=== PATIENT | female | born 1935 | race Caucasian/White ===

== ENCOUNTER 2017-01-28 08:43 | Outpatient (CLI) ==
[2016-06-27 09:34] VITALS: BMI 34.3
--- NOTE | 2017-01-29 07:55 | MAMMO ---
EXAM: Digital screening mammogram HISTORY: Screening COMPARISON: 01/25/2015 FINDINGS: Digital MLO and CC views of the right and left breast were performed. There are scatter ed fibroglandular densities. There is no evidence for mass, asymmetry, distortion, or suspicious ca lcifications in either breast. IMPRESSION: 1. No evidence of malignancy in the right or left breast. 2. Annual screening mammogram is recommended in one year. BIRADS category 1, negative examination
== END 2017-01-28 08:44 | disposition home or self-care (01) ==
LOC: RAD 08:43
PROVIDERS: ATTEND Emergency Medicine
DX: Z12.31 Encounter for screening mammogram for malignant neoplasm of breast (principal)

== ENCOUNTER 2017-02-14 10:44 | Outpatient (CLI) ==
[2016-06-27 09:34] VITALS: BMI 34.3
== END 2017-02-14 10:45 | disposition home or self-care (01) ==
LOC: LAB 10:44
PROVIDERS: ATTEND Emergency Medicine
DX: R30.0 Dysuria (principal); R39.89 Other symptoms and signs involving the genitourinary system
CPT/HCPCS: 87086

== ENCOUNTER 2017-03-13 09:53 | Inpatient (IN) ==
[2017-03-13 10:25] LABS: BASOPHILS # (AUTO) 0.1 K/uL (0-0.2); BASOPHILS % (AUTO) 0.7 % (0.0-3.0); EOSINOPHILS # (AUTO) 0.7 K/ul (0.0-0.7); HEMATOCRIT 37.7 % (37.0-47.0); HEMOGLOBIN 12.8 g/dl (12.0-16.0); IMMATURE GRANULOCYTE % (AUTO) 0.3 % (0.0-5.0); LYMPHOCYTES # (AUTO) 2.4 K/uL (0.60-3.4); LYMPHOCYTES % (AUTO) 28.2 (10.0-50.0); MEAN CORPUSCULAR HEMOGLOBIN 30.5 pg (27.0-31.0); MONOCYTES # (AUTO) 0.5 K/uL (0.4-2.0); MONOCYTES % (AUTO) 5.9 (0-10); NEUTROPHILS # (AUTO) 4.9 K/ul (2.0-6.9); NEUTROPHILS % (AUTO) 56.9; PLATELET COUNT 301 10^3/uL (140-440); RED BLOOD COUNT 4.19 10^6/ul (4.20-5.40); WHITE BLOOD COUNT 8.66 K/ul (4.6-10.2)
[2017-03-13 10:30] LABS: ABG BASE EXCESS -5 (-2.0-2.0); ABG HCO3 19.4 (22.0-26.0); ABG PCO2 31.5 mmHg (35-45); ABG PH 7.397 (7.35-7.45); ABG TCO2 20 (22.0-28.0)
[2017-03-13 11:02] LABS: ALBUMIN 3.9 g/dL (3.4-5.0); ALBUMIN/GLOBULIN RATIO 1.08; ANION GAP 15.2; BILIRUBIN,TOTAL 0.36 mg/dL (0.00-1.20); BUN/CREATININE RATIO 14.28; CALCIUM 9.5 mg/dL (8.2-10.2); CREATININE 1.12 mg/dL (0.60-1.30); POTASSIUM 4.2 mmol/L (3.5-5.10); TOTAL PROTEIN 7.5 g/dL (5.8-8.1); TROPONIN I 0.011 ng/ml (0.0000-0.4000)
--- NOTE | 2017-03-13 11:27 | CT ---
EXAM: CT of the lumbar spine without contrast History: Lower back pain. Comparison: CT lumbar spine 04/18/2015 Technique: Multiplanar CT images through the lumbar spine were obtained without the administration of IV contrast Findings: Partial sacralization of L5 on the left. Levoscoliosis. No acute fracture. Minimal ante rolisthesis of L4 on L5. Severe multilevel degenerative disc space narrowing with endplate sclerosi s, osteophyte formation and vacuum disc phenomenon. T12-L1: No significant bony central canal stenosis. Moderate left and mild right bony neural forami nal narrowing secondary to ligamentous and facet hypertrophy. L1-L2: Posterior disc osteophyte complex with mild bony central canal stenosis. Moderate to severe left and severe right bony neural foraminal narrowing secondary to ligamentous and facet hypertroph y. L2-L3: Small posterior disc osteophyte complex with mild bony central canal stenosis. Severe right and mild left bony neural foraminal narrowing secondary to ligamentous and facet hypertrophy. L3-L4: Small posterior disc osteophyte complex with mild bony central canal stenosis. Moderate lef t and severe right bony neural foraminal narrowing secondary to ligamentous and facet hypertrophy. L4-L5: Posterior disc osteophyte complex with moderate bony central canal stenosis. Moderate to se luis right and severe left bony neural foraminal narrowing secondary to ligamentous and facet hypert rophy. L5, S1: Mild bony central canal stenosis. Mild to moderate bilateral bony neural foraminal narrowi ng secondary to ligamentous and facet hypertrophy. Impression: 1. No acute fracture of the lumbar spine. 2. Severe degenerative disc disease. 3. Level by level analysis as detailed above.
--- NOTE | 2017-03-13 11:31 | CT ---
EXAM: Noncontrast CT of the abdomen and pelvis HISTORY: Flank pain COMPARISON: 06/27/2016 TECHNIQUE: Noncontrast CT of the abdomen and pelvis FINDINGS: Noncontrast technique limits evaluation of the abdominal viscera. There is mild right hemidiaphragm elevation. The unenhanced liver, spleen, and adrenals are unremarkable. The pancreas is mildly atr ophic. The gallbladder has been removed. The left kidney is slightly atrophic. There is mild fulln ess of the right renal collecting system. No renal, ureteral or bladder calculi are identified. No abnormal small bowel dilation is seen. There is minimal diverticulosis without evidence of diver ticulitis. The majority the colon is underdistended. The appendix is not identified. There is calcified atherosclerotic plaque of the aorta and iliac arteries. No free air or free flui d is seen. The uterus has been removed. There is reidentification of a pessary which is vertically oriented, similar to the prior exam. There is a small fat-containing umbilical hernia. There is sc oliosis and multilevel degenerative disc disease. Please see lumbar spine CT report for lumbar find ings. There are degenerative changes of the hips. IMPRESSION: No evidence of urolithiasis. Mild fullness of the right renal collecting system without regina hydronephrosis. Status post cholecystectomy and hysterectomy. Minimal diverticulosis without evidence of diverticulitis. Atherosclerosis. Other chronic and incidental findings as described above.
--- NOTE | 2017-03-13 11:33 | CT ---
EXAM: CT chest without contrast HISTORY: Dyspnea COMPARISON: Chest x-ray 04/18/2015 and multiple priors TECHNIQUE: Serial axial images of the chest were obtained from the lung apices to the upper abdomen without contrast. These were viewed in multiple planes. FINDINGS: The thyroid is normal. The visualized vessels demonstrate mild atherosclerotic disease w ithout aneurysm or stenosis. The heart is normal in size without pericardial effusion. There are n o pathologically enlarged mediastinal or hilar lymph nodes. There is no pneumothorax or pleural effusion. There is no consolidation, nodule or mass. There is no abnormal ground-glass. The airways are patent. There is scattered degenerative disease throughout the thoracic spine with scattered facet arthropat hy. There has been a prior cholecystectomy. There is a small hiatal hernia. The thoracic spine is b anna evaluated on same day CT. IMPRESSION: 1. No acute cardiopulmonary process. 2. Mild scattered degenerative disease of the spine and atherosclerotic disease. 3. Prior cholecystectomy and small hiatal hernia.
--- NOTE | 2017-03-13 11:38 | CT ---
EXAM: CT thoracic spine without contrast HISTORY: Back pain COMPARISON: None TECHNIQUE: CT thoracic spine performed without intravenous contrast. Coronal and sagittal reformat deysi images obtained. FINDINGS: Vertebral bodies normal height. No fracture. No subluxation. Multilevel moderate chron ic discogenic degenerative disease with multilevel intervertebral disc space narrowing and marginal osteophyte formation. Multilevel posterior disc osteophyte complexes causing mild multilevel centra l canal and neural foraminal narrowing. No paravertebral soft tissue abnormality. Please refer to separate report CT chest regarding findings in the chest. IMPRESSION: 1. No fracture or subluxation. 2. Chronic discogenic degenerative disease.
[2017-03-13 11:49] LABS: ADD URINE MICROSCOPIC YES; BILIRUBIN,URINE Negative (NEGATIVE); KETONES,URINE Negative (NEGATIVE); LEUKOCYTE ESTERASE ,URINE 2+ (NEGATIVE); NITRITE,URINE Negative (NEGATIVE); PROTEIN,URINE Negative (NEGATIVE); URINE, BLOOD Negative (NEGATIVE)
[2017-03-13 11:52] LABS: BACTERIA,URINE TRACE (NOT PRESENT)
[2017-03-13] MEDS ORDERED: NORCO 7.5-325 PO STA (12:00)
--- NOTE | 2017-03-13 12:00 | ED.PDOC ---
General ED Provider: Dr. ROBSON WONG-ER Chief Complaint: Back Pain Stated Complaint: my chest hurt this am and i got sweaty--i have angina Time Seen by Physician: 10:00 Mode of Arrival: Wheelchair Information Source: Patient, Family Exam Limitations: No limitations Primary Care Provider: DESTINEY STEVEN Nursing and Triage Documentation Reviewed and Agree: Yes Cardiovascular Complaint Exam - Chest Pain Complaint/Exam Onset: Gradual Duration: thsi am Symptoms Are: Resolved Initial Severity: Mild Current Severity: Moderate Location: Reports: Diffuse Character: Reports: Dull, Aching, Heaviness, Pressure Aggravating: Reports: None Alleviating: Reports: Spontaneous resolution Associated Signs and Symptoms: Reports: Diaphoresis, Back pain. Denies: Nausea , Vomiting, Fever, Palpitations, Cough, Hemoptysis, Abdominal pain, Dizziness, Short of air, Calf pain, Calf swelling AMI/ACS Risk Factors: Reports: Sedentary, Diabetes, Obesity, Hypertension TAD Risk Factors: Reports: Hypertension Pulmonary Embolism Risk Factors: Reports: None Prior Care for this Complaint: Yes Recent Stress Test: No Recent Echo/LV Function: No JVD Present: No Subcutaneous Emphysema Present: No Diminshed Breath Sounds: No Reproducible Chest Wall Pain: No Bilateral Pulses Present: Yes Unequal Pulses Noted: No If Risk Factors for AMI/ACS Consider: EKG, Cardiac Enzymes Differential Diagnoses: Acute NC, ACS Quality Indicators For Acute NC or Cardiac Chest Pain: EKG in 10min. Quality Indicator For Non-Traumatic Chest Pain/Syncope: EKG Performed Review of Systems - Review Of Systems Constitutional: Reports: No symptoms Eyes: Reports: No symptoms Ears, Nose, Mouth, Throat: Reports: No symptoms Respiratory: Reports: No symptoms Cardiac: Reports: Chest pain GI: Reports: No symptoms : Reports: No symptoms Musculoskeletal: Reports: No symptoms Skin: Reports: No symptoms Neurological: Reports: No symptoms Endocrine: Reports: No symptoms Hematologic/Lymphatic: Reports: No symptoms All Other Systems: Reviewed and Negative Past Medical History - Past Medical History Previously Healthy: No Endocrine: Reports: Dyslipidemia Cardiovascular: Reports: Hypertension Respiratory: Reports: None Hematological: Reports: None Gastrointestinal: Reports: GERD Genitourinary: Reports: None Neuro/Psych: Reports: None Musculoskeletal: Reports: None Cancer: Reports: None Last Menstrual Period: NONE - Surgical History General Surgical History: Reports: None - Family History Family History: Reports: None - Social History Smoking Status: Never smoker Hx Substance Use: No Alcohol Screening: None Physical Exam - Physical Exam Appearance: Well-appearing, No pain distress, Well-nourished Pain Distress: Mild Eyes: MOISÉS ENT: Ears normal, Nose normal, Oropharynx normal Neck: Supple Respiratory: Airway patent Cardiovascular: RRR, Pulses normal, No rub, No murmur GI/: Soft, Nontender, No masses, Bowel sounds normal, No Organomegaly Musculoskeletal: Normal strength, ROM intact, No edema, No calf tenderness Skin: Warm, Dry, Normal color Neurological: Sensation intact, Motor intact, Reflexes intact, Cranial nerves intact, Alert, Oriented Psychiatric: Affect appropriate, Mood appropriate Interpretation - Radiology Interpretation Radiology Interpretation By: Radiologist Radiology Results: Positive Exam Interpreted: CT Scan - EKG Interpretation Time of EKG #1: 12:07 Rate: Normal Rhythm: Sinus Ectopy: None [place]: NL ST Segment: Normal Re-Evaluation - Re-Evaluation Time of Re-Evaluation: 12:07 Status: Improved Vital Signs Stable: Yes Pain Level: 1 Appearance: NAD Lungs: Clear Skin: Warm and Dry Neuro: Alert and Oriented X3 CV: RRR Physician Notification - Case Discussed Physician Notified: dr steven Time of Notification: 12:07 Critical Care Note - Critical Care Note Total Time (mins): 0 Course - Course Hematology/Chemistry: 03/13/17 10:10 03/13/17 10:10 Orders, Labs, Meds: Lab Review 03/13/17 03/13/17 03/13/17 10:10 10:13 11:15 WBC 8.66 RBC 4.19 L Hgb 12.8 Hct 37.7 MCV 90.0 MCH 30.5 MCHC 34.0 RDW Coeff of Gloria 12.6 Plt Count 301 Immature Gran % (Auto) 0.3 Neut % (Auto) 56.9 Lymph % (Auto) 28.2 [place] % (Auto) 5.9 Eos % (Auto) 8.0 H Baso % (Auto) 0.7 Immature Gran # (Auto) 0.0 Neut # 4.9 Lymph # 2.4 [place] # 0.5 Eos # 0.7 Baso # 0.1 D-Dimer (Manual) 944.20 Puncture Site Rr O2 Saturation 96.0 ABG pH 7.397 ABG pCO2 31.5 L ABG pO2 85.0 ABG HCO3 19.4 L ABG Total CO2 20 L ABG Base Excess -5 L Damion Test + FiO2 % 21.0 Sodium 139 Potassium 4.2 Chloride 106 Carbon Dioxide 22 L Anion Gap 15.2 BUN 16 Creatinine 1.12 Estimated GFR (MDRD) 46.00 BUN/Creatinine Ratio 14.28 Glucose 125 H Calcium 9.5 Total Bilirubin 0.36 AST 14 L ALT 12 Alkaline Phosphatase 73 Total Creatine Kinase 73 Troponin I 0.0110 B-Natriuretic Peptide 116 H Total Protein 7.5 Albumin 3.9 Globulin 3.6 Albumin/Globulin Ratio 1.08 Urine Color Yellow Urine Clarity Clear Urine pH 6.0 Ur Specific [place] 1.010 Urine Protein Negative Urine Glucose (UA) Negative Urine Ketones Negative Urine Blood Negative Urine Nitrite Negative Urine Bilirubin Negative Urine Urobilinogen 0.2 Ur Leukocyte Esterase 2+ Urine Microscopic RBC 2-5 Urine Microscopic WBC 5-10 Ur Squamous Epith Cells 0-2 Urine Bacteria Trace Orders Category Date Time Status ABG DRAW REQUEST Stat CARDIO 03/13/17 10:13 Completed EKG-(ED ONLY) Stat CARDIO 03/13/17 10:13 Completed Foxing Cutting Machine Operator [ED STRIPPER BLACK AND WHITE APPLIED] .ONCE EMERGENCY 03/13/17 10:15 Active OXYGEN [ED APPLY O2] .ONCE EMERGENCY 03/13/17 12:08 Active ABG Stat LAB 03/13/17 10:13 Completed B-TYPE NATRIURETIC PEPTIDE Stat LAB 03/13/17 10:10 Completed CBC W/ AUTO DIFF Stat LAB 03/13/17 10:10 Completed COMPREHENSIVE METABOLIC PANEL Stat LAB 03/13/17 10:10 Completed CREATINE KINASE Stat LAB 03/13/17 10:10 Completed D-DIMER Stat LAB 03/13/17 10:10 Completed TROPONIN I Stat LAB 03/13/17 10:10 Completed URINALYSIS C & S IF INDICATED Stat LAB 03/13/17 11:15 Completed URINE CULTURE Stat LAB 03/13/17 11:52 Received Hydrocodone Bit/Acetaminophen [[place] 7.5-325] MEDS 03/13/17 12:00 Discontinued 1 tab PO ONCE STA Levofloxacin [Levaquin] MEDS 03/13/17 12:30 Active [address] ABDOMEN/PELVIS WO CONTRAST Stat RADS 03/13/17 10:[address] CHEST W/O CONTRAST Stat RADS 03/13/17 10:[address] LUMBAR SPINE W/O CONTRAST Stat RADS 03/13/17 10:[address] THORACIC SPINE W/O CONTRAST Stat RADS 03/13/17 10:16 Completed Medications Generic Name Dose Route Start Last Admin Trade Name Freq PRN Reason Stop Dose Admin Levofloxacin 250 mg 03/13/17 12:30 Levaquin PO QDAC JEAN-PIERRE Discontinued Medications Generic Name Dose Route Start Last Admin Trade Name Freq PRN Reason Stop Dose Admin Acetaminophen/Hydrocodone Bitart 1 tab 03/13/17 12:00 [place] 7.5-325 PO 03/13/17 12:01 ONCE STA Vital Signs: Temp Pulse Resp BP Pulse Ox 03/13/17 09:54 98.0 F 61 18 162/74 H 96 BRIANA Risk Score BRIANA Risk Score: Risk Score Odds of by 30D 0 0.1 (0.1-0.2) 1 0.3 (0.2-0.3) 2 0.4 (0.3-0.5) 3 0.7 (0.6-0.9) 4 1.2 (1.0-1.5) 5 2.2 (1.9-2.6) 6 3.0 (2.5-3.6) 7 4.8 (3.8-6.1) Departure - Departure Time of Disposition: 12:07 Disposition: ADMITTED INPATIENT Discharge Problem: Angina pectoris Condition: Stable Pt referred to PMD for follow-up: Yes Allergies/Adverse Reactions: Allergies Penicillins Allergy (Severe, Verified 03/13/17 10:12) Anaphylaxis Cephalosporins Adverse Reaction (Severe, Verified 03/13/17 10:12) Anaphylaxis nitrofurantoin macrocrystal [From Macrodantin] Adverse Reaction (Severe, Verified 03/13/17 10:12) Anaphylaxis phenobarbital Adverse Reaction (Severe, Verified 03/13/17 10:12) Hives Sulfa (Sulfonamide Antibiotics) Adverse Reaction (Severe, Verified 03/13/17 10: 12) Anaphylaxis atropine sulfate [From ] Adverse Reaction (Verified 03/13/17 10:12) furosemide [From Lasix] Adverse Reaction (Verified 03/13/17 10:12) Rash hyoscyamine sulfate [From ] Adverse Reaction (Verified 03/13/17 10:12) lansoprazole [From Prevacid] Adverse Reaction (Verified 03/13/17 10:12) scopolamine hydrobromide [From ] Adverse Reaction (Verified 03/13/17 10: 12) Home Medications: Ambulatory Orders Azelastine HCl [Astelin 0.1%] 2 spray NS BID 05/28/13 Bisoprolol Fumarate [Zebeta] 10 mg PO DAILY 05/28/13 Lorazepam [Ativan] 1 mg PO BID 05/28/13 Metformin HCl [Glucophage] 500 mg PO BIDBRS 05/28/13 Pravastatin Sodium [Pravachol] 80 mg PO BEDTIME 05/28/13 Acetaminophen [Tylenol] 1,000 mg PO Q12H PRN 11/19/13 Aspirin [Aspirin EC] 81 mg PO DAILYWM 11/19/13 Cetirizine HCl 10 mg PO DAILY 11/19/13 Hydrocodone/Acetaminophen [Hydrocodon-Acetaminophen 5-500] 1 tab PO DAILY PRN Methylcellulose [Citrucel] 1 tab PO BID PRN 11/19/13 Olmesartan/Hydrochlorothiazide [Benicar Hct 40-12.5 mg Tablet] 1 tab PO DAILY Omeprazole [Prilosec] 40 mg PO DAILY 11/19/13 Potassium Citrate [Potassium Citrate ER] 10 meq PO BID 11/19/13 Carbamazepine 200 mg PO DAILY PRN 04/18/15 Disposition Discussed With: Patient, Family
[2017-03-13] MEDS ORDERED: METHYLCELLULOSE PO PRN (12:14)
[2017-03-13] MEDS ORDERED: ACETAMINOPHEN PO PRN (12:14)
[2017-03-13] MEDS ORDERED: HYDROCODONE PO PRN (12:14)
[2017-03-13] MEDS ORDERED: [UNRECOGNIZED DRUG - OTHER] PO PRN (12:14)
[2017-03-13] MEDS ORDERED: MORPHINE 2 MG/ML SYRINGE IVP PRN (12:17)
[2017-03-13] MEDS ORDERED: NITROSTAT SL PRN (12:17)
[2017-03-13] MEDS ORDERED: ZOFRAN 4 MG/2 ML IVP PRN (12:17)
[2017-03-13] MEDS: LEVAQUIN PO SCH (12:20)
[2017-03-13] MEDS ORDERED: NORCO 5-325 PO PRN (12:48)
[2017-03-13 13:20] VITALS: BMI 33.6
[2017-03-13] MEDS: GLUCOPHAGE PO SCH ×2 (14:45→17:33)
[2017-03-13] MEDS: NORCO 5-325 PO PRN (15:57)
[2017-03-13] MEDS ORDERED: TORADOL IVP PRN (16:03)
[2017-03-13] MEDS ORDERED: DECADRON 4 MG/ML SDV IVP STA (16:04)
[2017-03-13] MEDS: TORADOL IVP SCH (16:26)
[2017-03-13 18:45] LABS: TROPONIN I 0.014 ng/ml (0.0000-0.4000)
[2017-03-13] MEDS ORDERED: POTASSIUM CITRATE 10 MEQ PO SCH (21:00)
[2017-03-13] MEDS ORDERED: NON-FORMULARY MEDICATION (Pravastatin Sodium [Pravachol] 80 MG) PO SCH ×22 (21:00)
[2017-03-13] MEDS: ASTELIN 0.1% NAS SCH (21:04)
[2017-03-13] MEDS: PRAVACHOL PO SCH (21:05)
[2017-03-13] MEDS: ATIVAN PO SCH (21:05)
[2017-03-14] MEDS: TYLENOL PO PRN (02:20)
[2017-03-14 02:55] LABS: BASOPHILS % (AUTO) 0.4 % (0.0-3.0); EOSINOPHILS % (AUTO) 0.1 % (0.0-7.0); HEMATOCRIT 36.2 % (37.0-47.0); HEMOGLOBIN 12.3 g/dl (12.0-16.0); IMMATURE GRANULOCYTE % (AUTO) 0.4 % (0.0-5.0); LYMPHOCYTES # (AUTO) 1.5 K/uL (0.60-3.4); LYMPHOCYTES % (AUTO) 20.3 (10.0-50.0); MEAN CORPUSCULAR HEMOGLOBIN 30.4 pg (27.0-31.0); MEAN CORPUSCULAR VOLUME 89.6 fl (81.0-99.0); MONOCYTES # (AUTO) 0.1 K/uL (0.4-2.0); MONOCYTES % (AUTO) 1.4 (0-10); NEUTROPHILS # (AUTO) 5.7 K/ul (2.0-6.9); NEUTROPHILS % (AUTO) 77.4; PLATELET COUNT 290 10^3/uL (140-440); RED BLOOD COUNT 4.04 10^6/ul (4.20-5.40); WHITE BLOOD COUNT 7.34 K/ul (4.6-10.2)
[2017-03-14 03:09] LABS: ALBUMIN 3.6 g/dL (3.4-5.0); ALBUMIN/GLOBULIN RATIO 1.06; ANION GAP 16.5; BILIRUBIN,TOTAL 0.35 mg/dL (0.00-1.20); BUN/CREATININE RATIO 13.81; CALCIUM 9.2 mg/dL (8.2-10.2); CREATININE 1.52 mg/dL (0.60-1.30); POTASSIUM 4.5 mmol/L (3.5-5.10)
[2017-03-14 03:15] LABS: TROPONIN I 0.021 ng/ml (0.0000-0.4000)
[2017-03-14] MEDS: TORADOL IVP SCH ×2 (04:53→16:09)
[2017-03-14] MEDS: PRILOSEC PO SCH (05:42)
[2017-03-14] MEDS: LEVAQUIN PO SCH (05:44)
[2017-03-14] MEDS: HYDROCHLOROTHIAZIDE PO SCH (08:37)
[2017-03-14] MEDS: ZYRTEC PO SCH (08:37)
[2017-03-14] MEDS: ASTELIN 0.1% NAS SCH ×2 (08:37→20:50)
[2017-03-14] MEDS: BENICAR PO SCH (08:37)
[2017-03-14] MEDS: LOVENOX SUBCUT SCH (08:37)
[2017-03-14] MEDS: GLUCOPHAGE PO SCH ×2 (08:38→16:30)
[2017-03-14] MEDS: ZEBETA PO SCH (08:38)
[2017-03-14] MEDS: ATIVAN PO SCH ×2 (08:42→20:51)
[2017-03-14] MEDS: ASPIRIN EC PO SCH (08:42)
[2017-03-14] MEDS ORDERED: OLMESARTAN PO SCH ×22 (09:00)
[2017-03-14] MEDS ORDERED: HYDROCHLOROTHIAZIDE PO SCH ×22 (09:00)
[2017-03-14] MEDS ORDERED: NON-FORMULARY MEDICATION (Omeprazole [Prilosec] 40 MG) PO SCH (09:00)
[2017-03-14] MEDS ORDERED: [UNRECOGNIZED DRUG - OTHER] PO SCH ×22 (09:00)
--- NOTE | 2017-03-14 09:53 | PCM.PROG ---
Attending Provider: ATTENDING PROVIDER: Dr. DESTINEY COPPOLA DATE OF SERVICE: 03/14/17 SUBJECTIVE: This 81 year old WHITE/ F was hospitalized 03/13/17. The patient is hospitalized with chest pain localized pectoris muscle going to the back on the left side, more so when she changes her position. The pain seems to be musculoskeletal in type. The patient has no pain this morning. REVIEW OF SYSTEMS: CONSTITUTIONAL: No night sweats. No fatigue, malaise, lethargy. No fever or chills. HEENT: Eyes: No visual changes. No eye pain. No eye discharge. ENT: No runny nose. No epistaxis. No sinus pain. No odynophagia. No congestion. RESPIRATORY: No cough, no congestion. No hemoptysis. CARDIOVASCULAR: No angina symptoms. No CHF symptoms. No atypical chest pain for CAD. No palpitations. No shortness of breath. GASTROINTESTINAL: No abdominal pain. No nausea or vomiting. No diarrhea or constipation. No hematemesis. No hematochezia. GENITOURINARY: No urgency. No frequency. No dysuria. No hematuria. No obstructive symptoms. No discharge. No pain. No significant abnormal bleeding. MUSCULOSKELETAL: No musculoskeletal pain; no joint swelling. NEUROLOGICAL: Awake, alert, oriented to time, place and person. No headache. No neck pain. No syncope. No seizures. No dizziness. PSYCHIATRIC: Not anxious. No depression. No suicidal thoughts. No homicidal thoughts. SKIN: No rash. No lesions. No wounds. ENDOCRINE: No unexplained weight loss. No weight gain. HEMATOLOGIC/LYMPHATIC: No anemia. No purpura. No petechiae. No prolonged or excessive bleeding. No palpable lymph nodes. PHYSICAL EXAMINATION: GENERAL: The patient is awake, alert and oriented, sitting on side of bed in no distress. VITAL SIGNS: Temperature 97 F, Pulse 55, Respiratory Rate 16, BP 118/54, Pulse Ox 96% HEENT: Head normocephalic, atraumatic. Eyes: Extraocular muscles are intact. Pupils are equal, round and reactive to light and accommodation. Ears: No lesions. Nose appeared normal. Throat: No exudate or erythema. NECK: Supple. No JVD, no carotid bruit. No lymphadenopathy or thyromegaly. LUNGS: Clear to auscultation. Percussion note normal. Chest symmetrical. HEART: S1, S2, no S3. No murmurs. No cyanosis or clubbing. No ascites. Pulses: Dorsalis pedis and posterior tibial pulses +1 to +2 both sides. ABDOMEN: Soft. Non-tender. Bowel sounds active. No CVA tenderness. No mass felt. EXTREMITIES: No edema. Full range of motion of all extremities, equal. NEUROLOGIC: No focal deficit. Cranial nerves II through XII are grossly intact. No headache, no double vision or headache. SKIN: Not dry. Intact. Turgor-normal. LYMPHATIC: No palpable lymph nodes/no lymphedema. MUSCULOSKELETAL: Normal joints with no swelling. Muscle tone is normal. LAB REVIEW: 03/14/17 02:30 03/14/17 02:30 03/14/17 02:30: WBC 7.34, RBC 4.04 L, Hgb 12.3, Hct 36.2 L, MCV 89.6, MCH 30.4, MCHC 34.0, RDW Coeff of Gloria 12.6, Plt Count 290, Immature Gran % (Auto) 0.4, Neut % (Auto) 77.4, Lymph % (Auto) 20.3, [place] % (Auto) 1.4, Eos % (Auto) 0.1, Baso % (Auto) 0.4, Immature Gran # (Auto) 0.0, Neut # 5.7, Lymph # 1.5, [place] # 0.1 L, Eos # 0.0, Baso # 0.0, Sodium 134 L, Potassium 4.5, Chloride 104, Carbon Dioxide 18 L, Anion Gap 16.5, BUN 21 H, Creatinine 1.52 H, Estimated GFR (MDRD) 33.00, BUN/Creatinine Ratio 13.81, Glucose 199 H D, Calcium 9.2, Total Bilirubin 0.35, AST 14 L, ALT 13, Alkaline Phosphatase 68, Total Creatine Kinase 70, Troponin I 0.0210, Total Protein 7.0, Albumin 3.6, Globulin 3.4, Albumin/Globulin Ratio 1.06 03/13/17 18:15: Total Creatine Kinase 60, Troponin I 0.0140 ASSESSMENT: 1. Chest pain seems to be noncardiac, more musculoskeletal 2. History of CAD 3. LAD lesion 50% 15 years ago 4. Dyslipidemia 5. Hypertension 6. Diabetes PLAN: 1. Echocardiogram to evaluate LV function. 2. Continue cardiac markers. 3. D-dimer positive - will check venous scan and if negative will not pursue to rule out PE. The patient has no symptoms of sinus PE. 4. Carotid scan if not done lately. Plan and coordination of the patient's care discussed in the presence of Concrete Building Assembler and nurse. EDUCATION: Discussed with the patient further plan of care. She voiced understanding and is agreeable. CONDITION: Stable SCRIBED BY: CHARLA OLIVAREZ Optician Apprentice Dispensing scribed while in presence of service performed by Dr. DESTINEY COPPOLA on 03/14/17 ([id number])
[2017-03-14] MEDS: NORCO 5-325 PO PRN (09:56)
--- NOTE | 2017-03-14 11:13 | HP ---
DATE OF SERVICE: 03/13/17 REASON FOR HOSPITALIZATION: Chest pain. HISTORY OF PRESENT ILLNESS: 65-year-old white female has been having chest pain off and on for the past 4 to 5 days. The patient's pain is precordial, localized and when she moves from side to side the pain is more. Also complains of pain in the left flank area going up to the scapular area more so when she stretches. The patient denies any associated symptoms of sweating, shortness of breath, et cetera. REVIEW OF SYSTEMS: CONSTITUTIONAL: Weakness. No night sweats. No fever or chills. HEENT: Eyes: No visual changes. No eye pain. No eye discharge. ENT: No runny nose. No epistaxis. No sinus pain. No sore throat. No odynophagia. No ear pain. No congestion. RESPIRATORY: No cough, no congestion. No hemoptysis. CARDIOVASCULAR: Chest pain. No angina symptoms. No CHF symptoms. No palpitations. No shortness of breath. GASTROINTESTINAL: No abdominal pain. No nausea or vomiting. No diarrhea or constipation. No hematemesis. No hematochezia. GENITOURINARY: No urgency. No frequency. No dysuria. No hematuria. No obstructive symptoms. No discharge. No pain. No significant abnormal bleeding. MUSCULOSKELETAL: Back pain. NEUROLOGICAL: No headache. No neck pain. No syncope. No seizures. No dizziness. PSYCHIATRIC: Not anxious. No depression. No suicidal thoughts. No homicidal thoughts. SKIN: No rash. No lesions. No wounds. ENDOCRINE: No unexplained weight loss. No weight gain. HEMATOLOGIC/LYMPHATIC: No anemia. No purpura. No petechiae. No prolonged or excessive bleeding. No palpable lymph nodes. PERSONAL/FAMILY/SOCIAL HISTORY: The patient is , lives by herself with the help of son. Nonsmoker, no alcohol abuse. She does all activities of daily living. PAST MEDICAL/SURGICAL PROBLEMS: 1. Appendectomy 2. Hysterectomy 3. Left knee replacement 4. Left ankle surgery 5. Surgical lysis of intestinal adhesions 6. Cholecystectomy 7. Hypertension 8. Coronary artery disease 9. Dyslipidemia 10. Diabetes mellitus 11. Anemia 12. 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 Sciatica MEDICATIONS: 1. Clobestasol 0.04 5% cream 2. [place] 5/325 one a day 3. K-Tab 10 mEq p.o. twice a day 4. Prilosec 40 mg p.o. q.a.m. 5. Metformin 500 mg twice a day 6. Zebeta 10 mg p.o. daily 7. Benicar 40 mg p.o. daily 8. Hydrochlorothiazide 40/12.5 p.o. daily 9. Pravastatin 80 mg p.o. daily 10. Lorazepam 1 mg b.i.d. p.r.n. 11. Aspirin coated one a day ALLERGIES: CEPHALOSPORIN, , LASIX, MACRODANTIN, PENICILLIN, SULFA, PHENOBARBITAL PHYSICAL EXAMINATION: GENERAL: The patient is oriented to time, place and person. VITAL SIGNS: Temperature 98, pulse 80/min, respiratory rate 15, BP 124/72, pulse ox 97%. Height 5'3", weight 220 lbs. HEENT: Head normocephalic, atraumatic. Eyes: Extraocular muscles are intact. Pupils are equal, round and reactive to light and accommodation. Ears: No lesions. Nose appeared normal. Throat: No exudate or erythema. NECK: Supple. No JVD, no carotid bruit. No lymphadenopathy or thyromegaly. LUNGS: Clear to auscultation. Percussion note normal. Chest symmetrical. HEART: S1, S2, no S3. No murmurs. No cyanosis or clubbing. No ascites. Pulses: Dorsalis pedis and posterior tibial pulses +1 to +2 both sides. ABDOMEN: Soft. Nontender. Bowel sounds active. No CVA tenderness. No mass felt. EXTREMITIES: No edema. Full range of motion of all extremities, equal. NEUROLOGIC: No focal deficit. Cranial nerves II through XII are grossly intact. No headache, no double vision or headache. SKIN: Not dry. Intact. Turgor - normal. LYMPHATIC: No palpable lymph nodes/no lymphedema. MUSCULOSKELETAL: Normal joints with no swelling. Muscle tone is normal. LABS/X-RAY/ABGs: Cardiac markers CK total, CBC, CMP negative. ABG p02 85, pc02 31, pH 7.39 on room air with 96% saturation. D. dimer 944, normal is up to 500. Hemoglobin 12.8 , hematocrit 37. CT scan of the lumbar spine no acute fracture of lumbar spine. Severe DJD. Noncontrast CT of the abdomen and pelvis mild fullness of right renal collecting system without hydronephrosis. Status post cholecystectomy, hysterectomy, atherosclerosis. CT of the thoracic spine DJD of the spine. CT of the chest mild scattered degenerative disease of the spine. No acute findings. UA shows 2+ leukocyte esterase and trace bacteria. Creatinine 1.1, BUN 16, potassium 4.2, glucose 125, normal liver profile. BNP 116, practically normal. ASSESSMENT: 1. CHEST PAIN SEEMS TO BE MUSCULOSKELETAL 2. HISTORY OF CORONARY ARTERY DISEASE WITH LAD BEING 50% NEARLY 10 TO 15 YEARS AGO 3. HYPERTENSION 4. DYSLIPIDEMIA 5. DIABETES MELLITUS 6. MORBID OBESITY 7. DIVERTICULOSIS 8. UTERINE PROLAPSE 9. SCIATICA 10. CHRONIC KIDNEY DISEASE PLAN: 1. Admission to the hospital with serial EKGs and cardiac markers. 2. Telemetry. 3. Toradol 30 mg IV q.12. 4. 1 cc Decadron now. EDUCATION CARRIED OUT ABOUT: The son is in the room. The patient is strongly advised to lose weight, up and about. Cardiac rehabilitation discussed. CONDITION: STABLE TIME SPENT: More than 70 minutes. MTDD
--- NOTE | 2017-03-14 15:46 | US ---
EXAM: Bilateral lower extremity venous Doppler HISTORY: Concern for DVT with lower extremity pain and diarrhea. COMPARISON: Venous Doppler 04/18/2015 TECHNIQUE: Sonographic and Doppler evaluation of the bilateral lower extremity vessels from the com mon femoral through the anterior tibial veins were obtained. Augmentation and compression technique s were also performed. FINDINGS: There is spontaneous Doppler flow seen in the bilateral lower extremity veins from the co mmon femoral through the anterior tibial veins. There is normal compression and augmentation throug hout the lower extremity veins. There is no visualized reflux. Sonographic appearance of the soft tissues are unremarkable. IMPRESSION: No lower extremity thrombus
--- NOTE | 2017-03-14 15:55 | US ---
Exam: Carotid ultrasound. HISTORY: Dizziness. COMPARISON: None available. FINDINGS: Pascual scale, color Doppler evaluation of the carotid arteries was performed bilaterally. The examination is mildly limited due to patient body habitus. Right: Mild distal CCA, proximal ICA and proximal ECA plaque is seen. Antegrade flow seen in the r ight vertebral artery. The carotid artery velocities are as follows: Right ICA peak systolic velocity 90 cm/sec. Right ICA end diastolic velocity 20 cm/sec. Right CCA peak systolic velocity 50 cm/sec. Right ECA peak systolic velocity 110 cm/sec. Right ICA/CCA ratio 1.9. Left: There is minimal distal CCA, proximal ICA and proximal ECA plaque. Antegrade flow is seen in the left vertebral artery. The carotid velocities are as follows: Left ICA peak systolic velocity 110 cm/sec. Left ICA end diastolic velocity 20 cm/sec. Left CCA peak systolic velocity 130 cm/sec. Left ECA peak systolic velocity 70 cm/sec. Left ICA/CCA ratio 0.9. IMPRESSION: Mild right and minimal left-sided atherosclerotic plaque. Bilateral ICA velocity compatible with less than 50% diameter reduction.
[2017-03-14] MEDS: PRAVACHOL PO SCH (20:50)
[2017-03-15] MEDS: TORADOL IVP SCH ×2 (05:00→05:09)
[2017-03-15] MEDS: PRILOSEC PO SCH (06:33)
[2017-03-15] MEDS: LEVAQUIN PO SCH (06:34)
[2017-03-15 07:14] LABS: BASOPHILS # (AUTO) 0.1 K/uL (0-0.2); BASOPHILS % (AUTO) 0.6 % (0.0-3.0); EOSINOPHILS # (AUTO) 0.3 K/ul (0.0-0.7); EOSINOPHILS % (AUTO) 3.2 % (0.0-7.0); HEMOGLOBIN 10.8 g/dl (12.0-16.0); IMMATURE GRANULOCYTE % (AUTO) 0.5 % (0.0-5.0); LYMPHOCYTES # (AUTO) 3.8 K/uL (0.60-3.4); LYMPHOCYTES % (AUTO) 38.8 (10.0-50.0); MEAN CORPUSCULAR HEMOGLOBIN 30.3 pg (27.0-31.0); MEAN CORPUSCULAR HGB CONC 33.8 (31.8-35.4); MEAN CORPUSCULAR VOLUME 89.9 fl (81.0-99.0); MONOCYTES # (AUTO) 0.7 K/uL (0.4-2.0); MONOCYTES % (AUTO) 6.7 (0-10); NEUTROPHILS # (AUTO) 4.9 K/ul (2.0-6.9); NEUTROPHILS % (AUTO) 50.2; PLATELET COUNT 269 10^3/uL (140-440); RED BLOOD COUNT 3.56 10^6/ul (4.20-5.40)
[2017-03-15 07:34] LABS: ALBUMIN 3.3 g/dL (3.4-5.0); ALBUMIN/GLOBULIN RATIO 1.22; ANION GAP 14.2; BILIRUBIN,TOTAL 0.3 mg/dL (0.00-1.20); BUN/CREATININE RATIO 18.57; CALCIUM 8.6 mg/dL (8.2-10.2); CREATININE 1.83 mg/dL (0.60-1.30); POTASSIUM 4.2 mmol/L (3.5-5.10)
[2017-03-15] MEDS: HYDROCHLOROTHIAZIDE PO SCH (10:42)
[2017-03-15] MEDS: ZEBETA PO SCH (10:43)
[2017-03-15] MEDS: ASPIRIN EC PO SCH (10:43)
[2017-03-15] MEDS: BENICAR PO SCH (10:43)
[2017-03-15] MEDS: ZYRTEC PO SCH (10:43)
[2017-03-15] MEDS: GLUCOPHAGE PO SCH ×2 (10:44→17:19)
[2017-03-15] MEDS: ASTELIN 0.1% NAS SCH ×2 (10:44→20:51)
[2017-03-15] MEDS: ATIVAN PO SCH ×2 (10:44→20:51)
[2017-03-15] MEDS: LOVENOX SUBCUT SCH (10:44)
[2017-03-15] MEDS: TYLENOL PO PRN (13:50)
[2017-03-15] MEDS: NORCO 5-325 PO PRN (20:51)
[2017-03-15] MEDS: PRAVACHOL PO SCH (20:52)
[2017-03-16] MEDS: TORADOL IVP SCH ×2 (04:07→16:47)
[2017-03-16] MEDS: LEVAQUIN PO SCH (05:41)
[2017-03-16] MEDS: PRILOSEC PO SCH (05:41)
[2017-03-16 05:46] LABS: BASOPHILS # (AUTO) 0.1 K/uL (0-0.2); BASOPHILS % (AUTO) 0.7 % (0.0-3.0); EOSINOPHILS # (AUTO) 0.9 K/ul (0.0-0.7); EOSINOPHILS % (AUTO) 8.7 % (0.0-7.0); HEMATOCRIT 31.5 % (37.0-47.0); HEMOGLOBIN 10.7 g/dl (12.0-16.0); IMMATURE GRANULOCYTE % (AUTO) 0.5 % (0.0-5.0); LYMPHOCYTES # (AUTO) 3.8 K/uL (0.60-3.4); LYMPHOCYTES % (AUTO) 38.5 (10.0-50.0); MEAN CORPUSCULAR HEMOGLOBIN 30.5 pg (27.0-31.0); MEAN CORPUSCULAR VOLUME 89.7 fl (81.0-99.0); MONOCYTES # (AUTO) 0.8 K/uL (0.4-2.0); MONOCYTES % (AUTO) 7.8 (0-10); NEUTROPHILS # (AUTO) 4.3 K/ul (2.0-6.9); NEUTROPHILS % (AUTO) 43.8; PLATELET COUNT 268 10^3/uL (140-440); RED BLOOD COUNT 3.51 10^6/ul (4.20-5.40); WHITE BLOOD COUNT 9.83 K/ul (4.6-10.2)
[2017-03-16 06:10] LABS: ALBUMIN 3.1 g/dL (3.4-5.0); ALBUMIN/GLOBULIN RATIO 1.11; ANION GAP 15.3; BILIRUBIN,TOTAL 0.29 mg/dL (0.00-1.20); BUN/CREATININE RATIO 21.13; CALCIUM 8.3 mg/dL (8.2-10.2); CREATININE 1.94 mg/dL (0.60-1.30); POTASSIUM 4.3 mmol/L (3.5-5.10); TOTAL PROTEIN 5.9 g/dL (5.8-8.1)
[2017-03-16] MEDS: ASPIRIN EC PO SCH (08:18)
[2017-03-16] MEDS: GLUCOPHAGE PO SCH ×2 (08:18→16:47)
[2017-03-16] MEDS: ZEBETA PO SCH (08:18)
[2017-03-16] MEDS: BENICAR PO SCH (08:19)
[2017-03-16] MEDS: LOVENOX SUBCUT SCH (08:19)
[2017-03-16] MEDS: HYDROCHLOROTHIAZIDE PO SCH (08:19)
[2017-03-16] MEDS: ASTELIN 0.1% NAS SCH ×2 (08:19→20:55)
[2017-03-16] MEDS: ZYRTEC PO SCH (08:19)
[2017-03-16] MEDS: ATIVAN PO SCH ×2 (08:19→20:55)
[2017-03-16] MEDS: NORCO 5-325 PO PRN (11:26)
[2017-03-16] MEDS: PRAVACHOL PO SCH (20:55)
[2017-03-17] MEDS: TORADOL IVP SCH (04:29)
[2017-03-17 04:56] LABS: BASOPHILS # (AUTO) 0.1 K/uL (0-0.2); BASOPHILS % (AUTO) 0.6 % (0.0-3.0); EOSINOPHILS # (AUTO) 0.9 K/ul (0.0-0.7); EOSINOPHILS % (AUTO) 8.7 % (0.0-7.0); HEMATOCRIT 30.6 % (37.0-47.0); HEMOGLOBIN 10.4 g/dl (12.0-16.0); IMMATURE GRANULOCYTE % (AUTO) 0.5 % (0.0-5.0); LYMPHOCYTES # (AUTO) 3.5 K/uL (0.60-3.4); MEAN CORPUSCULAR HEMOGLOBIN 30.6 pg (27.0-31.0); MONOCYTES # (AUTO) 0.9 K/uL (0.4-2.0); MONOCYTES % (AUTO) 8.8 (0-10); NEUTROPHILS # (AUTO) 4.4 K/ul (2.0-6.9); NEUTROPHILS % (AUTO) 45.4; PLATELET COUNT 253 10^3/uL (140-440); WHITE BLOOD COUNT 9.73 K/ul (4.6-10.2)
[2017-03-17 05:23] LABS: ALBUMIN 2.9 g/dL (3.4-5.0); ALBUMIN/GLOBULIN RATIO 1.07; ANION GAP 14.5; BILIRUBIN,TOTAL 0.29 mg/dL (0.00-1.20); BUN/CREATININE RATIO 22.22; CREATININE 1.71 mg/dL (0.60-1.30); POTASSIUM 4.5 mmol/L (3.5-5.10); TOTAL PROTEIN 5.6 g/dL (5.8-8.1)
[2017-03-17] MEDS: LEVAQUIN PO SCH (05:30)
[2017-03-17] MEDS: PRILOSEC PO SCH (05:31)
[2017-03-17] MEDS: ASTELIN 0.1% NAS SCH (09:23)
[2017-03-17] MEDS: LOVENOX SUBCUT SCH (09:23)
[2017-03-17] MEDS: BENICAR PO SCH (09:24)
[2017-03-17] MEDS: HYDROCHLOROTHIAZIDE PO SCH (09:24)
[2017-03-17] MEDS: GLUCOPHAGE PO SCH (09:24)
[2017-03-17] MEDS: ASPIRIN EC PO SCH (09:24)
[2017-03-17] MEDS: ZEBETA PO SCH (09:24)
[2017-03-17] MEDS: ATIVAN PO SCH (09:25)
[2017-03-17] MEDS: ZYRTEC PO SCH (09:25)
--- NOTE | 2017-03-17 09:57 | CM.DICTOOL ---
ADMISSION: 03/13/17 12:11 DISCHARGE: 03/17/17 DATE OF SERVICE: 03/17/17 FINAL DIAGNOSIS CHEST PAIN, NONCARDIAC --MORE MUSCULOSKELETAL CHRONIC BACK PAIN CAD; LAD LESION 50%, 15 YEARS AGO HYPERTENSION DYSLIPIDEMIA ANEMIA DM, TYPE 2 GERD ANXIETY HYSTERECTOMY CHOLECYSTECTOMY TOTAL RIGHT AND LEFT KNEE ARTHROPLASTY APPENDECTOMY BILATERAL CATARACT EXTRACTIONS LEFT ANKLE SURGERY, 25 YEARS AGO PESSARY INSERTION LAST VITALS Temp Pulse Resp BP Pulse Ox 97.0 F L 58 L 16 135/71 99 03/17/17 05:52 03/17/17 05:52 03/17/17 05:52 03/17/17 05:52 03/17/17 05:52 ACTIVE MEDICATIONS Acetaminophen (Tylenol) 650 mg PO Q4H PRN PRN Reason: Mild Pain Last Admin: 03/15/17 13:50 Dose: 650 mg Acetaminophen/Hydrocodone Bitart ([place] 5-325) 1 tab PO DAILY PRN PRN Reason: MODERATE PAIN Last Admin: 03/16/17 11:26 Dose: 1 tab Aspirin (Aspirin Ec) 81 mg PO DAILYWM [facility] Last Admin: 03/16/17 08:18 Dose: 81 mg Azelastine HCl (Astelin 0.1%) 2 spray LAURIE BID [facility] Last Admin: 03/16/17 20:55 Dose: 2 spray Bisoprolol Fumarate (Zebeta) 10 mg PO DAILY [facility] Last Admin: 03/16/17 08:18 Dose: 10 mg Carbamazepine 200 MG po dailt prn Cetirizine HCl (Zyrtec) 10 mg PO DAILY [facility] Last Admin: 03/16/17 08:19 Dose: 10 mg Lorazepam (Ativan) 1 mg PO BID [facility] Last Admin: 03/16/17 20:55 Dose: 1 mg Metformin HCl (Glucophage) 500 mg PO BIDBRS [facility] Last Admin: 03/16/17 16:47 Dose: 500 mg Methylcellulose (Citrucel) 1 tab PO BID PRN Olmesartan (Benicar)/Hydrochlorothiazide (Hydrochlorothiazide) 40/12.5 MG PO DAILY [facility] Last Admin: 03/16/17 08:19 Dose: 40 mg Omeprazole (Prilosec) 40 mg PO QDAC [facility] Last Admin: 03/17/17 05:31 Dose: 40 mg Potassium citrate 10 meq PO BID Pravastatin Sodium (Pravachol) 80 mg PO BEDTIME [facility] Last Admin: 03/16/17 20:55 Dose: 80 mg ALLERGIES Penicillins Allergy (Severe, Verified 03/13/17 10:12) Anaphylaxis Cephalosporins Adverse Reaction (Severe, Verified 03/13/17 10:12) Anaphylaxis nitrofurantoin macrocrystal [From Macrodantin] Adverse Reaction (Severe, Verified 03/13/17 10:12) Anaphylaxis phenobarbital Adverse Reaction (Severe, Verified 03/13/17 10:12) Hives Sulfa (Sulfonamide Antibiotics) Adverse Reaction (Severe, Verified 03/13/17 10: 12) Anaphylaxis atropine sulfate [From ] Adverse Reaction (Verified 03/13/17 10:12) furosemide [From Lasix] Adverse Reaction (Verified 03/13/17 10:12) Rash hyoscyamine sulfate [From ] Adverse Reaction (Verified 03/13/17 10:12) lansoprazole [From Prevacid] Adverse Reaction (Verified 03/13/17 10:12) scopolamine hydrobromide [From ] Adverse Reaction (Verified 03/13/17 10: 12) NEW PRESCRIPTIONS: ACETAMINOPHEN/HYDROCODONE BITART 5-325 MG, ONE TABLET PO DAILY PRN PAIN (REFILL ) SMOKING: NONSMOKER DISEASE SPECIFIC EDUCATION: CAD RISK FACTORS PRESENT AND THOSE THAT CAN BE REDUCED BY THE PATIENT LIFESTYLE CHANGES TO REDUCE CAD RISK HOME MEDICATIONS NEW REFILL PRESCRIPTIONS PAIN MANAGEMENT FOLLOW UP LAB REVIEW: 03/17/17 04:20 03/17/17 04:20 03/17/17 04:20: WBC 9.73, RBC 3.40 L, Hgb 10.4 L, Hct 30.6 L, MCV 90.0, MCH 30.6 , MCHC 34.0, RDW Coeff of Gloria 12.7, Plt Count 253, Immature Gran % (Auto) 0.5, Neut % (Auto) 45.4, Lymph % (Auto) 36.0, [place] % (Auto) 8.8, Eos % (Auto) 8.7 H, Baso % (Auto) 0.6, Immature Gran # (Auto) 0.1, Neut # 4.4, Lymph # 3.5 H, [place] # 0.9, Eos # 0.9 H, Baso # 0.1, Sodium 132 L, Potassium 4.5, Chloride 103, Carbon Dioxide 19 L, Anion Gap 14.5, BUN 38 H, Creatinine 1.71 H, Estimated GFR (MDRD) 29.00, BUN/Creatinine Ratio 22.22, Glucose 99, Calcium 8.0 L, Total Bilirubin 0.29, AST 15, ALT 11 L, Alkaline Phosphatase 51 L, Total Protein 5.6 L , Albumin 2.9 L, Globulin 2.7, Albumin/Globulin Ratio 1.07 PLAN: DISCHARGE HOME TODAY RETURN TO SEE DR. COPPOLA ON 03/25/17 AT 10:30 A.M. RESUME YOUR HOME MEDICATIONS PER LIST PROVIDED BY THE NURSING STAFF ALTERNATE REGULAR TYLENOL AND NORCO (ONE DAILY, PRN) IF NEEDED FOR PAIN YOU MAY STOP YOUR PYRIDIUM NEW PRESCRIPTIONS (REFILL) NORCO 5-325 MG, TAKE ONE TABLET BY MOUTH NEEDED DAILY FOR PAIN ACTIVITY: GET PLENTY OF REST AT HOME. GRADUALLY INCREASE YOUR ACTIVITY LEVEL ACCORDING TO YOUR TOLERATION DIET: CONSISTENT CARBS SUMMARY: THE PATIENT IS ALERT AND ORIENTED X3. SHE CURRENTLY RESIDES AT HOME ALONE. HER SON RESIDES CLOSE BY AND ASSISTS WITH NEEDS WHEN NECESSARY. OTHERWISE, THE PATIENT IS INDEPENDENT WITH ADL'S. SHE CONTINUES TO BE ABLE TO PROVIDE HER OWN TRANSPORTATION. AT HOME SHE HAS A C-PAP, CANE, WALKER, BSC, SHOWER CHAIR, GLUCOMETER AND BLOOD SUGAR TESTING SUPPLIES AND A HOMEMAKER. SHE WILL NOT REQUIRE HOME HEALTH SERVICES AT THIS TIME. SHE WILL RETURN TO HER HOME AT DISCHARGE. HER SKIN TURGOR IS GOOD AND WITHOUT ANY DECUBITUS ULCERS AT DISCHARGE. HER HYDRATION STATUS IS ALSO SATISFACTORY. SHE IS AWARE AND AGREEABLE FOR TODAY'S DISCHARGE. DESTINEY COPPOLA M.D.
[2017-03-17 10:04] VITALS: BP 134/66; TEMP 97
--- NOTE | 2017-03-17 10:55 | ECHO2D ---
Date of Exam: 03/15/17 Ordering Physician: DESTINEY COPPOLA Reason for Echo: CHEST PAIN, DM2, HTN, ANGINA M-Mode Normal Adult Results LV Dimensions Normal Adult Results AoV Opening excursions >1.6 >1.6 LVEDD-base- 3.5-5.8 4.5 Ao root dimensions 2.0-3.7 3.3 LVESD-base- 3.1-4.6 L. Atrium dimensions 1.9-3.8 4.4 Post. Wall thickness 0.8-1.1 1.2 IV septum (thickness) 0.7-1.2 1.3 Post. Wall excursion 0.72-1.3 NORMAL Septal motion NORMAL Systolic motion R. Ventricular cavity 1.5-2.0 NORMAL LVEF 60% 57% Paradoxical septal wall motion NORMAL 2-D : ENLARGED LEFT ATRIAL CAVITY--NORMAL LEFT VENTRICULAR CONTRACTILITY--NO EFFUSION, NO THROMBUS, NORMAL VALVES M-MODE: MV: NORMAL AV: NORMAL TV: NORMAL PV: CHAMBER SIZE: ENLARGED LEFT ATRIAL CAVITY WALL MOTION: NORMAL PERICARDIUM: NORMAL INTERPRETATION: 1. LEFT VENTRICULAR HYPERTROPHY WITH ENLARGED LEFT ATRIAL CAVITY 2. NORMAL LEFT VENTRICULAR CONTRACTILITY 3. NORMAL VALVES MTDD
--- NOTE | 2017-03-17 13:10 | PCM.PROG ---
Attending Provider: ATTENDING PROVIDER: Dr. DESTINEY COPPOLA DATE OF SERVICE: 03/17/17 SUBJECTIVE: This 81 year old WHITE/ F was hospitalized 03/13/17. The patient is hospitalized with chest pain. The patient's chest pain is noncardiac and musculoskeletal. All cardiac markers, echocardiogram and EKGs are negative. The character of the pain was noncardiac and she is up and about. The patient was treated for possible UTI but the cultures were negative. REVIEW OF SYSTEMS: CONSTITUTIONAL: No night sweats. No fatigue, malaise, lethargy. No fever or chills. HEENT: Eyes: No visual changes. No eye pain. No eye discharge. ENT: No runny nose. No epistaxis. No sinus pain. No odynophagia. No congestion. RESPIRATORY: No cough, no congestion. No hemoptysis. CARDIOVASCULAR: No angina symptoms. No CHF symptoms. No atypical chest pain for CAD. No palpitations. No shortness of breath. GASTROINTESTINAL: No abdominal pain. No nausea or vomiting. No diarrhea or constipation. No hematemesis. No hematochezia. GENITOURINARY: No urgency. No frequency. No dysuria. No hematuria. No obstructive symptoms. No discharge. No pain. No significant abnormal bleeding. MUSCULOSKELETAL: No musculoskeletal pain; no joint swelling. NEUROLOGICAL: Awake, alert, oriented to time, place and person. No headache. No neck pain. No syncope. No seizures. No dizziness. PSYCHIATRIC: Not anxious. No depression. No suicidal thoughts. No homicidal thoughts. SKIN: No rash. No lesions. No wounds. ENDOCRINE: No unexplained weight loss. No weight gain. HEMATOLOGIC/LYMPHATIC: No anemia. No purpura. No petechiae. No prolonged or excessive bleeding. No palpable lymph nodes. PHYSICAL EXAMINATION: GENERAL: The patient is awake, alert and oriented, standing beside the bed in no distress. VITAL SIGNS: Temperature 97.0 F, Pulse 58, Respiratory Rate 16, BP 135/71, Pulse Ox 99% HEENT: Head normocephalic, atraumatic. Eyes: Extraocular muscles are intact. Pupils are equal, round and reactive to light and accommodation. Ears: No lesions. Nose appeared normal. Throat: No exudate or erythema. NECK: Supple. No JVD, no carotid bruit. No lymphadenopathy or thyromegaly. LUNGS: Clear to auscultation. Percussion note normal. Chest symmetrical. HEART: S1, S2, no S3. No murmurs. No cyanosis or clubbing. No ascites. Pulses: Dorsalis pedis and posterior tibial pulses +1 to +2 both sides. ABDOMEN: Soft. Non-tender. Bowel sounds active. No CVA tenderness. No mass felt. EXTREMITIES: No edema. Full range of motion of all extremities, equal. NEUROLOGIC: No focal deficit. Cranial nerves II through XII are grossly intact. No headache, no double vision or headache. SKIN: Not dry. Intact. Turgor-normal. LYMPHATIC: No palpable lymph nodes/no lymphedema. MUSCULOSKELETAL: Normal joints with no swelling. Muscle tone is normal. LAB REVIEW: 03/17/17 04:20 03/17/17 04:20 03/17/17 04:20: WBC 9.73, RBC 3.40 L, Hgb 10.4 L, Hct 30.6 L, MCV 90.0, MCH 30.6 , MCHC 34.0, RDW Coeff of Gloria 12.7, Plt Count 253, Immature Gran % (Auto) 0.5, Neut % (Auto) 45.4, Lymph % (Auto) 36.0, [place] % (Auto) 8.8, Eos % (Auto) 8.7 H, Baso % (Auto) 0.6, Immature Gran # (Auto) 0.1, Neut # 4.4, Lymph # 3.5 H, [place] # 0.9, Eos # 0.9 H, Baso # 0.1, Sodium 132 L, Potassium 4.5, Chloride 103, Carbon Dioxide 19 L, Anion Gap 14.5, BUN 38 H, Creatinine 1.71 H, Estimated GFR (MDRD) 29.00, BUN/Creatinine Ratio 22.22, Glucose 99, Calcium 8.0 L, Total Bilirubin 0.29, AST 15, ALT 11 L, Alkaline Phosphatase 51 L, Total Protein 5.6 L , Albumin 2.9 L, Globulin 2.7, Albumin/Globulin Ratio 1.07 ASSESSMENT: 1. CHEST PAIN, MUSCULOSKELETAL, RESOLVED 2. HISTORY OF CORONARY ARTERY DISEASE 3. DYSLIPIDEMIA 4. DIABETES MELLITUS PLAN: 1. The Levaquin will be completed today. The patient was treated for possible UTI but cultures were negative. 2. Continue same management and treatment. 3. Marion one a day along with Tylenol. Plan and coordination of the patient's care discussed in the presence of [employer] Bearer and nurse. EDUCATION: Discussed further plan of care with the patient along with medications that she will be discharged home on. CAD discussed and its risk factors and how to modify to reduce further risk. Discussed followup. The patient is in agreement. CONDITION: Stable SCRIBED BY: CHARLA OLIVAREZ Sheet Metal Installer scribed while in presence of service performed by Dr. DESTINEY COPPOLA on 03/17/17 ([id number])
--- NOTE | 2017-03-17 15:34 | PN ---
DATE OF SERVICE: 03/15/17 SUBJECTIVE: The patient is an 81 year old white female hospitalized with chest pain, to me chest pain didn't look like angina. The patient had pectoral muscle soreness along with the left flank posterior soreness mostly with the change in the position, more muscular skeletal. She responded to Toradol and 1cc Decadron. She is feeling a lot better. She doesn't have any chest pain. She is up and about, her appetite has improved and her aches and pains are consistent with fibromyalgia having to improve. REVIEW OF SYSTEMS: CONSTITUTIONAL: No night sweats. No fatigue, malaise, lethargy. No fever or chills. HEENT: Eyes: No visual changes. No eye pain. No eye discharge. ENT: No runny nose. No epistaxis. No sinus pain. No sore throat. No odynophagia. No congestion. RESPIRATORY: No cough, no congestion. No hemoptysis. CARDIOVASCULAR: No angina symptoms. No CHF symptoms. No atypical chest pain for CAD. No palpitations. No shortness of breath. GASTROINTESTINAL: No abdominal pain. No nausea or vomiting. No diarrhea or constipation. No hematemesis. No hematochezia. GENITOURINARY: No urgency. No frequency. No dysuria. No hematuria. No obstructive symptoms. No discharge. No pain. No significant abnormal bleeding. MUSCULOSKELETAL: No musculoskeletal pain; no joint swelling. NEUROLOGICAL: No headache. No neck pain. No syncope. No seizures. No dizziness. PSYCHIATRIC: Not anxious. No depression. No suicidal thoughts. No homicidal thoughts. SKIN: No rash. No lesions. No wounds. ENDOCRINE: No unexplained weight loss. No weight gain. HEMATOLOGIC/LYMPHATIC: No anemia. No purpura. No petechiae. No prolonged or excessive bleeding. No palpable lymph nodes. PHYSICAL EXAMINATION: GENERAL: The patient is oriented to time, place and person. VITAL SIGNS: Temperature 97, pulse 57, blood pressure 160/76 and pulse ox 97%. HEENT: Head normocephalic, atraumatic. Eyes: Extraocular muscles are intact. Pupils are equal, round and reactive to light and accommodation. Ears: No lesions. Nose appeared normal. Throat: No exudate or erythema. NECK: Supple. No JVD, no carotid bruit. No lymphadenopathy or thyromegaly. LUNGS: Decreased breath sounds but clear to auscultation. Percussion note normal. Chest symmetrical. HEART: S1, S2, no S3. No murmurs. No cyanosis or clubbing. No ascites. Pulses: Dorsalis pedis and posterior tibial pulses +1 to +2 both sides. ABDOMEN: Soft. Nontender. Bowel sounds active. No CVA tenderness. No mass felt. EXTREMITIES: No edema. Full range of motion of all extremities, equal. NEUROLOGIC: No focal deficit. Cranial nerves II through XII are grossly intact. No headache, no double vision or headache. SKIN: Not dry. Intact. Turgor - normal. LYMPHATIC: No palpable lymph nodes/no lymphedema. MUSCULOSKELETAL: Normal joints with no swelling. Muscle tone is normal. LABS: Hgb 10.8, hct 32, WBC 9,800 normal differential, creatinine 1.8, BUN 34 and potassium 4.2. ASSESSMENT: 1. Chest pain seems to be non-cardiac muscular skeletal 2. History of coronary artery disease 3. Hypertension 4. Chronic kidney disease 5. Fibromyalgia PLAN: 1. Echocardiogram showed normal LV contractility, LVH and enlarged LA cavity 2. Telemetry sinus rhythm with no ST-T wave changes. 3. Cardiac markers are negative. 4. The patient's condition is stable, she is up and about feeling better. TIME SPENT: More than 30 minutes. Plan and coordination of the patient's care discussed in the presence of nurse. EAN
--- NOTE | 2017-03-18 13:21 | DS ---
DATE OF SERVICE: 03/17/17 FINAL DIAGNOSIS: 1. Chest pain, non-cardiac- more musculoskeletal 2. Chronic back pain 3. Coronary artery disease, LAD lesion 50%, 15 years ago 4. Hypertension 5. Dyslipidemia 6. Anemia 7. Diabetes Mellitus, type 2 8. GERD 9. Anxiety 10.Hysterectomy 11.Cholecystectomy 12.Total right and left knee arthroplasty 13.Appendectomy 14.Bilateral Cataract extractions 15.Left ankle surgery, 25 years ago 16.Pessary insertion LAST VITALS: Temperature 97, pulse 58, respiratory rate 16, blood pressure 135/71 and pulse ox 99%. DISCHARGE INSTRUCTIONS: Discharge home today. Return to see Dr. Zavala on 03-25-17 at 10:30am. Resume home medication as per list provided by the nursing staff. Alternate Regular Tylenol and [place] (one daily, PRN) If needed for pain you may stop your Pyridium. MEDICATIONS AT DISCHARGE: Tylenol 650mg PO Q 4 hours PRN [place] 5-325mg PO daily PRN Aspirin 81mg PO daily Astelin 0.1% two sprays LAURIE twice a day Zebeta 10mg PO daily Zyrtec 10mg PO daily Ativan 1mg Po twice a day Glucophage 500mg PO twice a day Citrucel one tablet PO twice a day Benicar/Hydrochlorothiazide 40/12.5mg PO daily Prilosec 40mg PO QDAC Potassium Citrate 10 meq PO QDAC Pravachol 80mg PO bedtime ALLERGIES: Penicillins Cephalosporins Nitrofurantoin Macrocrystal Phenobarbital Sulfa Atropine sulfate Furosemide Hyoscyamine sulfate Lansoprazole Scopolamine NEW PRESCRIPTIONS: Acetaminophen/Hydrocodone Bitart 5-325 one tablet PO daily PRN for pain DIET INSTRUCTIONS: Consistent Carbohydrates. ACTIVITY: Get plenty of rest at home. Gradually increase activity level according to toleration. SMOKING: Nonsmoker DISEASE SPECIFIC EDUCATION: CAD Risks factors present and those that can be reduced by the patient Lifestyle changes to reduce CAD risk Home medications New refill prescriptions Pain management Followup. HOSPITAL COURSE: The patient is an 81 year old female was hospitalized with chest pain. The patient's chest pain was non-cardiac, it was left pectoral muscle soreness going to the left flank and posteriorly with movement, more like muscle spasm. The patient responded to Toradol and Decadron combination. She felt good about it. Her cardiac were negative. The patient's EKG remained unchanged with no acute changes with sinus rhythm. The telemetry showed the same thing sinus rhythm, with no ST-T wave change. Her echocardiogram showed normal LV contractility. The patient was up and about. The patient declined any stress test or further evaluation. CONDITION: Stable. TIME SPENT: More than 60 minutes. MTDD
--- NOTE | 2017-03-18 13:22 | PN ---
03/13/17: Level 5 03/14/17: Intermediate 03/15/17: Intermediate 03/16/17: Brief 03/17/17: D as in discharge MTDD
--- NOTE | 2017-03-18 15:49 | PN ---
DATE OF SERVICE: 03/16/17 SUBJECTIVE: The patient is an 81 year old white female hospitalized with chest pain and muscle spasms. The patient's chest pain has subsided and she says that she felt better then she has for several months. Up and about with practically no pain, seems to be responding to Toradol. No angina type of symptoms. REVIEW OF SYSTEMS: CONSTITUTIONAL: No night sweats. No fatigue, malaise, lethargy. No fever or chills. HEENT: Eyes: No visual changes. No eye pain. No eye discharge. ENT: No runny nose. No epistaxis. No sinus pain. No sore throat. No odynophagia. No congestion. RESPIRATORY: No cough, no congestion. No hemoptysis. CARDIOVASCULAR: No angina symptoms. No CHF symptoms. No atypical chest pain for CAD. No palpitations. No shortness of breath. GASTROINTESTINAL: No abdominal pain. No nausea or vomiting. No diarrhea or constipation. No hematemesis. No hematochezia. GENITOURINARY: No urgency. No frequency. No dysuria. No hematuria. No obstructive symptoms. No discharge. No pain. No significant abnormal bleeding. MUSCULOSKELETAL: No musculoskeletal pain; no joint swelling. NEUROLOGICAL: No headache. No neck pain. No syncope. No seizures. No dizziness. PSYCHIATRIC: Not anxious. No depression. No suicidal thoughts. No homicidal thoughts. SKIN: No rash. No lesions. No wounds. ENDOCRINE: No unexplained weight loss. No weight gain. HEMATOLOGIC/LYMPHATIC: No anemia. No purpura. No petechiae. No prolonged or excessive bleeding. No palpable lymph nodes. PHYSICAL EXAMINATION: GENERAL: The patient is oriented to time, place and person. VITAL SIGNS: Temperature 97, pulse 65, respiratory rate 16, blood pressure 134/ 64 and pulse ox 94%. HEENT: Head normocephalic, atraumatic. Eyes: Extraocular muscles are intact. Pupils are equal, round and reactive to light and accommodation. Ears: No lesions. Nose appeared normal. Throat: No exudate or erythema. NECK: Supple. No JVD, no carotid bruit. No lymphadenopathy or thyromegaly. LUNGS: Decreased breath sounds but clear to auscultation. Percussion note normal. Chest symmetrical. HEART: S1, S2, no S3. No murmurs. No cyanosis or clubbing. No ascites. Pulses: Dorsalis pedis and posterior tibial pulses +1 to +2 both sides. ABDOMEN: Soft. Nontender. Bowel sounds active. No CVA tenderness. No mass felt. EXTREMITIES: No edema. Full range of motion of all extremities, equal. NEUROLOGIC: No focal deficit. Cranial nerves II through XII are grossly intact. No headache, no double vision or headache. SKIN: Not dry. Intact. Turgor - normal. LYMPHATIC: No palpable lymph nodes/no lymphedema. MUSCULOSKELETAL: Normal joints with no swelling. Muscle tone is normal. LABS: Hgb 10.7, hct 31, WBC 9,800 normal differential, creatinine 1.9, BUN 41, potassium 4.3. ASSESSMENT: 1. Chest pain subsided 2. Pectoral muscle spasms subsided PLAN: 1. Hgb, hct and kidney functions stable 2. We did discuss no non-steroidal anti-inflammatory advised CONDITION: Stable. TIME SPENT: More than 30 minutes. Plan and coordination of the patient's care discussed in the presence of nurse. EAN
== END 2017-03-17 12:15 | disposition home or self-care (01) | DRG 313 ==
LOC: ED 09:53 → MEDSURG B 12:11
PROVIDERS: ADMIT Internal Medicine; ATTEND Internal Medicine
DX: R07.89 Other chest pain (principal); I25.10 Atherosclerotic heart disease of native coronary artery without angina pectoris; I51.7 Cardiomegaly; M62.838 Other muscle spasm; M47.9 Spondylosis, unspecified; G89.29 Other chronic pain; M54.9 Dorsalgia, unspecified; D64.9 Anemia, unspecified; E11.9 Type 2 diabetes mellitus without complications; K21.9 Gastro-esophageal reflux disease without esophagitis; I10 Essential (primary) hypertension; I12.9 Hypertensive chronic kidney disease with stage 1 through stage 4 chronic kidney disease, or unspecified chronic kidney disease; E11.22 Type 2 diabetes mellitus with diabetic chronic kidney disease; N18.9 Chronic kidney disease, unspecified; M79.7 Fibromyalgia; E66.01 Morbid (severe) obesity due to excess calories; F41.9 Anxiety disorder, unspecified; E78.5 Hyperlipidemia, unspecified; R61 Generalized hyperhidrosis; I20.9 Angina pectoris, unspecified; Z79.899 Other long term (current) drug therapy
CPT/HCPCS: 36415; 80053; 81001; 82550; 82803; 82962; 83880; 84484; 85025; 85379; 87086; 93005; 93010; 97802; 99284

== ENCOUNTER 2017-06-30 12:34 | Inpatient (IN) ==
[2017-06-30] MEDS ORDERED: MORPHINE 4 MG/ML SYRINGE IVP PRN (13:32)
[2017-06-30] MEDS ORDERED: ATROPINE SULFATE PFS IVP PRN (13:32)
[2017-06-30] MEDS ORDERED: TYLENOL PO PRN ×2 (13:32→15:19)
[2017-06-30] MEDS ORDERED: NITROSTAT SL PRN (13:32)
[2017-06-30] MEDS ORDERED: VISTARIL INJ IM PRN (13:32)
[2017-06-30] MEDS ORDERED: DECADRON 4 MG/ML SDV IM STA (13:38)
[2017-06-30] MEDS ORDERED: TORADOL IVP STA (13:38)
[2017-06-30 13:51] LABS: BASOPHILS % (AUTO) 0.3 % (0.0-3.0); EOSINOPHILS % (AUTO) 0.1 % (0.0-7.0); HEMATOCRIT 35.4 % (37.0-47.0); HEMOGLOBIN 12.3 g/dl (12.0-16.0); IMMATURE GRANULOCYTE % (AUTO) 0.5 % (0.0-5.0); LYMPHOCYTES # (AUTO) 2.4 K/uL (0.60-3.4); LYMPHOCYTES % (AUTO) 21.5 (10.0-50.0); MEAN CORPUSCULAR HEMOGLOBIN 30.1 pg (27.0-31.0); MEAN CORPUSCULAR HGB CONC 34.7 (31.8-35.4); MEAN CORPUSCULAR VOLUME 86.6 fl (81.0-99.0); MONOCYTES # (AUTO) 0.6 K/uL (0.4-2.0); NEUTROPHILS # (AUTO) 8.1 K/ul (2.0-6.9); NEUTROPHILS % (AUTO) 72.6; PLATELET COUNT 319 10^3/uL (140-440); RED BLOOD COUNT 4.09 10^6/ul (4.20-5.40); WHITE BLOOD COUNT 11.09 K/ul (4.6-10.2)
[2017-06-30 14:12] VITALS: BMI 38.2
[2017-06-30] MEDS: LOVENOX SUBCUT SCH (14:24)
[2017-06-30 14:36] LABS: ADD URINE MICROSCOPIC YES; BILIRUBIN,URINE Negative (NEGATIVE); KETONES,URINE Negative (NEGATIVE); LEUKOCYTE ESTERASE ,URINE 3+ (NEGATIVE); NITRITE,URINE Negative (NEGATIVE); PROTEIN,URINE Negative (NEGATIVE); URINE, BLOOD Trace-intact (NEGATIVE)
[2017-06-30 14:42] LABS: BACTERIA,URINE 1+ (NOT PRESENT)
[2017-06-30 15:03] LABS: ALANINE AMINOTRANSFERASE 14 U/L (12-78); ALBUMIN 3.8 g/dL (3.4-5.0); ALBUMIN/GLOBULIN RATIO 1.15; ALKALINE PHOSPHATASE 69 U/L (53-141); ANION GAP 15.8; ASPARTATE AMINO TRANSFERASE 13 U/L (15-37); BILIRUBIN,TOTAL 0.29 mg/dL (0.00-1.20); BLOOD UREA NITROGEN 27 mg/dL (7-18); BUN/CREATININE RATIO 21.25; CALCIUM 9.7 mg/dL (8.2-10.2); CARBON DIOXIDE 22 mmol/L (23-31); CHLORIDE 100 mmol/L (98-107); CREATINE KINASE 41 U/L; CREATININE 1.27 mg/dL (0.60-1.30); GLUCOSE 127 mg/dL (82-115); MYOGLOBIN 50 ng/ml; POTASSIUM 4.8 mmol/L (3.5-5.10); SODIUM 133 mmol/L (136-145); TOTAL PROTEIN 7.1 g/dL (5.8-8.1)
--- NOTE | 2017-06-30 15:42 | DI ---
EXAM: Chest one view, frontal view only. HISTORY: Bronchitis. Shortness of breath. COMPARISON: 03/13/2017. FINDINGS: The heart size is normal. There is no pulmonary vascular congestion. The lungs are delores r. No pleural effusion or pneumothorax is seen. No acute osseous abnormality is identified. Since the prior study, there has been no significant interval change. IMPRESSION: No acute cardiopulmonary process.
[2017-06-30] MEDS: GLUCOPHAGE PO SCH ×2 (16:35→17:46)
[2017-06-30] MEDS ORDERED: MACRODANTIN PO SCH (17:00)
[2017-06-30] MEDS: CIPRO PO SCH (20:07)
[2017-06-30] MEDS: PRAVACHOL PO SCH (20:07)
[2017-06-30] MEDS: TORADOL IVP SCH (20:07)
[2017-06-30] MEDS: ASTELIN 0.1% NAS SCH (20:07)
[2017-06-30] MEDS: ATIVAN PO SCH (20:07)
[2017-06-30] MEDS: POTASSIUM CITRATE 10 MEQ PO SCH (20:12)
[2017-06-30] MEDS ORDERED: NON-FORMULARY MEDICATION (Pravastatin Sodium [Pravachol] 80 MG) PO SCH ×22 (21:00)
[2017-06-30 21:58] LABS: TROPONIN I 0.011 ng/ml (0.0000-0.4000)
[2017-07-01] MEDS: CIPRO PO SCH ×3 (05:43→20:04)
[2017-07-01] MEDS: PRILOSEC PO SCH (05:43)
[2017-07-01] MEDS ORDERED: NON-FORMULARY MEDICATION (Omeprazole [Prilosec] 40 MG) PO SCH (06:30)
[2017-07-01] MEDS ORDERED: ASPIRIN EC PO SCH (08:00)
[2017-07-01] MEDS ORDERED: CIPRO PO SCH (08:27)
[2017-07-01] MEDS ORDERED: DECADRON 4 MG/ML SDV IM STA (08:28)
[2017-07-01] MEDS: TORADOL IVP SCH ×2 (08:49→20:04)
[2017-07-01] MEDS: HYDROCHLOROTHIAZIDE PO SCH (08:57)
[2017-07-01] MEDS: GLUCOPHAGE PO SCH ×2 (08:57→16:33)
[2017-07-01] MEDS: ASTELIN 0.1% NAS SCH ×2 (08:57→20:09)
[2017-07-01] MEDS: ATIVAN PO SCH ×2 (08:58→20:04)
[2017-07-01] MEDS: ZEBETA PO SCH (08:58)
[2017-07-01] MEDS: ASPIRIN EC PO SCH (08:58)
[2017-07-01] MEDS: BENICAR PO SCH (08:58)
[2017-07-01] MEDS: LOVENOX SUBCUT SCH (08:59)
[2017-07-01] MEDS: ZYRTEC PO SCH (09:00)
[2017-07-01] MEDS ORDERED: OLMESARTAN PO SCH ×22 (09:00)
[2017-07-01] MEDS ORDERED: [UNRECOGNIZED DRUG - OTHER] PO SCH ×22 (09:00)
[2017-07-01] MEDS ORDERED: HYDROCHLOROTHIAZIDE PO SCH ×22 (09:00)
[2017-07-01] MEDS: POTASSIUM CITRATE 10 MEQ PO SCH ×2 (09:07→20:04)
--- NOTE | 2017-07-01 11:05 | PCM.PROG ---
Attending Provider: ATTENDING PROVIDER: Dr. DESTINEY COPPOLA DATE OF SERVICE: 07/01/17 SUBJECTIVE: This 82 year old WHITE/ F was hospitalized 06/30/17. The patient is seen with Annette, Nurse Practitioner. The patient states she feels less short of breath this morning. She is alert and oriented, sitting on side of bed. She is less short of breath, appetite is still decreased. REVIEW OF SYSTEMS: CONSTITUTIONAL: Weakness. No night sweats. No fever or chills. HEENT: Eyes: No visual changes. No eye pain. No eye discharge. ENT: No runny nose. No epistaxis. No sinus pain. No odynophagia. No congestion. RESPIRATORY: Positive for cough. No congestion. No hemoptysis. CARDIOVASCULAR: No angina symptoms. No CHF symptoms. No atypical chest pain for CAD. No palpitations. No shortness of breath. GASTROINTESTINAL: No abdominal pain. No nausea or vomiting. No diarrhea or constipation. No hematemesis. No hematochezia. GENITOURINARY: No urgency. No frequency. No dysuria. No hematuria. No obstructive symptoms. No discharge. No pain. No significant abnormal bleeding. MUSCULOSKELETAL: No musculoskeletal pain; no joint swelling. NEUROLOGICAL: Awake, alert, oriented to time, place and person. No headache. No neck pain. No syncope. No seizures. No dizziness. PSYCHIATRIC: Not anxious. No depression. No suicidal thoughts. No homicidal thoughts. SKIN: No rash. No lesions. No wounds. ENDOCRINE: No unexplained weight loss. No weight gain. HEMATOLOGIC/LYMPHATIC: No anemia. No purpura. No petechiae. No prolonged or excessive bleeding. No palpable lymph nodes. PHYSICAL EXAMINATION: GENERAL: The patient is awake, alert and oriented, sitting on the side of the bed in no distress. VITAL SIGNS: Temperature 97.6 F, Pulse 53, Respiratory Rate 18, BP 140/74, Pulse Ox 99% HEENT: Head normocephalic, atraumatic. Eyes: Extraocular muscles are intact. Pupils are equal, round and reactive to light and accommodation. Ears: No lesions. Nose appeared normal. Throat: No exudate or erythema. NECK: Supple. No JVD, no carotid bruit. No lymphadenopathy or thyromegaly. LUNGS: Decreased breath sounds bilaterally. Clear to auscultation. Percussion note normal. Chest symmetrical. HEART: S1, S2, no S3. No murmurs. No cyanosis or clubbing. No ascites. Pulses: Dorsalis pedis and posterior tibial pulses +1 to +2 both sides. ABDOMEN: Soft. Non-tender. Bowel sounds active. No CVA tenderness. No mass felt. EXTREMITIES: No edema. Full range of motion of all extremities, equal. NEUROLOGIC: No focal deficit. Cranial nerves II through XII are grossly intact. No headache, no double vision or headache. SKIN: Not dry. Intact. Turgor-normal. LYMPHATIC: No palpable lymph nodes/no lymphedema. MUSCULOSKELETAL: Normal joints with no swelling. Muscle tone is normal. LAB REVIEW: 06/30/17 13:45 06/30/17 13:45 06/30/17 21:25: Total Creatine Kinase 33, Myoglobin 56, Troponin I 0.0110 06/30/17 13:45: WBC 11.09 H, RBC 4.09 L, Hgb 12.3, Hct 35.4 L, MCV 86.6, MCH 30.1, MCHC 34.7, RDW Coeff of Gloria 12.5, Plt Count 319, Immature Gran % (Auto) 0.5, Neut % (Auto) 72.6, Lymph % (Auto) 21.5, [place] % (Auto) 5.0, Eos % (Auto) 0.1, Baso % (Auto) 0.3, Immature Gran # (Auto) 0.1, Neut # 8.1 H, Lymph # 2.4, [place] # 0.6, Eos # 0.0, Baso # 0.0, Sodium 133 L, Potassium 4.8, Chloride 100, Carbon Dioxide 22 L, Anion Gap 15.8, BUN 27 H, Creatinine 1.27, Estimated GFR ( MDRD) 40.00, BUN/Creatinine Ratio 21.25, Glucose 127 H, Calcium 9.7, Total Bilirubin 0.29, AST 13 L, ALT 14, Alkaline Phosphatase 69, Total Creatine Kinase 41, Myoglobin 50, Troponin I < 0.0100, Total Protein 7.1, Albumin 3.8, Globulin 3.3, Albumin/Globulin Ratio 1.15, TSH 0.654, Free T4 0.84 06/30/17 13:30: Urine Color Yellow, Urine Clarity Clear, Urine pH 6.0, Ur Specific [place] 1.010, Urine Protein Negative, Urine Glucose (UA) Negative, Urine Ketones Negative, Urine Blood Trace-intact, Urine Nitrite Negative, Urine Bilirubin Negative, Urine Urobilinogen 0.2, Ur Leukocyte Esterase 3+, Urine Microscopic RBC 2-5, Urine Microscopic WBC 10-20, Ur Squamous Epith Cells 2-5, Amorphous Sediment 1+, Urine Bacteria 1+ ASSESSMENT: 1. Acute bronchitis 2. Abnormal urinalysis with history of chronic UTI PLAN: 1. Decadron 4 mg 2. Increase Cipro 500 mg b.i.d. 3. Up and about as tolerated Plan and coordination of the patient's care discussed in the presence of Documentation Liaison and nurse. CONDITION: Stable SCRIBED BY: CHARLA OLIVAREZ Manager Transfusion scribed while in presence of service performed by Dr. DESTINEY COPPOLA/ANNETTE DUARTE APRN on 07/01/17 ([id number])
--- NOTE | 2017-07-01 14:00 | HP ---
DATE OF SERVICE: 06/30/17 REASON FOR HOSPITALIZATION: Chest tightness, shortness of breath with bronchitis, cough and dysuria HISTORY OF PRESENT ILLNESS: This is an 82-year-old female who presented with chest pain times 24 hours. The patient has had shortness of breath lately times 4 weeks with bronchitis ( being treated for it, was on Z-pack and just finished, still on Prednisone), cough with whitish sputum. Also, dysuria for 7 days. Precordial discomfort, steady with no radiation. REVIEW OF SYSTEMS: CONSTITUTIONAL: Fatigue. No fever. HEENT: No sinus drainage, no sore throat. RESPIRATORY: Cough. No hemoptysis. CARDIOVASCULAR: Questionable angina symptoms. No CHF symptoms. No palpitations. Atypical chest pain for CAD. Shortness of breath. GASTROINTESTINAL: Melena, GERD symptoms, abdominal pain. GENITOURINARY: No hematuria, no polyuria. BAND MASTER: Dizziness. No blackout, no headache, no double vision. MUSCULOSKELETAL: Osteoarthritis pain. No joint swelling. ENDOCRINE: No weight loss, no weight gain. SKIN: Not dry, no rash. PSYCHIATRIC: Anxious. No depression, no suicidal thoughts, no homicidal thoughts. PAST MEDICAL HISTORY: 1. Diabetes mellitus Type 2 2. Chronic bronchitis 3. Hypertension 4. Dyslipidemia 5. Chronic kidney disease 6. Coronary artery disease 7. Congestive heart failure 8. DJD spine 9. Uterine prolapse PAST SURGICAL HISTORY: 1. Hysterectomy 2. Appendix 3. Gallbladder 4. Colonoscopy, Dr. Kendall 02/25 MENSTRUAL HISTORY: Mammogram 01/29 [facility] SOCIAL HISTORY: The patient is . She is retired. Nonsmoker. No alcohol use. No illicit drug use. FAMILY HISTORY: Father is . Mother is . MEDICATIONS: (CURRENT) 1. Trimethoprim 100 mg two tablets (200 mg) p.o. once daily 2. Clobetasol 0.05% cream apply a thin layer to the affected area by topical route two times per day 3. Acetaminophen 500 mg two tablets p.o. two times per day p.r.n. 4. Cetirizine 10 mg one p.o. once daily 5. Aspirin 81 mg delayed release (E.C.) MEDICATIONS: (PRESCRIBED) 1. Benicar 40/12.5 mg one p.o. daily 2. Potassium Citrate 10 mEq one p.o. two times per day 3. Omeprazole 40 mg p.o. one daily before a meal 4. Metformin 500 mg p.o. one tablet two times a day with morning and evening meals 5. Bisoprolol Fumarate 10 mg p.o. once daily 6. Hydrocodone-Acetaminophen 5-325 mg tablet 7. Kenalog 0.025% cream apply thin layer to the affected area by topical route two times per day p.r.n. 8. Pravastatin 80 mg p.o. once daily 9. Carbamazepine 200 mg one tablet p.o. one time per day p.r.n. 10. Lorazepam 1 tablet p.o. two times per day as needed p.r.n. 11. Azelastine 137 mcg Aerosol spray two sprays each nostril by intranasal route two times per day ALLERGIES: CEPHALOSPORINS, , LASIX, MACRODANTIN PHYSICAL EXAMINATION: V/S: Pulse 66, BP 148/80, temperature 97.9, 02 sat 98%, weight 217 lbs, height 5 '3". BMI 38.4. GENERAL APPEARANCE: Oriented times three. HEENT: Normal. NECK: No JVP, no bruits. RESPIRATORY: Lungs are clear. CARDIOVASCULAR: S1, S2, no S3, no murmurs. No cyanosis, clubbing. No ascites. GI/ABDOMEN: No tenderness. Bowel sounds are active. EXTREMITIES: No edema, pulses +1, equal. BAND MASTER: Deep tendon reflexes, sensory, motor and gait all normal. RECTAL/PELVIC: Colonoscopy screening Dr. Kendall, 02/25. Pelvic: Mammogram 01/[address] [facility]. ASSESSMENT: 1. CHEST TIGHTNESS/DYSURIA/SHORTNESS OF BREATH/BRONCHITIS BEING TREATED 2. DIABETES MELLITUS TYPE 2 3. CHRONIC BRONCHITIS 4. HYPERTENSION 5. CHRONIC UTI 6. DYSLIPIDEMIA 7. SCIATICA 8. CHRONIC KIDNEY DISEASE STAGE 2 9. OBESITY 10. 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 CHF 13. UTERINE PROLAPSE (ADELINA WILL/DR. RAMOS) PLAN: 1. Admit regular 2. Routine telemetry orders 3. 1 cc Decadron IM 4. Toradol 30 mg IV now and 12 hourly 5. UA and culture and sensitivity 6. T4 and TSH 7. Continue all medications 8. Lovenox 40 mg SubQ daily 9. Macrodantin 50 mg p.o. daily EDUCATION CARRIED OUT ABOUT: Diabetes mellitus and its complications; hypertension and its complications, CAD and its risk factors. Advised yearly ophthalmology examinations. JNC 7 for hypertension discussed. TIME SPENT: More than 70 minutes. MTDD
[2017-07-01] MEDS: PRAVACHOL PO SCH (20:04)
[2017-07-02] MEDS: PRILOSEC PO SCH (05:31)
[2017-07-02] MEDS: CIPRO PO SCH ×2 (05:31→20:35)
[2017-07-02] MEDS ORDERED: DECADRON 4 MG/ML SDV IM STA (08:00)
[2017-07-02 08:40] LABS: BASOPHILS % (AUTO) 0.2 % (0.0-3.0); EOSINOPHILS % (AUTO) 0.3 % (0.0-7.0); HEMATOCRIT 34.6 % (37.0-47.0); HEMOGLOBIN 12.1 g/dl (12.0-16.0); IMMATURE GRANULOCYTE % (AUTO) 0.7 % (0.0-5.0); LYMPHOCYTES # (AUTO) 4.1 K/uL (0.60-3.4); LYMPHOCYTES % (AUTO) 35.1 (10.0-50.0); MEAN CORPUSCULAR HEMOGLOBIN 30.3 pg (27.0-31.0); MEAN CORPUSCULAR VOLUME 86.5 fl (81.0-99.0); MONOCYTES # (AUTO) 0.9 K/uL (0.4-2.0); MONOCYTES % (AUTO) 7.5 (0-10); NEUTROPHILS # (AUTO) 6.6 K/ul (2.0-6.9); NEUTROPHILS % (AUTO) 56.2; PLATELET COUNT 336 10^3/uL (140-440); WHITE BLOOD COUNT 11.74 K/ul (4.6-10.2)
[2017-07-02] MEDS: ASTELIN 0.1% NAS SCH ×2 (08:44→20:36)
[2017-07-02] MEDS: PROAIR HFA IH SCH ×3 (08:44→18:44)
[2017-07-02] MEDS: ZEBETA PO SCH (08:44)
[2017-07-02] MEDS: BENICAR PO SCH (08:44)
[2017-07-02] MEDS: TORADOL IVP SCH ×2 (08:45→20:37)
[2017-07-02] MEDS: HYDROCHLOROTHIAZIDE PO SCH (08:45)
[2017-07-02] MEDS: LOVENOX SUBCUT SCH (08:45)
[2017-07-02] MEDS: ATIVAN PO SCH ×2 (08:46→20:43)
[2017-07-02] MEDS: ZYRTEC PO SCH (08:46)
[2017-07-02] MEDS: GLUCOPHAGE PO SCH ×2 (08:46→18:38)
[2017-07-02] MEDS: POTASSIUM CITRATE 10 MEQ PO SCH ×2 (08:46→20:36)
[2017-07-02] MEDS: ASPIRIN EC PO SCH (08:46)
[2017-07-02 08:57] LABS: ALBUMIN 3.7 g/dL (3.4-5.0); ALBUMIN/GLOBULIN RATIO 1.16; ANION GAP 13.4; BILIRUBIN,TOTAL 0.45 mg/dL (0.00-1.20); BUN/CREATININE RATIO 29.74; CALCIUM 9.4 mg/dL (8.2-10.2); CREATININE 1.58 mg/dL (0.60-1.30); POTASSIUM 4.4 mmol/L (3.5-5.10); TOTAL PROTEIN 6.9 g/dL (5.8-8.1)
--- NOTE | 2017-07-02 10:41 | PCM.PROG ---
Attending Provider: ATTENDING PROVIDER: Dr. DESTINEY COPPOLA DATE OF SERVICE: 07/02/17 SUBJECTIVE: This 82 year old WHITE/ F was hospitalized 06/30/17. The patient is seen with Annette, Nurse Practitioner. She is sitting in the chair, alert and oriented, states she has been up and about this morning and is feeling better. REVIEW OF SYSTEMS: CONSTITUTIONAL: Weakness. No night sweats. No fever or chills. HEENT: Eyes: No visual changes. No eye pain. No eye discharge. ENT: No runny nose. No epistaxis. No sinus pain. No odynophagia. No congestion. RESPIRATORY: Cough and congestion. No hemoptysis. CARDIOVASCULAR: No angina symptoms. No CHF symptoms. No atypical chest pain for CAD. No palpitations. No shortness of breath. GASTROINTESTINAL: No abdominal pain. No nausea or vomiting. No diarrhea or constipation. No hematemesis. No hematochezia. GENITOURINARY: No urgency. No frequency. No dysuria. No hematuria. No obstructive symptoms. No discharge. No pain. No significant abnormal bleeding. MUSCULOSKELETAL: No musculoskeletal pain; no joint swelling. NEUROLOGICAL: Awake, alert, oriented to time, place and person. No headache. No neck pain. No syncope. No seizures. No dizziness. PSYCHIATRIC: Not anxious. No depression. No suicidal thoughts. No homicidal thoughts. SKIN: No rash. No lesions. No wounds. ENDOCRINE: No unexplained weight loss. No weight gain. HEMATOLOGIC/LYMPHATIC: No anemia. No purpura. No petechiae. No prolonged or excessive bleeding. No palpable lymph nodes. PHYSICAL EXAMINATION: GENERAL: The patient is awake, alert and oriented, sitting in the chair in no distress. VITAL SIGNS: Temperature 97.5 F, Pulse 53, Respiratory Rate 19, BP 160/68, Pulse Ox 98% HEENT: Head normocephalic, atraumatic. Eyes: Extraocular muscles are intact. Pupils are equal, round and reactive to light and accommodation. Ears: No lesions. Nose appeared normal. Throat: No exudate or erythema. NECK: Supple. No JVD, no carotid bruit. No lymphadenopathy or thyromegaly. LUNGS: Bilateral rhonchi. Percussion note normal. Chest symmetrical. HEART: S1, S2, no S3. No murmurs. No cyanosis or clubbing. No ascites. Pulses: Dorsalis pedis and posterior tibial pulses +1 to +2 both sides. ABDOMEN: Soft. Non-tender. Bowel sounds active. No CVA tenderness. No mass felt. EXTREMITIES: No edema. Full range of motion of all extremities, equal. NEUROLOGIC: No focal deficit. Cranial nerves II through XII are grossly intact. No headache, no double vision or headache. SKIN: Not dry. Intact. Turgor-normal. LYMPHATIC: No palpable lymph nodes/no lymphedema. MUSCULOSKELETAL: Normal joints with no swelling. Muscle tone is normal. LAB REVIEW: 06/30/17 13:45 06/30/17 13:45 ASSESSMENT: 1. Acute bronchitis 2. Weakness, generalized PLAN: 1. Decadron 1 cc IM today 2. Proventil two puffs q.6 hr 3. CBC and CMP in the a.m. 4. D/C telemetry 5. Up and about as tolerated Plan and coordination of the patient's care discussed in the presence of Is Project Manager and nurse. CONDITION: Stable SCRIBED BY: Kvng OCONNOR scribed while in presence of service performed by Dr. DESTINEY COPPOLA/ANNETTE DUARTE APRN on 07/02/17 ([phone])
[2017-07-02] MEDS: NORCO 5-325 PO PRN (16:03)
[2017-07-02] MEDS: PRAVACHOL PO SCH (20:36)
[2017-07-02 23:09] VITALS: TEMP 97
[2017-07-03] MEDS: PROAIR HFA IH SCH ×2 (00:15→05:49)
[2017-07-03 04:39] LABS: BASOPHILS % (AUTO) 0.2 % (0.0-3.0); EOSINOPHILS % (AUTO) 0.2 % (0.0-7.0); HEMOGLOBIN 10.8 g/dl (12.0-16.0); IMMATURE GRANULOCYTE % (AUTO) 0.7 % (0.0-5.0); LYMPHOCYTES % (AUTO) 23.5 (10.0-50.0); MEAN CORPUSCULAR HEMOGLOBIN 29.8 pg (27.0-31.0); MEAN CORPUSCULAR HGB CONC 34.8 (31.8-35.4); MEAN CORPUSCULAR VOLUME 85.6 fl (81.0-99.0); MONOCYTES # (AUTO) 0.9 K/uL (0.4-2.0); MONOCYTES % (AUTO) 7.2 (0-10); NEUTROPHILS # (AUTO) 8.8 K/ul (2.0-6.9); NEUTROPHILS % (AUTO) 68.2; PLATELET COUNT 278 10^3/uL (140-440); RED BLOOD COUNT 3.62 10^6/ul (4.20-5.40); WHITE BLOOD COUNT 12.94 K/ul (4.6-10.2)
[2017-07-03 04:59] LABS: ALBUMIN 3.2 g/dL (3.4-5.0); ALBUMIN/GLOBULIN RATIO 1.23; ANION GAP 16.1; BILIRUBIN,TOTAL 0.33 mg/dL (0.00-1.20); BUN/CREATININE RATIO 35.52; CALCIUM 8.9 mg/dL (8.2-10.2); CREATININE 1.52 mg/dL (0.60-1.30); POTASSIUM 5.1 mmol/L (3.5-5.10); TOTAL PROTEIN 5.8 g/dL (5.8-8.1)
[2017-07-03 05:46] VITALS: BP 130/69
[2017-07-03] MEDS: CIPRO PO SCH (05:49)
[2017-07-03] MEDS: PRILOSEC PO SCH (05:49)
[2017-07-03] MEDS ORDERED: PNEUMOVAX 23 IM ONE (08:00)
[2017-07-03] MEDS: LOVENOX SUBCUT SCH (08:53)
[2017-07-03] MEDS: ATIVAN PO SCH (08:53)
[2017-07-03] MEDS: POTASSIUM CITRATE 10 MEQ PO SCH (08:53)
[2017-07-03] MEDS: ASPIRIN EC PO SCH (08:54)
[2017-07-03] MEDS: GLUCOPHAGE PO SCH (08:54)
[2017-07-03] MEDS: ZEBETA PO SCH (08:54)
[2017-07-03] MEDS: ZYRTEC PO SCH (08:54)
[2017-07-03] MEDS: BENICAR PO SCH (08:55)
[2017-07-03] MEDS: HYDROCHLOROTHIAZIDE PO SCH (08:55)
[2017-07-03] MEDS: TORADOL IVP SCH (08:56)
[2017-07-03] MEDS: ASTELIN 0.1% NAS SCH (08:56)
--- NOTE | 2017-07-03 08:59 | PN ---
DATE OF SERVICE: 07/01/17 SUBJECTIVE: 82-year-old white female hospitalized with bronchitis, chest tightness, urinary tract infection. The patient's Cipro will be incresaed to 50 twice a day for 7 days. She has gram negative rods. The patient is feeling somewhat better. Chest tightness has resolved. The patient's EKG and cardiac markers are negative for acute myocardial event. She says she is feeling a lot better with no chest tightness and has no arthralgia or fatigue type of feeling. REVIEW OF SYSTEMS: CONSTITUTIONAL: No night sweats. No fatigue, malaise, lethargy. No fever or chills. HEENT: Eyes: No visual changes. No eye pain. No eye discharge. ENT: No runny nose. No epistaxis. No sinus pain. No sore throat. No odynophagia. No congestion. RESPIRATORY: No cough, no congestion. No hemoptysis. CARDIOVASCULAR: No angina symptoms. No CHF symptoms. No atypical chest pain for CAD. No palpitations. No shortness of breath. GASTROINTESTINAL: No abdominal pain. No nausea or vomiting. No diarrhea or constipation. No hematemesis. No hematochezia. GENITOURINARY: No urgency. No frequency. No dysuria. No hematuria. No obstructive symptoms. No discharge. No pain. No significant abnormal bleeding. MUSCULOSKELETAL: No musculoskeletal pain; no joint swelling. NEUROLOGICAL: No headache. No neck pain. No syncope. No seizures. No dizziness. PSYCHIATRIC: Not anxious. No depression. No suicidal thoughts. No homicidal thoughts. SKIN: No rash. No lesions. No wounds. ENDOCRINE: No unexplained weight loss. No weight gain. HEMATOLOGIC/LYMPHATIC: No anemia. No purpura. No petechiae. No prolonged or excessive bleeding. No palpable lymph nodes. PHYSICAL EXAMINATION: VITAL SIGNS: Temperature 97.6, pulse 53, respiratory rate 18, BP 140/74, pulse ox 99%. HEENT: Head normocephalic, atraumatic. Eyes: Extraocular muscles are intact. Pupils are equal, round and reactive to light and accommodation. Ears: No lesions. Nose appeared normal. Throat: No exudate or erythema. NECK: Supple. No JVD, no carotid bruit. No lymphadenopathy or thyromegaly. LUNGS: Clear to auscultation. Percussion note normal. Chest symmetrical. HEART: S1, S2, no S3. No murmurs. No cyanosis or clubbing. No ascites. Pulses: Dorsalis pedis and posterior tibial pulses +1 to +2 both sides. ABDOMEN: Soft. Nontender. Bowel sounds active. No CVA tenderness. No mass felt. EXTREMITIES: No edema. Full range of motion of all extremities, equal. NEUROLOGIC: No focal deficit. Cranial nerves II through XII are grossly intact. No headache, no double vision or headache. SKIN: Not dry. Intact. Turgor - normal. LYMPHATIC: No palpable lymph nodes/no lymphedema. MUSCULOSKELETAL: Normal joints with no swelling. Muscle tone is normal. ASSESSMENT: 1. The patient's medical conditions are stable with stable bronchitis, chest tightness; all likely pleuritic type. UTI is being treated with Cipro. Also, bronchitis being treated with it. The patient got a steroid shot yesterday and today. CONDITION: Stable. The patient is seen with nurse practitioner. TIME SPENT: More than 30 minutes. Plan and coordination of the patient's care discussed in the presence of nurse. EAN
[2017-07-03] MEDS: NORCO 5-325 PO PRN (09:05)
--- NOTE | 2017-07-03 11:06 | CM.DICTOOL ---
ADMISSION: 06/30/17 12:34 DISCHARGE: 07/03/17 DATE OF SERVICE: 07/03/17 FINAL DIAGNOSIS ACUTE BRONCHITIS CHEST TIGHTNESS - PLEURITIC UTI, CHRONIC BACK PAIN, CHRONIC CAD HYPERTENSION DYSLIPIDEMIA ANEMIA DM, TYPE 2 GERD ANXIETY HYSTERECTOMY CHOLECYSTECTOMY TOTAL RIGHT AND LEFT KNEE ARTHROPLASTY APPENDECTOMY BILATERAL CATARACT EXTRACTIONS LEFT ANKLE SURGERY, 25 YEARS AGO PESSARY INSERTION LAST VITALS Temp Pulse Resp BP Pulse Ox 97.0 F L 55 L 18 130/69 98 07/03/17 05:46 07/03/17 05:46 07/03/17 05:46 07/03/17 05:46 07/03/17 05:46 ACTIVE MEDICATIONS Acetaminophen (Tylenol) 650 mg PO Q4H PRN PRN Reason: Headache Last Admin: 07/02/17 03:37 Dose: 650 mg Acetaminophen/Hydrocodone Bitart (Kaleva 5-325) 1 tab PO DAILY PRN PRN Reason: MOD PAIN Last Admin: 07/02/17 16:03 Dose: 1 tab Albuterol Sulfate (Proair Hfa) 2 puff IH Q6HR [facility] (NEW PRESCRIPTION GIVEN) Last Admin: 07/03/17 05:49 Dose: 2 puff Aspirin (Aspirin Ec) 81 mg PO DAILYWM [facility] Last Admin: 07/02/17 08:46 Dose: 81 mg Azelastine HCl (Astelin 0.1%) 2 spray LAURIE BID [facility] Last Admin: 07/02/17 20:36 Dose: 2 spray Bisoprolol Fumarate (Zebeta) 10 mg PO DAILY [facility] Last Admin: 07/02/17 08:44 Dose: 10 mg Cetirizine HCl (Zyrtec) 10 mg PO DAILY [facility] Last Admin: 07/02/17 08:46 Dose: 10 mg Ciprofloxacin (Cipro) 250 mg PO BIDCIPRO [facility] (PRESCRIPTION BY DR. PRESCOTT) Last Admin: 07/03/17 05:49 Dose: 500 mg Lorazepam (Ativan) 1 mg PO BID [facility] Last Admin: 07/02/17 20:43 Dose: 1 mg Metformin HCl (Glucophage) 500 mg PO BIDBRS [facility] Last Admin: 07/02/17 18:38 Dose: 500 mg Last Admin: 07/01/17 14:23 Dose: 4 mg Non-Formulary Medication (Potassium Citrate [Potassium Citrate Er]) 10 meq PO BID [facility] Last Admin: 07/02/17 20:36 Dose: 10 meq Olmesartan/Hydrochlorothiazide (Benicar-Hct) 40-12.5 mg PO DAILY [facility] Last Admin: 07/02/17 08:44 Dose: 40-12.5 mg Omeprazole (Prilosec) 40 mg PO QDAC [facility] Last Admin: 07/03/17 05:49 Dose: 40 mg Pravastatin Sodium (Pravachol) 80 mg PO BEDTIME [facility] Last Admin: 07/02/17 20:36 Dose: 80 mg ALLERGIES Penicillins Allergy (Severe, Verified 03/13/17 10:12) Anaphylaxis Cephalosporins Adverse Reaction (Severe, Verified 03/13/17 10:12) Anaphylaxis nitrofurantoin macrocrystal [From Macrodantin] Adverse Reaction (Severe, Verified 03/13/17 10:12) Anaphylaxis phenobarbital Adverse Reaction (Severe, Verified 03/13/17 10:12) Hives Sulfa (Sulfonamide Antibiotics) Adverse Reaction (Severe, Verified 03/13/17 10: 12) Anaphylaxis atropine sulfate [From ] Adverse Reaction (Verified 03/13/17 10:12) furosemide [From Lasix] Adverse Reaction (Verified 03/13/17 10:12) Rash hyoscyamine sulfate [From ] Adverse Reaction (Verified 03/13/17 10:12) lansoprazole [From Prevacid] Adverse Reaction (Verified 03/13/17 10:12) scopolamine hydrobromide [From ] Adverse Reaction (Verified 03/13/17 10: 12) NEW PRESCRIPTIONS: PREDNISONE 10 MG, TAKE ONE TABLET BY MOUTH TWICE DAILY WITH FOOD FOR 5 DAYS PROAIR HFA, TAKE 2 PUFFS EVERY 6 HOURS IF NEEDED (PRN) FOR SHORTNESS OF BREATH OR WHEEZING (PATIENT MAY BE GIVEN HOSPITAL INHALER FOR HOME USE) SMOKING: NONSMOKER DISEASE SPECIFIC EDUCATION: BRONCHITIS PLEURITIC TYPE CHEST PAIN HOME MEDICATIONS NEW MEDICATIONS STEROID USE INCLUDING RISKS OF LONG-TERM USE DIET/ACTIVITY FOLLOW UP LAB REVIEW: 07/03/17 04:20 07/03/17 04:20 07/03/17 04:20: WBC 12.94 H, RBC 3.62 L, Hgb 10.8 L, Hct 31.0 L, MCV 85.6, MCH 29.8, MCHC 34.8, RDW Coeff of Gloria 12.3, Plt Count 278, Immature Gran % (Auto) 0.7, Neut % (Auto) 68.2, Lymph % (Auto) 23.5, [place] % (Auto) 7.2, Eos % (Auto) 0.2, Baso % (Auto) 0.2, Immature Gran # (Auto) 0.1, Neut # 8.8 H, Lymph # 3.0, [place] # 0.9, Eos # 0.0, Baso # 0.0, Sodium 127 L, Potassium 5.1, Chloride 97 L, Carbon Dioxide 19 L, Anion Gap 16.1, BUN 54 H, Creatinine 1.52 H, Estimated GFR (MDRD) 33.00, BUN/Creatinine Ratio 35.52, Glucose 114, Calcium 8.9, Total Bilirubin 0.33, AST 8 L, ALT 12, Alkaline Phosphatase 54, Total Protein 5.8, Albumin 3.2 L, Globulin 2.6, Albumin/Globulin Ratio 1.23 / 08:20: Sodium 127 L, Potassium 4.4, Chloride 95 L, Carbon Dioxide 23, Anion Gap 13.4, BUN 47 H, Creatinine 1.58 H, Estimated GFR (MDRD) 31.00, BUN/ Creatinine Ratio 29.74, Glucose 89, Calcium 9.4, Total Bilirubin 0.45, AST 10 L , ALT 13, Alkaline Phosphatase 65, Total Protein 6.9, Albumin 3.7, Globulin 3.2 , Albumin/Globulin Ratio 1.16 PLAN: DISCHARGE HOME TODAY RETURN TO SEE DR. COPPOLA IN ONE WEEK. PLEASE CALL TO SCHEDULE YOUR FOLLOW UP APPOINTMENT [phone] RESUME YOUR HOME MEDICATIONS PER LIST PROVIDED BY THE NURSING STAFF CONTINUE YOUR CIPRO PRESCRIPTION PER INSTRUCTIONS GIVEN BY DR. PRESCOTT NEW PRESCRIPTIONS: PREDNISONE 10 MG, TAKE ONE TABLET BY MOUTH TWICE DAILY WITH FOOD FOR 5 DAYS PROAIR HFA, TAKE 2 PUFFS EVERY 6 HOURS IF NEEDED (PRN) FOR SHORTNESS OF BREATH OR WHEEZING (PATIENT MAY BE GIVEN HOSPITAL INHALER FOR HOME USE) ACTIVITY: GET PLENTY OF REST AT HOME. GRADUALLY INCREASE YOUR ACTIVITY LEVEL ACCORDING TO YOUR TOLERATION DIET: HEALTHY HEART SUMMARY: THE PATIENT IS ALERT AND ORIENTED X3. SHE CURRENTLY RESIDES AT HOME ALONE. HER SON RESIDES CLOSE BY AND ASSISTS WITH HER NEEDS WHEN NECESSARY. SHE DESIRES TO RETURN HOME AT DISCHARGE. SHE SAYS SHE HAS A GOOD FRIEND WHO WILL STAY WITH HER UNTIL SHE IS FULLY RECOVERED FROM THIS SPELL OF ILLNESS. SHE HAS A C-PAP, CANE, WALKER, BEDSIDE COMMODE, SHOWER CHAIR, GLUCOMETER AND BLOOD SUGAR TESTING SUPPLIES AT HOME. SHE ALSO UTILIZES A PRIVATE DUTY HOMEMAKER ONCE EVERY 2 WEEKS TO ASSIST WITH LIGHT HOUSEKEEPING CHORES. THE PATIENT HAS SHOWN GOOD CLINICAL IMPROVEMENT DURING THIS STAY. SHE IS AFEBRILE AND SAYS SHE IS FEELING MUCH BETTER. SHE IS NOT COUGHING AND DENIES HAVING ANY FURTHER PLEURITIC-TYPE PAIN. HER SKIN TURGOR IS INTACT AND WITHOUT DECUBITUS ULCERS AT DISCHARGE. SHE IS AWARE AND AGREEABLE FOR DISCHARGE TODAY. CURRENT CODE STATUS: FULL CODE POLA DUARTE APRN, DESTINEY COPPOLA M.D.
--- NOTE | 2017-07-03 13:22 | PN ---
DATE OF SERVICE: 07/02/17 SUBJECTIVE: The patient is a 82 year old white female hospitalized with shortness of breath , bronchitis and chest tightness. The patient's condition has improved and he is feeling a lot better. REVIEW OF SYSTEMS: CONSTITUTIONAL: No night sweats. No fatigue, malaise, lethargy. No fever or chills. HEENT: Eyes: No visual changes. No eye pain. No eye discharge. ENT: No runny nose. No epistaxis. No sinus pain. No sore throat. No odynophagia. No congestion. RESPIRATORY: Mild cough, no congestion. No hemoptysis. CARDIOVASCULAR: No angina symptoms. No CHF symptoms. No atypical chest pain for CAD. No palpitations. No shortness of breath. No chest tightness. GASTROINTESTINAL: No abdominal pain. No nausea or vomiting. No diarrhea or constipation. No hematemesis. No hematochezia. Appetite has improved. GENITOURINARY: No urgency. No frequency. No dysuria. No hematuria. No obstructive symptoms. No discharge. No pain. No significant abnormal bleeding. MUSCULOSKELETAL: No musculoskeletal pain; no joint swelling. Less aches and pains. NEUROLOGICAL: No headache. No neck pain. No syncope. No seizures. No dizziness. PSYCHIATRIC: Not anxious. No depression. No suicidal thoughts. No homicidal thoughts. SKIN: No rash. No lesions. No wounds. ENDOCRINE: No unexplained weight loss. No weight gain. HEMATOLOGIC/LYMPHATIC: No anemia. No purpura. No petechiae. No prolonged or excessive bleeding. No palpable lymph nodes. PHYSICAL EXAMINATION: GENERAL: The patient is oriented to time, place and person. VITAL SIGNS: Temperature 97.5, pulse 53, respiratory rate 19, blood pressure 160/68 and pulse ox 98%. HEENT: Head normocephalic, atraumatic. Eyes: Extraocular muscles are intact. Pupils are equal, round and reactive to light and accommodation. Ears: No lesions. Nose appeared normal. Throat: No exudate or erythema. NECK: Supple. No JVD, no carotid bruit. No lymphadenopathy or thyromegaly. LUNGS: Decreased breath sounds but clear to auscultation. Percussion note normal. Chest symmetrical. HEART: S1, S2, no S3. No murmurs. No cyanosis or clubbing. No ascites. Pulses: Dorsalis pedis and posterior tibial pulses +1 to +2 both sides. ABDOMEN: Soft. Nontender. Bowel sounds active. No CVA tenderness. No mass felt. EXTREMITIES: No edema. Full range of motion of all extremities, equal. NEUROLOGIC: No focal deficit. Cranial nerves II through XII are grossly intact. No headache, no double vision or headache. SKIN: Not dry. Intact. Turgor - normal. LYMPHATIC: No palpable lymph nodes/no lymphedema. MUSCULOSKELETAL: Normal joints with no swelling. Muscle tone is normal. ASSESSMENT: 1. Acute bronchitis with pleuritic type of pain subsided 2. Chest pain, seems to be noncardiac 3. Arthralgia 4. Generalized weakness seems to be resolving CONDITION: Stable The patient was seen with Nurse Practitioner. TIME SPENT: More than 30 minutes. Plan and coordination of the patient's care discussed in the presence of nurse. EAN
--- NOTE | 2017-07-03 13:33 | PCM.PROG ---
Attending Provider: ATTENDING PROVIDER: Dr. DESTINEY COPPOLA DATE OF SERVICE: 07/03/17 SUBJECTIVE: This 82 year old WHITE/ F was hospitalized 06/30/17. The patient is seen with Annette, Nurse Practitioner. She is alert, lying in bed, feeling much better. She was up and about walking yesterday. She states she is ready to go home. REVIEW OF SYSTEMS: CONSTITUTIONAL: No night sweats. No fatigue, malaise, lethargy. No fever or chills. HEENT: Eyes: No visual changes. No eye pain. No eye discharge. ENT: No runny nose. No epistaxis. No sinus pain. No odynophagia. No congestion. RESPIRATORY: Cough. No congestion. No hemoptysis. CARDIOVASCULAR: No angina symptoms. No CHF symptoms. No atypical chest pain for CAD. No palpitations. No shortness of breath. GASTROINTESTINAL: No abdominal pain. No nausea or vomiting. No diarrhea or constipation. No hematemesis. No hematochezia. GENITOURINARY: No urgency. No frequency. No dysuria. No hematuria. No obstructive symptoms. No discharge. No pain. No significant abnormal bleeding. MUSCULOSKELETAL: No musculoskeletal pain; no joint swelling. NEUROLOGICAL: Awake, alert, oriented to time, place and person. No headache. No neck pain. No syncope. No seizures. No dizziness. PSYCHIATRIC: Not anxious. No depression. No suicidal thoughts. No homicidal thoughts. SKIN: No rash. No lesions. No wounds. ENDOCRINE: No unexplained weight loss. No weight gain. HEMATOLOGIC/LYMPHATIC: No anemia. No purpura. No petechiae. No prolonged or excessive bleeding. No palpable lymph nodes. PHYSICAL EXAMINATION: GENERAL: The patient is awake, alert and oriented, lying in bed in no distress. VITAL SIGNS: Temperature 97.0 F, Pulse 55, Respiratory Rate 18, BP 130/69, Pulse Ox 98% HEENT: Head normocephalic, atraumatic. Eyes: Extraocular muscles are intact. Pupils are equal, round and reactive to light and accommodation. Ears: No lesions. Nose appeared normal. Throat: No exudate or erythema. NECK: Supple. No JVD, no carotid bruit. No lymphadenopathy or thyromegaly. LUNGS: Clear and equal bilaterally. Percussion note normal. Chest symmetrical. HEART: S1, S2, no S3. No murmurs. No cyanosis or clubbing. No ascites. Pulses: Dorsalis pedis and posterior tibial pulses +1 to +2 both sides. ABDOMEN: Soft. Non-tender. Bowel sounds active. No CVA tenderness. No mass felt. EXTREMITIES: No edema. Full range of motion of all extremities, equal. NEUROLOGIC: No focal deficit. Cranial nerves II through XII are grossly intact. No headache, no double vision or headache. SKIN: Not dry. Intact. Turgor-normal. LYMPHATIC: No palpable lymph nodes/no lymphedema. MUSCULOSKELETAL: Normal joints with no swelling. Muscle tone is normal. LAB REVIEW: 07/03/17 04:20 07/03/17 04:20 07/03/17 04:20: WBC 12.94 H, RBC 3.62 L, Hgb 10.8 L, Hct 31.0 L, MCV 85.6, MCH 29.8, MCHC 34.8, RDW Coeff of Gloria 12.3, Plt Count 278, Immature Gran % (Auto) 0.7, Neut % (Auto) 68.2, Lymph % (Auto) 23.5, [place] % (Auto) 7.2, Eos % (Auto) 0.2, Baso % (Auto) 0.2, Immature Gran # (Auto) 0.1, Neut # 8.8 H, Lymph # 3.0, [place] # 0.9, Eos # 0.0, Baso # 0.0, Sodium 127 L, Potassium 5.1, Chloride 97 L, Carbon Dioxide 19 L, Anion Gap 16.1, BUN 54 H, Creatinine 1.52 H, Estimated GFR (MDRD) 33.00, BUN/Creatinine Ratio 35.52, Glucose 114, Calcium 8.9, Total Bilirubin 0.33, AST 8 L, ALT 12, Alkaline Phosphatase 54, Total Protein 5.8, Albumin 3.2 L, Globulin 2.6, Albumin/Globulin Ratio 1.23 07/02/17 08:20: WBC 11.74 H, RBC 4.00 L, Hgb 12.1, Hct 34.6 L, MCV 86.5, MCH 30.3, MCHC 35.0, RDW Coeff of [place] 12.5, Plt Count 336, Immature Gran % (Auto) 0.7, Neut % (Auto) 56.2, Lymph % (Auto) 35.1, [place] % (Auto) 7.5, Eos % (Auto) 0.3, Baso % (Auto) 0.2, Immature Gran # (Auto) 0.1, Neut # 6.6, Lymph # 4.1 H, [place] # 0.9, Eos # 0.0, Baso # 0.0, Sodium 127 L, Potassium 4.4, Chloride 95 L, Carbon Dioxide 23, Anion Gap 13.4, BUN 47 H, Creatinine 1.58 H, Estimated GFR ( MDRD) 31.00, BUN/Creatinine Ratio 29.74, Glucose 89, Calcium 9.4, Total Bilirubin 0.45, AST 10 L, ALT 13, Alkaline Phosphatase 65, Total Protein 6.9, Albumin 3.7, Globulin 3.2, Albumin/Globulin Ratio 1.16 ASSESSMENT: 1. Acute bronchitis 2. Weakness, generalized PLAN: 1. Followup next week with Dr. Coppola. 2. ProAir inhaler. 3. Cipro - finish prescription patient has at home. 4. Prednisone 10 mg b.i.d. times 5 days. Plan and coordination of the patient's care discussed in the presence of Slab Worker and nurse. CONDITION: SCRIBED BY: CHARLA OLIVAREZ, Sap Developer scribed while in presence of service performed by Dr. DESTINEY COPPOLA on 07/03/17 ([id number])
--- NOTE | 2017-07-09 13:17 | DS ---
DATE OF SERVICE: 07/03/17 FINAL DIAGNOSIS: 1. ACUTE BRONCHITIS 2. CHEST TIGHTNESS-PLEURITIC 3. UTI, CHRONIC 4. BACK PAIN, CHRONIC 5. CAD 6. HYPERTENSION 7. DYSLIPIDEMIA 8. ANEMIA 9. DIABETES MELLITUS, TYPE 2 10. GERD 11. ANXIETY 12. HYSTERECTOMY 13. CHOLECYSTECTOMY 14. TOTAL RIGHT AND LEFT KNEE ARTHROPLASTY 15. APPENDECTOMY 16. BILATERAL CATARACT EXTRACTIONS 17. LEFT ANKLE SURGERY, 25 YEARS AGO 18. PESSARY INSERTION DISCHARGE INSTRUCTIONS: Followup appointment: Return to see Dr. Zavala in one week. Please call to schedule your followup appointment. MEDICATIONS AT DISCHARGE: 1. Pravastatin (Pravachol) 80 mg p.o. bedtime 2. Metformin 500 mg p.o. b.i.d. BRS 3. Bisoprolol Fumarate (Zebeta) 10 mg p.o. daily 4. Lorazepam (Ativan) 1 mg p.o. b.i.d. 5. Azelastine two spray NS b.i.d. 6. Aspirin 81 mg p.o. daily with meal 7. Acetaminophen (Tylenol) 1,000 mg p.o. q.12 p.r.n. 8. Cetirizine 10 mg p.o. daily 9. Olmesartan/Hydrochlorothiazide one tab p.o. daily 10. Omeprazole (Prilosec) 40 mg p.o. daily 11. Potassium Citrate ER 10 mEq p.o. b.i.d. 12. Carbamazepine 200 mg p.o. daily p.r.n. 13. Hydrocodone/Acetaminophen one each p.o. daily p.r.n. NEW PRESCRIPTIONS: 1. Prednisone 10 mg take one tablet by mouth twice daily with food for five days 2. ProAir HFA take two puffs every 6 hours if needed (prn) for shortness of breath or wheezing (patient may be given hospital inhaler for home use) DIET INSTRUCTIONS: Healthy Heart ACTIVITY: Get plenty of rest at home, gradually increase your activity level according to your toleration. SMOKING: NONSMOKER DISEASE SPECIFIC EDUCATION: Bronchitis Pleuritic type chest pain Home medications New medications Steroid use including risks of long-term use Diet/activity Followup HOSPITAL COURSE: This is an 82-year-old female who presented to our office complaining of shortness of breath, coughing and chest tightness. She stated that she had been trying to borges this at home for the past week and felt that her wheezing and shortness of breath was becoming worse. She was then a direct admit from our office. She was placed on routine telemetry orders. A chest x-ray showed chronic bronchitis. She does have a history of chronic urinary tract infections and UA was done and the culture was negative. She has remained afebrile during the course of her hospital stay. She was put on Cipro 500 mg p.o. b.i.d. in order to cover for the chronic urinary tract infection until the culture came back negative. This was then discontinued. She was also placed on nebulization treatments and Toradol as needed for pain as she does have chronic back pain. Over the course of the past few days she remarkably improved. On Friday, 07/01 she was given a Decadron 4 mg injection as she was still wheezing and feeling slightly short of breath. Her vital signs have remained stable. Her pulse ox that day was 92% on room air. She received another Decadron injection yesterday. This morning, yesterday and this morning she had been up and about. After seeing her this morning she reported that she had already been up, taken a shower, had been walking around and had brushed her teeth and said she felt much better. She was also shown how to use an inhaler during the course of her hospital stay. A ProAir inhaler to use as a rescue when she does feel short of breath so she can take this at home because she does have a history of getting anxious when she feels she can't breathe. She will be discharged home on Cipro 500 mg and she has a prescription at home which she is to finish. She is to go home with Albuterol inhaler and to use it p.r.n. as needed. She will also be discontinued home on Prednisone 10 mg p.o. b.i.d. On day of discharge she was eating 100% of all of her meals. Her vital signs were stable, temperature 97, heart rate 55, respirations 18, BP 130/69, pulse ox 98%. Labs were steady. Hemoglobin 10.8, hematocrit 31. Potassium 5.1, sodium 127 which is normal for her. BUN 54, creatinine 1.5. White count is slightly elevated at 12 which is the result of two days of Decadron. We will discharge her home today in stable condition as she is significantly improved and is in no apparent distress. She is up and about not using oxygen. She has no wheezing. Her lungs are clear with just diminished breath sounds. Chest x-rays have been consistent with bronchitis and pneumonia. She has been afebrile and states she is feeling much stronger. We will see her in the office early next week. TIME SPENT: More than 60 minutes. EAN
--- NOTE | 2017-07-10 14:27 | PN ---
DATE OF SERVICE: 07/03/17 SUBJECTIVE: The patient was seen and examined with Nurse Practitioner. The patient is an 82 year old white female hospitalized with acute bronchitis, chest tightness, dehydration and urinary tract infection. The patient's condition has improved remarkably. She is feeling a lot better. She is up and about. Appetite has improved. Hydration status has improved. The patient's electrolytes are somewhat abnormal but I think that patient's condition with good appetite should improve her kidney status and also her sodium level. The patient was discharged on Albuterol inhaler, Cipro and Prednisone. PHYSICAL EXAMINATION: HEENT: Head normocephalic, atraumatic. Eyes: Extraocular muscles are intact. Pupils are equal, round and reactive to light and accommodation. Ears: No lesions. Nose appeared normal. Throat: No exudate or erythema. NECK: Supple. No JVD, no carotid bruit. No lymphadenopathy or thyromegaly. LUNGS: Clear to auscultation. Percussion note normal. Chest symmetrical. No pleuritic pain. No chest tightness. HEART: S1, S2, no S3. No murmurs. No cyanosis or clubbing. No ascites. Pulses: Dorsalis pedis and posterior tibial pulses +1 to +2 both sides. ABDOMEN: Soft. Nontender. Bowel sounds active. No CVA tenderness. No mass felt. EXTREMITIES: No edema. Full range of motion of all extremities, equal. NEUROLOGIC: No focal deficit. Cranial nerves II through XII are grossly intact. No headache, no double vision or headache. SKIN: Not dry. Intact. Turgor - better. Hydration status improved. LYMPHATIC: No palpable lymph nodes/no lymphedema. MUSCULOSKELETAL: Normal joints with no swelling. Muscle tone is normal. CONDITION: Stable TIME SPENT: More than 30 minutes. Plan and coordination of the patient's care discussed in the presence of nurse. EAN
--- NOTE | 2017-07-10 14:28 | PN ---
06/30/17: Level 5 07/01/17: Intermediate 07/02/17: Intermediate 07/03/17: D as in discharge MTDD
== END 2017-07-03 12:40 | disposition home or self-care (01) | DRG 202 ==
LOC: MEDSURG B 12:34
PROVIDERS: ADMIT Internal Medicine; ATTEND Internal Medicine
DX: J20.9 Acute bronchitis, unspecified (principal); N39.0 Urinary tract infection, site not specified; E11.9 Type 2 diabetes mellitus without complications; I10 Essential (primary) hypertension; R07.81 Pleurodynia; R53.1 Weakness; I25.10 Atherosclerotic heart disease of native coronary artery without angina pectoris; R06.02 Shortness of breath; E78.5 Hyperlipidemia, unspecified; D64.9 Anemia, unspecified; K21.9 Gastro-esophageal reflux disease without esophagitis; F41.9 Anxiety disorder, unspecified; Z96.0 Presence of urogenital implants; Z87.440 Personal history of urinary (tract) infections; Z79.84 Long term (current) use of oral hypoglycemic drugs; Z79.899 Other long term (current) drug therapy
CPT/HCPCS: 36415; 80053; 81001; 82550; 83874; 84439; 84443; 84484; 85025; 87086; 93005; 93010; 99223; 99233; 99239

== ENCOUNTER 2018-03-20 11:07 | Inpatient (IN) ==
[2018-03-20 11:48] VITALS: BMI 37.7
[2018-03-20] MEDS ORDERED: ATROPINE SULFATE PFS IVP PRN (11:49)
[2018-03-20] MEDS ORDERED: TYLENOL PO PRN (11:49)
[2018-03-20] MEDS ORDERED: NITROSTAT SL PRN (11:49)
[2018-03-20] MEDS ORDERED: MORPHINE 4 MG/ML VIAL IVP PRN (11:49)
[2018-03-20] MEDS ORDERED: VISTARIL INJ IM PRN (11:49)
[2018-03-20] MEDS ORDERED: ROCEPHIN 1 GM in SODIUM CHLORIDE 50 ML IV SCH (12:00)
[2018-03-20] MEDS: SODIUM CHLORIDE 1,000 ML IV SCH (13:10)
[2018-03-20] MEDS: LEVAQUIN PO SCH (13:10)
[2018-03-20] MEDS: TORADOL IVP PRN ×2 (13:12→21:17)
[2018-03-20] MEDS: SOLU-CORTEF 100 MG IVP SCH ×2 (13:12→21:05)
[2018-03-20] MEDS: XOPENEX 1.25 MG NEB SCH ×2 (14:11→22:25)
--- NOTE | 2018-03-20 14:29 | DI ---
EXAM: Chest two view, frontal and lateral views. HISTORY: Shortness of air. COMPARISON: 06/30/2017. FINDINGS: The heart size is normal. There is no pulmonary vascular congestion. The lungs are clear . No pleural effusion or pneumothorax is seen. No acute osseous abnormality identified. Since the prior study, there has been no significant interval change. IMPRESSION: No acute cardiopulmonary process.
[2018-03-20] MEDS ORDERED: PROAIR HFA IH PRN (15:16)
[2018-03-20] MEDS ORDERED: TEGRETOL PO PRN (15:16)
[2018-03-20] MEDS: TYLENOL PO PRN (16:07)
[2018-03-20] MEDS ORDERED: TRIMETHOPRIM 100 MG PO SCH (17:00)
[2018-03-20] MEDS: HUMULIN R SUBCUT PRN ×2 (17:19→20:17)
[2018-03-20] MEDS: GLUCOPHAGE PO SCH (17:20)
[2018-03-20] MEDS: ATIVAN PO SCH (20:15)
[2018-03-20] MEDS: ASTELIN 0.1% NAS SCH (20:15)
[2018-03-20] MEDS: PRAVACHOL PO SCH (20:16)
[2018-03-20] MEDS ORDERED: NON-FORMULARY MEDICATION (Pravastatin Sodium [Pravachol] 80 MG) PO SCH (21:00)
[2018-03-21] MEDS: TYLENOL PO PRN (03:10)
[2018-03-21] MEDS: SODIUM CHLORIDE 1,000 ML IV SCH ×2 (03:11→16:36)
[2018-03-21] MEDS: XOPENEX 1.25 MG NEB SCH ×3 (05:09→21:33)
[2018-03-21] MEDS: SOLU-CORTEF 100 MG IVP SCH ×3 (05:14→20:23)
[2018-03-21] MEDS: HUMULIN R SUBCUT PRN ×2 (05:39→16:46)
[2018-03-21] MEDS: PRILOSEC PO SCH (05:40)
[2018-03-21] MEDS ORDERED: NON-FORMULARY MEDICATION (Omeprazole [Prilosec] 40 MG) PO SCH (06:30)
[2018-03-21] MEDS ORDERED: ASPIRIN EC PO SCH (08:00)
[2018-03-21] MEDS: OMEGA-3 FISH OIL PO SCH (08:03)
[2018-03-21] MEDS: HYDROCHLOROTHIAZIDE PO SCH (08:03)
[2018-03-21] MEDS: BENICAR PO SCH (08:04)
[2018-03-21] MEDS: ASPIRIN EC PO SCH (08:04)
[2018-03-21] MEDS: MICRO-K CAP PO SCH (08:04)
[2018-03-21] MEDS: GLUCOPHAGE PO SCH ×2 (08:04→16:37)
[2018-03-21] MEDS: ZEBETA PO SCH (08:04)
[2018-03-21] MEDS: ZYRTEC PO SCH (08:04)
[2018-03-21] MEDS: LEVAQUIN PO SCH (08:04)
[2018-03-21] MEDS: ASTELIN 0.1% NAS SCH ×2 (08:05→20:23)
[2018-03-21] MEDS: TORADOL IVP PRN ×2 (08:23→18:41)
[2018-03-21] MEDS: ATIVAN PO SCH ×2 (08:23→20:23)
[2018-03-21] MEDS ORDERED: POTASSIUM CITRATE 10 MEQ PO SCH (09:00)
[2018-03-21] MEDS ORDERED: OLMESARTAN PO SCH (09:00)
[2018-03-21] MEDS ORDERED: [UNRECOGNIZED DRUG - OTHER] PO SCH (09:00)
[2018-03-21] MEDS ORDERED: NON-FORMULARY MEDICATION (Omega-3/Dha/Epa/Fish Oil [Fish Oil 1,000 Mg Softgel] 1 EACH) PO SCH (09:00)
[2018-03-21] MEDS ORDERED: HYDROCHLOROTHIAZIDE PO SCH (09:00)
[2018-03-21] MEDS: NORCO 5-325 PO PRN (10:51)
[2018-03-21] MEDS: TRIMETHOPRIM 100 MG PO SCH (16:18)
[2018-03-21] MEDS: PRAVACHOL PO SCH (20:23)
[2018-03-22] MEDS: SOLU-CORTEF 100 MG IVP SCH ×3 (04:49→20:53)
[2018-03-22] MEDS: SODIUM CHLORIDE 1,000 ML IV SCH (04:49)
[2018-03-22] MEDS: XOPENEX 1.25 MG NEB SCH ×3 (04:53→22:50)
[2018-03-22] MEDS: PRILOSEC PO SCH (05:41)
[2018-03-22] MEDS: HUMULIN R SUBCUT PRN ×2 (05:42→10:57)
[2018-03-22] MEDS: ASTELIN 0.1% NAS SCH ×2 (09:02→20:05)
[2018-03-22] MEDS: GLUCOPHAGE PO SCH ×2 (09:02→16:39)
[2018-03-22] MEDS: MICRO-K CAP PO SCH (09:02)
[2018-03-22] MEDS: BENICAR PO SCH (09:02)
[2018-03-22] MEDS: OMEGA-3 FISH OIL PO SCH (09:03)
[2018-03-22] MEDS: ZYRTEC PO SCH (09:03)
[2018-03-22] MEDS: LEVAQUIN PO SCH (09:03)
[2018-03-22] MEDS: ATIVAN PO SCH ×2 (09:03→20:06)
[2018-03-22] MEDS: ASPIRIN EC PO SCH (09:03)
[2018-03-22] MEDS: HYDROCHLOROTHIAZIDE PO SCH (09:03)
[2018-03-22] MEDS: ZEBETA PO SCH (09:03)
[2018-03-22] MEDS ORDERED: LASIX IVP STA (10:49)
[2018-03-22] MEDS: TYLENOL PO PRN (14:04)
[2018-03-22] MEDS: TRIMETHOPRIM 100 MG PO SCH (15:51)
[2018-03-22] MEDS: PRAVACHOL PO SCH (20:05)
[2018-03-22] MEDS: NORCO 5-325 PO PRN (21:39)
[2018-03-22] MEDS: TORADOL IVP PRN (21:49)
[2018-03-23] MEDS: SOLU-CORTEF 100 MG IVP SCH (04:39)
[2018-03-23] MEDS: XOPENEX 1.25 MG NEB SCH ×3 (05:12→22:05)
[2018-03-23] MEDS: PRILOSEC PO SCH (05:52)
[2018-03-23] MEDS: HUMULIN R SUBCUT PRN (05:53)
[2018-03-23] MEDS: ASTELIN 0.1% NAS SCH ×2 (08:44→20:22)
[2018-03-23] MEDS: LEVAQUIN PO SCH (08:45)
[2018-03-23] MEDS: BENICAR PO SCH (08:45)
[2018-03-23] MEDS: GLUCOPHAGE PO SCH ×2 (08:46→16:42)
[2018-03-23] MEDS: ASPIRIN EC PO SCH (08:46)
[2018-03-23] MEDS: OMEGA-3 FISH OIL PO SCH (08:46)
[2018-03-23] MEDS: HYDROCHLOROTHIAZIDE PO SCH (08:46)
[2018-03-23] MEDS: ZYRTEC PO SCH (08:46)
[2018-03-23] MEDS: MICRO-K CAP PO SCH (08:46)
[2018-03-23] MEDS: ZEBETA PO SCH (08:46)
[2018-03-23] MEDS: ATIVAN PO SCH ×2 (08:47→20:21)
--- NOTE | 2018-03-23 11:04 | PCM.PROG ---
Attending Provider: ATTENDING PROVIDER: Dr. DESTINEY COPPOLA This patient is seen with Annette Edgar, Nurse Practitioner. DATE OF SERVICE: 03/23/18 SUBJECTIVE: This 82 year old WHITE/ F was hospitalized 03/20/18. The patient is sitting on the side of bed, alert. She is feeling much better with no wheezing. She has been eating well. Back pain is much better. She is scheduled for echocardiogram today. REVIEW OF SYSTEMS: CONSTITUTIONAL: Weakness. No night sweats. No malaise, lethargy. No fever or chills. HEENT: Eyes: No visual changes. No eye pain. No eye discharge. ENT: No runny nose. No epistaxis. No sinus pain. No odynophagia. No congestion. RESPIRATORY: Cough. No hemoptysis. No shortness of breath. CARDIOVASCULAR: No angina symptoms. No CHF symptoms. No atypical chest pain for CAD. No palpitations. No orthopnea.. GASTROINTESTINAL: No abdominal pain. No nausea or vomiting. No diarrhea or constipation. No hematemesis. No hematochezia. GENITOURINARY: No urgency. No frequency. No dysuria. No hematuria. No obstructive symptoms. No discharge. No pain. No significant abnormal bleeding. MUSCULOSKELETAL: No musculoskeletal pain; no joint swelling. NEUROLOGICAL: Awake, alert, oriented to time, place and person. No headache. No neck pain. No syncope. No seizures. No dizziness. PSYCHIATRIC: Not anxious. No depression. No suicidal thoughts. No homicidal thoughts. SKIN: No rash. No lesions. No wounds. ENDOCRINE: No unexplained weight loss. No weight gain. HEMATOLOGIC/LYMPHATIC: No anemia. No purpura. No petechiae. No prolonged or excessive bleeding. No palpable lymph nodes. PHYSICAL EXAMINATION: GENERAL: The patient is awake, alert and oriented, sitting in bed in no distress. VITAL SIGNS: Temperature 98.0 F, Pulse 63, Respiratory Rate 26, BP 147/66, Pulse Ox 99% HEENT: Head normocephalic, atraumatic. Eyes: Extraocular muscles are intact. Pupils are equal, round and reactive to light and accommodation. Ears: No lesions. Nose appeared normal. Throat: No exudate or erythema. NECK: Supple. No JVD, no carotid bruit. No lymphadenopathy or thyromegaly. LUNGS: Diminished breath sounds equal and clear to auscultation. Percussion note normal. Chest symmetrical. HEART: S1, S2, no S3. No murmurs. No cyanosis or clubbing. No ascites. Pulses: Dorsalis pedis and posterior tibial pulses +1 to +2 both sides. ABDOMEN: Soft. Non-tender. Bowel sounds active. No CVA tenderness. No mass felt. EXTREMITIES: No leg edema. Full range of motion of all extremities, equal. NEUROLOGIC: No focal deficit. Cranial nerves II through XII are grossly intact. No headache, no double vision or headache. SKIN: Not dry. Intact. Turgor-normal. LYMPHATIC: No palpable lymph nodes/no lymphedema. MUSCULOSKELETAL: Normal joints with no swelling. Muscle tone is normal. LAB REVIEW: 03/23/18 04:15 03/23/18 04:15 03/23/18 04:15: Sodium 136, Potassium 4.4, Chloride 108 H, Carbon Dioxide 16 L, Anion Gap 16.4, BUN 34 H, Creatinine 1.70 H, Estimated GFR (MDRD) 29.00, BUN/ Creatinine Ratio 20.00, Glucose 147 H, Calcium 8.2, Total Bilirubin 0.3, AST 15 , ALT 10 L, Alkaline Phosphatase 44 L, Total Protein 5.3 L, Albumin 2.9 L, Globulin 2.4, Albumin/Globulin Ratio 1.21 03/23/18 04:15: WBC 10.75 H, RBC 3.06 L, Hgb 9.3 L, Hct 27.5 L, MCV 89.9, MCH 30.4, MCHC 33.8, RDW Coeff of Gloria 13.4, Plt Count 220, Immature Gran % (Auto) 0.7, Neut % (Auto) 76.9, Lymph % (Auto) 18.2, [place] % (Auto) 4.1, Eos % (Auto) 0.0, Baso % (Auto) 0.1, Immature Gran # (Auto) 0.1, Neut # (Auto) 8.3 H, Lymph # (Auto) 2.0, [place] # (Auto) 0.4, Eos # (Auto) 0.0, Baso # (Auto) 0.0 ASSESSMENT 1. ACUTE BRONCHITIS RESOLVED 2. HYPERTENSION CONTROLLED 3. SHORTNESS OF BREATH RESOLVED PLAN: 1. Echo to be done today 2. Encouraged to be up and about 3. Prednisone 10 mg b.i.d. for 5 days 4. Levaquin 500 mg for five days 5. Will d/c home Plan and coordination of the patient's care discussed in the presence of Senior Dot Net Developer and nurse. CONDITION: Stable SCRIBED BY: Kvng OCONNOR scribed while in presence of service performed by Dr. Coppola/Annette Edgar APRN on 03/23/18 ([id number])
[2018-03-23] MEDS: TORADOL IVP PRN ×2 (11:41→22:54)
--- NOTE | 2018-03-23 14:17 | PN ---
DATE OF SERVICE: 03/21/18 SUBJECTIVE: 82 year old white female hospitalized with acute bronchitis, wheezing and hypertension. The patient's condition is stable as she is feeling a lot better. REVIEW OF SYSTEMS: CONSTITUTIONAL: No night sweats. No fatigue, malaise, lethargy. No fever or chills. HEENT: Eyes: No visual changes. No eye pain. No eye discharge. ENT: No runny nose. No epistaxis. No sinus pain. No sore throat. No odynophagia. No congestion. RESPIRATORY: No cough, no congestion. No hemoptysis. No shortness of breath. CARDIOVASCULAR: No angina symptoms. No CHF symptoms. No atypical chest pain for CAD. No palpitations. No orthopnea. GASTROINTESTINAL: No abdominal pain. No nausea or vomiting. No diarrhea or constipation. No hematemesis. No hematochezia. GENITOURINARY: No urgency. No frequency. No dysuria. No hematuria. No obstructive symptoms. No discharge. No pain. No significant abnormal bleeding. MUSCULOSKELETAL: No musculoskeletal pain; no joint swelling. NEUROLOGICAL: No headache. No neck pain. No syncope. No seizures. No dizziness. PSYCHIATRIC: Not anxious. No depression. No suicidal thoughts. No homicidal thoughts. SKIN: No rash. No lesions. No wounds. ENDOCRINE: No unexplained weight loss. No weight gain. HEMATOLOGIC/LYMPHATIC: No anemia. No purpura. No petechiae. No prolonged or excessive bleeding. No palpable lymph nodes. PHYSICAL EXAMINATION: GENERAL: The patient is oriented to time, place and person. VITAL SIGNS: Temperature 97.4, pulse 70, respiratory rate 16, blood pressure 126/60 and pulse ox 96%. HEENT: Head normocephalic, atraumatic. Eyes: Extraocular muscles are intact. Pupils are equal, round and reactive to light and accommodation. Ears: No lesions. Nose appeared normal. Throat: No exudate or erythema. NECK: Supple. No JVD, no carotid bruit. No lymphadenopathy or thyromegaly. LUNGS: Decreased breath sounds but clear to auscultation. Percussion note normal. Chest symmetrical. HEART: S1, S2, no S3. No murmurs. No cyanosis or clubbing. No ascites. Pulses: Dorsalis pedis and posterior tibial pulses +1 to +2 both sides. ABDOMEN: Soft. Nontender. Bowel sounds active. No CVA tenderness. No mass felt. EXTREMITIES: No edema. Full range of motion of all extremities, equal. NEUROLOGIC: No focal deficit. Cranial nerves II through XII are grossly intact. No headache, no double vision or headache. SKIN: Not dry. Intact. Turgor - normal. LYMPHATIC: No palpable lymph nodes/no lymphedema. MUSCULOSKELETAL: Normal joints with no swelling. Muscle tone is normal. LABS: Hgb 10, hct 29, WBC 8,900 normal differential, creatinine 1.4, BUN 25 ASSESSMENT: 1. Acute bronchitis/pneumonitis, resolving at least clinically much better 2. Hypertension, controlled 3. Coronary artery disease, stable 4. Shortness of breath likely from sedentary lifestyle, aging process 5. Obesity with BMI of 37 PLAN: 1. Echocardiogram with LV function TIME SPENT: More than 30 minutes. Plan and coordination of the patient's care discussed in the presence of nurse. EAN
[2018-03-23] MEDS: TRIMETHOPRIM 100 MG PO SCH (15:27)
--- NOTE | 2018-03-23 15:43 | PN ---
DATE OF SERVICE: 03/22/18 SUBJECTIVE: The patient was hospitalized with acute bronchitis, wheezing. The patient's condition has improved and she is feeling alot better, no wheezing. REVIEW OF SYSTEMS: CONSTITUTIONAL: No night sweats. No fatigue, malaise, lethargy. No fever or chills. HEENT: Eyes: No visual changes. No eye pain. No eye discharge. ENT: No runny nose. No epistaxis. No sinus pain. No sore throat. No odynophagia. No congestion. RESPIRATORY: No cough, no congestion. No hemoptysis. Shortness of breath on minimal exertion lately. CARDIOVASCULAR: No angina symptoms. No CHF symptoms. No atypical chest pain for CAD. No palpitations. No orthopnea. GASTROINTESTINAL: Abdominal pain. No nausea or vomiting. No diarrhea or constipation. No hematemesis. No hematochezia. Appetite has improved. GENITOURINARY: No urgency. No frequency. No dysuria. No hematuria. No obstructive symptoms. No discharge. No pain. No significant abnormal bleeding. MUSCULOSKELETAL: No musculoskeletal pain; no joint swelling. Mild back pain. NEUROLOGICAL: No headache. No neck pain. No syncope. No seizures. No dizziness. PSYCHIATRIC: Not anxious. No depression. No suicidal thoughts. No homicidal thoughts. SKIN: No rash. No lesions. No wounds. ENDOCRINE: No unexplained weight loss. No weight gain. HEMATOLOGIC/LYMPHATIC: No anemia. No purpura. No petechiae. No prolonged or excessive bleeding. No palpable lymph nodes. PHYSICAL EXAMINATION: HEENT: Head normocephalic, atraumatic. Eyes: Extraocular muscles are intact. Pupils are equal, round and reactive to light and accommodation. Ears: No lesions. Nose appeared normal. Throat: No exudate or erythema. NECK: Supple. No JVD, no carotid bruit. No lymphadenopathy or thyromegaly. LUNGS: Clear to auscultation. Percussion note normal. Chest symmetrical. HEART: S1, S2, no S3. No murmurs. No cyanosis or clubbing. No ascites. Pulses: Dorsalis pedis and posterior tibial pulses +1 to +2 both sides. ABDOMEN: Soft. Nontender. Bowel sounds active. No CVA tenderness. No mass felt. EXTREMITIES: No edema. Full range of motion of all extremities, equal. NEUROLOGIC: No focal deficit. Cranial nerves II through XII are grossly intact. No headache, no double vision or headache. SKIN: Not dry. Intact. Turgor - normal. LYMPHATIC: No palpable lymph nodes/no lymphedema. MUSCULOSKELETAL: Normal joints with no swelling. Muscle tone is normal. ASSESSMENT: 1. Acute bronchitis seems to be resolving 2. Shortness of breath likely combination of multiple factors as mentioned again PLAN: 1. Will do echocardiogram to evaluate LV function 2. Continue Steroids and antibiotics 3. NEBS treatment CONDITION: Stable. TIME SPENT: More than 30 minutes. Plan and coordination of the patient's care discussed in the presence of nurse. EAN
[2018-03-23] MEDS: PREDNISONE PO SCH (16:41)
[2018-03-23] MEDS: NORCO 5-325 PO PRN (20:21)
[2018-03-23] MEDS: PRAVACHOL PO SCH (20:21)
[2018-03-24] MEDS: XOPENEX 1.25 MG NEB SCH ×2 (05:35→14:13)
[2018-03-24] MEDS: PRILOSEC PO SCH (05:35)
[2018-03-24] MEDS: ZEBETA PO SCH (09:11)
[2018-03-24] MEDS: GLUCOPHAGE PO SCH (09:11)
[2018-03-24] MEDS: BENICAR PO SCH (09:11)
[2018-03-24] MEDS: ATIVAN PO SCH (09:11)
[2018-03-24] MEDS: ZYRTEC PO SCH (09:11)
[2018-03-24] MEDS: ASPIRIN EC PO SCH (09:11)
[2018-03-24] MEDS: HYDROCHLOROTHIAZIDE PO SCH (09:11)
[2018-03-24] MEDS: OMEGA-3 FISH OIL PO SCH (09:11)
[2018-03-24] MEDS: PREDNISONE PO SCH (09:12)
[2018-03-24] MEDS: LEVAQUIN PO SCH (09:12)
[2018-03-24] MEDS: MICRO-K CAP PO SCH (09:12)
[2018-03-24] MEDS: ASTELIN 0.1% NAS SCH (09:12)
--- NOTE | 2018-03-24 10:32 | PCM.PROG ---
Attending Provider: ATTENDING PROVIDER: Dr. DESTINEY COPPOLA This patient is seen with Annette Edgar, Nurse Practitioner. DATE OF SERVICE: 03/24/18 SUBJECTIVE: This 82 year old WHITE/ F was hospitalized 03/20/18. Sitting on the side of bed, alert. The patient is feeling better today and stronger. She has been up and about. Cough is improved and is ready to be discharged today. REVIEW OF SYSTEMS: CONSTITUTIONAL: No night sweats. No fatigue, malaise, lethargy. No fever or chills. HEENT: Eyes: No visual changes. No eye pain. No eye discharge. ENT: No runny nose. No epistaxis. No sinus pain. No odynophagia. No congestion. RESPIRATORY: Cough. No hemoptysis. No shortness of breath. CARDIOVASCULAR: No angina symptoms. No CHF symptoms. No atypical chest pain for CAD. No palpitations. No orthopnea.. GASTROINTESTINAL: No abdominal pain. No nausea or vomiting. No diarrhea or constipation. No hematemesis. No hematochezia. GENITOURINARY: No urgency. No frequency. No dysuria. No hematuria. No obstructive symptoms. No discharge. No pain. No significant abnormal bleeding. MUSCULOSKELETAL: No musculoskeletal pain; no joint swelling. NEUROLOGICAL: Awake, alert, oriented to time, place and person. No headache. No neck pain. No syncope. No seizures. No dizziness. PSYCHIATRIC: Not anxious. No depression. No suicidal thoughts. No homicidal thoughts. SKIN: No rash. No lesions. No wounds. ENDOCRINE: No unexplained weight loss. No weight gain. HEMATOLOGIC/LYMPHATIC: No anemia. No purpura. No petechiae. No prolonged or excessive bleeding. No palpable lymph nodes. PHYSICAL EXAMINATION: GENERAL: The patient is awake, alert and oriented, sitting in bed in no distress. VITAL SIGNS: Temperature 97.9 F, Pulse 62, Respiratory Rate 19, BP 126/64, Pulse Ox 98% HEENT: Head normocephalic, atraumatic. Eyes: Extraocular muscles are intact. Pupils are equal, round and reactive to light and accommodation. Ears: No lesions. Nose appeared normal. Throat: No exudate or erythema. NECK: Supple. No JVD, no carotid bruit. No lymphadenopathy or thyromegaly. LUNGS: Diminished breath sounds. Clear to auscultation. Percussion note normal. Chest symmetrical. HEART: S1, S2, no S3. No murmurs. No cyanosis or clubbing. No ascites. Pulses: Dorsalis pedis and posterior tibial pulses +1 to +2 both sides. ABDOMEN: Soft. Non-tender. Bowel sounds active. No CVA tenderness. No mass felt. EXTREMITIES: No edema. Full range of motion of all extremities, equal. NEUROLOGIC: No focal deficit. Cranial nerves II through XII are grossly intact. No headache, no double vision or headache. SKIN: Not dry. Intact. Turgor-normal. LYMPHATIC: No palpable lymph nodes/no lymphedema. MUSCULOSKELETAL: Normal joints with no swelling. Muscle tone is normal. LAB REVIEW: 03/24/18 05:00 03/24/18 05:00 03/24/18 05:00: Sodium 135 L, Potassium 4.4, Chloride 108 H, Carbon Dioxide 17 L , Anion Gap 14.4, BUN 39 H, Creatinine 1.74 H, Estimated GFR (MDRD) 28.00, BUN/ Creatinine Ratio 22.41, Glucose 103, Calcium 8.0 L, Total Bilirubin 0.3, AST 14 L, ALT 11 L, Alkaline Phosphatase 42 L, Total Protein 5.1 L, Albumin 2.8 L, Globulin 2.3, Albumin/Globulin Ratio 1.22 03/24/18 05:00: WBC 11.92 H, RBC 3.07 L, Hgb 9.3 L, Hct 27.6 L, MCV 89.9, MCH 30.3, MCHC 33.7, RDW Coeff of Gloria 13.4, Plt Count 223, Immature Gran % (Auto) 0.5, Neut % (Auto) 66.7, Lymph % (Auto) 24.2, Hopkins % (Auto) 8.1, Eos % (Auto) 0.3, Baso % (Auto) 0.2, Immature Gran # (Auto) 0.1, Neut # (Auto) 8.0 H, Lymph # (Auto) 2.9, [place] # (Auto) 1.0, Eos # (Auto) 0.0, Baso # (Auto) 0.0 ASSESSMENT: 1. ACUTE BRONCHITIS RESOLVED 2. HYPERTENSION CONTROLLED 3. SHORTNESS OF BREATH RESOLVED 4. CHRONIC KIDNEY DISEASE PLAN: 1. D/C home 2. Echo today 3. Levaquin 500 mg daily for 3 days 4. Prednisone 10 b.i.d. for 5 days Plan and coordination of the patient's care discussed in the presence of Director Of Speech Pathology and nurse. CONDITION: Stable SCRIBED BY: CHARLA OLIVAREZ Keg Inspector scribed while in presence of service performed by Dr. Coppola/Annette Edgar APRN on 03/24/18 ([id number])
[2018-03-24 10:41] VITALS: BP 135/70; TEMP 97.7
--- NOTE | 2018-03-24 12:33 | CM.DICTOOL ---
ADMISSION: 03/20/18 11:07 DISCHARGE: MARCH 24, 2018 DATE OF SERVICE: 03/24/18 FINAL DIAGNOSIS ACUTE BRONCHITIS SHORTNESS OF AIR BACK PAIN HYPERTENSION DIABETES, TYPE 2 CHF CHRONIC UTI DYSLIPIDEMIA SCIATICA CHRONIC KIDNEY DISEASE- STAGE 2 CORONARY ARTERY DISEASE OSTEOARTHRITIS CHRONIC UTI BILATERAL CATARACT EXTRACTION HEART CATH X 4 CHOLECYSTECTOMY APPENDECTOMY HYSTERECTOMY BILATERAL TOTAL KNEE REPLACEMENT LEFT ANKLE SURGERY LAST VITALS Temp Pulse Resp BP Pulse Ox 97.9 F 62 19 126/64 98 03/24/18 05:12 03/24/18 05:12 03/24/18 05:12 03/24/18 05:12 03/24/18 05:12 TAKE THESE MEDICATIONS Acetaminophen (Tylenol) 1,000 mg PO Q12H PRN PRN Reason: Mild Pain Last Admin: 03/22/18 14:04 Dose: 1,000 mg Hydrocodone Bitart/Acetaminophen ([place] 5-325) 1 tab PO DAILY PRN PRN Reason: MODERATE PAIN Last Admin: 03/23/18 20:21 Dose: 1 tab Albuterol Sulfate (Proair Hfa) 2 puff IH Q6H PRN PRN Reason: shortness of air Aspirin (Aspirin Ec) 81 mg PO DAILYWM [facility] Last Admin: 03/24/18 09:11 Dose: 81 mg Azelastine HCl (Astelin 0.1%) 2 spray LAURIE BID [facility] Last Admin: 03/24/18 09:12 Dose: 2 spray Bisoprolol Fumarate (Zebeta) 10 mg PO DAILY [facility] Last Admin: 03/24/18 09:11 Dose: 10 mg Carbamazepine (Tegretol) 200 mg PO DAILY PRN PRN Reason: nerve pain Cetirizine HCl (Zyrtec) 10 mg PO DAILY [facility] Last Admin: 03/24/18 09:11 Dose: 10 mg Fish Oil ([place]-3 Fish Oil) 1,000 mg PO DAILY [facility] Last Admin: 03/24/18 09:11 Dose: 1,000 mg Lorazepam (Ativan) 1 mg PO BID [facility] Last Admin: 03/24/18 09:11 Dose: 1 mg Metformin HCl (Glucophage) 500 mg PO BIDBRS [facility] Last Admin: 03/24/18 09:11 Dose: 500 mg Non-Formulary Medication (Trimethoprim [Trimethoprim]) 100 mg PO 1600 [facility] Last Admin: 03/23/18 15:27 Dose: 100 mg Olmesartan/HCT (Benicar/Hydrochlorothiazide) 40-12.5 mg PO DAILY [facility] Last Admin: 03/24/18 09:11 Dose: 40 mg-12.5 mg Omeprazole (Prilosec) 40 mg PO QDAC [facility] Last Admin: 03/24/18 05:35 Dose: 40 mg Potassium Chloride (Micro-K Cap) 10 meq PO DAILY [facility] Last Admin: 03/24/18 09:12 Dose: 10 meq Pravastatin Sodium (Pravachol) 80 mg PO BEDTIME [facility] Last Admin: 03/23/18 20:21 Dose: 80 mg Levaquin 500 mg Daily for 3 days Prednisone 10 mg BID for 5 days ALLERGIES Penicillins Allergy (Severe, Verified 03/13/17 10:12) Anaphylaxis Cephalosporins Adverse Reaction (Severe, Verified 03/13/17 10:12) Anaphylaxis nitrofurantoin macrocrystal [From Macrodantin] Adverse Reaction (Severe, Verified 03/13/17 10:12) Anaphylaxis phenobarbital Adverse Reaction (Severe, Verified 03/13/17 10:12) Hives Sulfa (Sulfonamide Antibiotics) Adverse Reaction (Severe, Verified 03/13/17 10: 12) Anaphylaxis atropine sulfate [From ] Adverse Reaction (Verified 03/13/17 10:12) furosemide [From Lasix] Adverse Reaction (Verified 03/13/17 10:12) Rash hyoscyamine sulfate [From ] Adverse Reaction (Verified 03/13/17 10:12) lansoprazole [From Prevacid] Adverse Reaction (Verified 03/13/17 10:12) scopolamine hydrobromide [From ] Adverse Reaction (Verified 03/13/17 10: 12) MEDICATION CHANGES NONE NEW PRESCRIPTIONS: lLEVAQUIN 500 MG DAILY FOR 3 DAYS PREDNISONE 10 MG BID FOR 5 DAYS SMOKING: NOT APPLICABLE DISEASE SPECIFIC EDUCATION: ACUTE BRONCHITIS PRESCRIPTIONS ACTIVITY LAB REVIEW: 03/24/18 05:00 03/24/18 05:00 03/24/18 05:00: Sodium 135 L, Potassium 4.4, Chloride 108 H, Carbon Dioxide 17 L , Anion Gap 14.4, BUN 39 H, Creatinine 1.74 H, Estimated GFR (MDRD) 28.00, BUN/ Creatinine Ratio 22.41, Glucose 103, Calcium 8.0 L, Total Bilirubin 0.3, AST 14 L, ALT 11 L, Alkaline Phosphatase 42 L, Total Protein 5.1 L, Albumin 2.8 L, Globulin 2.3, Albumin/Globulin Ratio 1.22 03/24/18 05:00: WBC 11.92 H, RBC 3.07 L, Hgb 9.3 L, Hct 27.6 L, MCV 89.9, MCH 30.3, MCHC 33.7, RDW Coeff of Gloria 13.4, Plt Count 223, Immature Gran % (Auto) 0.5, Neut % (Auto) 66.7, Lymph % (Auto) 24.2, Brantley % (Auto) 8.1, Eos % (Auto) 0.3, Baso % (Auto) 0.2, Immature Gran # (Auto) 0.1, Neut # (Auto) 8.0 H, Lymph # (Auto) 2.9, Brantley # (Auto) 1.0, Eos # (Auto) 0.0, Baso # (Auto) 0.0 PLAN: DISCHARGE HOME DIET: CONSISTENT CARBOHYDRATES, LIQUIDS ENCOURAGED ACTIVITY: RESUME ACTIVITY TOLERATED AN APPOINTMENT IS SCHEDULED WITH DR. COPPOLA/POLA DUARTE APRN FOR MARCH 31, 2018 AT 11 AM CONTINUE MEDICATIONS LISTED ON NURSING DISCHARGE INFORMATION SHEET PATIENT IS A FULL CODE PER HER REQUEST MS. GARCIA IS ALERT AND ORIENTED X 3. NO RESPIRATORY DISTRESS IS NOTED. AN OCCASIONAL COUGH IS REPORTED, MAINLY NON-PRODUCTIVE. SHE IS INDEPENDENT WITH ACTIVITIES OF DAILY LIVING AND IS AMBULATORY WITH THE USE OF A STANDARD CANE. SHE REPORTS SHE ALSO HAS ROLLING WALKER AT HOME FOR HER USE WHEN NEEDED. MEAL INTAKES ARE GOOD AT 25-100% OF ALL MEALS. NO SKIN RASH, IRRITATION OR OPEN WOUNDS NOTED. DESTINEY COPPOLA MD POLA DUARTE APRN
--- NOTE | 2018-03-24 14:28 | PN ---
DATE OF SERVICE: 03/23/18 SUBJECTIVE: Lilliam Garcia was seen and examined with the nurse practitioner. She is feeling better. She has no wheezing. Cough and congestion much less. PHYSICAL EXAMINATION: HEENT: Head normocephalic, atraumatic. Eyes: Extraocular muscles are intact. Pupils are equal, round and reactive to light and accommodation. Ears: No lesions. Nose appeared normal. Throat: No exudate or erythema. NECK: Supple. No JVD, no carotid bruit. No lymphadenopathy or thyromegaly. LUNGS: Decreased breath sounds but clear to auscultation. Percussion note normal. Chest symmetrical. HEART: S1, S2, no S3. No murmurs. No cyanosis or clubbing. No ascites. Pulses: Dorsalis pedis and posterior tibial pulses +1 to +2 both sides. ABDOMEN: Soft. Nontender. Bowel sounds active. No CVA tenderness. No mass felt. EXTREMITIES: No edema. Full range of motion of all extremities, equal. NEUROLOGIC: No focal deficit. Cranial nerves II through XII are grossly intact. No headache, no double vision or headache. SKIN: Not dry. Intact. Turgor - normal. LYMPHATIC: No palpable lymph nodes/no lymphedema. MUSCULOSKELETAL: Normal joints with no swelling. Muscle tone is normal. ASSESSMENT: 1. BRONCHITIS RESOLVING. PLAN: 1. The patient will undergo echo in the morning and will be discharged. TIME SPENT: More than 30 minutes. Plan and coordination of the patient's care discussed in the presence of nurse. EAN
--- NOTE | 2018-03-26 08:33 | ECHO2D ---
Date of Exam: 03/24/18 Ordering Physician: DR. DESTINEY COPPOLA Room #: [id number] Reason for Echo: SHORT OF BREATH, ANGINA, HTN, COPD, DM, HYPERLIPIDEMIA M-Mode Normal Adult Results LV Dimensions Normal Adult Results AoV Opening excursions >1.6 >1.6 LVEDD-base- 3.5-5.8 4.4 Ao root dimensions 2.0-3.7 2.9 LVESD-base- 3.1-4.6 L. Atrium dimensions 1.9-3.8 4.4 Post. Wall thickness 0.8-1.1 1.2 IV septum (thickness) 0.7-1.2 1.1 Post. Wall excursion 0.72-1.3 NORMAL Septal motion NORMAL Systolic motion R. Ventricular cavity 1.5-2.0 NORMAL LVEF 60% 61% Paradoxical septal wall motion NORMAL 2-D : 2-D M Mode Echocardiogram was performed using apical four chamber and left parasternal long and short axis views. Mitral, tricuspid and aortic valves appear to be normal. Contractility of the left ventricle seems to be normal, so is the cavity size. Enlarged Left atrial cavity. Aortic root appears to be normal. There is no pericardial effusion. There is no thrombus noted in the left ventricular or left aortic cavity. No mitral valve prolapse noted. M-MODE: MV: NORMAL AV: NORMAL TV: NORMAL PV: CHAMBER SIZE: ENLARGED LEFT ATRIAL CAVITY WALL MOTION: NORMAL PERICARDIUM: NORMAL INTERPRETATION: 1. BORDERLINE LEFT VENTRICULAR HYPERTROPHY 2. ENLARGED LEFT ATRIAL CAVITY 3. NORMAL VALVES 4. NORMAL LEFT VENTRICULAR CONTRACTILITY MTDD
--- NOTE | 2018-04-01 10:57 | DS ---
DATE OF SERVICE: 03/24/18 FINAL DIAGNOSIS: 1. ACUTE BRONCHITIS 2. SHORTNESS OF AIR 3. BACK PAIN 4. HYPERTENSION 5. DIABETES, TYPE 2 6. CHF 7. CHRONIC UTI 8. DYSLIPIDEMIA 9. SCIATICA 10. CHRONIC KIDNEY DISEASE, STAGE 2 11. CORONARY ARTERY DISEASE 12. OSTEOARTHRITIS 13. CHRONIC UTI 14. BILATERAL CATARACT EXTRACTION 15. HEART CATH TIMES FOUR 16. CHOLECYSTECTOMY 17. APPENDECTOMY 18. HYSTERECTOMY 19. BILATERAL TOTAL KNEE REPLACEMENT 20. LEFT ANKLE SURGERY DISCHARGE INSTRUCTIONS: Followup appointment with Dr. Zavala/Annette Edgar APRN for March 31, 2018 at 11 a.m. The patient is a full code per her request. MEDICATIONS AT DISCHARGE: Tylenol 1,000 mg p.o. q.12h p.r.n. [place] 5-325 one tab p.o. daily p.r.n. ProAir Hfa two puff IH q.6h p.r.n. Aspirin 81 mg p.o. daily with meal MAIA Astelin two spray LAURIE b.i.d. MAIA Zebeta 10 mg p.o. daily MAIA Tegretol 200 mg p.o. daily p.r.n. Zyrtec 10 mg p.o. daily MAIA [place] 3 Fish Oil 1000 mg p.o. daily MAIA Ativan 1 mg p.o. b.i.d. MAIA Glucophage 500 mg p.o. b.i.d. BRS MAIA Trimethoprim 100 mg p.o. 1600 Maia Benicar/Hydrochlorothiazide 40-12.5 p.o. daily MAIA Prilosec 40 mg p.o. q.d a.c. MAIA Micro-K 10 mEq p.o. daily MAIA Pravachol 80 mg p.o. bedtime MAIA Levaquin 500 mg p.o. daily for 3 days Prednisone 10 mg b.i.d. for 5 days MEDICATION CHANGES: None NEW PRESCRIPTIONS: Levaquin 500 mg daily for 3 days Prednisone 10 mg b.i.d. for 5 days DIET INSTRUCTIONS: Consistent carbohydrates, liquids encouraged ACTIVITY: Resume activity as tolerated SMOKING: N/A DISEASE SPECIFIC EDUCATION: Acute bronchitis Prescriptions Activity HOSPITAL COURSE: This is a white female who was a direct admit from our office with low back pain , possible urinary tract infection, shortness of breath, elevated blood pressure in the office that was 180/94. She has a history of chronic bronchitis. She had tried to treat it as an outpatient with oral medication that she had at home. She was subsequently admitted, placed on IV steroids, Solu -Cortef 100 mg IV q.8hr along with Levaquin 500 mg IV daily. Chest x-ray revealed no pneumonia. She did have some changes associated with chronic lung disease and acute bronchitis. She was wheezing on admission. Today, on day of discharge, she is not exhibiting any wheezing. She was extremely short of breath with exertion, unable to get up and around in her house by herself on admission. Today, she states she is ready to go home. For the past 24 hours she has been up and about walking around the room. She has been eating 100% of her meals. Her condition has improved remarkably. Yesterday we switched her to Prednisone 10 mg orally twice daily. We will send her home on this for the next 5 days. We will continue the Levaquin 500 mg p.o. daily for the next three days. Otherwise, her medications have been unchanged. Her back pain resolved with administration of Toradol that she received IV q.8hr p.r.n. This has improved since her cough has improved so her medications will remain unchanged when she goes home. She does have a prescription for pain medication at home. Her urine was normal. She does have a history of recurrent urinary tract infection. She is on Bactrim prophylactically from neurology. She will continue on this. Labs are stable on the day of discharge. She has a history of chronic kidney disease. Kidney function is baseline for her with BUN of 39, creatinine 1.7. Hemoglobin 9.3, hematocrit 27.6. Sodium 135, potassium 4.4. Vital signs have been stable. Today blood pressure 126/64, pulse ox 98% on room air, temperature 97.9. She will be discharged today in stable condition and followup with us next week. She is encouraged to stay inside with increased rest and increased fluids. TIME SPENT: More than 60 minutes. EAN
--- NOTE | 2018-04-01 11:06 | PN ---
DATE OF SERVICE: 03/24/18 SUBJECTIVE: The patient is up and about doing well. The patient is waiting for echocardiogram. Bronchitis and wheezing has subsided. She is practically asymptomatic except for shortness of breath on minimal exertion. Condition is stable. The patient is up and about. The patient was seen and examined with the nurse practitioner. TIME SPENT: More than 30 minutes. Plan and coordination of the patient's care discussed in the presence of nurse. EAN
--- NOTE | 2018-04-01 11:24 | PN ---
CODING FOR BILLING 03/20/18 LEVEL 5 03/21/18 INTERMEDIATE 03/22/18 INTERMEDIATE 03/23/18 INTERMEDIATE 03/24/18 DISCHARGE MTDD
== END 2018-03-24 16:00 | disposition home or self-care (01) | DRG 202 ==
LOC: MEDSURG A 11:07
PROVIDERS: ADMIT Internal Medicine; ATTEND Internal Medicine
DX: J20.9 Acute bronchitis, unspecified (principal); N39.0 Urinary tract infection, site not specified; R06.02 Shortness of breath; M54.9 Dorsalgia, unspecified; I10 Essential (primary) hypertension; I51.7 Cardiomegaly; I12.9 Hypertensive chronic kidney disease with stage 1 through stage 4 chronic kidney disease, or unspecified chronic kidney disease; E11.22 Type 2 diabetes mellitus with diabetic chronic kidney disease; N18.2 Chronic kidney disease, stage 2 (mild); R53.1 Weakness; E66.9 Obesity, unspecified; I25.10 Atherosclerotic heart disease of native coronary artery without angina pectoris; E78.5 Hyperlipidemia, unspecified; M54.30 Sciatica, unspecified side; R10.9 Unspecified abdominal pain; Z79.84 Long term (current) use of oral hypoglycemic drugs; Z79.899 Other long term (current) drug therapy; Z98.61 Coronary angioplasty status; Z87.440 Personal history of urinary (tract) infections; Z68.37 Body mass index [BMI] 37.0-37.9, adult
CPT/HCPCS: 36415; 80053; 81001; 82550; 82962; 84484; 85025; 93005; 93010; 94640

== ENCOUNTER 2018-06-09 12:31 | Outpatient (CLI) | END 2018-06-09 12:47 | disposition short-term general hospital (02) | LOC: AMBL 12:31 | PROVIDERS: ATTEND Internal Medicine | DX: R53.1 Weakness (principal); R29.810 Facial weakness; R73.9 Hyperglycemia, unspecified; R47.81 Slurred speech; R61 Generalized hyperhidrosis ==

== ENCOUNTER 2018-09-21 12:03 | Inpatient (IN) ==
[2018-09-21] MEDS ORDERED: LEVAQUIN 500 MG in PREMIX 100 ML D5W 1 BAG IV STA (12:30)
[2018-09-21] MEDS ORDERED: TYLENOL PO PRN (12:30)
[2018-09-21] MEDS ORDERED: NITROSTAT SL PRN (12:30)
[2018-09-21] MEDS ORDERED: SOLU-CORTEF 250 MG IVP STA (12:30)
[2018-09-21] MEDS ORDERED: ATROPINE SULFATE PFS IVP PRN (12:30)
[2018-09-21] MEDS ORDERED: MORPHINE 4 MG/ML VIAL IVP PRN (12:30)
[2018-09-21] MEDS ORDERED: VISTARIL INJ IM PRN (12:30)
[2018-09-21 12:42] VITALS: BMI 37.4
--- NOTE | 2018-09-21 13:03 | DI ---
EXAM: Chest one view, frontal view only. HISTORY: Chest tightness. COMPARISON: 03/20/2018. FINDINGS: The heart size is normal. There is no pulmonary vascular congestion. The lungs are clear . No pleural effusion or pneumothorax is seen. No acute osseous abnormality is identified. Since t he prior study, there has been no significant interval change. IMPRESSION: No acute cardiopulmonary process.
[2018-09-21] MEDS ORDERED: TEGRETOL PO PRN (13:29)
[2018-09-21] MEDS ORDERED: PROAIR HFA IH PRN (13:29)
[2018-09-21] MEDS: TRIMETHOPRIM 100 MG PO SCH (15:51)
[2018-09-21] MEDS: GLUCOPHAGE PO SCH (16:54)
[2018-09-21] MEDS: XOPENEX 1.25 MG NEB SCH ×2 (16:59→23:57)
[2018-09-21] MEDS: ATIVAN PO SCH (20:26)
[2018-09-21] MEDS: PRAVACHOL PO SCH (20:26)
[2018-09-21] MEDS: NORCO 5-325 PO PRN (20:27)
[2018-09-21] MEDS: SOLU-CORTEF 250 MG IVP SCH (20:28)
[2018-09-21] MEDS: ASTELIN 0.1% NAS SCH (20:29)
[2018-09-21] MEDS: HUMULIN R SUBCUT PRN (20:36)
[2018-09-21] MEDS ORDERED: NON-FORMULARY MEDICATION (Pravastatin Sodium [Pravachol] 80 MG) PO SCH (21:00)
[2018-09-22] MEDS: XOPENEX 1.25 MG NEB SCH ×4 (05:15→23:10)
[2018-09-22] MEDS: PRILOSEC PO SCH (06:00)
[2018-09-22] MEDS: SOLU-CORTEF 250 MG IVP SCH ×3 (06:00→21:17)
[2018-09-22] MEDS: HUMULIN R SUBCUT PRN ×3 (06:17→21:19)
[2018-09-22] MEDS ORDERED: NON-FORMULARY MEDICATION (Omeprazole [Prilosec] 40 MG) PO SCH (06:30)
[2018-09-22] MEDS ORDERED: ATROPINE SULFATE PFS ONE (07:27)
[2018-09-22] MEDS ORDERED: DOBUTAMINE 500 MG-D5W 250 ML 250 ML IV ONE (07:27)
[2018-09-22] MEDS ORDERED: [UNRECOGNIZED DRUG - OTHER] PO SCH (09:00)
[2018-09-22] MEDS ORDERED: NON-FORMULARY MEDICATION (Omega-3/Dha/Epa/Fish Oil [Fish Oil 1,000 Mg Softgel] 1 EACH) PO SCH (09:00)
[2018-09-22] MEDS ORDERED: OLMESARTAN PO SCH (09:00)
[2018-09-22] MEDS ORDERED: NON-FORMULARY MEDICATION (Cetirizine Hcl [Cetirizine Hcl] 10 MG) PO SCH (09:00)
[2018-09-22] MEDS ORDERED: LEVAQUIN 500 MG in PREMIX 100 ML D5W 1 BAG IV SCH (09:00)
[2018-09-22] MEDS ORDERED: HYDROCHLOROTHIAZIDE PO SCH (09:00)
[2018-09-22] MEDS: ASPIRIN EC PO SCH (09:11)
[2018-09-22] MEDS: ASTELIN 0.1% NAS SCH ×2 (09:11→21:19)
[2018-09-22] MEDS: ATIVAN PO SCH ×2 (09:12→21:15)
[2018-09-22] MEDS: BENICAR PO SCH (09:12)
[2018-09-22] MEDS: GLUCOPHAGE PO SCH ×2 (09:12→16:34)
[2018-09-22] MEDS: CLARITIN PO SCH (09:12)
[2018-09-22] MEDS: ZEBETA PO SCH (09:12)
[2018-09-22] MEDS: OMEGA-3 FISH OIL PO SCH (09:12)
[2018-09-22] MEDS: PLAVIX PO SCH (09:12)
[2018-09-22] MEDS: TORADOL IVP SCH ×3 (09:13→21:16)
[2018-09-22] MEDS: HYDROCHLOROTHIAZIDE PO SCH (09:13)
[2018-09-22] MEDS: LEVAQUIN 250 MG in PREMIX 50 ML D5W 1 BAG IV SCH (09:14)
--- NOTE | 2018-09-22 09:20 | DOBSTECHO ---
Date of Test: 09/22/18 Ordering Physician: DR. DESTINEY COPPOLA Occupation: RETIRED Smoking History: Reason for Examination: CHEST TIGHTNESS, ANGINA Current Medications:PLAVIX, ASTELIN, ZEBETA, NORCO,CETIRIZINE, METFORMIN, ATIVAN , BENICAR, PRAVACHOL Height: 63" Weight: 211 LBS Target Heart Rate: 114/ 135 S-T Segment Stage Time HR BPM BP MMHG Rhythm +/- Elevation Depression Symptoms Control Sitting 67 BPM 120/50 SR X NONE Dobutamine 250mg/D5W 5cmg/KG/mn 10cmg/KG/mn 3:00 71 BPM 122/50 SR X NONE 15cmg/KG/mn 2:00 88 BPM 142/44 SR X NONE 20cmg/KG/mn 2:06 117 BPM SR X NONE 25cmg/KG/mn 30cmg/KG/mn 35cmg/KG/mn 40cmg/KG/mn 5 MIN POST INFUSION z 94 BPM 172/58 SR X NONE 8 MIN POST INFUSION z 75 BPM 138/52 SR X NONE DURATION OF INFUSION 7:06 MAXIMUM HEART RATE REACHED 127 BPM 99% OXYGEN SATURATION ON ROOM AIR Interpretation: 1. NO EVIDENCE OF ISCHEMIA BY ST-T WAVE CHANGE 2. NO CHEST PAIN OR DISCOMFORT 3. NORMAL LEFT VENTRICULAR CONTRACTILITY--RESTING AND WITH DOBUTAMINE INFUSION MTDD
--- NOTE | 2018-09-22 09:23 | ECHOSTRESS ---
Date of Exam: 09/22/18 Ordering Physician: DR. DESTINEY COPPOLA Reason for Echo: CHEST PAIN, ANGINA H/O CAD, DOBUTAMINE STRESS--NO ISCHEMIA M-Mode Normal Adult Results LV Dimensions Normal Adult Results AoV Opening excursions >1.6 LVEDD-base- 3.5-5.8 Ao root dimensions 2.0-3.7 LVESD-base- 3.1-4.6 L. Atrium dimensions 1.9-3.8 Post. Wall thickness 0.8-1.1 IV septum (thickness) 0.7-1.2 Post. Wall excursion 0.72-1.3 Septal motion Systolic motion R. Ventricular cavity 1.5-2.0 LVEF 60% Paradoxical septal wall motion 2-D: NORMAL LEFT VENTRICULAR CONTRACTILITY RESTING AND WITH DOBUTAMINE INFUSION M-MODE: MV: AV: TV: PV: CHAMBER SIZE: WALL MOTION: NORMAL LEFT VENTRICULAR CONTRACTILITY RESTING AND WITH DOBUTAMINE INFUSION PERICARDIUM: INTERPRETATION: 1. NORMAL LEFT VENTRICULAR CONTRACTILITY RESTING AND WITH DOBUTAMINE INFUSION MTDD
--- NOTE | 2018-09-22 09:28 | ECHO2D ---
Date of Exam: 09/22/18 Ordering Physician: DR. DESTINEY COPPOLA Room #: [id number] Reason for Echo: CHEST TIGHTNESS, ANGINA M-Mode Normal Adult Results LV Dimensions Normal Adult Results AoV Opening excursions >1.6 >1.6 LVEDD-base- 3.5-5.8 4.1 Ao root dimensions 2.0-3.7 3.0 LVESD-base- 3.1-4.6 L. Atrium dimensions 1.9-3.8 4.4 Post. Wall thickness 0.8-1.1 1.2 IV septum (thickness) 0.7-1.2 1.2 Post. Wall excursion 0.72-1.3 NORMAL Septal motion NORMAL Systolic motion R. Ventricular cavity 1.5-2.0 NORMAL LVEF 60% 58% Paradoxical septal wall motion NORMAL 2-D : 2-D M Mode Echocardiogram was performed using apical four chamber and left parasternal long and short axis views. Mitral, tricuspid and aortic valves appear to be normal. Contractility of the left ventricle seems to be normal, so is the cavity size. Enlarged left atrial cavity size. Aortic root appears to be normal. There is no pericardial effusion. There is no thrombus noted in the left ventricular or left aortic cavity. No mitral valve prolapse noted. M-MODE: MV: NORMAL AV: NORMAL TV: NORMAL PV: CHAMBER SIZE: ENLARGED LEFT ATRIAL CAVITY WALL MOTION: NORMAL PERICARDIUM: NORMAL INTERPRETATION: 1. BORDERLINE LEFT VENTRICULAR HYPERTROPHY 2. ENLARGED LEFT ATRIAL CAVITY 3. NORMAL LEFT VENTRICULAR CONTRACTILITY 4. NORMAL VALVES MTDD
--- NOTE | 2018-09-22 14:14 | PCM.PROG ---
Attending Provider: ATTENDING PROVIDER: Dr. DESTINEY COPPOLA DATE OF SERVICE: 09/22/18 SUBJECTIVE: This 83 year old WHITE/ F was hospitalized 09/21/18 with bronchitis and chest pain. Bronchitis is a lot better. The patient is coughing less and is feeling better. REVIEW OF SYSTEMS: CONSTITUTIONAL: No night sweats. No fatigue, malaise, lethargy. No fever or chills. HEENT: Eyes: No visual changes. No eye pain. No eye discharge. ENT: No runny nose. No epistaxis. No sinus pain. No odynophagia. No congestion. RESPIRATORY: Less cough and congestion. No hemoptysis. No shortness of breath. CARDIOVASCULAR: No angina symptoms. No CHF symptoms. No atypical chest pain for CAD. No palpitations. No orthopnea.. GASTROINTESTINAL: No abdominal pain. No nausea or vomiting. No diarrhea or constipation. No hematemesis. No hematochezia. GENITOURINARY: No urgency. No frequency. No dysuria. No hematuria. No obstructive symptoms. No discharge. No pain. No significant abnormal bleeding. MUSCULOSKELETAL: No musculoskeletal pain; no joint swelling. NEUROLOGICAL: Awake, alert, oriented to time, place and person. No headache. No neck pain. No syncope. No seizures. No dizziness. PSYCHIATRIC: Not anxious. No depression. No suicidal thoughts. No homicidal thoughts. SKIN: No rash. No lesions. No wounds. ENDOCRINE: No unexplained weight loss. No weight gain. HEMATOLOGIC/LYMPHATIC: No anemia. No purpura. No petechiae. No prolonged or excessive bleeding. No palpable lymph nodes. PHYSICAL EXAMINATION: GENERAL: The patient is awake, alert and oriented, sitting in bed in no distress. VITAL SIGNS: Temperature 97.8 F, Pulse 71, Respiratory Rate 20, BP 154/66, Pulse Ox 98% HEENT: Head normocephalic, atraumatic. Eyes: Extraocular muscles are intact. Pupils are equal, round and reactive to light and accommodation. Ears: No lesions. Nose appeared normal. Throat: No exudate or erythema. NECK: Supple. No JVD, no carotid bruit. No lymphadenopathy or thyromegaly. LUNGS: Diminished breath sounds. Clear to auscultation. Percussion note normal. Chest symmetrical. HEART: S1, S2, no S3. No murmurs. No cyanosis or clubbing. No ascites. Pulses: Dorsalis pedis and posterior tibial pulses +1 to +2 both sides. ABDOMEN: Soft. Non-tender. Bowel sounds active. No CVA tenderness. No mass felt. EXTREMITIES: No edema. Full range of motion of all extremities, equal. NEUROLOGIC: No focal deficit. Cranial nerves II through XII are grossly intact. No headache, no double vision or headache. SKIN: Warm and dry. Intact. Turgor-normal. LYMPHATIC: No palpable lymph nodes/no lymphedema. MUSCULOSKELETAL: Normal joints with no swelling. Muscle tone is normal. LAB REVIEW: 09/21/18 12:55 09/21/18 12:55 09/21/18 20:50: Total Creatine Kinase 50.4, Troponin I < 0.012 09/21/18 15:00: Urine Color Yellow, Urine Clarity Clear, Urine pH 7.0, Ur Specific [place] 1.010, Urine Protein Negative, Urine Glucose (UA) Negative, Urine Ketones Negative, Urine Blood Negative, Urine Nitrite Negative, Urine Bilirubin Negative, Urine Urobilinogen 0.2, Ur Leukocyte Esterase Trace, Urine Microscopic WBC 0-2, Ur Squamous Epith Cells 0-2 09/21/18 13:50: Influ A Molecular Assay Negative by naat, Influ B Molecular Assay Negative by naat 09/21/18 12:55: Sodium 137.2, Potassium 4.43, Chloride 104.9, Carbon Dioxide 23.5, Anion Gap 13.23, BUN 25.9 H, Creatinine 1.30, Estimated GFR (MDRD) 39.00, BUN/Creatinine Ratio 19.92, Glucose 109.7 H, Calcium 9.37, Total Bilirubin 0.38 , AST 16.2, ALT 10.9, Alkaline Phosphatase 76.2, Total Creatine Kinase 47.4, Troponin I < 0.012, NT-Pro-B Natriuret Pep 318.000 H, Total Protein 7.26, Albumin 4.37, Globulin 2.89, Albumin/Globulin Ratio 1.51 09/21/18 12:55: WBC 8.18, RBC 3.94 L, Hgb 11.8 L, Hct 34.7 L, MCV 88.1, MCH 29.9 , MCHC 34.0, RDW Coeff of Gloria 12.6, Plt Count 271, Immature Gran % (Auto) 0.2, Neut % (Auto) 60.3, Lymph % (Auto) 29.7, [place] % (Auto) 6.1, Eos % (Auto) 3.1, Baso % (Auto) 0.6, Immature Gran # (Auto) 0.0, Neut # (Auto) 4.9, Lymph # (Auto ) 2.4, [place] # (Auto) 0.5, Eos # (Auto) 0.3, Baso # (Auto) 0.1 The patient had echocardiogram done which showed borderline left ventricular hypertrophy with enlarged left atrial cavity, normal left ventricular contractility. Normal ejection fraction. Dobutamine stress echocardiogram negative for ischemia. The patient reached target heart rate. Normal left ventricular contractility resting and with Dobutamine infusion. ASSESSMENT: 1. Acute bronchitis seems to be resolving. 2. Chest pain/shoulder pain with history of CAD. 3. Dyslipidemia. 4. Hypertension. 5. Cardiovascular status is stable. PLAN: 1. Toradol 30 mg IV q.8hr for pain. Plan and coordination of the patient's care discussed in the presence of Ortho Rn and nurse. CONDITION: Stable SCRIBED BY: CHARLA OLIVAREZ Dance Historian scribed while in presence of service performed by Dr. DESTINEY COPPOLA on 09/22/18 ([id number])
[2018-09-22] MEDS: TRIMETHOPRIM 100 MG PO SCH (16:34)
[2018-09-22] MEDS: PRAVACHOL PO SCH (21:16)
[2018-09-23] MEDS: SOLU-CORTEF 250 MG IVP SCH (05:21)
[2018-09-23] MEDS: TORADOL IVP SCH ×3 (05:22→21:12)
[2018-09-23] MEDS: HUMULIN R SUBCUT PRN ×3 (05:23→20:50)
[2018-09-23] MEDS: PRILOSEC PO SCH (05:30)
[2018-09-23] MEDS: XOPENEX 1.25 MG NEB SCH ×4 (06:10→23:18)
[2018-09-23] MEDS: ASTELIN 0.1% NAS SCH ×2 (10:08→21:12)
[2018-09-23] MEDS: LEVAQUIN 250 MG in PREMIX 50 ML D5W 1 BAG IV SCH (10:08)
[2018-09-23] MEDS: BENICAR PO SCH (10:11)
[2018-09-23] MEDS: ZEBETA PO SCH (10:12)
[2018-09-23] MEDS: ATIVAN PO SCH ×2 (10:12→21:13)
[2018-09-23] MEDS: GLUCOPHAGE PO SCH ×2 (10:12→16:50)
[2018-09-23] MEDS: HYDROCHLOROTHIAZIDE PO SCH (10:12)
[2018-09-23] MEDS: CLARITIN PO SCH (10:14)
[2018-09-23] MEDS: OMEGA-3 FISH OIL PO SCH (10:14)
[2018-09-23] MEDS: PLAVIX PO SCH (10:14)
[2018-09-23] MEDS: ASPIRIN EC PO SCH (10:14)
[2018-09-23] MEDS: PREDNISONE PO SCH ×2 (10:16→16:50)
[2018-09-23] MEDS: SODIUM CHLORIDE 1,000 ML IV SCH ×2 (10:17→22:20)
--- NOTE | 2018-09-23 10:30 | PCM.PROG ---
Attending Provider: ATTENDING PROVIDER: Dr. DESTINEY COPPOLA This patient is seen with Annette Edgar, Nurse Practitioner. DATE OF SERVICE: 09/23/18 SUBJECTIVE: This 83-year-old White/ female was hospitalized 09/21/18. The patient is sitting in chair, resting comfortably. She is still very weak. She is going to try and ambulate with walker today. Kidney function is slightly elevated. REVIEW OF SYSTEMS: CONSTITUTIONAL: Weakness. No night sweats. No malaise, lethargy. No fever or chills. HEENT: Eyes: No visual changes. No eye pain. No eye discharge. ENT: No runny nose. No epistaxis. No sinus pain. No odynophagia. No congestion. RESPIRATORY: Cough and congestion. No hemoptysis. No shortness of breath. CARDIOVASCULAR: No angina symptoms. No CHF symptoms. No atypical chest pain for CAD. No palpitations. No orthopnea.. GASTROINTESTINAL: No abdominal pain. No nausea or vomiting. No diarrhea or constipation. No hematemesis. No hematochezia. GENITOURINARY: No urgency. No frequency. No dysuria. No hematuria. No obstructive symptoms. No discharge. No pain. No significant abnormal bleeding. MUSCULOSKELETAL: No musculoskeletal pain; no joint swelling. NEUROLOGICAL: Awake, alert, oriented to time, place and person. No headache. No neck pain. No syncope. No seizures. No dizziness. PSYCHIATRIC: Not anxious. No depression. No suicidal thoughts. No homicidal thoughts. SKIN: No rash. No lesions. No wounds. ENDOCRINE: No unexplained weight loss. No weight gain. HEMATOLOGIC/LYMPHATIC: No anemia. No purpura. No petechiae. No prolonged or excessive bleeding. No palpable lymph nodes. PHYSICAL EXAMINATION: GENERAL: The patient is awake, alert and oriented, sitting in chair in no distress. VITAL SIGNS: Temperature 97.5 F, Pulse 68, Respiratory Rate 16, BP 135/66, Pulse Ox 97% HEENT: Head normocephalic, atraumatic. Eyes: Extraocular muscles are intact. Pupils are equal, round and reactive to light and accommodation. Ears: No lesions. Nose appeared normal. Throat: No exudate or erythema. NECK: Supple. No JVD, no carotid bruit. No lymphadenopathy or thyromegaly. LUNGS: Diminished breath sounds with faint expiratory wheeze. Percussion note normal. Chest symmetrical. HEART: S1, S2, no S3. No murmurs. No cyanosis or clubbing. No ascites. Pulses: Dorsalis pedis and posterior tibial pulses +1 to +2 both sides. ABDOMEN: Soft. Non-tender. Bowel sounds active. No CVA tenderness. No mass felt. EXTREMITIES: No edema. Full range of motion of all extremities, equal. NEUROLOGIC: No focal deficit. Cranial nerves II through XII are grossly intact. No headache, no double vision or headache. SKIN: Not dry. Intact. Turgor-normal. LYMPHATIC: No palpable lymph nodes/no lymphedema. MUSCULOSKELETAL: Normal joints with no swelling. Muscle tone is normal. LAB REVIEW: 09/23/18 04:30 09/23/18 04:30 09/23/18 04:30: Sodium 132.0 L, Potassium 4.51, Chloride 102.5, Carbon Dioxide 18.1 L, Anion Gap 15.91, BUN 46.1 H, Creatinine 1.96 H D, Estimated GFR (MDRD) 24.00, BUN/Creatinine Ratio 23.52, Glucose 155.5 H, Calcium 9.07, Total Bilirubin 0.22, AST 21.0, ALT 15.4, Alkaline Phosphatase 55.0, Total Protein 6.39, Albumin 3.75, Globulin 2.64, Albumin/Globulin Ratio 1.42 09/23/18 04:30: WBC 11.57 H, RBC 3.53 L, Hgb 10.5 L, Hct 30.8 L, MCV 87.3, MCH 29.7, MCHC 34.1, RDW Coeff of Gloria 12.8, Plt Count 263, Immature Gran % (Auto) 0.5, Neut % (Auto) 77.0, Lymph % (Auto) 18.0, [place] % (Auto) 4.3, Eos % (Auto) 0.0, Baso % (Auto) 0.2, Immature Gran # (Auto) 0.1, Neut # (Auto) 8.9 H, Lymph # (Auto) 2.1, [place] # (Auto) 0.5, Eos # (Auto) 0.0, Baso # (Auto) 0.0 ASSESSMENT: 1. Acute bronchitis seems to be resolving. 2. Chest pain/shoulder pain with history of CAD. 3. Dyslipidemia. 4. Hypertension. 5. Cardiovascular status is stable. PLAN: 1. Encouraged to be up and about today. 2. Anticipate d/c tomorrow. 3. D/C telemetry. 4. IV fluids NS at 83 mL/hr. 5. Prednisone 10 mg b.i.d. 6. D/C Solu-Cortef. Plan and coordination of the patient's care discussed in the presence of Blind Installer and nurse. CONDITION: Stable SCRIBED BY: Kvng OCONNOR scribed while in presence of service performed by Dr. Coppola/Annette Edgar APRN on 09/23/18 ([id number])
[2018-09-23] MEDS: TRIMETHOPRIM 100 MG PO SCH (16:50)
[2018-09-23] MEDS: PRAVACHOL PO SCH (21:12)
[2018-09-24] MEDS: XOPENEX 1.25 MG NEB SCH ×4 (04:30→22:48)
[2018-09-24] MEDS: PRILOSEC PO SCH (06:05)
[2018-09-24] MEDS: TORADOL IVP SCH (06:05)
[2018-09-24] MEDS: PLAVIX PO SCH (08:55)
[2018-09-24] MEDS: BENICAR PO SCH (08:55)
[2018-09-24] MEDS: ASTELIN 0.1% NAS SCH ×2 (08:55→21:06)
[2018-09-24] MEDS: ATIVAN PO SCH ×2 (08:55→21:06)
[2018-09-24] MEDS: OMEGA-3 FISH OIL PO SCH (08:55)
[2018-09-24] MEDS: LEVAQUIN 250 MG in PREMIX 50 ML D5W 1 BAG IV SCH (08:55)
[2018-09-24] MEDS: ZEBETA PO SCH (08:55)
[2018-09-24] MEDS: ASPIRIN EC PO SCH (08:55)
[2018-09-24] MEDS: PREDNISONE PO SCH ×2 (08:56→17:14)
[2018-09-24] MEDS: HYDROCHLOROTHIAZIDE PO SCH (08:56)
[2018-09-24] MEDS: CLARITIN PO SCH (08:56)
[2018-09-24] MEDS: GLUCOPHAGE PO SCH (08:59)
[2018-09-24] MEDS: SODIUM CHLORIDE 1,000 ML IV SCH ×2 (10:01→21:55)
--- NOTE | 2018-09-24 13:54 | HP ---
DATE OF SERVICE: 09/21/18 HISTORY OF PRESENT ILLNESS: This 83-year-old White/ female presented with complaints of waking up feeling weak, hard to stand up, coughing with yellow mucus. She has been sick for three days. She has a weight gain of 3 lbs. She has tightness in the chest with COPD exacerbations. Also, pain in the chest going to the left shoulder times 3 days. PAST MEDICAL HISTORY: Diabetes mellitus Type 2 Chronic bronchitis Hypertension Dyslipidemia Sciatica Chronic kidney disease, Stage 2 Coronary artery disease Osteoarthritis CHF Chronic UTI PAST SURGICAL HISTORY: Exploratory surgery Cholecystectomy Hysterectomy Appendectomy Bilateral knee Left ankle Bilateral cataract Tonsillectomy Adhesions on stomach REVIEW OF SYSTEMS: CONSTITUTIONAL: Positive for weakness and fatigue. No fever. HEENT: Positive for sinus drainage. No sore throat. RESPIRATORY: Positive for cough and congestion. CARDIOVASCULAR: Positive for atypical chest pain for coronary artery disease. No angina, CHF symptoms, palpitations or shortness of breath. GASTROINTESTINAL: Decreased appetite. No melena or abdominal pain. No GERD. GENITOURINARY: No hematuria, no polyuria. TRAINING ENGINEER: Positive for dizziness. No blackout, no headache, no double vision. MUSCULOSKELETAL: Positive for osteoarthritis pain. No joint swelling. ENDOCRINE: Weight gain of 3 lbs. SKIN: Warm and dry, no rash. PSYCHIATRIC: Not anxious, no depression, no suicidal thoughts, no homicidal thoughts. SOCIAL HISTORY: Marital Status: . Two sons. Retired. Alcohol Usage: No. Tobacco Usage : No. No history of illicit drug use. FAMILY HISTORY: Mother and father . MEDICATIONS: [] ALLERGIES: CEPHALOSPORIN, , LASIX, MACRODANTIN, PENICILLIN, AMPICILLIN, SULFA PHYSICAL EXAMINATION: V/S: Pulse 72, BP 140/66, temperature 98.1, 02 sat 97%, weight 212 lbs, Height 5'3", BMI 37.6. GENERAL APPEARANCE: Oriented times three. HEENT: Normal. NECK: No JVP, no bruits. RESPIRATORY: Decreased breath sounds. Lungs are clear. CARDIOVASCULAR: S1, S2, no S3, no murmurs. No cyanosis, clubbing. No ascites. GI/ABDOMEN: No tenderness. Bowel sounds are active. EXTREMITIES: Trace pedal edema, pulses +1, equal. TRAINING ENGINEER: Deep tendon reflexes, sensory, motor and gait all normal. RECTAL/PELVIC: Colonoscopy 02/25 Dr. Kendall. Pelvic: Dr. Anne. Mammogram [facility]. ASSESSMENT: 1. ACUTE BRONCHITIS 2. TIGHTNESS IN THE CHEST/ANGINA/PLEURISY 3. RASH ON HANDS, DR. CHRISTY 4. TIA 5. SINUS TACHYCARDIA 6. DEPRESSION 7. HISTORY OF PNEUMONIA 8. DIABETES MELLITUS TYPE 2 (07/04 5.9) 9. HYPERTENSION 10. ASTHMA 11. 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 HISTORY OF CAD 14. UTERINE PROLAPSE 15. CHRONIC UTI, DR. PRESCOTT PLAN: 1. Admit with routine telemetry orders. 2. Rapid flu A & B. 3. Levaquin 500 mg IV daily a.m. 4. Solu-Cortef 125 mg IV now and q.8hr. 5. Nebs, Xopenex q.i.d. 6. BNP 7. Sputum for culture and sensitivity. 8. Echocardiogram. 9. Dobutamine stress echo. 10. Continue all home medications. TIME SPENT: More than 70 minutes. [facility]
[2018-09-24] MEDS: TRIMETHOPRIM 100 MG PO SCH (16:30)
[2018-09-24] MEDS: PRAVACHOL PO SCH (21:06)
[2018-09-24] MEDS: HUMULIN R SUBCUT PRN (21:06)
[2018-09-25] MEDS: XOPENEX 1.25 MG NEB SCH ×2 (04:50→11:26)
[2018-09-25] MEDS: PRILOSEC PO SCH (05:41)
[2018-09-25] MEDS: NORCO 5-325 PO PRN (05:41)
--- NOTE | 2018-09-25 09:48 | PCM.PROG ---
Attending Provider: ATTENDING PROVIDER: Dr. DESTINEY COPPOLA This patient is seen with Annette Edgar, Nurse Practitioner. DATE OF SERVICE: 09/25/18 SUBJECTIVE: This 83 year old WHITE/ F was hospitalized 09/21/18. The patient is sitting on the side of bed resting comfortably. She has been eating well. Kidney function improved. REVIEW OF SYSTEMS: CONSTITUTIONAL: Weakness. No night sweats. No malaise, lethargy. No fever or chills. HEENT: Eyes: No visual changes. No eye pain. No eye discharge. ENT: No runny nose. No epistaxis. No sinus pain. No odynophagia. No congestion. RESPIRATORY: Cough. No congestion. No hemoptysis. No shortness of breath. CARDIOVASCULAR: No angina symptoms. No CHF symptoms. No atypical chest pain for CAD. No palpitations. No orthopnea.. GASTROINTESTINAL: No abdominal pain. No nausea or vomiting. No diarrhea or constipation. No hematemesis. No hematochezia. GENITOURINARY: No urgency. No frequency. No dysuria. No hematuria. No obstructive symptoms. No discharge. No pain. No significant abnormal bleeding. MUSCULOSKELETAL: No musculoskeletal pain; no joint swelling. NEUROLOGICAL: Awake, alert, oriented to time, place and person. No headache. No neck pain. No syncope. No seizures. No dizziness. PSYCHIATRIC: Not anxious. No depression. No suicidal thoughts. No homicidal thoughts. SKIN: No rash. No lesions. No wounds. ENDOCRINE: No unexplained weight loss. No weight gain. HEMATOLOGIC/LYMPHATIC: No anemia. No purpura. No petechiae. No prolonged or excessive bleeding. No palpable lymph nodes. PHYSICAL EXAMINATION: GENERAL: The patient is awake, alert and oriented, sitting in bed in no distress. VITAL SIGNS: Temperature 97.6 F, Pulse 67, Respiratory Rate 20, BP 135/66, Pulse Ox 99% HEENT: Head normocephalic, atraumatic. Eyes: Extraocular muscles are intact. Pupils are equal, round and reactive to light and accommodation. Ears: No lesions. Nose appeared normal. Throat: No exudate or erythema. NECK: Supple. No JVD, no carotid bruit. No lymphadenopathy or thyromegaly. LUNGS: Diminished breath sounds. Clear to auscultation. Percussion note normal. Chest symmetrical. HEART: S1, S2, no S3. No murmurs. No cyanosis or clubbing. No ascites. Pulses: Dorsalis pedis and posterior tibial pulses +1 to +2 both sides. ABDOMEN: Soft. Non-tender. Bowel sounds active. No CVA tenderness. No mass felt. EXTREMITIES: No edema. Full range of motion of all extremities, equal. NEUROLOGIC: No focal deficit. Cranial nerves II through XII are grossly intact. No headache, no double vision or headache. SKIN: Not dry. Intact. Turgor-normal. LYMPHATIC: No palpable lymph nodes/no lymphedema. MUSCULOSKELETAL: Normal joints with no swelling. Muscle tone is normal. LAB REVIEW: 09/25/18 04:30 09/25/18 04:30 09/25/18 04:30: Sodium 134.4 L, Potassium 4.34, Chloride 107.6 H, Carbon Dioxide 19.4 L, Anion Gap 11.74, BUN 44.8 H, Creatinine 1.57 H, Estimated GFR ( MDRD) 31.00, BUN/Creatinine Ratio 28.53, Glucose 129.4 H, Calcium 8.50, Total Bilirubin 0.37, AST 36.1 H, ALT 15.2, Alkaline Phosphatase 51.8 L, Total Protein 6.24 L, Albumin 3.62, Globulin 2.62, Albumin/Globulin Ratio 1.38 09/25/18 04:30: WBC 13.23 H, RBC 3.50 L, Hgb 10.2 L, Hct 30.7 L, MCV 87.7, MCH 29.1, MCHC 33.2, RDW Coeff of Gloria 13.1, Plt Count 265, Immature Gran % (Auto) 0.5, Neut % (Auto) 71.6, Lymph % (Auto) 21.4, [place] % (Auto) 6.2, Eos % (Auto) 0.1, Baso % (Auto) 0.2, Immature Gran # (Auto) 0.1, Neut # (Auto) 9.5 H, Lymph # (Auto) 2.8, [place] # (Auto) 0.8, Eos # (Auto) 0.0, Baso # (Auto) 0.0 09/24/18 09:25: Sodium 134.6 L, Potassium 3.85, Chloride 104.3, Carbon Dioxide 19.9 L, Anion Gap 14.25, BUN 54.7 H, Creatinine 2.04 H, Estimated GFR (MDRD) 23.00, BUN/Creatinine Ratio 26.81, Glucose 132.3 H, Calcium 8.79 ASSESSMENT: 1. Acute bronchitis seems to be resolving. 2. Chest pain/shoulder pain with history of CAD. 3. Dyslipidemia. 4. Hypertension. 5. Cardiovascular status is stable. PLAN: 1. D/C home. 2. Sm[place] 5 mg once daily #30 3. Continue to hold Metformin. 4. Prednisone 10 mg b.i.d. for 5 days. 5. Levaquin 250 mg daily times 5 days. Plan and coordination of the patient's care discussed in the presence of Visitor Services Representative and nurse. CONDITION: Stable SCRIBED BY: Emy OCONNORist scribed while in presence of service performed by Dr. Coppola/Annette Edgar APRN on 09/25/18 ([id number])
[2018-09-25] MEDS: CLARITIN PO SCH (09:52)
[2018-09-25] MEDS: ASPIRIN EC PO SCH (09:52)
[2018-09-25] MEDS: BENICAR PO SCH (09:52)
[2018-09-25] MEDS: PLAVIX PO SCH (09:52)
[2018-09-25] MEDS: ATIVAN PO SCH (09:52)
[2018-09-25] MEDS: OMEGA-3 FISH OIL PO SCH (09:52)
[2018-09-25] MEDS: PREDNISONE PO SCH (09:52)
[2018-09-25 09:53] VITALS: BP 140/61; TEMP 98.1
[2018-09-25] MEDS: LEVAQUIN 250 MG in PREMIX 50 ML D5W 1 BAG IV SCH (09:53)
[2018-09-25] MEDS: ASTELIN 0.1% NAS SCH (09:53)
[2018-09-25] MEDS: HYDROCHLOROTHIAZIDE PO SCH (09:53)
[2018-09-25] MEDS: ZEBETA PO SCH (09:53)
--- NOTE | 2018-09-25 10:32 | CM.DICTOOL ---
ADMISSION: 09/21/18 12:03 DISCHARGE: SEPTEMBER 25, 2018 DATE OF SERVICE: 09/25/18 FINAL DIAGNOSIS ACUTE BRONCHITIS CHEST PAIN CAD CHF HYPERTENSION TIA (May,) DIABETES MELLITUS, TYPE 2 A1C 5.9 IN June, DYSLIPIDEMIA CHRONIC KIDNEY DISEASE, STAGE 2 OSTEOARTHRITIS CHOLECYSTECTOMY HYSTERECTOMY APPENDECTOMY BILATERAL TKR LEFT ANKLE SURGERY CATARACT EXTRACTION HEART CATH ECHOCARDIOGRAM: SEP, 2018 BORDERLINE LVH ENLARGED LEFT ATRIAL CAVITY LVEF 58% DOBUTAMINE STRESS ECHO: SEP, [address]-T WAVE CHANGES LAST VITALS Temp Pulse Resp BP Pulse Ox 98.1 F 67 20 140/61 99 09/25/18 09:51 09/25/18 09:51 09/25/18 09:51 09/25/18 09:51 09/25/18 09:51 TAKE THESE MEDICATIONS AT HOME Acetaminophen 1000 mg PO Q 12H Last Admin: Hydrocodone Bitart/Acetaminophen ([place] 5-325) 1 tab PO DAILY PRN PRN Reason: Pain Last Admin: 09/25/18 05:41 Dose: 1 tab Albuterol Sulfate (Proair Hfa) 2 puff IH Q6H PRN PRN Reason: Wheezing Azelastine HCl (Astelin 0.1%) 2 spray LAURIE BID [facility] Last Admin: 09/24/18 21:06 Dose: 2 spray Bisoprolol Fumarate (Zebeta) 5 mg PO DAILY [facility] Last Admin: 09/25/18 09:55 Dose: 5 mg Carbamazepine (Tegretol) 200 mg PO DAILY PRN PRN Reason: Pain Clopidogrel Bisulfate (Plavix) 75 mg PO DAILY [facility] Last Admin: 09/25/18 09:55 Dose: 75 mg Fish Oil ([place]-3 Fish Oil) 1,000 mg PO DAILY [facility] Last Admin: 09/25/18 09:55 Dose: 1,000 mg Olmesartan/Hydrochlorothiazide 40-12.5 PO DAILY Last Admin 09/25/2018 09/25/2018 09:55 Levofloxacin 250 mg PO DAILY Last Admin: Cetirizine HCL 10 mg PO DAILY [facility] Last Admin: 09/24/18 08:56 Dose: 10 mg Lorazepam (Ativan) 1 mg PO BID [facility] Last Admin: 09/24/18 21:06 Dose: 1 mg Metformin HCl (Glucophage) 500 mg PO BIDWM [facility] Last Admin: 09/24/18 08:59 Dose: Not Given Non-Formulary Medication (Trimethoprim [Trimethoprim]) 100 mg PO 1600 [facility] Last Admin: 09/24/18 16:30 Dose: 100 mg Omeprazole (Prilosec) 40 mg PO QDAC [facility] Last Admin: 09/25/18 05:41 Dose: 40 mg Pravastatin Sodium (Pravachol) 80 mg PO BEDTIME [facility] Last Admin: 09/24/18 21:06 Dose: 80 mg Prednisone (Prednisone) 10 mg PO BIDWM [facility] Last Admin: 09/24/18 17:14 Dose: 10 mg ALLERGIES Penicillins Allergy (Severe, Verified 03/13/17 10:12) Anaphylaxis Cephalosporins Adverse Reaction (Severe, Verified 03/13/17 10:12) Anaphylaxis nitrofurantoin macrocrystal [From Macrodantin] Adverse Reaction (Severe, Verified 03/13/17 10:12) Anaphylaxis phenobarbital Adverse Reaction (Severe, Verified 03/13/17 10:12) Hives Sulfa (Sulfonamide Antibiotics) Adverse Reaction (Severe, Verified 03/13/17 10: 12) Anaphylaxis atropine sulfate [From ] Adverse Reaction (Verified 03/13/17 10:12) furosemide [From Lasix] Adverse Reaction (Verified 03/13/17 10:12) Rash hyoscyamine sulfate [From ] Adverse Reaction (Verified 03/13/17 10:12) lansoprazole [From Prevacid] Adverse Reaction (Verified 03/13/17 10:12) scopolamine hydrobromide [From ] Adverse Reaction (Verified 03/13/17 10: 12) DISCONTINUED MEDICATIONS Metformin (Glucophage) hold for now NEW PRESCRIPTIONS: Levaquin 250 mg Daily for 5 days Prednisone 10 mg BID for 5 days [place] 5-325 mg Daily PRN pain (refill) SMOKING: Not Applicable DISEASE SPECIFIC EDUCATION: Medications Bronchitis Appointments Activity LAB REVIEW: 09/25/18 04:30 09/25/18 04:30 09/25/18 04:30: Sodium 134.4 L, Potassium 4.34, Chloride 107.6 H, Carbon Dioxide 19.4 L, Anion Gap 11.74, BUN 44.8 H, Creatinine 1.57 H, Estimated GFR ( MDRD) 31.00, BUN/Creatinine Ratio 28.53, Glucose 129.4 H, Calcium 8.50, Total Bilirubin 0.37, AST 36.1 H, ALT 15.2, Alkaline Phosphatase 51.8 L, Total Protein 6.24 L, Albumin 3.62, Globulin 2.62, Albumin/Globulin Ratio 1.38 09/25/18 04:30: WBC 13.23 H, RBC 3.50 L, Hgb 10.2 L, Hct 30.7 L, MCV 87.7, MCH 29.1, MCHC 33.2, RDW Coeff of Gloria 13.1, Plt Count 265, Immature Gran % (Auto) 0.5, Neut % (Auto) 71.6, Lymph % (Auto) 21.4, [place] % (Auto) 6.2, Eos % (Auto) 0.1, Baso % (Auto) 0.2, Immature Gran # (Auto) 0.1, Neut # (Auto) 9.5 H, Lymph # (Auto) 2.8, [place] # (Auto) 0.8, Eos # (Auto) 0.0, Baso # (Auto) 0.0 PLAN: Discharge home Diet: Consistent Carbohydrates Activity: Gradually Resume as Tolerated Use walker or cane as needed for added stability An appointment is scheduled with Dr. Zavala/Annette Edgar APRN on at 1:15 pm Continue medications as listed on nursing discharge information Hold Metformin until advised by Dr. Zavala Ms. Garcia is alert and oriented x 3. She is independent with Activities of Daily Living. Ms. Garcia is ambulatory with use of a rolling walker or a straight cane with a steady gait. Ms. Garcia reports she has a walker and at least 2 canes at home. Meal intakes are good at 50-100%. She is continent of bowel and bladder, but reports dribbling and urgency at times. Skin is intact and free of rashes, irritation of open areas. Nicola Zavala MD Annette Edgar APRN
--- NOTE | 2018-09-28 11:30 | PN ---
DATE OF SERVICE: 09/23/18 SUBJECTIVE: The patient was seen and examined with the nurse practitioner. The patient is up and about doing well, coughing less. Heart test was negative. Cardiovascular and respiratory status negative. TIME SPENT: More than 30 minutes. Plan and coordination of the patient's care discussed in the presence of nurse. EAN
--- NOTE | 2018-09-28 11:37 | PN ---
DATE OF SERVICE: 09/24/18 SUBJECTIVE: The patient was seen and examined with the nurse practitioner. Creatinine was 1.9 with elevated BUN yesterday. She was put on IV fluids today. BUN and creatinine are still going up with creatinine now of 2.1, BUN of more than 50. This needs to be repeated. Continue IV fluids. Explanation for this is hard to come by because clinically the patient is a lot better and appetite is normal. Creatinine was 1.9 with elevated BUN yesterday. She was put on IV fluids today. BUN and creatinine are still going up with creatinine now of 2.1, BUN of more than 50. This needs to be repeated. Continue IV fluids. Explanation for this is hard to come by because clinically the patient is a lot better and appetite is normal. ADDENDUM: Toradol has been discontinued along with Metformin. Condition otherwise stable. The patient is not going home today. CONDITION: Stable. TIME SPENT: More than 30 minutes. Plan and coordination of the patient's care discussed in the presence of nurse. EAN
--- NOTE | 2018-09-28 14:36 | DS ---
DATE OF SERVICE: 09/25/18 FINAL DIAGNOSIS: 1. ACUTE BRONCHITIS 2. CHEST PAIN 3. CORONARY ARTERY DISEASE 4. CONGESTIVE HEART FAILURE 5. HYPERTENSION 6. TIA (MAY 2018) 7. DIABETES MELLITUS, TYPE 2 A1C 5.9 IN June, 8. DYSLIPIDEMIA 9. CHRONIC KIDNEY DISEASE, STAGE 2 10. OSTEOARTHRITIS 11. CHOLECYSTECTOMY 12. HYSTERECTOMY 13. APPENDECTOMY 14. BILATRAL TKR 15. LEFT ANKLE SURGERY 16. CATARACT EXTRACTION 17. HEART CATH 18. ECHOCARDIOGRAM, SEPTEMBER 2018 19. BORDERLINE LVH 20. ENLARGED LEFT ATRIAL CAVITY 22. LVEF 58% DISCHARGE INSTRUCTIONS: Followup appointment with Dr. Zavala/Annette Edgar APRN on 09/30/18 at 1:15 p.m. MEDICATIONS AT DISCHARGE: Acetaminophen 1000 mg p.o. q.12h Hydrocodone/Acetaminophen one tab p.o. daily p.r.n. ProAir two puff IH q.6h p.r.n. Azelastine two spray LAURIE b.i.d. JEAN-PIERRE Bisoprolol Fumarate 5 mg p.o. daily JEAN-PIERRE Carbamazepine 200 mg p.o. daily p.r.n. Clopidogrel 75 mg p.o. daily JEAN-PIERRE Fish Oil 1,000 mg p.o. daily JEAN-PIERRE Olmesartan/Hydrochlorothiazide 40-12.5 p.o. daily Levofloxacin 250 mg p.o. daily Cetirizine 10 mg p.o. daily JEAN-PIERRE Lorazepam 1 mg p.o. b.i.d. JEAN-PIERRE Omeprazole 40 mg p.o. q.d a.c. JEAN-PIERRE Pravastatin 80 mg p.o. bedtime JEAN-PIERRE Prednisone 10 mg p.o. b.i.d. with meal JEAN-PIERRE Hold Metformin as advised by Dr. Zavala NEW PRESCRIPTIONS: Levaquin 250 mg daily for 5 days Prednisone 10 mg b.i.d. for 5 days [place] 5-325 mg daily p.r.n. pain (refill) DISCONTINUED MEDICATIONS: Metformin (Glucophage) hold for now DIET INSTRUCTIONS: Consistent carbohydrates ACTIVITY: Gradually resume as tolerated. Use walker or cane as needed for added stability. SMOKING: N/A DISEASE SPECIFIC EDUCATION: Medications Bronchitis Appointments Activity HOSPITAL COURSE: This is an 83-year-old white female who presented to our office complaining of chest tightness, cough and generalized weakness for the past two days. She has a history of recurrent bronchitis, recurrent UTI with underlying asthma. She was admitted from the office. Chest x-ray showed changes associated with bronchitis. UA was normal. Cardiac enzymes were all negative. EKG was normal. Her pain is more pleuritic in nature, atypical. Her kidney function was slightly elevated on admission with creatinine 1.3. She was admitted, placed on IV Levaquin 250 mg daily along with Solu-Cortef 125 mg IV q.8hr and Xopenex neb treatments q.6hr. She has a history of chronic back pain for which she takes [place]. Initially the first day she was admitted, again kidney function was a little abnormal. She was placed on IV fluids, NS at 75 cc/hr q.24hr. The following day IV fluids were discontinued. Kidney function had improved. She was urinating and eating and drinking well however she did complain of worsening pain so she was placed on Toradol 30 mg IV q.8hr along with her [place] daily. Over the past 48 hours, her kidney function had worsened yesterday up to creatinine at its highest was 2.0 with BUN 47. IV fluids were restarted at 100 cc's an hour of NS. Today they are back down to more of her baseline with creatinine of 1.5. We also discontinued her Metformin yesterday. Her highest glucose since then has only been 129. We will discharge her home and she will continue to hold her Metformin. We will repeat a CBC and CMP next week at the office visit to see if she should restart. Her coughing and weakness have improved. For the past 24 hours she has been up and about walking around on her own with assistance of a walker. She is no longer experiencing any more chest tightness. This is all likely due to bronchitis and pleuritic type pain. She will go home on Levaquin 250 mg p.o. daily times five days along with Prednisone 10 mg b.i.d. for 5 days. She has cough medicine at home. She can continue her [place] and we discontinued Toradol yesterday afternoon which she had not required as her back pain had improved. We will follow her closely and see her next week. She is discharged in stable condition. TIME SPENT: More than 60 minutes. [facility] HOSPITALFarshad
--- NOTE | 2018-09-28 14:41 | PN ---
DATE OF SERVICE: 09/22/18 SUBJECTIVE: This is an 83-year-old White/ female with slight improvement. She is still coughing and feelng very weak. She doesn't feel like she can get up out of bed on her own yet. Kidney function slightly elevated. REVIEW OF SYSTEMS: CONSTITUTIONAL: Positive for weakness. No night sweats. No fatigue, malaise, lethargy. No fever or chills. HEENT: Eyes: No visual changes. No eye pain. No eye discharge. ENT: No runny nose. No epistaxis. No sinus pain. No sore throat. No odynophagia. No congestion. RESPIRATORY: Positive for cough with wheeze. No hemoptysis. No shortness of breath. CARDIOVASCULAR: No angina symptoms. No CHF symptoms. No atypical chest pain for CAD. No palpitations. No orthopnea. GASTROINTESTINAL: No abdominal pain. No nausea or vomiting. No diarrhea or constipation. No hematemesis. No hematochezia. GENITOURINARY: No urgency. No frequency. No dysuria. No hematuria. No obstructive symptoms. No discharge. No pain. No significant abnormal bleeding. MUSCULOSKELETAL: No musculoskeletal pain; no joint swelling. NEUROLOGICAL: No headache. No neck pain. No syncope. No seizures. No dizziness. PSYCHIATRIC: Not anxious. No depression. No suicidal thoughts. No homicidal thoughts. SKIN: No rash. No lesions. No wounds. ENDOCRINE: No unexplained weight loss. No weight gain. HEMATOLOGIC/LYMPHATIC: No anemia. No purpura. No petechiae. No prolonged or excessive bleeding. No palpable lymph nodes. PHYSICAL EXAMINATION: HEENT: Head normocephalic, atraumatic. Eyes: Extraocular muscles are intact. Pupils are equal, round and reactive to light and accommodation. Ears: No lesions. Nose appeared normal. Throat: No exudate or erythema. NECK: Supple. No JVD, no carotid bruit. No lymphadenopathy or thyromegaly. LUNGS: Diminished breath sounds bilaterally. Faint expiratory wheeze. Percussion note normal. Chest symmetrical. HEART: S1, S2, no S3. No murmurs. No cyanosis or clubbing. No ascites. Pulses: Dorsalis pedis and posterior tibial pulses +1 to +2 both sides. ABDOMEN: Soft. Nontender. Bowel sounds active. No CVA tenderness. No mass felt. EXTREMITIES: No edema. Full range of motion of all extremities, equal. NEUROLOGIC: No focal deficit. Cranial nerves II through XII are grossly intact. No headache, no double vision or headache. SKIN: Not dry. Intact. Turgor - normal. LYMPHATIC: No palpable lymph nodes/no lymphedema. MUSCULOSKELETAL: Normal joints with no swelling. Muscle tone is normal. ASSESSMENT: 1. ACUTE BRONCHITIS 2. ATYPICAL CHEST PAIN LIKELY PLEURITIC 3. ACUTE ON CHRONIC KIDNEY DISEASE PLAN: 1. Continue IV fluids, IV steroids, IV antibiotics. TIME SPENT: More than 30 minutes. Plan and coordination of the patient's care discussed in the presence of nurse. EAN
--- NOTE | 2018-09-30 14:14 | PN ---
DATE OF SERVICE: 09/25/18 SUBJECTIVE: The patient was seen and examined with the nurse practitioner. The patient's condition is stable. Bronchitis has resolved. Kidney functions are a lot better. Hydration status improved. TIME SPENT: More than 30 minutes. Plan and coordination of the patient's care discussed in the presence of nurse. EAN
--- NOTE | 2018-09-30 14:17 | PN ---
CODING FOR BILLING 09/21/18 LEVEL 5 09/22/18 INTERMEDIATE 09/23/18 INTERMEDIATE 09/24/18 INTERMEDIATE 09/25/18 DISCHARGE MTDD
== END 2018-09-25 11:20 | disposition home or self-care (01) | DRG 204 ==
LOC: MEDSURG B 12:03
PROVIDERS: ADMIT Internal Medicine; ATTEND Internal Medicine
DX: R07.81 Pleurodynia (principal); N18.2 Chronic kidney disease, stage 2 (mild); I25.10 Atherosclerotic heart disease of native coronary artery without angina pectoris; I10 Essential (primary) hypertension; E11.9 Type 2 diabetes mellitus without complications; E78.5 Hyperlipidemia, unspecified; R00.0 Tachycardia, unspecified; M19.90 Unspecified osteoarthritis, unspecified site; M47.9 Spondylosis, unspecified; J45.909 Unspecified asthma, uncomplicated; F32.9 Major depressive disorder, single episode, unspecified; Z86.73 Personal history of transient ischemic attack (TIA), and cerebral infarction without residual deficits
CPT/HCPCS: 36415; 80048; 80053; 81001; 82550; 82962; 83880; 84484; 85025; 87070; 87502; 93005; 93010; 94640; 97802

== ENCOUNTER 2019-11-23 14:23 | Observation (INO) ==
[2019-11-23 15:27] VITALS: BMI 37.6
[2019-11-23] MEDS ORDERED: NITROSTAT SL PRN (16:18)
[2019-11-23] MEDS ORDERED: ZOFRAN 4 MG/2 ML IVP PRN (16:18)
[2019-11-23] MEDS ORDERED: VISTARIL INJ IM PRN (16:18)
[2019-11-23] MEDS ORDERED: ATROPINE SULFATE PFS IVP PRN (16:18)
[2019-11-23] MEDS ORDERED: DECADRON 4 MG/ML SDV IM STA (16:18)
[2019-11-23] MEDS ORDERED: TYLENOL PO PRN (16:19)
[2019-11-23] MEDS ORDERED: PROAIR HFA IH PRN (16:19)
[2019-11-23] MEDS: SODIUM CHLORIDE 1,000 ML IV SCH (16:46)
[2019-11-23] MEDS: TORADOL IVP PRN (16:58)
[2019-11-23] MEDS ORDERED: GLUCOPHAGE PO SCH (17:30)
[2019-11-23] MEDS: NORCO 5-325 PO SCH ×2 (19:09→20:15)
[2019-11-23] MEDS: ASTELIN 0.1% NAS SCH (20:16)
[2019-11-23] MEDS: DUONEB NEB SCH (20:40)
[2019-11-23] MEDS ORDERED: ATIVAN PO SCH (21:00)
[2019-11-23] MEDS ORDERED: PRAVACHOL PO SCH (21:00)
--- NOTE | 2019-11-23 21:07 | CT ---
EXAM: CT abdomen pelvis with and without contrast HISTORY: Abdominal pain and nausea COMPARISON: CT abdomen pelvis 03/13/2017 and multiple priors TECHNIQUE: Serial axial images of the abdomen pelvis were performed before and after 100 mL is of Om nipaque IV contrast was administered. These were obtained from the lung bases through the inferior p olivia. FINDINGS: The lung bases are clear. The liver is unremarkable. The gallbladder has been resected. Adrenal glands are unremarkable. The kidneys are normal. The spleen is unremarkable. The pancreas is normal. The stomach is unremarkab le with a small hiatal hernia. The small bowel in the abdomen pelvis is unremarkable. There is a fat-containing ventral hernia seen best on image 80 with defect measuring 0.6 cm. The colon is unremarkable. Urinary bladder is unrem arkable. Pelvic soft tissues are unremarkable. There is no free air, free fluid or lymphadenopathy. There is mild calcific atherosclerotic disease. The osseous structures demonstrate degenerative di sease of the spine. IMPRESSION: 1. No acute intra-abdominal or pelvic process to account for patient's symptoms. 2. Prior cholecystectomy. 3. Fat containing ventral hernia.
--- NOTE | 2019-11-23 21:12 | DI ---
EXAM: Chest, two views, 11/23/2019 HISTORY: Abdominal pain. Chest discomfort COMPARISON: 09/21/2018, 11/23/2019 FINDINGS / IMPRESSION: Cardiomediastinal countours appear stable. There is no focal pulmonary conso lidation. No pleural effusion or pneumothorax. No acute cardiopulmonary process.
[2019-11-23] MEDS: TYLENOL PO PRN (23:27)
[2019-11-24] MEDS: TORADOL IVP PRN ×2 (04:43→12:13)
[2019-11-24] MEDS: SODIUM CHLORIDE 1,000 ML IV SCH ×2 (04:45→17:08)
[2019-11-24] MEDS: DUONEB NEB SCH ×3 (04:45→20:10)
[2019-11-24] MEDS ORDERED: PRILOSEC PO SCH (06:30)
[2019-11-24] MEDS ORDERED: BENICAR PO SCH (09:00)
[2019-11-24] MEDS ORDERED: OMEGA-3 FISH OIL PO SCH (09:00)
[2019-11-24] MEDS ORDERED: OLMESARTAN HYDROCHLOROTHIAZIDE PO SCH (09:00)
[2019-11-24] MEDS ORDERED: CLARITIN PO SCH ×2 (09:00)
[2019-11-24] MEDS ORDERED: OMEGA DHA EPA FISH OIL PO SCH (09:00)
[2019-11-24] MEDS ORDERED: HYDROCHLOROTHIAZIDE PO SCH (09:00)
[2019-11-24] MEDS ORDERED: ZEBETA PO SCH (09:00)
[2019-11-24] MEDS ORDERED: PLAVIX PO SCH (09:00)
[2019-11-24] MEDS ORDERED: PROAIR HFA IH PRN (09:30)
--- NOTE | 2019-11-24 09:55 | PCM.PROG ---
Attending Provider: ATTENDING PROVIDER: Dr. DESTINEY COPPOLA DATE OF SERVICE: 11/24/19 SUBJECTIVE: This 84 year old /WHITE F was hospitalized 11/23/19 with acute gastroenteritis. The patient is feeling a lot better. No diarrhea is noted. Abdominal pain is more or less under control. CT scan showed no acute intra- abdominal or pelvic process. Back pain is from arthritis. U/A was normal. REVIEW OF SYSTEMS: CONSTITUTIONAL: No night sweats. No fatigue, malaise, lethargy. No fever or chills. HEENT: Eyes: No visual changes. No eye pain. No eye discharge. ENT: No runny nose. No epistaxis. No sinus pain. No odynophagia. No congestion. RESPIRATORY: No cough, no congestion. No hemoptysis. No shortness of breath. CARDIOVASCULAR: No angina symptoms. No CHF symptoms. No atypical chest pain for CAD. No palpitations. No orthopnea.. GASTROINTESTINAL: No abdominal pain. No nausea or vomiting. No diarrhea or constipation. No hematemesis. No hematochezia. GENITOURINARY: No urgency. No frequency. No dysuria. No hematuria. No obstructive symptoms. No discharge. No pain. No significant abnormal bleeding. MUSCULOSKELETAL: No musculoskeletal pain; no joint swelling. Lower back pain. NEUROLOGICAL: Awake, alert, oriented to time, place and person. No headache. No neck pain. No syncope. No seizures. No dizziness. PSYCHIATRIC: Not anxious. No depression. No suicidal thoughts. No homicidal thoughts. SKIN: No rash. No lesions. No wounds. ENDOCRINE: No unexplained weight loss. No weight gain. HEMATOLOGIC/LYMPHATIC: No anemia. No purpura. No petechiae. No prolonged or excessive bleeding. No palpable lymph nodes. PHYSICAL EXAMINATION: GENERAL: The patient is awake, alert and oriented, lying in bed in no distress. VITAL SIGNS: Temperature 97.5 F, Pulse 72, Respiratory Rate 16, BP 160/68, Pulse Ox 100% HEENT: Head normocephalic, atraumatic. Eyes: Extraocular muscles are intact. Pupils are equal, round and reactive to light and accommodation. Ears: No lesions. Nose appeared normal. Throat: No exudate or erythema. NECK: Supple. No JVD, no carotid bruit. No lymphadenopathy or thyromegaly. LUNGS: Clear to auscultation. Percussion note normal. Chest symmetrical. HEART: S1, S2, no S3. No murmurs. No cyanosis or clubbing. No ascites. Pulses: Dorsalis pedis and posterior tibial pulses +1 to +2 both sides. ABDOMEN: Soft. Non-tender. Bowel sounds active. No CVA tenderness. No mass felt. EXTREMITIES: No edema. Full range of motion of all extremities, equal. NEUROLOGIC: No focal deficit. Cranial nerves II through XII are grossly intact. No headache, no double vision or headache. SKIN: Warm and dry. Intact. Turgor-normal. LYMPHATIC: No palpable lymph nodes/no lymphedema. MUSCULOSKELETAL: Normal joints with no swelling. Muscle tone is normal. LAB REVIEW: 11/24/19 05:00 11/24/19 05:00 11/24/19 05:00: Sodium 132.1 L, Potassium 4.30, Chloride 105.0, Carbon Dioxide 15.2 L D, Anion Gap 16.20, BUN 23.0 H, Creatinine 1.37 H, Estimated GFR (MDRD) 37.00, BUN/Creatinine Ratio 16.78, Glucose 189.5 H D, Calcium 8.61, Total Bilirubin 0.55, AST 16.2, ALT 15.5, Alkaline Phosphatase 58.6, Total Protein 6.76, Albumin 3.94, Globulin 2.82, Albumin/Globulin Ratio 1.39 11/24/19 05:00: WBC 6.59, RBC 3.82 L, Hgb 11.5 L, Hct 34.5 L, MCV 90.3, MCH 30.1, MCHC 33.3, RDW Coeff of Gloria 12.6, Plt Count 237, Immature Gran % (Auto) 0.3, Neut % (Auto) 69.2, Lymph % (Auto) 29.1, [place] % (Auto) 1.2, Eos % (Auto) 0.0, Baso % (Auto) 0.2, Immature Gran # (Auto) 0.0, Neut # (Auto) 4.6, Lymph # (Auto) 1.9, [place] # (Auto) 0.1 L, Eos # (Auto) 0.0, Baso # (Auto) 0.0 11/23/19 17:53: Urine Color Yellow, Urine Clarity Clear, Urine pH 6.5, Ur Specific [place] 1.020, Urine Protein Negative, Urine Glucose (UA) Negative, Urine Ketones Negative, Urine Blood Negative, Urine Nitrite Negative, Urine Bilirubin Negative, Urine Urobilinogen 0.2, Ur Leukocyte Esterase Trace, Urine Microscopic RBC 0-2, Urine Microscopic WBC 0-2, Ur Squamous Epith Cells 0-2, Urine Bacteria Trace 11/23/19 17:10: Influ A Molecular Assay Negative by naat, Influ B Molecular Assay Negative by naat 11/23/19 16:52: Sodium 136.8, Potassium 4.58, Chloride 105.8, Carbon Dioxide 22.4, Anion Gap 13.18, BUN 21.5 H, Creatinine 1.45 H, Estimated GFR (MDRD) 34.00, BUN/Creatinine Ratio 14.82, Glucose 100.1, Calcium 9.43, Total Bilirubin 0.49, AST 20.5, ALT 12.6, Alkaline Phosphatase 60.0, Total Protein 6.88, Albumin 3.99, Globulin 2.89, Albumin/Globulin Ratio 1.38, Amylase < 30.0 L, Lipase 22.7 L 11/23/19 16:52: WBC 8.28, RBC 3.99 L, Hgb 11.9 L, Hct 36.3 L, MCV 91.0, MCH 29.8, MCHC 32.8, RDW Coeff of [place] 12.7, Plt Count 236, Immature Gran % (Auto) 0.2, Neut % (Auto) 54.7, Lymph % (Auto) 35.0, [place] % (Auto) 6.4, Eos % (Auto) 3.1, Baso % (Auto) 0.6, Immature Gran # (Auto) 0.0, Neut # (Auto) 4.5, Lymph # (Auto) 2.9, [place] # (Auto) 0.5, Eos # (Auto) 0.3, Baso # (Auto) 0.1 ASSESSMENT: Please see below. 1. Acute gastroenteritis, resolving 2. Dehydration, better skin turgor 3. Abdominal pain, resolved 4. Generalized osteoarthritis PLAN: 1. Continue the same medications. Plan and coordination of the patient's care discussed in the presence of Field Crew Chief and nurse. CONDITION: Stable SCRIBED BY: SU FELDMAN Video Conference Specialist scribed while in presence of service performed by Dr. DESTINEY COPPOLA on 11/24/19 ([id number])
[2019-11-24] MEDS: ASTELIN 0.1% NAS SCH ×2 (10:03→20:16)
[2019-11-24] MEDS: ATIVAN PO SCH ×2 (10:05→20:16)
[2019-11-24] MEDS: PLAVIX PO SCH (10:06)
[2019-11-24] MEDS: ZEBETA PO SCH (10:07)
[2019-11-24] MEDS: CETIRIZINE 10 MG PO SCH (10:08)
[2019-11-24] MEDS: OMEGA-3 FISH OIL PO SCH (10:11)
[2019-11-24] MEDS: NORCO 5-325 PO SCH ×2 (10:12→20:15)
[2019-11-24] MEDS: HYDROCHLOROTHIAZIDE PO SCH (10:28)
[2019-11-24] MEDS: ASPIRIN EC PO SCH (10:28)
[2019-11-24] MEDS: BENICAR PO SCH (10:28)
[2019-11-24] MEDS: GLUCOPHAGE PO SCH (10:30)
--- NOTE | 2019-11-24 14:30 | PN ---
DATE OF SERVICE: 11/23/19 SUBJECTIVE: The patient was seen and examined with the nurse practitioner. The patient is hospitalized and will be treated for bronchitis. She also seems to be dehydrated. Cardiovascular status seems to be stable, will rule it out. TIME SPENT: More than 30 minutes. Plan and coordination of the patient's care discussed in the presence of nurse. EAN
[2019-11-24] MEDS: TRIMETHOPRIM 100 MG PO SCH (15:50)
[2019-11-24] MEDS: HUMULIN R SUBCUT PRN ×2 (17:08→20:21)
[2019-11-24] MEDS: PRAVACHOL PO SCH (20:16)
[2019-11-25] MEDS: DUONEB NEB SCH ×3 (05:03→21:15)
[2019-11-25] MEDS: SODIUM CHLORIDE 1,000 ML IV SCH ×2 (05:16→08:12)
[2019-11-25] MEDS: PRILOSEC PO SCH (05:54)
[2019-11-25] MEDS: TYLENOL PO PRN ×2 (06:15→17:02)
[2019-11-25] MEDS: ATIVAN PO SCH ×2 (08:15→20:35)
[2019-11-25] MEDS: ASPIRIN EC PO SCH (08:15)
[2019-11-25] MEDS: ASTELIN 0.1% NAS SCH ×2 (08:16→20:35)
[2019-11-25] MEDS: CETIRIZINE 10 MG PO SCH (08:17)
[2019-11-25] MEDS: ZEBETA PO SCH (08:17)
[2019-11-25] MEDS: PLAVIX PO SCH (08:18)
[2019-11-25] MEDS: BENICAR PO SCH (08:18)
[2019-11-25] MEDS: OMEGA-3 FISH OIL PO SCH (08:20)
[2019-11-25] MEDS: HYDROCHLOROTHIAZIDE PO SCH (08:21)
[2019-11-25] MEDS ORDERED: HUMULIN R SUBCUT PRN ×2 (08:30→17:30)
--- NOTE | 2019-11-25 08:39 | PCM.PROG ---
Attending Provider: ATTENDING PROVIDER: Dr. DESTINEY COPPOLA This patient is seen with Annette Edgar, Nurse Practitioner. DATE OF SERVICE: 11/25/19 SUBJECTIVE: This 84 year old /WHITE F was hospitalized 11/23/19. The patient is resting comfortably. Still feeling very weak. Labs are pending this morning. Coughing more this morning. Back pain slightly improved. Still with some abdominal discomfort. Not eating very much. REVIEW OF SYSTEMS: CONSTITUTIONAL: No night sweats. Fatigue. No fever or chills. Weakness. HEENT: Eyes: No visual changes. No eye pain. No eye discharge. ENT: No runny nose. No epistaxis. No sinus pain. No odynophagia. No congestion. RESPIRATORY: No cough, no congestion. No hemoptysis. No shortness of breath. CARDIOVASCULAR: No angina symptoms. No CHF symptoms. No atypical chest pain for CAD. No palpitations. No orthopnea.. GASTROINTESTINAL: Abdominal pain. No nausea or vomiting. No diarrhea or constipation. No hematemesis. No hematochezia. GENITOURINARY: No urgency. No frequency. No dysuria. No hematuria. No obstructive symptoms. No discharge. No pain. No significant abnormal bleeding. MUSCULOSKELETAL: No musculoskeletal pain; no joint swelling. NEUROLOGICAL: Awake, alert, oriented to time, place and person. No headache. No neck pain. No syncope. No seizures. No dizziness. PSYCHIATRIC: Not anxious. No depression. No suicidal thoughts. No homicidal thoughts. SKIN: No rash. No lesions. No wounds. ENDOCRINE: No unexplained weight loss. No weight gain. HEMATOLOGIC/LYMPHATIC: No anemia. No purpura. No petechiae. No prolonged or exce ssive bleeding. No palpable lymph nodes. PHYSICAL EXAMINATION: GENERAL: The patient is awake, alert and oriented, lying in bed in no distress. VITAL SIGNS: Temperature 97.8 F, Pulse 62, Respiratory Rate 20, BP 122/72, Pulse Ox 99% HEENT: Head normocephalic, atraumatic. Eyes: Extraocular muscles are intact. Pupils are equal, round and reactive to light and accommodation. Ears: No lesions. Nose appeared normal. Throat: No exudate or erythema. NECK: Supple. No JVD, no carotid bruit. No lymphadenopathy or thyromegaly. LUNGS: Diminished breath sounds. Clear to auscultation. Percussion note normal. Chest symmetrical. HEART: S1, S2, no S3. No murmurs. No cyanosis or clubbing. No ascites. Pulses: Dorsalis pedis and posterior tibial pulses +1 to +2 both sides. ABDOMEN: Soft. Non-tender. Bowel sounds active. No CVA tenderness. No mass felt. EXTREMITIES: Trace leg edema. Full range of motion of all extremities, equal. NEUROLOGIC: No focal deficit. Cranial nerves II through XII are grossly intact. No headache, no double vision or headache. SKIN: Not dry. Intact. Turgor-normal. LYMPHATIC: No palpable lymph nodes/no lymphedema. MUSCULOSKELETAL: Normal joints with no swelling. Muscle tone is normal. LAB REVIEW: 11/24/19 05:00 11/24/19 05:00 ASSESSMENT: Please see below. 1. Dehydration, improved 2. Acute gastroenteritis, improved 3. Generalized weakness 4. COPD PLAN: 1. Anticipate Discharge home tomorrow 2. Up and about today 3. Discontinue IV fluids. Plan and coordination of the patient's care discussed in the presence of Bingo Attendant and nurse. SCRIBED BY: Kvng ORLLE scribed while in presence of service performed by Dr. Coppola/Annette Edgar APRN on 11/25/19 ([id number])
[2019-11-25] MEDS: NORCO 5-325 PO SCH ×2 (10:19→20:35)
[2019-11-25] MEDS ORDERED: SODIUM CHLORIDE 1,000 ML IV SCH (14:00)
[2019-11-25] MEDS: TRIMETHOPRIM 100 MG PO SCH (15:23)
[2019-11-25] MEDS: PRAVACHOL PO SCH (20:35)
[2019-11-26] MEDS: DUONEB NEB SCH (04:30)
[2019-11-26] MEDS: PRILOSEC PO SCH (05:29)
[2019-11-26] MEDS: ASPIRIN EC PO SCH (08:00)
[2019-11-26] MEDS: NORCO 5-325 PO SCH (08:54)
[2019-11-26] MEDS: ZEBETA PO SCH (08:55)
[2019-11-26] MEDS: PLAVIX PO SCH (08:55)
[2019-11-26] MEDS: CETIRIZINE 10 MG PO SCH (08:56)
[2019-11-26] MEDS: BENICAR PO SCH (08:57)
--- NOTE | 2019-11-26 08:57 | PCM.PROG ---
Attending Provider: ATTENDING PROVIDER: Dr. DESTINEY COPPOLA This patient is seen with Annette Edgar, Nurse Practitioner. DATE OF SERVICE: 11/26/19 SUBJECTIVE: This 84 year old /WHITE F was hospitalized 11/23/19. The patient is resting comfortably. She has been up and about. Kidney function is stable. Appetite is much better. No abdominal pain or diarrhea. REVIEW OF SYSTEMS: CONSTITUTIONAL: No night sweats. No fatigue, malaise, lethargy. No fever or chills. Weakness. HEENT: Eyes: No visual changes. No eye pain. No eye discharge. ENT: No runny nose. No epistaxis. No sinus pain. No odynophagia. No congestion. RESPIRATORY: No cough, no congestion. No hemoptysis. No shortness of breath. CARDIOVASCULAR: No angina symptoms. No CHF symptoms. No atypical chest pain for CAD. No palpitations. No orthopnea.. GASTROINTESTINAL: No abdominal pain. No nausea or vomiting. No diarrhea or constipation. No hematemesis. No hematochezia. GENITOURINARY: No urgency. No frequency. No dysuria. No hematuria. No obstructive symptoms. No discharge. No pain. No significant abnormal bleeding. MUSCULOSKELETAL: No musculoskeletal pain; no joint swelling. NEUROLOGICAL: Awake, alert, oriented to time, place and person. No headache. No neck pain. No syncope. No seizures. No dizziness. PSYCHIATRIC: Not anxious. No depression. No suicidal thoughts. No homicidal thoughts. SKIN: No rash. No lesions. No wounds. ENDOCRINE: No unexplained weight loss. No weight gain. HEMATOLOGIC/LYMPHATIC: No anemia. No purpura. No petechiae. No prolonged or excessive bleeding. No palpable lymph nodes. PHYSICAL EXAMINATION: GENERAL: The patient is awake, alert and oriented, lying in bed in no distress. VITAL SIGNS: Temperature 97.9 F, Pulse 65, Respiratory Rate 22, BP 157/78, Pulse Ox 99% HEENT: Head normocephalic, atraumatic. Eyes: Extraocular muscles are intact. Pupils are equal, round and reactive to light and accommodation. Ears: No lesions. Nose appeared normal. Throat: No exudate or erythema. NECK: Supple. No JVD, no carotid bruit. No lymphadenopathy or thyromegaly. LUNGS: Diminished breath sounds. Clear to auscultation. Percussion note normal. Chest symmetrical. HEART: S1, S2, no S3. No murmurs. No cyanosis or clubbing. No ascites. Pul ses: Dorsalis pedis and posterior tibial pulses +1 to +2 both sides. ABDOMEN: Soft. Non-tender. Bowel sounds active. No CVA tenderness. No mass felt. EXTREMITIES: No edema. Full range of motion of all extremities, equal. NEUROLOGIC: No focal deficit. Cranial nerves II through XII are grossly intact. No headache, no double vision or headache. SKIN: Not dry. Intact. Turgor-normal. LYMPHATIC: No palpable lymph nodes/no lymphedema. MUSCULOSKELETAL: Normal joints with no swelling. Muscle tone is normal. LAB REVIEW: 11/26/19 05:32 11/26/19 05:32 11/26/19 05:32: Sodium 135.1, Potassium 4.04, Chloride 108.6 H, Carbon Dioxide 19.0 L, Anion Gap 11.54, BUN 25.7 H, Creatinine 1.65 H, Estimated GFR (MDRD) 29.00, BUN/Creatinine Ratio 15.57, Glucose 109.4 H, Calcium 8.87, Total Bilirubin 0.42, AST 19.9, ALT 13.8, Alkaline Phosphatase 50.1 L, Total Protein 6.25 L, Albumin 3.60, Globulin 2.65, Albumin/Globulin Ratio 1.35 11/26/19 05:32: WBC 9.57, RBC 3.39 L, Hgb 10.3 L, Hct 31.0 L, MCV 91.4, MCH 30.4, MCHC 33.2, RDW Coeff of Gloria 13.2, Plt Count 241, Immature Gran % (Auto) 0.2, Neut % (Auto) 47.7, Lymph % (Auto) 39.8, [place] % (Auto) 5.4, Eos % (Auto) 6.3, Baso % (Auto) 0.6, Immature Gran # (Auto) 0.0, Neut # (Auto) 4.6, Lymph # (Auto) 3.8 H, [place] # (Auto) 0.5, Eos # (Auto) 0.6, Baso # (Auto) 0.1 11/25/19 07:37: Sodium 134.2 L, Potassium 4.34, Chloride 105.1, Carbon Dioxide 17.9 L, Anion Gap 15.54, BUN 27.4 H, Creatinine 1.53 H, Estimated GFR (MDRD) 32.00, BUN/Creatinine Ratio 17.90, Glucose 137.9 H, Calcium 8.82, Total Bilirubin 0.52, AST 23.0, ALT 14.4, Alkaline Phosphatase 47.1 L, Total Protein 6.87, Albumin 4.01, Globulin 2.86, Albumin/Globulin Ratio 1.40 ASSESSMENT: Please see below. 1. Acute gastroenteritis, resolved 2. Dehydration, improved 3. Underlining CAD stage 2/3 4. COPD PLAN: 1. Discharge home 2. Medications to remain unchanged. 3. Encourage fluids 4. [place] diet Plan and coordination of the patient's care discussed in the presence of Escalator Operator and nurse. SCRIBED BY: Emy ROLLEist scribed while in presence of service performed by Dr. Coppola/Annette Edgar APRN on 11/26/19 ([id number])
[2019-11-26] MEDS: HYDROCHLOROTHIAZIDE PO SCH (08:58)
[2019-11-26] MEDS: GLUCOPHAGE PO SCH (08:59)
[2019-11-26] MEDS: ASTELIN 0.1% NAS SCH (09:00)
[2019-11-26] MEDS: OMEGA-3 FISH OIL PO SCH (09:02)
[2019-11-26] MEDS: ATIVAN PO SCH (09:02)
[2019-11-26 10:30] VITALS: BP 131/58; TEMP 98.2
--- NOTE | 2019-11-26 11:16 | CM.DICTOOL ---
ADMISSION: 11/23/19 14:23 DISCHARGE: NOVEMBER 26, 2019 DATE OF SERVICE: 11/26/19 FINAL DIAGNOSIS ACUTE DEHYDRATION ACUTE GASTRITIS ABDOMINAL PAIN GENERALIZED WEAKNESS ALLERGIC RHINITIS/BRONCHITIS LUMBAR SPRAIN WITH SCIATICA CHRONIC ALLERGIC SINUSITIS TIA, 05/2018 (ON PLAVIX) ASTHMA CHRONIC BRONCHITIS DEPRESSION DJD SPINE DIABETES MELLITUS, TYPE 2 (A1C 5.8 05/2019) HYPERTENSION CAD HISTORY OF CHF DYSLIPIDEMIA CHRONIC KIDNEY DISEASE, STAGE 3 CHRONIC UTI UTERINE PROLAPSE CHOLECYSTECTOMY HYSTERECTOMY RELEASE OF ADHESIONS BILATERAL CATARACT EXTRACTION ECHOCARDIOGRAM: 2017 BORDERLINE LVH ENLARGED LEFT ATRIAL CAVITY NORMAL VALVES LVEF 58% LAST VITALS Temp Pulse Resp BP Pulse Ox 97.9 F 65 22 157/78 H 99 11/26/19 04:58 11/26/19 04:58 11/26/19 04:58 11/26/19 04:58 11/26/19 04:58 TAKE THESE MEDICATIONS AT HOME Acetaminophen (Tylenol) 1000 mg PO Q12H PRN PRN Reason: Headache Last Admin: 11/25/19 17:02 Dose: 650 mg Documented by: Hydrocodone Bitart/Acetaminophen ([place] 5-325) 1 tab PO BID PENDING SALE TO [facility] Last Admin: 11/26/19 08:54 Dose: 1 tab Documented by: Albuterol Sulfate (Proair Hfa) 2 puff IH Q6H PRN PRN Reason: shortness of air ?? Aspirin (Aspirin Ec) 81 mg PO DAILYWM PENDING SALE TO [facility] Last Admin: 11/25/19 08:15 Dose: 81 mg Documented by: Azelastine HCl (Astelin 0.1%) 2 spray LAURIE BID PENDING SALE TO [facility] Last Admin: 11/26/19 09:00 Dose: 2 spray Documented by: Bisoprolol Fumarate (Zebeta) 5 mg PO DAILY PENDING SALE TO [facility] Last Admin: 11/26/19 08:55 Dose: 5 mg Documented by: Clopidogrel Bisulfate (Plavix) 75 mg PO DAILY PENDING SALE TO [facility] Last Admin: 11/26/19 08:55 Dose: 75 mg Documented by: Fish Oil ([place]-3 Fish Oil) 1,000 mg PO QAM PENDING SALE TO [facility] Last Admin: 11/26/19 09:02 Dose: Not Given Documented by: Hydrochlorothiazide (Hydrochlorothiazide) 12.5 mg PO DAILY PENDING SALE TO [facility] Last Admin: 11/26/19 08:58 Dose: 12.5 mg Documented by: Lorazepam (Ativan) 1 mg PO BID PENDING SALE TO [facility] Last Admin: 11/26/19 09:02 Dose: 1 mg Documented by: Metformin HCl (Glucophage) 500 mg PO BIDWM PENDING SALE TO [facility] Last Admin: 11/26/19 08:59 Dose: 500 mg Documented by: Non-Formulary Medication (Cetirizine) 10 mg PO DAILY PENDING SALE TO [facility] Last Admin: 11/26/19 08:56 Dose: 10 mg Documented by: Non-Formulary Medication (Trimethoprim) 100 mg PO 1600 PENDING SALE TO [facility] Last Admin: 11/25/19 15:23 Dose: 100 mg Documented by: Olmesartan (Benicar) 40 mg PO DAILY PENDING SALE TO [facility] Last Admin: 11/26/19 08:57 Dose: 40 mg Documented by: Omeprazole (Prilosec) 40 mg PO QDAC PENDING SALE TO [facility] Last Admin: 11/26/19 05:29 Dose: 40 mg Documented by: Pravastatin Sodium (Pravachol) 80 mg PO BEDTIME PENDING SALE TO [facility] Last Admin: 11/25/19 20:35 Dose: 80 mg Documented by: ALLERGIES Penicillins Allergy (Severe, Verified 03/13/17 10:12) Anaphylaxis Cephalosporins Adverse Reaction (Severe, Verified 03/13/17 10:12) Anaphylaxis nitrofurantoin macrocrystal [From Macrodantin] Adverse Reaction (Severe, Verified 03/13/17 10:12) Anaphylaxis phenobarbital Adverse Reaction (Severe, Verified 03/13/17 10:12) Hives Sulfa (Sulfonamide Antibiotics) Adverse Reaction (Severe, Verified 03/13/17 10:12) Anaphylaxis atropine sulfate [From ] Adverse Reaction (Verified 03/13/17 10:12) furosemide [From Lasix] Adverse Reaction (Verified 03/13/17 10:12) Rash hyoscyamine sulfate [From ] Adverse Reaction (Verified 03/13/17 10:12) lansoprazole [From Prevacid] Adverse Reaction (Verified 03/13/17 10:12) scopolamine hydrobromide [From ] Adverse Reaction (Verified 03/13/17 10:12) DISCONTINUED MEDICATIONS NONE NEW PRESCRIPTIONS: NONE SMOKING: NOT APPLICABLE DISEASE SPECIFIC EDUCATION: HYDRATION NUTRITION ACTIVITY APPOINTMENT LAB REVIEW: 11/26/19 05:32 11/26/19 05:32 11/26/19 05:32: Sodium 135.1, Potassium 4.04, Chloride 108.6 H, Carbon Dioxide 19.0 L, Anion Gap 11.54, BUN 25.7 H, Creatinine 1.65 H, Estimated GFR (MDRD) 29.00, BUN/Creatinine Ratio 15.57, Glucose 109.4 H, Calcium 8.87, Total Bilirubin 0.42, AST 19.9, ALT 13.8, Alkaline Phosphatase 50.1 L, Total Protein 6.25 L, Albumin 3.60, Globulin 2.65, Albumin/Globulin Ratio 1.35 11/26/19 05:32: WBC 9.57, RBC 3.39 L, Hgb 10.3 L, Hct 31.0 L, MCV 91.4, MCH 30.4, MCHC 33.2, RDW Coeff of Gloria 13.2, Plt Count 241, Immature Gran % (Auto) 0.2, Neut % (Auto) 47.7, Lymph % (Auto) 39.8, Hudspeth % (Auto) 5.4, Eos % (Auto) 6.3, Baso % (Auto) 0.6, Immature Gran # (Auto) 0.0, Neut # (Auto) 4.6, Lymph # (Auto) 3.8 H, Hudspeth # (Auto) 0.5, Eos # (Auto) 0.6, Baso # (Auto) 0.1 PLAN: DISCHARGE HOME DIET: RESUME TOLERATED ACTIVITY: GRADUALLY RESUME TOLERATED AN APPOINTMENT IS SCHEDULED WITH DR. COPPOLA/POLA DUARTE APRN ON November AT 10:30 CODE STATUS: FULL CODE MS. GARCIA IS ALERT AND ORIENTED X 4. SHE LIVES ALONE, BUT HER SON CHECKS ON HER FREQUENTLY AND IS AVAILABLE FOR ASSISTANCE WHEN NEEDED. MS. GARCIA IS AWARE AND AGREEABLE TO PLANS FOR DISCHARGE HOME. SHE IS INDEPENDENT WITH ACTIVITIES OF DAILY LIVING. SHE IS CONTINENT OF BLADDER AND BOWEL, BUT DOES THAKUR VE DRIBBLING WITH URINATION. MS. GARCIA FEEDS HERSELF AND HAS A GOOD APPETITE; OFTEN EATING 75-100% OF HER MEALS. SHE IS INDEPENDENT WITH TRANSFERS AND AMBULATION, BUT DOES USE A CANE OR ROLLING WALKER WITH AMBULATION. HYDRATION STATUS AND SKIN TURGOR HAS IMPROVED. SKIN IS FREE OF AREAS OF SKIN BREAKDOWN. MD POLA JUÁREZ APRN
--- NOTE | 2019-11-26 11:21 | PN ---
DATE OF SERVICE: 11/25/2019 SUBJECTIVE: The patient was seen and examined with the Nurse Practitioner. The patient's condition is stabilizing. Gastroenteritis seems to have resolved with abdominal pain. Her appetite seems to be improving. CONDITION: Stable TIME SPENT: More than 30 minutes. Plan and coordination of the patient's care discussed in the presence of nurse. EAN
--- NOTE | 2019-11-29 10:33 | PN ---
DATE OF SERVICE: 11/26/19 SUBJECTIVE: The patient was examined this morning with nurse practitioner. The patient's condition is stable. She is feeling a lot better. She is eating much better. Her enteritis/gastroenteritis has resolved. TIME SPENT: More than 30 minutes. Plan and coordination of the patient's care discussed in the presence of nurse. EAN
--- NOTE | 2019-11-29 10:36 | PN ---
BILLING 11/23/19 ADMISSION DAY LEVEL 5 11/24/19 INTERMEDIATE 11/25/19 INTERMEDIATE 11/26/19 DISCHARGE MTDD
--- NOTE | 2019-11-29 13:09 | DS ---
DATE OF SERVICE: 11/26/19 FINAL DIAGNOSIS: 1. ACUTE DEHYDRATION 2. ACUTE GASTRITIS 3. ABDOMINAL PAIN 4. GENERALIZED WEAKNESS 5. ALLERGIC RHINITIS/BRONCHITIS 6. LUMBAR SPRAIN WITH SCIATICA 7. CHRONIC ALLERGIC SINUSITIS 8. TIA, 05/2018 (ON PLAVIX) 9. ASTHMA 10. CHRONIC BRONCHITIS 11. DEPRESSION 12. DJD SPINE 13. DIABETES MELLITUS, TYPE 2 (A1C 5.8 05/2019) 14. HYPERTENSION 15. CAD 16. HISTORY OF CHF 17. DYSLIPIDEMIA 18. CHRONIC KIDNEY DISEASE, STAGE 3 19. CHRONIC UTI 20. UTERINE PROLAPSE 21. CHOLECYSTECTOMY 22. HYSTERECTOMY 23. RELEASE OF ADHESIONS 24. BILATERAL CATARACT EXTRACTION 25. ECHOCARDIOGRAM: 2017 BORDERLINE LVH, ENLARGED LEFT ATRIAL CAVITY, NORMAL VALVES. LVEF 58% LAST VITALS Temp Pulse Resp BP Pulse Ox 97.9 F 65 22 157/78 H 99 11/26/19 04:58 11/26/19 04:58 11/26/19 04:58 11/26/19 04:58 11/26/19 04:58 DISCHARGE INSTRUCTIONS: 1. AN APPOINTMENT IS SCHEDULED WITH DR. COPPOLA/POLA DUARTE APRN ON November AT 10:30. MEDICATIONS AT DISCHARGE: Acetaminophen (Tylenol) 1000 mg PO Q12H PRN PRN Reason: Headache Last Admin: 11/25/19 17:02 Dose: 650 mg Documented by: Hydrocodone Bitart/Acetaminophen ([place] 5-325) 1 tab PO BID [facility] Last Admin: 11/26/19 08:54 Dose: 1 tab Documented by: Albuterol Sulfate (Proair Hfa) 2 puff IH Q6H PRN PRN Reason: shortness of air ?? [facility] ([facility]in Ec) [facility] [place] Admin: 11/25/19 08:15 Dose: 81 mg Documented by: Azelastine HCl (Astelin 0.1%) 2 spray LAURIE BID [facility] Last Admin: 11/26/19 09:00 Dose: 2 spray Documented by: Bisoprolol Fumarate (Zebeta) 5 mg PO DAILY [facility] Last Admin: 11/26/19 08:55 Dose: 5 mg Documented by: Clopidogrel Bisulfate (Plavix) 75 mg PO DAILY [facility] Last Admin: 11/26/19 08:55 Dose: 75 mg Documented by: Fish Oil ([place]-3 Fish Oil) 1,[facility] [place] Admin: 11/26/19 09:02 Dose: Not Given Documented by: Hydrochlorothiazide (Hydrochlorothiazide) 12.5 mg PO DAILY [facility] Last Admin: 11/26/19 08:58 Dose: 12.5 mg Documented by: Lorazepam (Ativan) 1 mg PO BID [facility] Last Admin: 11/26/19 09:02 Dose: 1 mg Documented by: Metformin HCl (Glucophage) 500 mg PO BIDWM [facility] Last Admin: 11/26/19 08:59 Dose: 500 mg Documented by: Non-Formulary Medication (Cetirizine) 10 mg PO DAILY [facility] Last Admin: 11/26/19 08:56 Dose: 10 mg Documented by: Non-Formulary Medication (Trimethoprim) 100 mg PO 1600 [facility] Last Admin: 11/25/19 15:23 Dose: 100 mg Documented by: Olmesartan (Benicar) 40 mg PO DAILY [facility] Last Admin: 11/26/19 08:57 Dose: 40 mg Documented by: Omeprazole (Prilosec) 40 mg PO QDAC [facility] Last Admin: 11/26/19 05:29 Dose: 40 mg Documented by: Pravastatin Sodium (Pravachol) 80 mg PO BEDTIME [facility] Last Admin: 11/25/19 20:35 Dose: 80 mg Documented by: NEW PRESCRIPTIONS: NONE DISCONTINUED MEDICATIONS: NONE DIET INSTRUCTIONS: RESUME TOLERATED ACTIVITY: GRADUALLY RESUME TOLERATED SMOKING: NOT APPLICABLE DISEASE SPECIFIC EDUCATION: HYDRATION NUTRITION ACTIVITY APPOINTMENT HOSPITAL COURSE: This is a white female, who is a direct admit from our office. She presented and had had diarrhea, nausea for the past week. She was weak, still having abdominal pain with diarrhea, unable to eat. She had lost some weight. She was admitted with acute dehydration, gastritis, abdominal pain and generalized weakness. She was placed on IV fluids, NS at 75 cc/hr. CT of the abdomen and pelvis showed no acute process. Kidney function was elevated on admission indicating dehydration. This is slightly improved with rehydration. Her symptoms have improved. For the past 36 hours, she has been able to eat which is a significant improvement since admission. She has not had diarrhea for the past 24 hours. Yesterday she was able to get up in the chair, walk around the room. She states that she is feeling much stronger today, is ready to go home. None of her medications have been changed. We did hold her Metformin initially due to kidney function. In fact, she also had a CT scan. She will be discharged home in stable condition. Instructed to continue with increased fluids, bland diet. Will followup with her in the office next week. TIME SPENT: More than 60 minutes. EAN
== END 2019-11-26 13:05 | disposition home or self-care (01) ==
LOC: MEDSURG B 14:23 → INTOOBSV 14:23
PROVIDERS: ADMIT Internal Medicine; ATTEND Internal Medicine
DX: F32.9 Major depressive disorder, single episode, unspecified; I10 Essential (primary) hypertension; J44.9 Chronic obstructive pulmonary disease, unspecified; E78.5 Hyperlipidemia, unspecified; N18.3 Chronic kidney disease, stage 3 (moderate); R53.1 Weakness; M19.90 Unspecified osteoarthritis, unspecified site; I25.10 Atherosclerotic heart disease of native coronary artery without angina pectoris; R10.9 Unspecified abdominal pain; E11.9 Type 2 diabetes mellitus without complications; S33.5XXD Sprain of ligaments of lumbar spine, subsequent encounter

== ENCOUNTER 2021-02-20 14:21 | Inpatient (IN) ==
[2021-02-20] MEDS ORDERED: TYLENOL PO PRN ×2 (16:50→16:57)
[2021-02-20] MEDS ORDERED: ATROPINE SULFATE PFS IVP PRN (16:57)
[2021-02-20] MEDS ORDERED: NITROSTAT SL PRN (16:57)
[2021-02-20 17:02] VITALS: BMI 35.8
[2021-02-20] MEDS ORDERED: PHENERGAN WITH CODEINE 6.25/10 MG/5 ML PO PRN (17:09)
[2021-02-20] MEDS ORDERED: LEVAQUIN 500 MG/100 ML D5W 500 MG/100 ML BAG IV SCH (17:30)
[2021-02-20 17:42] LABS: BASOPHILS % (AUTO) 0.4 % (0.0-3.0); EOSINOPHILS # (AUTO) 0.3 K/ul (0.0-0.7); EOSINOPHILS % (AUTO) 3.1 % (0.0-7.0); HEMATOCRIT 37.6 % (37.0-47.0); HEMOGLOBIN 12.6 g/dl (12.0-16.0); IMMATURE GRANULOCYTE # (AUTO) 0.1 (0.0-1.0); IMMATURE GRANULOCYTE % (AUTO) 0.6 % (0.0-5.0); LYMPHOCYTES # (AUTO) 3.9 K/uL (0.60-3.4); LYMPHOCYTES % (AUTO) 37.4 (10.0-50.0); MEAN CORPUSCULAR HEMOGLOBIN 30.8 pg (27.0-31.0); MEAN CORPUSCULAR HGB CONC 33.5 (31.8-35.4); MEAN CORPUSCULAR VOLUME 91.9 fl (81.0-99.0); MONOCYTES # (AUTO) 0.8 K/uL (0.4-2.0); MONOCYTES % (AUTO) 7.4 (0-10); NEUTROPHILS # (AUTO) 5.4 K/ul (2.0-6.9); NEUTROPHILS % (AUTO) 51.1 % (42.2-75.2); PLATELET COUNT 327 10^3/uL (140-440); RDW COEFFICIENT OF VARIATION 13.6 % (11.6-14.8); RED BLOOD COUNT 4.09 10^6/ul (4.20-5.40); WHITE BLOOD COUNT 10.52 K/ul (4.6-10.2)
[2021-02-20 17:54] LABS: ALANINE AMINOTRANSFERASE 21.3 U/L (0-35); ALKALINE PHOSPHATASE 58.5 U/L (53-141); ASPARTATE AMINO TRANSFERASE 20.7 U/L (14-36); BILIRUBIN,TOTAL 0.26 mg/dL (0.2-1.3); BLOOD UREA NITROGEN 42.2 mg/dL (7-17); CALCIUM 9.45 mg/dL (8.4-10.2); CARBON DIOXIDE 20.9 mmol/L (22-30.0); CHLORIDE 104.8 mmol/L (98-107); CREATINE KINASE 27.3 U/L (30-135); CREATININE 1.97 mg/dL (0.60-1.30); GLUCOSE 122.7 mg/dL (74-106); POTASSIUM 4.51 mmol/L (3.5-5.1); SODIUM 136.5 mmol/L (134.5-145); TOTAL PROTEIN 7.13 g/dL (6.3-8.2)
[2021-02-20] MEDS: DEXTROSE 5%-1/2NS IV SOLUTION 1,000 ML IV SCH (18:01)
[2021-02-20 18:07] LABS: TROPONIN I < 0.012 ng/ml (0.0000-0.120)
[2021-02-20 18:21] LABS: ABG PH 7.41 (7.35-7.45)
--- NOTE | 2021-02-20 20:34 | DI ---
EXAM: Chest, single view COMPARISON: Chest radiograph 11/23/2019.. HISTORY: Shortness of air. Pleuritic pain. FINDINGS: Tortuosity the thoracic aorta. Cardiac silhouette is within normal limits. Mild elevatio n right hemidiaphragm which is unchanged. No focal airspace opacity, pleural effusion or pneumothora x. Degenerative changes of the shoulders with high-riding humeral head suggesting underlying rotator cuff pathology. IMPRESSION: No acute cardiopulmonary disease.
--- NOTE | 2021-02-20 20:36 | DI ---
EXAM: AP pelvis and two-view left hip. HISTORY: Fall. Hip pain. FINDINGS: There is a questionable impaction fracture of the left femoral head and neck. The joint s paces are maintained. There are degenerative changes in the spine. Impression: Questionable impaction fracture of the left femoral head and neck. Recommend CT for fur ther evaluation if clinically indicated.
[2021-02-20 20:42] LABS: BILIRUBIN,URINE Negative (NEGATIVE); CLARITY,URINE Clear (CLEAR); COLOR,URINE Yellow (YELLOW); GLUCOSE, URINE (UA) Negative (NEGATIVE); KETONES,URINE Negative (NEGATIVE); LEUKOCYTE ESTERASE ,URINE Negative (NEGATIVE); NITRITE,URINE Negative (NEGATIVE); PROTEIN,URINE Negative (NEGATIVE); URINE, BLOOD Negative (NEGATIVE); UROBILINOGEN,URINE 0.2 (0.2)
[2021-02-20] MEDS: NORVASC PO SCH (20:43)
[2021-02-20] MEDS: ATIVAN PO SCH (20:43)
[2021-02-20] MEDS: SOLU-CORTEF 100 MG IVP SCH (20:43)
[2021-02-20] MEDS: PRAVACHOL PO SCH (20:43)
[2021-02-20] MEDS: GLUCOPHAGE PO SCH (20:44)
[2021-02-20] MEDS ORDERED: ASTELIN 0.1% NAS PRN (21:00)
[2021-02-20] MEDS: NORCO 5-325 PO PRN (21:01)
[2021-02-21 01:21] LABS: CREATINE KINASE 31.1 U/L (30-135)
[2021-02-21 02:32] LABS: TROPONIN I < 0.012 ng/ml (0.0000-0.120)
[2021-02-21] MEDS: DEXTROSE 5%-1/2NS IV SOLUTION 1,000 ML IV SCH (06:01)
[2021-02-21] MEDS: PRILOSEC PO SCH (06:01)
[2021-02-21] MEDS: SOLU-CORTEF 100 MG IVP SCH ×3 (06:01→20:25)
[2021-02-21 07:39] LABS: BASOPHILS % (AUTO) 0.1 % (0.0-3.0); EOSINOPHILS % (AUTO) 0.3 % (0.0-7.0); HEMATOCRIT 33.6 % (37.0-47.0); HEMOGLOBIN 11.2 g/dl (12.0-16.0); IMMATURE GRANULOCYTE # (AUTO) 0.1 (0.0-1.0); IMMATURE GRANULOCYTE % (AUTO) 0.8 % (0.0-5.0); LYMPHOCYTES # (AUTO) 1.4 K/uL (0.60-3.4); LYMPHOCYTES % (AUTO) 17.3 (10.0-50.0); MEAN CORPUSCULAR HEMOGLOBIN 30.4 pg (27.0-31.0); MEAN CORPUSCULAR HGB CONC 33.3 (31.8-35.4); MEAN CORPUSCULAR VOLUME 91.3 fl (81.0-99.0); MONOCYTES # (AUTO) 0.4 K/uL (0.4-2.0); MONOCYTES % (AUTO) 5.3 (0-10); NEUTROPHILS # (AUTO) 6.1 K/ul (2.0-6.9); NEUTROPHILS % (AUTO) 76.2 % (42.2-75.2); PLATELET COUNT 294 10^3/uL (140-440); RDW COEFFICIENT OF VARIATION 13.2 % (11.6-14.8); RED BLOOD COUNT 3.68 10^6/ul (4.20-5.40); WHITE BLOOD COUNT 7.97 K/ul (4.6-10.2)
[2021-02-21 07:50] LABS: ALANINE AMINOTRANSFERASE 17.6 U/L (0-35); ALBUMIN 3.58 g/dL (3.5-5.0); ALKALINE PHOSPHATASE 45.1 U/L (53-141); ASPARTATE AMINO TRANSFERASE 17.4 U/L (14-36); BILIRUBIN,TOTAL 0.35 mg/dL (0.2-1.3); BLOOD UREA NITROGEN 35.7 mg/dL (7-17); CALCIUM 8.92 mg/dL (8.4-10.2); CARBON DIOXIDE 18.7 mmol/L (22-30.0); CHLORIDE 103.2 mmol/L (98-107); CREATININE 1.44 mg/dL (0.60-1.30); GLUCOSE 204.4 mg/dL (74-106); POTASSIUM 4.85 mmol/L (3.5-5.1); SODIUM 130.8 mmol/L (134.5-145); TOTAL PROTEIN 6.23 g/dL (6.3-8.2)
[2021-02-21] MEDS ORDERED: OLMESARTAN HYDROCHLOROTHIAZIDE PO SCH (09:00)
[2021-02-21] MEDS: ASPIRIN EC PO SCH (09:13)
[2021-02-21] MEDS: HYDROCHLOROTHIAZIDE PO SCH (09:13)
[2021-02-21] MEDS: CLARITIN PO SCH (09:13)
[2021-02-21] MEDS: GLUCOPHAGE PO SCH ×2 (09:14→17:32)
[2021-02-21] MEDS: OMEGA-3 FISH OIL PO SCH (09:14)
[2021-02-21] MEDS: SYMBICORT 160-4.5 MCG INHALER IH SCH (09:14)
[2021-02-21] MEDS: PLAVIX PO SCH (09:14)
[2021-02-21] MEDS: BENICAR PO SCH (09:14)
[2021-02-21] MEDS: ZEBETA PO SCH (09:14)
[2021-02-21] MEDS: ATIVAN PO SCH ×2 (09:14→20:32)
[2021-02-21] MEDS: TRIMETHOPRIM 100 MG PO SCH (09:15)
[2021-02-21] MEDS: HUMULIN R SUBCUT PRN ×3 (12:00→20:43)
[2021-02-21] MEDS: NORCO 5-325 PO PRN ×2 (12:11→22:43)
--- NOTE | 2021-02-21 13:57 | HP ---
DATE OF SERVICE: 02/20/2021 REASON FOR HOSPITALIZATION/HISTORY OF PRESENT ILLNESS: Complains of chronic bronchitis, shortness of breath times 2 weeks with productive cough. Left knee/ankle pain status post fall 6 weeks ago. Took Z- pack/Prednisone last week. Appetite is poor. She complains of right sided pleuritic chest pain with cough times 5 days. PAST MEDICAL HISTORY: Diabetes Mellitus type 2 Chronic bronchitis Hypertension Dyslipidemia Sciatica Chronic kidney disease stage 2 CAD OA CHF Chronic UTI PAST SURGICAL HISTORY: Gallbladder Hysterectomy Appendix Bilateral knee Left ankle cataract bilateral Tonsils Adhesions on stomach REVIEW OF SYSTEMS: CONSTITUTIONAL: No fever, Fatigue. HEENT: Sinus drainage, no sore throat. RESPIRATORY: Cough, no congestion. CARDIOVASCULAR: Atypical chest pain for coronary artery disease times 5 days. No angina, CHF symptoms, palpitations. Shortness of breath with cough. GASTROINTESTINAL: No melena or abdominal pain. No GERD. GENITOURINARY: No hematuria, no prostatism, no polyuria. YARD CRANE OPERATOR: No blackout, Dizziness, no headache, no double vision. MUSCULOSKELETAL: Osteoarthritis pain, no joint swelling. ENDOCRINE: No weight loss, no weight gain. SKIN: Not dry, no rash. PSYCHIATRIC: Not anxious, no depression, no suicidal thoughts, no homicidal thoughts. SOCIAL HISTORY: Marital Status: . Alcohol Usage: no. Tobacco Usage: No. FAMILY HISTORY: Father Mother MEDICATIONS: [place] 5-325mg BID PRN Bisoprolol 5mg Q daily Plavix 75mg Q daily Benicar 4-12.5mg Q daily Metformin 500mg BID Omeprazole 40mg Q daily Trimethoprim 100mg BID Lorazepam 0.5mg BID Azelastine spray BID PRN Zyrtec 10mg Q daily Pravastatin 80mg Q daily Aspirin 81mg Norvasc 5mg Q HS ALLERGIES: Cephalosporin Lasix Macrodantin Penicillin Ampicillin Sulfa Phenobarbital Codeine Prevacid PHYSICAL EXAMINATION: V/S: Pulse 88, blood pressure 140/72, temperature 98, oxygen saturation 100%, height 5'3. GENERAL APPEARANCE: Oriented times three. HEENT: Normal. NECK: No JVP, no bruits. RESPIRATORY: Diminished breath sounds. CARDIOVASCULAR: S1, S2, no S3, no murmur. No cyanosis, clubbing. No ascites. GI/ABDOMEN: No tenderness. Bowel sounds are active. EXTREMITIES: edema, pulses +1, equal. YARD CRANE OPERATOR: Deep tendon reflexes, sensory, motor and gait all normal. RECTAL:Refused repeat 02/25 Dr. Kendall/PELVIC: Refused repeat 03/31 [facility] ASSESSMENT: 1. Acute bronchitis/pneumonitis 2. Pleuritic pain 3. Dehydration 4. Bilateral sciatica 5. History of TIA 6. Lumbar radiculopathy 7. Asthma 8. Recurrent UTI-Dr. Guzman 9. COPD-uses NEB machine 10.Chronic back pain 11.Depression 12.DJD spine 13.Diabetes Mellitus type 2 A1c 6.2 14.Hypertension 15.Dyslipidemia 16.CAD 17.CKD 3 18.Uterine prolapse PLAN: 1. Admit 2. Routine telemetry orders 3. Solu-Cortef 100mg IV Q 4 hours 4. Levaquin 500mg IV 24 hours 5. Phenergan with Codeine two tsp PO QID 6. TSH, T4, ABG today 7. Sputum with culture and sensitivity and gram stain 8. 1000cc D 5 1/2 normal saline times 12 hours 9. Symbicort two puffs QAM 10. Continue all medications 11. X-ray left hip TIME SPENT: More than 70 minutes. MTDD
--- NOTE | 2021-02-21 15:07 | CT ---
EXAM: CT left hip without contrast HISTORY: Recent fall. Left hip pain. COMPARISON: Radiograph [address] 11/23/2019 TECHNIQUE: Multiple axial images of the left hip were obtained without intravenous contrast. Images were reformatted in the sagittal and coronal planes FINDINGS: Bone mineralization normal. No fracture or dislocation identified. Moderate left hip ritchie nt space narrowing and marginal osteophyte formation noted. There is moderate spurring at the greate r trochanter. No erosions are seen. Soft tissues of the left thigh are normal. IMPRESSION: 1. No fracture or dislocation. 2. Moderate left hip osteoarthritis and greater trochanteric enthesopathy. All CT scans are performed using dose optimization techniques as appropriate to the performed exam an d include at least one of the following: Automated exposure control, adjustment of the mA and/or kV according t o size, and the use of iterative reconstruction technique.
[2021-02-21] MEDS: LEVAQUIN 250 MG/50 ML D5W 250 MG/50 ML BAG IV SCH (20:25)
[2021-02-21] MEDS: PRAVACHOL PO SCH (20:32)
[2021-02-21] MEDS: NORVASC PO SCH (20:32)
[2021-02-22] MEDS: SOLU-CORTEF 100 MG IVP SCH ×3 (05:22→21:17)
[2021-02-22 05:35] LABS: BASOPHILS % (AUTO) 0.1 % (0.0-3.0); HEMATOCRIT 34.8 % (37.0-47.0); IMMATURE GRANULOCYTE # (AUTO) 0.1 (0.0-1.0); LYMPHOCYTES % (AUTO) 18.8 (10.0-50.0); MEAN CORPUSCULAR HEMOGLOBIN 30.6 pg (27.0-31.0); MEAN CORPUSCULAR HGB CONC 34.5 (31.8-35.4); MEAN CORPUSCULAR VOLUME 88.8 fl (81.0-99.0); MONOCYTES # (AUTO) 0.5 K/uL (0.4-2.0); NEUTROPHILS # (AUTO) 7.9 K/ul (2.0-6.9); NEUTROPHILS % (AUTO) 75.1 % (42.2-75.2); PLATELET COUNT 313 10^3/uL (140-440); RDW COEFFICIENT OF VARIATION 12.9 % (11.6-14.8); RED BLOOD COUNT 3.92 10^6/ul (4.20-5.40); WHITE BLOOD COUNT 10.49 K/ul (4.6-10.2)
[2021-02-22] MEDS: PRILOSEC PO SCH (05:48)
[2021-02-22 05:56] LABS: ALANINE AMINOTRANSFERASE 18.3 U/L (0-35); ALBUMIN 3.89 g/dL (3.5-5.0); ALKALINE PHOSPHATASE 41.5 U/L (53-141); ASPARTATE AMINO TRANSFERASE 24.5 U/L (14-36); BILIRUBIN,TOTAL 0.45 mg/dL (0.2-1.3); BLOOD UREA NITROGEN 29.1 mg/dL (7-17); CALCIUM 9.5 mg/dL (8.4-10.2); CARBON DIOXIDE 18.5 mmol/L (22-30.0); CREATININE 1.1 mg/dL (0.60-1.30); GLUCOSE 169.4 mg/dL (74-106); POTASSIUM 4.45 mmol/L (3.5-5.1); TOTAL PROTEIN 6.61 g/dL (6.3-8.2)
[2021-02-22] MEDS: HUMULIN R SUBCUT PRN ×4 (06:08→20:54)
[2021-02-22] MEDS: ZEBETA PO SCH (09:27)
[2021-02-22] MEDS: ASPIRIN EC PO SCH (09:27)
[2021-02-22] MEDS: PLAVIX PO SCH (09:28)
[2021-02-22] MEDS: BENICAR PO SCH (09:28)
[2021-02-22] MEDS: HYDROCHLOROTHIAZIDE PO SCH (09:28)
[2021-02-22] MEDS: OMEGA-3 FISH OIL PO SCH (09:28)
[2021-02-22] MEDS: GLUCOPHAGE PO SCH ×2 (09:28→18:11)
[2021-02-22] MEDS: CLARITIN PO SCH (09:28)
[2021-02-22] MEDS: TRIMETHOPRIM 100 MG PO SCH (09:29)
[2021-02-22] MEDS: ATIVAN PO SCH ×2 (09:29→20:53)
[2021-02-22] MEDS: SYMBICORT 160-4.5 MCG INHALER IH SCH (09:29)
[2021-02-22] MEDS: NORCO 5-325 PO PRN ×2 (12:06→21:01)
--- NOTE | 2021-02-22 13:34 | RS.PTINEVL ---
Subjective - Patient information Date of Evaluation: 02/22/21 Date of Arrival on Unit: 02/20/21 Usual Living Arrangement: Alone Home Environment: Stairs (few), Rail Medical History: Hypertension, COPD, Diabetes, Arthritis Medical History Comments:: CAD, Asthma, Chronic Kidney disease stage 3, Depression, Surgical History: Cholecystectomy, Hysterectomy Surgical History Comments:: Appendectomy, bilateral TKA Subjective Information/ Patient Comments:: Ms. Garcia states her son check on her frequently and she has friends that stop by daily. States she gets around her home well. She does a little work and then rests. She uses her rolling walker in her home. - Level of function Prior to this admission, the patient could do the following:: Independent Selfcare, Independent ADL's, Independent Ambulation Current Equipment Used at Home: rolling walker. nebulizer. glucometer. hand rail into home. shower chair Interventions - Objective Patient Orientation: Person, Place, Time, Situation Range of Motion - ROM Right Lower Extremity AROM: WFL's Left Lower Extremity AROM: WFL's Muscle Strength - Muscle Strength Comments:: LE muscle strength at least 4-/5 throughout. Sensation - Sensation Right Lower Extremity Sensation: Intact/Normal Left Lower Extremity Sensation: Intact/Normal Balance - Sitting Balance and Reactions Static Sitting Balance: Good Dynamic Sitting Balance: Good - Standing Balance and Reactions Static Standing Balance: Good Dynamic Standing Balance: Good (-) Functional Mobility - Transfers Sit to Stand: Supervision Stand to Sit: Supervision Stand Pivot Transfers: Supervision Comments:: Patient wants to leave the walk and then walk the rest of the way to turn and sit in chair. Verbal instructions given to keep the walker with her as she turns around and to back up completely before she sits down. She did reach back for the chair prior to sitting. - Safety Awareness Safety Awareness: Fair JULIO INDEX SCORE: Na Ambulation - Ambulation Weight Bearing Status: FWB Assistive Device Used: Rolling Walker Distance: 150 feet Assistance needed with Ambulation: Supervision Gait Deviations: Narrow Based gait, Forward posture Ambulation Comments: Patient talks continuously while she walks. She needs verbal cues to stay closer to her walker. Verbal cues for increased base of support. Factors Affecting Ambulation: Decreased Safety Treatment time - Time with patient Length of Evaluation: 19 mins Total treatment time: 23 Patient Education - Education Patient Education: Education of diagnosis Teaching Recipient: Patient Teaching Methods: Discussion, Demonstration Assessment - Assessment Problem List:: Decreased safety/Risk of falls Rehab Potential: Good Further Therapy Indicated?: Yes Candidate for Swing Bed for Therapy Services?: No, patient at high level of function. Comments: Just plan to see 1-2 sessions for safety training with transfers and ambulation. Evaluation Complexity: HISTORY: Medium (Diabetes, HTN, COPD, chronic LBP, Chronic kidney disease stage 3), EXAM OF BODY SYSTEMS: Medium (MS, ROM, gait, balance, sensation), CLINICAL PRESENTATION: Medium, CLINICAL DECISION MAKING: Medium Patient's Goal(s): Her goal is to get stronger. Short Term Goals GOAL #1: Pt to keep walker with her for entire transfer to the chair or bed. Goal to be met by: 02/23/21 GOAL #2: Pt to amb with RW with good base of support, household distances. Goal to be met by: 02/23/21 GOAL #3: . GOAL #4: . Engine Watchman Goals GOAL #1: Pt to amb SBA/I with rolling walker household distances with good safety. Goal to be met by: 02/24/21 GOAL #2: Transfers independently with good safety. Goal to be met by: 02/24/21 GOAL #3: . Plan Plan of Care: Self-Care/Home Management Frequency of Treatment: 1-2 X day, as tolerated Duration of Treatment: 1-2 days Anticipated Discharge Destination: Home Treatment Diagnosis (ICD 10 Codes): Z91.81 At risk for falls Has the Physician been added for Co-signature?: Yes
--- NOTE | 2021-02-22 14:36 | PN ---
DATE OF SERVICE: 02/21/21 SUBJECTIVE: 85-year-old white female hospitalized with acute bronchitis/pneumonitis, cough, congestion and dehydration. The patient's symptoms for fourteen days has been treated as an outpatient with antibiotics, not much response. The patient on admission in the office had bilateral wheezing. She looked pale. The patient's appetite has been poor. She lives by herself. The patient also had right-sided pleuritic pain increased with deep inspiration. She was unable to take deep breaths. She also complained of left hip pain and left knee pain. She has been going to the chiropractor. REVIEW OF SYSTEMS: CONSTITUTIONAL: No night sweats. No fatigue, malaise, lethargy. No fever or chills. HEENT: Eyes: No visual changes. No eye pain. No eye discharge. ENT: No runny nose. No epistaxis. No sinus pain. No sore throat. No odynophagia. No congestion. RESPIRATORY: Cough and congestion a lot better. No hemoptysis. No shortness of breath. At the present time right-sided pleuritic pain somewhat better. CARDIOVASCULAR: No angina symptoms. No CHF symptoms. No atypical chest pain for CAD. No palpitations. No PND. No orthopnea. GASTROINTESTINAL: No abdominal pain. No nausea or vomiting. No diarrhea or constipation. No hematemesis. No hematochezia. GENITOURINARY: No urgency. No frequency. No dysuria. No hematuria. No obstructive symptoms. No discharge. No pain. No significant abnormal bleeding. MUSCULOSKELETAL: Mild left hip pain, mild left knee pain. NEUROLOGICAL: No headache. No neck pain. No syncope. No seizures. No dizziness. PSYCHIATRIC: Not anxious. No depression. No suicidal thoughts. No homicidal thoughts. SKIN: No rash. No lesions. No wounds. ENDOCRINE: No unexplained weight loss. No weight gain. HEMATOLOGIC/LYMPHATIC: No anemia. No purpura. No petechiae. No prolonged or excessive bleeding. No palpable lymph nodes. PHYSICAL EXAMINATION: VITAL SIGNS: Temperature 97.4, pulse 70, respiratory rate 18, BP 126/72, pulse 99% on 2L. HEENT: Head normocephalic, atraumatic. Eyes: Extraocular muscles are intact. Pupils are equal, round and reactive to light and accommodation. Ears: No lesions. Nose appeared normal. Throat: No exudate or erythema. NECK: Supple. No JVD, no carotid bruit. No lymphadenopathy or thyromegaly. LUNGS: Decreased breath sounds. Good air entry, better than yesterday. Percussion note normal. Chest symmetrical. HEART: S1, S2, no S3. No murmurs. No cyanosis or clubbing. No ascites. Pulses: Dorsalis pedis and posterior tibial pulses +1 to +2 bilaterally. ABDOMEN: Soft. Nontender. Bowel sounds active. No CVA tenderness. No mass felt. EXTREMITIES: No edema. Full range of motion of all extremities, equal. NEUROLOGIC: No focal deficit. Cranial nerves II through XII are grossly intact. No headache. No double vision. SKIN: Not dry. Intact. Turgor - normal. LYMPHATIC: No palpable lymph nodes/no lymphedema. MUSCULOSKELETAL: Normal joints with no swelling. Muscle tone is normal. LABS: Hemoglobin 12.6, hematocrit 37, WBC 10,000, normal differential. Creatinine 1.9, BUN 42, potassium 4.5. The patient's x-ray of the left hip showed that the patient had impacted left hip fracture of the femoral head. Will do CT scan of the left hip. PLAN: 1. Continue antibiotics, steroids, nebs. 2. Monitor CBC, CMP. 3. The patient has chronic kidney disease which seems to have worsened lately. 4. The patient is going to get slow IV fluids. The patient may have renal azotemia, difficult to say. She has been on IV fluids 12 hours. Will check her creatinine and BUN tomorrow. 5. The patient's impacted left hip fracture seems to be 5 weeks duration because that is the time she had fallen and hurt her hip. Ever since then she has had pain which has been declining in intensity. The patient refuses any surgical procedure or consultation at the present time. She would like physical therapy and see how she does. The plan for the left hip impacted fracture is to have it evaluated by Physical Therapy Department. Also the patient is not to go to the bathroom with the walker unless there is someone with her. She is a high fall risk so will monitor her activity. All of this was conveyed to the nursing staff and they are going to make sure that the orders are followed. Will also put in a consultation for orthopaedic M.D. to be seen and she is willing to see the orthopaedic surgeon but willing to be transferred or having any surgical procedure at the present time. CONDITION: Stable TIME SPENT: 45 to 55 minutes. Should be coded as extensive. Plan and coordination of the patient's care discussed in the presence of nurse. EAN
--- NOTE | 2021-02-22 14:42 | PN ---
BILLING 02/20/21 ADMISSION LEVEL 5 02/21/21 EXTENSIVE 02/22/21 INTERMEDIATE 02/23/21 D IN DISCHARGE MTDD
[2021-02-22] MEDS: PRAVACHOL PO SCH (20:53)
[2021-02-22] MEDS: LEVAQUIN 250 MG/50 ML D5W 250 MG/50 ML BAG IV SCH (20:53)
[2021-02-22] MEDS: NORVASC PO SCH (20:53)
[2021-02-23 05:32] LABS: BASOPHILS % (AUTO) 0.1 % (0.0-3.0); HEMATOCRIT 32.6 % (37.0-47.0); HEMOGLOBIN 11.2 g/dl (12.0-16.0); IMMATURE GRANULOCYTE # (AUTO) 0.2 (0.0-1.0); IMMATURE GRANULOCYTE % (AUTO) 1.6 % (0.0-5.0); LYMPHOCYTES % (AUTO) 18.4 (10.0-50.0); MEAN CORPUSCULAR HEMOGLOBIN 30.5 pg (27.0-31.0); MEAN CORPUSCULAR HGB CONC 34.4 (31.8-35.4); MEAN CORPUSCULAR VOLUME 88.8 fl (81.0-99.0); MONOCYTES # (AUTO) 0.5 K/uL (0.4-2.0); MONOCYTES % (AUTO) 4.6 (0-10); NEUTROPHILS # (AUTO) 8.3 K/ul (2.0-6.9); NEUTROPHILS % (AUTO) 75.3 % (42.2-75.2); PLATELET COUNT 292 10^3/uL (140-440); RDW COEFFICIENT OF VARIATION 13.2 % (11.6-14.8); RED BLOOD COUNT 3.67 10^6/ul (4.20-5.40); WHITE BLOOD COUNT 11.06 K/ul (4.6-10.2)
[2021-02-23] MEDS: SOLU-CORTEF 100 MG IVP SCH ×2 (05:32→13:34)
[2021-02-23] MEDS: PRILOSEC PO SCH (05:32)
[2021-02-23 05:42] LABS: ALANINE AMINOTRANSFERASE 17.8 U/L (0-35); ALBUMIN 3.57 g/dL (3.5-5.0); ALKALINE PHOSPHATASE 39.2 U/L (53-141); BILIRUBIN,TOTAL 0.31 mg/dL (0.2-1.3); BLOOD UREA NITROGEN 34.7 mg/dL (7-17); CALCIUM 9.38 mg/dL (8.4-10.2); CARBON DIOXIDE 15.3 mmol/L (22-30.0); CHLORIDE 102.2 mmol/L (98-107); CREATININE 1.4 mg/dL (0.60-1.30); GLUCOSE 159.1 mg/dL (74-106); POTASSIUM 4.37 mmol/L (3.5-5.1); SODIUM 129.7 mmol/L (134.5-145); TOTAL PROTEIN 6.07 g/dL (6.3-8.2)
[2021-02-23 05:58] VITALS: BP 125/64; TEMP 97.3
[2021-02-23] MEDS: HUMULIN R SUBCUT PRN ×2 (06:29→12:27)
[2021-02-23] MEDS: TRIMETHOPRIM 100 MG PO SCH (09:06)
[2021-02-23] MEDS: BENICAR PO SCH (09:07)
[2021-02-23] MEDS: PLAVIX PO SCH (09:08)
[2021-02-23] MEDS: ASPIRIN EC PO SCH (09:08)
[2021-02-23] MEDS: HYDROCHLOROTHIAZIDE PO SCH (09:09)
[2021-02-23] MEDS: OMEGA-3 FISH OIL PO SCH (09:10)
[2021-02-23] MEDS: CLARITIN PO SCH (09:11)
[2021-02-23] MEDS: ATIVAN PO SCH (09:11)
[2021-02-23] MEDS: GLUCOPHAGE PO SCH (09:12)
[2021-02-23] MEDS: ZEBETA PO SCH (09:13)
[2021-02-23] MEDS: SYMBICORT 160-4.5 MCG INHALER IH SCH (09:14)
[2021-02-23] MEDS: NORCO 5-325 PO PRN (09:55)
--- NOTE | 2021-02-23 11:28 | PCM.PROG ---
Attending Provider: ATTENDING PROVIDER: Dr. DESTINEY COPPOLA DATE OF SERVICE: 02/23/21 SUBJECTIVE: This 85 year old /WHITE F was hospitalized 02/20/21 with dehydration, renal failure, pleuritic pain and pneumonitis. The patient's condition has improved. She doesn't have any cough. Hydration status has improved. REVIEW OF SYSTEMS: CONSTITUTIONAL: No night sweats. No fatigue, malaise, lethargy. No fever or chills. HEENT: Eyes: No visual changes. No eye pain. No eye discharge. ENT: No runny nose. No epistaxis. No sinus pain. No odynophagia. No congestion. RESPIRATORY: No cough, no congestion. No hemoptysis. No shortness of breath. CARDIOVASCULAR: No angina symptoms. No CHF symptoms. No atypical chest pain for CAD. No palpitations. No orthopnea.. GASTROINTESTINAL: No abdominal pain. No nausea or vomiting. No diarrhea or constipation. No hematemesis. No hematochezia. GENITOURINARY: No urgency. No frequency. No dysuria. No hematuria. No obstructive symptoms. No discharge. No pain. No significant abnormal bleeding. MUSCULOSKELETAL: Arthritic pain. NEUROLOGICAL: Awake, alert, oriented to time, place and person. No headache. No neck pain. No syncope. No seizures. No dizziness. PSYCHIATRIC: Not anxious. No depression. No suicidal thoughts. No homicidal thoughts. SKIN: No rash. No lesions. No wounds. ENDOCRINE: No unexplained weight loss. No weight gain. HEMATOLOGIC/LYMPHATIC: No anemia. No purpura. No petechiae. No prolonged or excessive bleeding. No palpable lymph nodes. PHYSICAL EXAMINATION: GENERAL: The patient is awake, alert and oriented, lying/sitting in bed in no distress. VITAL SIGNS: Temperature 97.3 F, Pulse 47, Respiratory Rate 16, BP 125/64, Pulse Ox 98% HEENT: Head normocephalic, atraumatic. Eyes: Extraocular muscles are intact. Pupils are equal, round and reactive to light and accommodation. Ears: No lesions. Nose appeared normal. Throat: No exudate or erythema. NECK: Supple. No JVD, no carotid bruit. No lymphadenopathy or thyromegaly. LUNGS: Clear to auscultation. Percussion note normal. Chest symmetrical. HEART: S1, S2, no S3. No murmurs. No cyanosis or clubbing. No ascites. Pulses: Dorsalis pedis and posterior tibial pulses +1 to +2 both sides. ABDOMEN: Soft. Non-tender. Bowel sounds active. No CVA tenderness. No mass felt. EXTREMITIES: No edema. Full range of motion of all extremities, equal. NEUROLOGIC: No focal deficit. Cranial nerves II through XII are grossly intact. No headache, no double vision or headache. SKIN: Warm and dry. Intact. Turgor-better. LYMPHATIC: No palpable lymph nodes/no lymphedema. MUSCULOSKELETAL: Normal joints with no swelling. Muscle tone is normal. LAB REVIEW: 02/23/21 05:25 02/23/21 05:25 02/23/21 05:25: Sodium 129.7 L, Potassium 4.37, Chloride 102.2, Carbon Dioxide 15.3 L, Anion Gap 16.57, BUN 34.7 H, Creatinine 1.40 H, Estimated GFR (MDRD) 36.00, BUN/Creatinine Ratio 24.78, Glucose 159.1 H, Calcium 9.38, Total B ilirubin 0.31, AST 22.0, ALT 17.8, Alkaline Phosphatase 39.2 L, Total Protein 6.07 L, Albumin 3.57, Globulin 2.50, Albumin/Globulin Ratio 1.42 02/23/21 05:25: WBC 11.06 H, RBC 3.67 L, Hgb 11.2 L, Hct 32.6 L, MCV 88.8, MCH 30.5, MCHC 34.4, RDW Coeff of Gloria 13.2, Plt Count 292, Immature Gran % (Auto) 1.6, Neut % (Auto) 75.3 H, Lymph % (Auto) 18.4, [place] % (Auto) 4.6, Eos % (Auto) 0.0, Baso % (Auto) 0.1, Neut # (Auto) 8.3 H, Lymph # (Auto) 2.0, [place] # (Auto) 0.5, Eos # (Auto) 0.0, Baso # (Auto) 0.0, Immature Gran # (Auto) 0.2 ASSESSMENT: Please see below. 1. Bronchitis seems to have resolved with pneumonitis. 2. Renal failure resolved. 3. Pleuritic pain resolved. 4. The patient has sodium of nearly 130. She is advised not to drink much liquids, could be dilutional. PLAN: 1. Will discharge the patient home with steroids and antibiotics. 2. Keflex 500 mg t.i.d. for 5 days. 3. Prednisone 10 mg one a day for 5 days. 4. Discharge home today 5. Encouraged good nutrition. Plan and coordination of the patient's care discussed in the presence of Manufacturing Team Member and nurse. CONDITION: Stable SCRIBED BY: CHARLA OLIVAREZ Senior Associate scribed while in presence of service performed by Dr. DESTINEY COPPOLA on 02/23/21 ([id number])
--- NOTE | 2021-02-23 12:07 | CM.DICTOOL ---
ADMISSION: 02/20/21 15:40 DISCHARGE: FEBRUARY 23, 2021 DATE OF SERVICE: 02/23/21 FINAL DIAGNOSIS ACUTE BRONCHITIS ACUTE RENAL FAILURE DEHYDRATION PLEURITIC PAIN HYPERTENSION CAD DYSLIPIDEMIA COPD ASTHMA DIABETES MELLITUS, TYPE 2 CHRONIC KIDNEY DISEASE, STAGE 3 TIA DEPRESSION DJD LUMBAR SPINE CHRONIC BACK PAIN BILATERAL SCIATICA RECURRENT UTI (SEES DR. PRESCOTT) CHOLECYSTECTOMY APPENDECTOMY BILATERAL TKR HYSTERECTOMY CATARACT EXTRACTION, BILATERAL RELEASE OF ADHESIONS LAST VITALS Temp Pulse Resp BP Pulse Ox 97.3 F L 47 L 16 125/64 98 02/23/21 05:58 02/23/21 05:58 02/23/21 05:58 02/23/21 05:58 02/23/21 05:58 TAKE THESE MEDICATIONS AT HOME Acetaminophen (Acetaminophen 500 Mg Tablet) 1,000 mg PO Q12H PRN PRN Reason: Mild to moderate pain Hydrocodone Bitart/Acetaminophen (Hydrocodone Bit/Acetaminophen 5/325 Mg Tablet) 1 tab PO BID PRN PRN Reason: Pain Last Admin: 02/23/21 09:55 Dose: 1 tab Documented by: Amlodipine Besylate (Amlodipine Besylate 5 Mg Tablet) 5 mg PO BEDTIME [facility] Last Admin: 02/22/21 20:53 Dose: 5 mg Documented by: Aspirin (Aspirin 81 Mg Tablet.) [facility] [place] Last Admin: 02/23/21 09:08 Dose: 81 mg Documented by: Azelastine HCl (Azelastine Hcl 30 Ml Nasal Sulphur) 2 spray LAURIE BID PRN PRN Reason: nasal symptoms Bisoprolol Fumarate (Bisoprolol Fumarate 5 Mg Tablet) 5 mg PO DAILY [facility] Last Admin: 02/23/21 09:13 Dose: 5 mg Documented by: Budesonide/Formoterol Fumarate (Budesonide/Formoterol Fumarate 160/4.5 Mcg Inhaler) 2 puff [facility] [place] Last Admin: 02/23/21 09:14 Dose: 2 puff (COMPLETE HOSPITAL SUPPLY) Documented by: Clopidogrel Bisulfate (Clopidogrel Bisulfate 75 Mg Tablet) 75 mg PO DAILY [facility] Last Admin: 02/23/21 09:08 Dose: 75 mg Documented by: Fish Oil (Sharon-3/Dha/Epa/Fish Oil 1,000 Mg Capsule) 1,000 mg [facility] [place] Last Admin: 02/23/21 09:10 Dose: 1,000 mg Documented by: Cetirizine 10 Mg Tablet) 10 mg PO DAILY [facility] Last Admin: 02/23/21 09:11 Dose: 10 mg Documented by: Lorazepam (Lorazepam 0.5 Mg Tablet) 1 mg PO BID [facility] Last Admin: 02/23/21 09:11 Dose: 1 mg Documented by: Metformin HCl (Metformin Hcl 500 Mg Tablet) 500 mg PO BIDWM [facility] Last Admin: 02/23/21 09:12 Dose: 500 mg Documented by: Non-Formulary Medication (Trimethoprim) 100 mg PO DAILY [facility] Last Admin: 02/23/21 09:06 Dose: 100 mg Documented by: Faustino HCT 40/12.5 TABLET PO DAILY [facility] Last Admin: 02/23/21 09:07 Dose: 40 mg Documented by: Omeprazole (Omeprazole 20 Mg Capsule.Dr) 40 mg PO QDAC [facility] Last Admin: 02/23/21 05:32 Dose: 40 mg Documented by: Pravastatin Sodium (Pravastatin Sodium 40 Mg Tablet) 80 mg PO BEDTIME [facility] Last Admin: 02/22/21 20:53 Dose: 80 mg Documented by: LEVAQUIN 250 MG DAILY FOR 5 DAYS PREDNISONE 10 MG DAILY FOR 5 DAYS ALLERGIES Penicillins Allergy (Severe, Verified 03/16/20 18:08) Anaphylaxis Cephalosporins Adverse Reaction (Severe, Verified 03/16/20 18:08) Anaphylaxis nitrofurantoin macrocrystal [From Macrodantin] Adverse Reaction (Severe, Edie ified 03/16/20 18:08) Anaphylaxis phenobarbital Adverse Reaction (Severe, Verified 03/16/20 18:08) Hives Sulfa (Sulfonamide Antibiotics) Adverse Reaction (Severe, Verified 03/16/20 18:08) Anaphylaxis atropine sulfate [From ] Adverse Reaction (Verified 03/16/20 18:08) furosemide [From Lasix] Adverse Reaction (Verified 03/16/20 18:08) Rash hyoscyamine sulfate [From ] Adverse Reaction (Verified 03/16/20 18:08) lansoprazole [From Prevacid] Adverse Reaction (Verified 03/16/20 18:08) scopolamine hydrobromide [From ] Adverse Reaction (Verified 03/16/20 18:08) DISCONTINUED MEDICATIONS NONE NEW PRESCRIPTIONS: LEVAQUIN 250 MG DAILY FOR 5 DAYS PREDNISONE 10 MG DAILY FOR 5 DAYS (TAKE WITH FOOD) PRESCRIPTIONS CALLED TO [facility] IN [place], [place] SMOKING: NOT APPLICABLE DISEASE SPECIFIC EDUCATION: HYDRATION FOLLOW-UP PRESCRIPTIONS USE OF ORAL STEROIDS AND POTENTIAL FOR GI IRRITATION, POSSIBLE BLOOD SUGAR ELEVATION LAB REVIEW: 02/23/21 05:25 02/23/21 05:25 02/23/21 05:25: Sodium 129.7 L, Potassium 4.37, Chloride 102.2, Carbon Dioxide 15.3 L, Anion Gap 16.57, BUN 34.7 H, Creatinine 1.40 H, Estimated GFR (MDRD) 36.00, BUN/Creatinine Ratio 24.78, Glucose 159.1 H, Calcium 9.38, Total Bilirubin 0.31, AST 22.0, ALT 17.8, Alkaline Phosphatase 39.2 L, Total Protein 6.07 L, Albumin 3.57, Globulin 2.50, Albumin/Globulin Ratio 1.42 02/23/21 05:25: WBC 11.06 H, RBC 3.67 L, Hgb 11.2 L, Hct 32.6 L, MCV 88.8, MCH 30.5, MCHC 34.4, RDW Coeff of Glorai 13.2, Plt Count 292, Immature Gran % (Auto) 1.6, Neut % (Auto) 75.3 H, Lymph % (Auto) 18.4, [place] % (Auto) 4.6, Eos % (Auto) 0.0, Baso % (Auto) 0.1, Neut # (Auto) 8.3 H, Lymph # (Auto) 2.0, [place] # (Auto) 0.5, Eos # (Auto) 0.0, Baso # (Auto) 0.0, Immature Gran # (Auto) 0.2 PLAN: DISCHARGE HOME DIET: CONSISTENT CARBOHYDRATE AVOID OVER HYDRATION (DRINK ONLY ENOUGH WATER, AVOID LARGE QUANTITIES) ACTIVITY: GRADUALLY RESUME TOLERATED USE WALKER FOR ADDITIONAL SAFETY WITH AMBULATION RECOMMENDED BY PHYSICAL THERAPY CONTINUE ACCU-CHECKS AT LEAST TWICE A DAY AN APPOINTMENT IS SCHEDULED WITH DR. COPPOLA/POLA DUARTE APRN ON February AT 1:45 PM CODE STATUS: DO NOT INTUBATE, CPR ONLY MS. GARCIA IS ALERT AND ORIENTED X 4. SHE IS INDEPENDENT WITH ALL ACTIVITIES OF DAILY LIVING. MS. GARCIA LIVES ALONE. SHE IS AGREEABLE TO PLANS FOR DISCHARGE HOME TODAY. SHE DEMONSTRATES A GOOD APPETITE AT MEALTIME CONSUMING AT LEAST 75-100%. HER HYDRATION STATUS HAS IMPROVED. SKIN TURGOR IMPROVED. SHE IS CONTINENT OF BOWEL AND BLADDER, BUT IS BOTHERED WITH URINARY URGENCY AND DRIBBLING. SHE IS INDEPENDENT WITH ALL BED MOBILITY. SHE TRANSFERS FROM THE BED TO THE CHAIR PER SELF, BUT HAS USED THE ROLLING WALKER AND SBA OF NURSING FOR AMBULATION IN THE ROOM. SHE HAS AMBULATED IN THE HALLWAY WITH SBA OF PHYSICAL THERAPY. HER GAIT IS STEADY, NO LOSS OF BALANCE NOTED. SAFETY INSTRUCTIONS PROVIDED BY PHYSICAL THERAPY. DUE TO COMPLAINTS OF SHORTNESS OF AIR WITH EXERTION SHE WAS EVALUATED FOR THE NEED FOR HOME OXYGEN. MS. GARCIA DOES NOT DEMONSTRATE THE NEED FOR OXYGEN AT REST OR WITH EXERTION PER 3 STEP OXYGEN QUALIFICATION. DESTINEY COPPOLA MD
--- NOTE | 2021-02-23 12:42 | PN ---
DATE OF SERVICE: 02/22/21 SUBJECTIVE: 85-year-old white female hospitalized with acute renal failure with acute bronchitis, severe dehydration with pneumonitis. The patient's condition has steadily improved. Her pleuritic pain has subsided. She is feeling a lot better. She is very thankful that she was hospitalized. REVIEW OF SYSTEMS: CONSTITUTIONAL: No night sweats. No fatigue, malaise, lethargy. No fever or chills. HEENT: Eyes: No visual changes. No eye pain. No eye discharge. ENT: No runny nose. No epistaxis. No sinus pain. No sore throat. No odynophagia. No congestion. RESPIRATORY: Mild cough, no congestion. No hemoptysis. No shortness of breath. CARDIOVASCULAR: No angina symptoms. No CHF symptoms. No atypical chest pain for CAD. No palpitations. No PND. No orthopnea. GASTROINTESTINAL: No abdominal pain. No nausea or vomiting. No diarrhea or constipation. No hematemesis. No hematochezia. GENITOURINARY: No urgency. No frequency. No dysuria. No hematuria. No obstructive symptoms. No discharge. No pain. No significant abnormal bleeding. MUSCULOSKELETAL: No musculoskeletal pain; no joint swelling. NEUROLOGICAL: No headache. No neck pain. No syncope. No seizures. No dizziness. PSYCHIATRIC: Not anxious. No depression. No suicidal thoughts. No homicidal thoughts. SKIN: No rash. No lesions. No wounds. ENDOCRINE: No unexplained weight loss. No weight gain. HEMATOLOGIC/LYMPHATIC: No anemia. No purpura. No petechiae. No prolonged or excessive bleeding. No palpable lymph nodes. PHYSICAL EXAMINATION: VITAL SIGNS: Temperature 97.4, pulse 63, respiratory rate 18, BP 128/70, pulse ox 98% on 2L. HEENT: Head normocephalic, atraumatic. Eyes: Extraocular muscles are intact. Pupils are equal, round and reactive to light and accommodation. Ears: No lesions. Nose appeared normal. Throat: No exudate or erythema. NECK: Supple. No JVD, no carotid bruit. No lymphadenopathy or thyromegaly. LUNGS: Decreased breath sounds with good air entry. Percussion note normal. Chest symmetrical. HEART: S1, S2, no S3. No murmurs. No cyanosis or clubbing. No ascites. Pulses: Dorsalis pedis and posterior tibial pulses +1 to +2 bilaterally. ABDOMEN: Soft. Nontender. Bowel sounds active. No CVA tenderness. No mass felt. EXTREMITIES: No edema. Full range of motion of all extremities, equal. NEUROLOGIC: No focal deficit. Cranial nerves II through XII are grossly intact. No headache. No double vision. SKIN: Not dry. Intact. Turgor - a lot better. LYMPHATIC: No palpable lymph nodes/no lymphedema. MUSCULOSKELETAL: Normal joints with no swelling. Muscle tone is normal. LABS: Hemoglobin 12, hematocrit 34, WBC 10,000, normal differential. Creatinine 1.1, BUN 29, potassium 4.4. GFR 47. The patient's GFR on admission was 24. ASSESSMENT: 1. Bronchitis improving. 2. Hydration status improved. 3. Renal failure resolved. PLAN: 1. Continue steroids, antibiotics, nebs. TIME SPENT: More than 30 minutes. Plan and coordination of the patient's care discussed in the presence of nurse. EAN
--- NOTE | 2021-02-26 14:49 | DS ---
DATE OF SERVICE: 02/23/21 FINAL DIAGNOSIS: 1. ACUTE BRONCHITIS 2. ACUTE RENAL FAILURE 3. DEHYDRATION 4. PLEURITIC PAIN 5. HYPERTENSION 6. CAD 7. DYSLIPIDEMIA 8. COPD 9. ASTHMA 10. DIABETES MELLITUS, TYPE 2 11. CHRONIC KIDNEY DISEASE, STAGE 3 12. TIA 13. DEPRESSION 14. DJD LUMBAR SPINE 15. CHRONIC BACK PAIN 16. BILATERAL SCIATICA 17. RECURRENT UTI (SEES DR. PRESCOTT) 18. CHOLECYSTECTOMY 19. APPENDECTOMY 20. BILATERAL TKR 21. HYSTERECTOMY 22. CATARACT EXTRACTION, BILATERAL 23. RELEASE OF ADHESIONS LAST VITALS Temp Pulse Resp BP Pulse Ox 97.3 F L 47 L 16 125/64 98 02/23/21 05:58 02/23/21 05:58 02/23/21 05:58 02/23/21 05:58 02/23/21 05:58 DISCHARGE INSTRUCTIONS: 1. DISCHARGE HOME. 2. CONTINUE ACCU-CHECKS AT LEAST TWICE A DAY. 3. AN APPOINTMENT IS SCHEDULED WITH DR. COPPOLA/POLA DUARTE APRN ON February AT 1:45 PM. MEDICATIONS AT DISCHARGE: Acetaminophen (Acetaminophen 500 Mg Tablet) 1,000 mg PO Q12H PRN PRN Reason: Mild to moderate pain Hydrocodone Bitart/Acetaminophen (Hydrocodone Bit/Acetaminophen 5/325 Mg Tablet) 1 tab PO BID PRN PRN Reason: Pain Last Admin: 02/23/21 09:55 Dose: 1 tab Documented by: Amlodipine Besylate (Amlodipine Besylate 5 Mg Tablet) 5 mg PO BEDTIME [facility] Last Admin: 02/22/21 20:53 Dose: 5 mg Documented by: Aspirin (Aspirin 81 Mg Michelle.) 81 mg PO DAILYWM [facility] Last Admin: 02/23/21 09:08 Dose: 81 mg Documented by: Azelastine HCl (Azelastine Hcl 30 Ml Nasal [place]) 2 spray LAURIE BID PRN PRN Reason: nasal symptoms Bisoprolol Fumarate (Bisoprolol Fumarate 5 Mg Tablet) 5 mg PO DAILY [facility] Last Admin: 02/23/21 09:13 Dose: 5 mg Documented by: Budesonide/Formoterol Fumarate (Budesonide/Formoterol Fumarate 160/4.5 Mcg Inhaler) 2 puff IH QAM [facility] Last Admin: 02/23/21 09:14 Dose: 2 puff (COMPLETE HOSPITAL SUPPLY) Documented by: Clopidogrel Bisulfate (Clopidogrel Bisulfate 75 Mg Tablet) 75 mg PO DAILY [facility] Last Admin: 02/23/21 09:08 Dose: 75 mg Documented by: Fish Oil (Harrison-3/Dha/Epa/Fish Oil 1,000 Mg Capsule) 1,000 mg PO QAM [facility] Last Admin: 02/23/21 09:10 Dose: 1,000 mg Documented by: Cetirizine 10 Mg Tablet) 10 mg PO DAILY [facility] Last Admin: 02/23/21 09:11 Dose: 10 mg Documented by: Lorazepam (Lorazepam 0.5 Mg Tablet) 1 mg PO BID [facility] Last Admin: 02/23/21 09:11 Dose: 1 mg Documented by: Metformin HCl (Metformin Hcl 500 Mg Tablet) 500 mg PO BIDWM [facility] Last Admin: 02/23/21 09:12 Dose: 500 mg Documented by: Non-Formulary Medication (Trimethoprim) 100 mg PO DAILY [facility] Last Admin: 02/23/21 09:06 Dose: 100 mg Documented by: Benicar HCT 40/12.5 TABLET PO DAILY [facility] Last Admin: 02/23/21 09:07 Dose: 40 mg Documented by: Omeprazole (Omeprazole 20 Mg Capsule.Dr) 40 mg PO QDAC [facility] Last Admin: 02/23/21 05:32 Dose: 40 mg Documented by: Pravastatin Sodium (Pravastatin Sodium 40 Mg Tablet) 80 mg PO BEDTIME [facility] Last Admin: 02/22/21 20:53 Dose: 80 mg Documented by: LEVAQUIN 250 MG DAILY FOR 5 DAYS PREDNISONE 10 MG DAILY FOR 5 DAYS NEW PRESCRIPTIONS: LEVAQUIN 250 MG DAILY FOR 5 DAYS PREDNISONE 10 MG DAILY FOR 5 DAYS (TAKE WITH FOOD) PRESCRIPTIONS CALLED TO [facility] IN [place], [place] DISCONTINUED MEDICATIONS: NONE DIET INSTRUCTIONS: CONSISTENT CARBOHYDRATE AVOID OVER HYDRATION (DRINK ONLY ENOUGH WATER, AVOID LARGE QUANTITIES) ACTIVITY: GRADUALLY RESUME TOLERATED USE WALKER FOR ADDITIONAL SAFETY WITH AMBULATION RECOMMENDED BY PHYSICAL THERAPY SMOKING: NOT APPLICABLE DISEASE SPECIFIC EDUCATION: HYDRATION FOLLOW-UP PRESCRIPTIONS USE OF ORAL STEROIDS AND POTENTIAL FOR GI IRRITATION, POSSIBLE BLOOD SUGAR ELEVATION HOSPITAL COURSE: The patient was hospitalized through the office after being seen there. She had acute bronchitis type of symptoms, had not responded well to antibiotic therapy done as an outpatient. She also had evidence of pneumonitis by physical exam. She was dehydrated. Appetite has been poor for the past couple of days. Also, the patient lives alone and not being able to walk practically, using a walker. The patient in the hospital was noted to have GFR of 24 and she was borderline acute renal failure. She was given two bags of IV fluids and cardiovascular system was observed for fluid overload which she did not have. She was put on antibiotics, steroids, nebs. The patient's condition improved. She was given inhaler. Her appetite improved. Her kidney functions improved. She has chronic kidney disease. The patient's hydration status improved. The patient had questionable edema on the left hip which was followed by CT scan of the left hip to rule out any fractures which she did not have but she had fallen and had pain which improved remarkably while she was in the hospital likely from steroid therapy which was practically given for her lung problems. In any case, the patient's overall condition has improved. She was discharged home in stable condition to be followed as an outpatient. She was discharged on Levaquin and steroids. The patient lives by herself. She is able to take care of herself according to her. Condition at the time of discharge stable. TIME SPENT: More than 60 minutes. EAN
== END 2021-02-23 15:25 | disposition home or self-care (01) | DRG 684 ==
LOC: LAB 14:21 → MEDSURG A 15:40
PROVIDERS: ADMIT Internal Medicine; ATTEND Internal Medicine

== ENCOUNTER 2021-10-01 11:09 | Inpatient (IN) ==
[2021-10-01 11:36] LABS: BORDETELLA PARAPERTUSSIS (PCR) NOT DETECTED (NOT DETECT); BORDETELLA PERTUSSIS (PCR) NOT DETECTED (NOT DETECT); CHLAMYDIA PNEUMONIAE (PCR) NOT DETECTED (NOT DETECT); CORONAVIRUS 229E (PCR) NOT DETECTED (NOT DETECT); CORONAVIRUS HKU1 (PCR) NOT DETECTED (NOT DETECT); CORONAVIRUS NL63 (PCR) NOT DETECTED (NOT DETECT); CORONAVIRUS OC43 (PCR) NOT DETECTED (NOT DETECT); HUMAN METAPNEUMOVIRUS (PCR) NOT DETECTED (NOT DETECT); HUMAN RHINOVIRUS/ENTEROV (PCR) NOT DETECTED (NOT DETECT); INFLUENZA B (PCR) NOT DETECTED (NOT DETECT); MYCOPLASMA PNEUMONIAE (PCR) NOT DETECTED (NOT DETECT); PARAINFLUENZA VIRUS 1 (PCR) NOT DETECTED (NOT DETECT); PARAINFLUENZA VIRUS 2 (PCR) NOT DETECTED (NOT DETECT); PARAINFLUENZA VIRUS 3 (PCR) NOT DETECTED (NOT DETECT); PARAINFLUENZA VIRUS 4 (PCR) NOT DETECTED (NOT DETECT); RESPIRATORY SYNCYTIAL V (PCR) NOT DETECTED (NOT DETECT); SARS_COV_2 (PCR) NOT DETECTED (NOT DETECT)
[2021-10-01 12:24] LABS: ADENOVIRUS (PCR) NOT DETECTED (NOT DETECT)
[2021-10-01 13:35] VITALS: BMI 34.1
[2021-10-01] MEDS ORDERED: TYLENOL PO PRN ×2 (13:57→14:28)
[2021-10-01] MEDS ORDERED: ATROPINE SULFATE PFS IVP PRN (13:57)
[2021-10-01] MEDS ORDERED: NITROSTAT SL PRN (13:57)
[2021-10-01] MEDS ORDERED: TORADOL IVP PRN (14:02)
[2021-10-01 14:14] LABS: BASOPHILS # (AUTO) 0.1 K/uL (0-0.2); BASOPHILS % (AUTO) 0.8 % (0.0-3.0); EOSINOPHILS # (AUTO) 0.3 K/ul (0.0-0.7); EOSINOPHILS % (AUTO) 3.4 % (0.0-7.0); HEMATOCRIT 33.8 % (37.0-47.0); HEMOGLOBIN 11.1 g/dl (12.0-16.0); IMMATURE GRANULOCYTE % (AUTO) 0.3 % (0.0-5.0); LYMPHOCYTES # (AUTO) 3.2 K/uL (0.60-3.4); LYMPHOCYTES % (AUTO) 36.8 (10.0-50.0); MEAN CORPUSCULAR HEMOGLOBIN 29.5 pg (27.0-31.0); MEAN CORPUSCULAR HGB CONC 32.8 (31.8-35.4); MEAN CORPUSCULAR VOLUME 89.9 fl (81.0-99.0); MONOCYTES # (AUTO) 0.5 K/uL (0.4-2.0); MONOCYTES % (AUTO) 6.2 (0-10); NEUTROPHILS # (AUTO) 4.6 K/ul (2.0-6.9); NEUTROPHILS % (AUTO) 52.5 % (42.2-75.2); PLATELET COUNT 321 10^3/uL (140-440); RDW COEFFICIENT OF VARIATION 13.5 % (11.6-14.8); RED BLOOD COUNT 3.76 10^6/ul (4.20-5.40); WHITE BLOOD COUNT 8.72 K/ul (4.6-10.2)
[2021-10-01 14:27] LABS: ALANINE AMINOTRANSFERASE 8.2 U/L (0-35); ALBUMIN 4.22 g/dL (3.5-5.0); ALKALINE PHOSPHATASE 82.3 U/L (53-141); ASPARTATE AMINO TRANSFERASE 17.8 U/L (14-36); BILIRUBIN,TOTAL 0.23 mg/dL (0.2-1.3); BLOOD UREA NITROGEN 25.3 mg/dL (7-17); CALCIUM 9.02 mg/dL (8.4-10.2); CARBON DIOXIDE 19.2 mmol/L (22-30.0); CHLORIDE 110.5 mmol/L (98-107); CREATININE 1.99 mg/dL (0.60-1.30); GLUCOSE 120.3 mg/dL (74-106); POTASSIUM 4.48 mmol/L (3.5-5.1); SODIUM 140.5 mmol/L (134.5-145); TOTAL PROTEIN 7.07 g/dL (6.3-8.2)
[2021-10-01] MEDS ORDERED: ASTELIN 0.1% NAS PRN (14:28)
[2021-10-01 14:50] LABS: BILIRUBIN,URINE Negative (NEGATIVE); CLARITY,URINE Slightly (CLEAR); COLOR,URINE Yellow (YELLOW); GLUCOSE, URINE (UA) Negative (NEGATIVE); KETONES,URINE Negative (NEGATIVE); LEUKOCYTE ESTERASE ,URINE 2+ (NEGATIVE); NITRITE,URINE Negative (NEGATIVE); PROTEIN,URINE Negative (NEGATIVE); URINE, BLOOD Trace-intact (NEGATIVE); UROBILINOGEN,URINE 0.2 (0.2)
[2021-10-01 15:15] LABS: BACTERIA,URINE 2+ (NOT PRESENT); TRANSITIONAL EPI CELLS,URINE 0-2 (NOT PRESENT); URINE WBC, MICROSCOPIC 20-30 (0-2)
--- NOTE | 2021-10-01 15:39 | DI ---
EXAM: Chest two views HISTORY: Wheezing and shortness of breath COMPARISON: 02/20/2021 TECHNIQUE: Two views of the chest were performed FINDINGS: The lungs are clear. There is no pleural effusion or pneumothorax. The heart is normal i n size. The mediastinal contour is normal. There are no acute abnormalities of the bones. IMPRESSION: No acute cardiopulmonary process.
[2021-10-01] MEDS: SOLU-CORTEF 100 MG IVP SCH ×2 (15:40→20:42)
[2021-10-01] MEDS: LEVAQUIN 500 MG/100 ML D5W 500 MG/100 ML BAG IV SCH (15:41)
[2021-10-01] MEDS: NORCO 5-325 PO PRN ×2 (15:50→21:38)
[2021-10-01] MEDS: SODIUM CHLORIDE 1,000 ML IV SCH (15:51)
[2021-10-01] MEDS ORDERED: SODIUM CHLORIDE 1,000 ML IV SCH (16:00)
[2021-10-01] MEDS: GLUCOPHAGE PO SCH (17:37)
[2021-10-01] MEDS: DUONEB NEB SCH (19:45)
[2021-10-01] MEDS: PRAVACHOL PO SCH (20:42)
[2021-10-01] MEDS: NORVASC PO SCH (20:42)
[2021-10-01] MEDS ORDERED: ATIVAN PO SCH ×2 (21:00)
[2021-10-02] MEDS: DUONEB NEB SCH ×3 (05:00→20:05)
[2021-10-02 05:07] LABS: BASOPHILS % (AUTO) 0.3 % (0.0-3.0); HEMATOCRIT 30.7 % (37.0-47.0); HEMOGLOBIN 10.1 g/dl (12.0-16.0); IMMATURE GRANULOCYTE # (AUTO) 0.1 (0.0-1.0); IMMATURE GRANULOCYTE % (AUTO) 0.6 % (0.0-5.0); LYMPHOCYTES % (AUTO) 24.8 (10.0-50.0); MEAN CORPUSCULAR HEMOGLOBIN 29.4 pg (27.0-31.0); MEAN CORPUSCULAR HGB CONC 32.9 (31.8-35.4); MEAN CORPUSCULAR VOLUME 89.2 fl (81.0-99.0); MONOCYTES # (AUTO) 0.3 K/uL (0.4-2.0); MONOCYTES % (AUTO) 3.3 (0-10); NEUTROPHILS # (AUTO) 5.6 K/ul (2.0-6.9); PLATELET COUNT 293 10^3/uL (140-440); RDW COEFFICIENT OF VARIATION 13.4 % (11.6-14.8); RED BLOOD COUNT 3.44 10^6/ul (4.20-5.40); WHITE BLOOD COUNT 7.85 K/ul (4.6-10.2)
[2021-10-02 05:19] LABS: ALANINE AMINOTRANSFERASE 9.4 U/L (0-35); ALBUMIN 3.61 g/dL (3.5-5.0); ALKALINE PHOSPHATASE 66.8 U/L (53-141); ASPARTATE AMINO TRANSFERASE 17.8 U/L (14-36); BILIRUBIN,TOTAL 0.25 mg/dL (0.2-1.3); CALCIUM 8.78 mg/dL (8.4-10.2); CARBON DIOXIDE 18.5 mmol/L (22-30.0); CREATININE 1.47 mg/dL (0.60-1.30); POTASSIUM 4.48 mmol/L (3.5-5.1); SODIUM 136.5 mmol/L (134.5-145); TOTAL PROTEIN 6.25 g/dL (6.3-8.2)
[2021-10-02] MEDS: PRILOSEC PO SCH (05:38)
[2021-10-02] MEDS ORDERED: NON-FORMULARY MEDICATION (Aspirin 81 mg Capsule) PO SCH (09:00)
[2021-10-02] MEDS ORDERED: OLMESARTAN HYDROCHLOROTHIAZIDE PO SCH (09:00)
[2021-10-02] MEDS ORDERED: OMEGA DHA EPA FISH OIL PO SCH (09:00)
[2021-10-02] MEDS ORDERED: CETIRIZINE 10 MG PO SCH (09:00)
[2021-10-02] MEDS: SODIUM CHLORIDE 1,000 ML IV SCH (09:04)
[2021-10-02] MEDS: HYDROCHLOROTHIAZIDE PO SCH (09:15)
[2021-10-02] MEDS: OMEGA-3 FISH OIL PO SCH (09:15)
[2021-10-02] MEDS: ASPIRIN EC PO SCH (09:15)
[2021-10-02] MEDS: CLARITIN PO SCH (09:16)
[2021-10-02] MEDS: SOLU-CORTEF 100 MG IVP SCH ×2 (09:16→21:31)
[2021-10-02] MEDS: ZEBETA PO SCH (09:16)
[2021-10-02] MEDS: GLUCOPHAGE PO SCH ×2 (09:16→17:17)
[2021-10-02] MEDS: BENICAR PO SCH (09:16)
[2021-10-02] MEDS: PLAVIX PO SCH (09:16)
--- NOTE | 2021-10-02 09:17 | PCM.PROG ---
Attending Provider: ATTENDING PROVIDER: Dr. DESTINEY COPPOLA This patient is seen with Annette Edgar, Nurse Practitioner. DATE OF SERVICE: 10/02/21 SUBJECTIVE: This 86 year old /WHITE F was hospitalized 10/01/21. The patient states she did not sleep last night. Ate well. Leg is still swollen. Complaining of dysuria. U/A is abnormal. REVIEW OF SYSTEMS: CONSTITUTIONAL: No night sweats. No fatigue, malaise, lethargy. No fever or chills. Weakness. HEENT: Eyes: No visual changes. No eye pain. No eye discharge. ENT: No runny nose. No epistaxis. No sinus pain. No odynophagia. No congestion. RESPIRATORY: No cough, no congestion. No hemoptysis. No shortness of breath. CARDIOVASCULAR: No angina symptoms. No CHF symptoms. No atypical chest pain for CAD. No palpitations. No orthopnea.. GASTROINTESTINAL: No abdominal pain. No nausea or vomiting. No diarrhea or constipation. No hematemesis. No hematochezia. GENITOURINARY: No urgency. No frequency. No dysuria. No hematuria. No obstructive symptoms. No discharge. No pain. No significant abnormal bleeding. MUSCULOSKELETAL: No musculoskeletal pain; no joint swelling. Back pain. Leg edema. NEUROLOGICAL: Awake, alert, oriented to time, place and person. No headache. No neck pain. No syncope. No seizures. No dizziness. PSYCHIATRIC: Not anxious. No depression. No suicidal thoughts. No homicidal thoughts. SKIN: No rash. No lesions. No wounds. ENDOCRINE: No unexplained weight loss. No weight gain. HEMATOLOGIC/LYMPHATIC: No anemia. No purpura. No petechiae. No prolonged or excessive bleeding. No palpable lymph nodes. PHYSICAL EXAMINATION: GENERAL: The patient is awake, alert and oriented, sitting in chair in no distress. VITAL SIGNS: Temperature 97.3 F, Pulse 81, Respiratory Rate 18, BP 156/70, Pulse Ox 99% HEENT: Head normocephalic, atraumatic. Eyes: Extraocular muscles are intact. Pupils are equal, round and reactive to light and accommodation. Ears: No lesions. Nose appeared normal. Throat: No exudate or erythema. NECK: Supple. No JVD, no carotid bruit. No lymphadenopathy or thyromegaly. LUNGS: Diminished breath sounds. Clear to auscultation. Percussion note normal. Chest symmetrical. HEART: S1, S2, no S3. No murmurs. No cyanosis or clubbing. No ascites. Pul ses: Dorsalis pedis and posterior tibial pulses +1 to +2 both sides. ABDOMEN: Soft. Non-tender. Bowel sounds active. No CVA tenderness. No mass felt. EXTREMITIES: Trace bilateral leg edema. Full range of motion of all extremities, equal. NEUROLOGIC: No focal deficit. Cranial nerves II through XII are grossly intact. No headache. No double vision. SKIN: Not dry. Intact. Turgor-normal. LYMPHATIC: No palpable lymph nodes/no lymphedema. MUSCULOSKELETAL: Normal joints with no swelling. Muscle tone is normal. LAB REVIEW: 10/02/21 04:56 10/02/21 04:56 10/02/21 04:56: Sodium 136.5, Potassium 4.48, Chloride 109.0 H, Carbon Dioxide 18.5 L, Anion Gap 13.48, BUN 22.0 H, Creatinine 1.47 H D, Estimated GFR (MDRD) 34.00, BUN/Creatinine Ratio 14.96, Glucose 145.0 H, Calcium 8.78, Total Bilirubin 0.25, AST 17.8, ALT 9.4, Alkaline Phosphatase 66.8, Total Protein 6.25 L, Albumin 3.61, Globulin 2.64, Albumin/Globulin Ratio 1.36 10/02/21 04:56: WBC 7.85, RBC 3.44 L, Hgb 10.1 L, Hct 30.7 L, MCV 89.2, MCH 29.4, MCHC 32.9, RDW Coeff of Gloria 13.4, Plt Count 293, Immature Gran % (Auto) 0.6, Neut % (Auto) 71.0, Lymph % (Auto) 24.8, [place] % (Auto) 3.3, Eos % (Auto) 0.0, Baso % (Auto) 0.3, Neut # (Auto) 5.6, Lymph # (Auto) 2.0, [place] # (Auto) 0.3 L, Eos # (Auto) 0.0, Baso # (Auto) 0.0, Immature Gran # (Auto) 0.1 10/01/21 22:00: Troponin I < 0.012 10/01/21 14:10: Troponin I < 0.012 10/01/21 14:10: Sodium 140.5, Potassium 4.48, Chloride 110.5 H, Carbon Dioxide 19.2 L, Anion Gap 15.28, BUN 25.3 H, Creatinine 1.99 H, Estimated GFR (MDRD) 24.00, BUN/Creatinine Ratio 12.71, Glucose 120.3 H, Calcium 9.02, Total Bilirubin 0.23, AST 17.8, ALT 8.2, Alkaline Phosphatase 82.3, Total Protein 7.07, Albumin 4.22, Globulin 2.85, Albumin/Globulin Ratio 1.48 10/01/21 14:10: WBC 8.72, RBC 3.76 L, Hgb 11.1 L, Hct 33.8 L, MCV 89.9, MCH 29.5, MCHC 32.8, RDW Coeff of Gloria 13.5, Plt Count 321, Immature Gran % (Auto) 0.3, Neut % (Auto) 52.5, Lymph % (Auto) 36.8, [place] % (Auto) 6.2, Eos % (Auto) 3.4, Baso % (Auto) 0.8, Neut # (Auto) 4.6, Lymph # (Auto) 3.2, [place] # (Auto) 0.5, Eos # (Auto) 0.3, Baso # (Auto) 0.1, Immature Gran # (Auto) 0.0 10/01/21 13:44: Urine Color Yellow, Urine Clarity Slightly, Urine pH 6.0, Ur Specific [place] 1.015, Urine Protein Negative, Urine Glucose (UA) Negative, Urine Ketones Negative, Urine Blood Trace-intact H, Urine Nitrite Negative, Uri ne Bilirubin Negative, Urine Urobilinogen 0.2, Ur Leukocyte Esterase 2+ H, Urine Microscopic RBC 2-5, Urine Microscopic WBC 20-30, Ur Squamous Epith Cells 10-20, Ur Transition Epith Cell 0-2, Urine Bacteria 2+ 10/01/21 11:30: Adenovirus (PCR) Not detected, B. pertussis DNA (PCR) Not detected, B.parapertussis DNA PCR Not detected, C. pneumoniae DNA (PCR) Not detected, Coronavirus OC43 (PCR) Not detected, Coronavirus HKU1 (PCR) Not detected, Coronavirus 229E (PCR) Not detected, Coronavirus NL63 (PCR) Not detected, Human Metapneumovir PCR Not detected, Influenza Type A (PCR) Not detected, Influenza B (RT-PCR) Not detected, M. pneumoniae (PCR) Not detected, Parainfluenza 1 (PCR) Not detected, Parainfluenza 2 (PCR) Not detected, Parainfluenza 3 (PCR) Not detected, Parainfluenza 4 (PCR) Not detected, RSV (PCR) Not detected, Entero/Rhino (PCR) Not detected, SARS-CoV-2 (PCR) Not detected ASSESSMENT: Please see below. 1. UTI, culture pending 2. Acute kidney injury 3. Dehydration 4. Leg edema 5. Lesion on left middle finger PLAN: 1. Wound culture on middle finger 2. One more liter IV fluids 3. Continue antibiotics 4. Keep legs elevated 5. Bactroban BID to lesion Plan and coordination of the patient's care discussed in the presence of Land Inspector and nurse. SCRIBED BY: Kvng ROLLE scribed while in presence of service performed by Dr. Coppola/Annette Edgar APRN on 10/02/21 ([id number])
[2021-10-02] MEDS: TRIMETHOPRIM 100 MG PO SCH (09:19)
[2021-10-02] MEDS: LEVAQUIN 500 MG/100 ML D5W 500 MG/100 ML BAG IV SCH (09:23)
[2021-10-02] MEDS: ATIVAN PO SCH ×2 (09:23→20:43)
[2021-10-02] MEDS: BACTROBAN TP SCH ×2 (09:24→20:44)
[2021-10-02] MEDS: NORCO 5-325 PO PRN ×2 (09:49→14:54)
--- NOTE | 2021-10-02 10:35 | HP ---
DATE OF SERVICE: 10/01/2021 REASON FOR HOSPITALIZATION/HISTORY OF PRESENT ILLNESS: The patient is coughing/wheezing for a week. Weight loss. Low grade temperature. No signs or symptoms of CHF/CAD. PAST MEDICAL HISTORY: Diabetes Mellitus Type II Chronic bronchitis Hypertension Dyslipidemia Sciatica Chronic kidney disease stage II CAD Osteoarthritis CHF Chronic UTI PAST SURGICAL HISTORY: Exploratory Gallbladder Hysterectomy Appendix Bilateral knee Left ankle Cataract Bilateral Tonsils Adhesions on stomach. REVIEW OF SYSTEMS: CONSTITUTIONAL: No fever, Fatigue. HEENT: Sinus drainage, no sore throat. RESPIRATORY: Cough, no congestion. CARDIOVASCULAR: No atypical chest pain for coronary artery disease. No angina, CHF symptoms, palpitations or shortness of breath. GASTROINTESTINAL: No melena or abdominal pain. No GERD. GENITOURINARY: No hematuria, no prostatism, no polyuria. PLANT SUPERVISOR: No blackout, no dizziness, no headache, no double vision. MUSCULOSKELETAL: Osteoarthritis pain, no joint swelling. ENDOCRINE: No weight loss, no weight gain. SKIN: Not dry, no rash. PSYCHIATRIC: Not anxious, no depression, no suicidal thoughts, no homicidal thoughts. SOCIAL HISTORY: Marital Status: . Alcohol Usage: No. Tobacco Usage: No. FAMILY HISTORY: Father Mother MEDICATIONS: [place]farlan 5/325mg BID PRN Bisoprolol 5mg Q daily Plavix 75mg Q daily Benicar 40-12.5mg Q daily Metformin 500mg BID Omeprazole 40mg Q daily Trimethoprim 100mg BID Lorazepam 0.5mg BID Azelastine spray BID PRN Zyrtec 10mg Q daily Pravastatin 80mg Q daily Hydrocodone 7.5-325mg BID PRN Aspirin 81mg Norvasc 5mg QHS ALLERGIES: Cephalosporin Lasix Macrodantin Penicillin Ampicillin Sulfa Phenobarbital Codeine Prevacid PHYSICAL EXAMINATION: V/S: Pulse 73, blood pressure 132/62, Temperature 97.7, oxygen saturation 98%. Height 5'3 and weight 195. GENERAL APPEARANCE: Oriented times three. HEENT: Normal. NECK: No JVP, no bruits. RESPIRATORY: Severely decreased breath sounds. CARDIOVASCULAR: S1, S2, no S3, no murmur. No cyanosis, clubbing. No ascites. GI/ABDOMEN: No tenderness. Bowel sounds are active. EXTREMITIES: Trace bilateral lower extremity edema, pulses +1, equal. PLANT SUPERVISOR: Deep tendon reflexes, sensory, motor and gait all normal. RECTAL:Dr. Kendall 02/25. ASSESSMENT: 1. Acute COPD exacerbation 2. Dehydration 3. Generalized weakness 4. Bilateral sciatica 5. History of TIA 6. Lumbar radiculopathy 7. Asthma 8. Recurrent UTI 9. COPD 10.Chronic back pain 11. 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 Diabetes Mellitus type II 14. Hypertension 15. Dyslipidemia 16. CAD 17. Chronic kidney disease stage III 18. Uterine Prolapse PLAN: 1. Admit 2. Routine telemetry orders, No cardiac markers 3. CBC/CMP now and daily 4. Levaquin 500mg IV daily 5. Solu-Cortef 100mg IV Q 12 hours 6. DUO NEBS scheduled TID 7. Chest x-ray 8. U/A 9. Toradol 15mg IV Q 8 hours PRN 10. Regular diet 11. Continue home medications 12. O2 at 1-2 liters nasal cannula PRN 13. Elevate legs TIME SPENT: More than 70 minutes. MTDD
--- NOTE | 2021-10-02 11:05 | RS.OTINEVL ---
Subjective - Patient information Date of Evaluation: 10/02/21 Date of Arrival on Unit: 10/01/21 Admitted From:: Direct Admit Diagnosis: ACT COPD Exacerbation, Dehydration, Gen. Weakness PRECAUTIONS: Risk for falls Usual Living Arrangement: Alone Living Arrangement Comments: lives alone at home, son checks on her frequently Home Environment: Stairs (few), Rail Medical History: Hypertension, COPD, Diabetes, Arthritis Medical History Comments:: CAD, Asthma, Chronic Kidney disease stage 3, Depre ssion, LATEX ALLERGY?: No Surgical History: Knee Replacement, Cholecystectomy, Hysterectomy Surgical History Comments:: Appendectomy, bilateral TKA Medications: Refer to chart Subjective Information/ Patient Comments:: "I do not drive anymore." - Level of function Prior to this admission, the patient could do the following:: Independent Selfcare, Independent ADL's, Independent Ambulation Abilities prior to this admission: Pt was using her Rolling walker during ambulation, she has people bringing her food, she is able to bathe and get dressed herself. Current Level of Function: Partially Dependent Comments: Pt requires Min to CGA for dressing, bathing, and functional mobility. Current Equipment Used at Home: rolling walker, cane, nebulizer, shower chair, wheelchair, bedside commode (as needed). Pain Assessment - Pain Pain Score: 5 Side: bilateral Pain Location Body Site: Back Pain Aggravating Factors: Changing Position Pain Alleviating Factors: Medication Interventions - Objective Patient Orientation: Person, Place, Situation Current Interventions: IV's, Telemetry Observation: Pt has limited LUE shoulder AROM due to pain. Pt has full AROM of RUE. Pt is CGA for sit to stand from chair. Interventions - ROM Right Upper Extremity AROM: WFL's Left Upper Extremity AROM: Moderate limitation - Strength Right Upper Extremity Strength: Mild Weakness Left Upper Extremity Strength: Mild Weakness - Sensation Right Upper Extremity Sensation: Intact/Normal Left Upper Extremity Sensation: Intact/Normal Balance - Sitting Balance Static Sitting Balance: Fair Dynamic Sitting Balance: Fair - Standing Balance Static Standing Balance: Poor Dynamic Standing Balance: Poor ADL Skills - Self Feeding Self Feeding: Independent - Grooming Grooming: Independent Grooming Set-up: Sitting - Dressing Dressing UE: Min Assist Dressing LE: Min Assist - Toilet Management Toilet Hygiene: Supervision Toilet Clothing Management: CGA Functional Mobility - Transfers Sit to Stand: CGA Stand to Sit: CGA Stand Pivot Transfers: CGA - Ambulation Weight Bearing Status: FWB Assistive Device Used: Rolling Walker Assistance needed with Ambulation: Independent - Safety Awareness Safety Awareness: Fair JULIO INDEX SCORE: . Additional Treatment Performed - Time with patient Length of Evaluation: 23 Total treatment time: 30 Activities Would you be interested in leaving your room for activities?: Yes Would you enjoy group activities?: Yes Do you have difficulty with your vision?: Yes Patient Interests:: Watching Television, Visiting/Socializing Patient Education Patient Education: Home Exercise Program, Home Safety, Education of Plan of Care Teaching Recipient: Patient Teaching Methods: Discussion, Demonstration Assessment Problem List:: Decreased level of function, Requires training/education, Decreased safety/Risk of falls, Weakness, Pain limits previous level of function Rehab Potential: Good Further Therapy Indicated?: Yes Evaluation Complexity: HISTORY: Medium, EXAM OF BODY SYSTEMS: Medium, CLINICAL DECISION MAKING: Medium Patient's Goal(s): To get better and go home. Pt wants to live in her home as long as she is able to. Short Term Goals - Goals GOAL 1: LA with self care. Goal to be met by: 10/05/21 GOAL 2: LA with functional mobility. Goal to be met by: 10/05/21 GOAL 3: To complete ADL with Fair+ balance. Goal to be met by: 10/05/21 GOAL 4: Pt pain in LUE to decrease to 2/10. Goal to be met by: 10/05/21 Outreach Assistant Goals GOAL 1: Pt to be I with ADLS. Goal to be met by: 10/09/21 GOAL 2: To complete ADL with Good balance. Goal to be met by: 10/09/21 GOAL 3: Pt pain in LUE shoulder to decrease to 0/10. Goal to be met by: 10/09/21 Plan Plan of Care: Therapeutic EX, Therapeutic Activity, Self-Care/Home Management Frequency of Treatment: 1-2 X day, as tolerated Duration of Treatment: 1 Week Anticipated Discharge Destination: Home Treatment Diagnosis (ICD 10 Codes): R53.1 Weakness, Z74.1 Need for assistance with personal care. Has the Physician been added for Co-signature?: Yes
--- NOTE | 2021-10-02 14:00 | PN ---
DATE OF SERVICE: 10/01/2021 ADMIT NOTE SUBJECTIVE: The patient was seen and examined in the office. The patient had dehydration. Her health is declining. She has multiple other problems. Cardiovascular status is stable. The patient's plan was formulated and she was hospitalized for IV fluids and further workup. TIME SPENT: More than 30 minutes. Plan and coordination of the patient's care discussed in the presence of nurse. EAN
--- NOTE | 2021-10-02 14:01 | PN ---
DATE OF SERVICE: 10/02/2021 SUBJECTIVE: The patient was seen and examined with the Nurse Practitioner. The patient's hydration status has improved. Her condition has improved. Cardiovascular status is stable. TIME SPENT: More than 30 minutes. Plan and coordination of the patient's care discussed in the presence of nurse. EAN
[2021-10-02] MEDS: NORVASC PO SCH (20:43)
[2021-10-02] MEDS: PRAVACHOL PO SCH (20:43)
[2021-10-03] MEDS: NORCO 5-325 PO PRN ×2 (03:07→20:24)
[2021-10-03] MEDS: DUONEB NEB SCH ×3 (04:45→21:10)
[2021-10-03 05:03] LABS: BASOPHILS # (AUTO) 0.1 K/uL (0-0.2); BASOPHILS % (AUTO) 0.6 % (0.0-3.0); EOSINOPHILS # (AUTO) 0.1 K/ul (0.0-0.7); EOSINOPHILS % (AUTO) 1.2 % (0.0-7.0); HEMATOCRIT 33.7 % (37.0-47.0); HEMOGLOBIN 11.1 g/dl (12.0-16.0); IMMATURE GRANULOCYTE # (AUTO) 0.1 (0.0-1.0); IMMATURE GRANULOCYTE % (AUTO) 0.6 % (0.0-5.0); LYMPHOCYTES # (AUTO) 4.8 K/uL (0.60-3.4); LYMPHOCYTES % (AUTO) 44.3 (10.0-50.0); MEAN CORPUSCULAR HEMOGLOBIN 29.3 pg (27.0-31.0); MEAN CORPUSCULAR HGB CONC 32.9 (31.8-35.4); MEAN CORPUSCULAR VOLUME 88.9 fl (81.0-99.0); MONOCYTES # (AUTO) 0.7 K/uL (0.4-2.0); NEUTROPHILS # (AUTO) 5.1 K/ul (2.0-6.9); NEUTROPHILS % (AUTO) 47.3 % (42.2-75.2); PLATELET COUNT 324 10^3/uL (140-440); RDW COEFFICIENT OF VARIATION 13.7 % (11.6-14.8); RED BLOOD COUNT 3.79 10^6/ul (4.20-5.40)
[2021-10-03 05:17] LABS: ALBUMIN 4.29 g/dL (3.5-5.0); ALKALINE PHOSPHATASE 75.2 U/L (53-141); ASPARTATE AMINO TRANSFERASE 19.4 U/L (14-36); BILIRUBIN,TOTAL 0.28 mg/dL (0.2-1.3); BLOOD UREA NITROGEN 21.7 mg/dL (7-17); CALCIUM 9.27 mg/dL (8.4-10.2); CARBON DIOXIDE 18.3 mmol/L (22-30.0); CHLORIDE 109.3 mmol/L (98-107); CREATININE 1.32 mg/dL (0.60-1.30); GLUCOSE 106.1 mg/dL (74-106); POTASSIUM 4.17 mmol/L (3.5-5.1); TOTAL PROTEIN 7.18 g/dL (6.3-8.2)
[2021-10-03] MEDS: PRILOSEC PO SCH (05:41)
[2021-10-03] MEDS: SOLU-CORTEF 100 MG IVP SCH ×2 (09:06→20:23)
[2021-10-03] MEDS: ASPIRIN EC PO SCH (09:07)
[2021-10-03] MEDS: BENICAR PO SCH (09:07)
[2021-10-03] MEDS: HYDROCHLOROTHIAZIDE PO SCH (09:07)
[2021-10-03] MEDS: PLAVIX PO SCH (09:08)
[2021-10-03] MEDS: ATIVAN PO SCH ×2 (09:08→20:22)
[2021-10-03] MEDS: GLUCOPHAGE PO SCH ×2 (09:08→17:16)
[2021-10-03] MEDS: BACTROBAN TP SCH ×2 (09:08→20:25)
[2021-10-03] MEDS: OMEGA-3 FISH OIL PO SCH (09:08)
[2021-10-03] MEDS: ZEBETA PO SCH (09:08)
[2021-10-03] MEDS: CLARITIN PO SCH (09:08)
[2021-10-03] MEDS: TRIMETHOPRIM 100 MG PO SCH (09:15)
[2021-10-03] MEDS: LEVAQUIN 250 MG/50 ML D5W 250 MG/50 ML BAG IV SCH (09:22)
[2021-10-03] MEDS ORDERED: CITRATE OF MAGNESIA PO PRN (16:52)
[2021-10-03] MEDS: NORVASC PO SCH (20:22)
[2021-10-03] MEDS: PRAVACHOL PO SCH (20:23)
[2021-10-04] MEDS: DUONEB NEB SCH ×2 (05:28→14:06)
[2021-10-04 06:05] VITALS: BP 123/68; TEMP 97.9
[2021-10-04] MEDS: PRILOSEC PO SCH (06:05)
[2021-10-04 07:24] LABS: BASOPHILS # (AUTO) 0.1 K/uL (0-0.2); BASOPHILS % (AUTO) 0.7 % (0.0-3.0); EOSINOPHILS # (AUTO) 0.3 K/ul (0.0-0.7); HEMATOCRIT 31.3 % (37.0-47.0); HEMOGLOBIN 10.3 g/dl (12.0-16.0); IMMATURE GRANULOCYTE # (AUTO) 0.1 (0.0-1.0); IMMATURE GRANULOCYTE % (AUTO) 0.5 % (0.0-5.0); LYMPHOCYTES # (AUTO) 4.8 K/uL (0.60-3.4); LYMPHOCYTES % (AUTO) 43.7 (10.0-50.0); MEAN CORPUSCULAR HEMOGLOBIN 29.2 pg (27.0-31.0); MEAN CORPUSCULAR HGB CONC 32.9 (31.8-35.4); MEAN CORPUSCULAR VOLUME 88.7 fl (81.0-99.0); MONOCYTES # (AUTO) 0.8 K/uL (0.4-2.0); MONOCYTES % (AUTO) 7.1 (0-10); PLATELET COUNT 315 10^3/uL (140-440); RED BLOOD COUNT 3.53 10^6/ul (4.20-5.40); WHITE BLOOD COUNT 11.05 K/ul (4.6-10.2)
[2021-10-04 07:37] LABS: ALANINE AMINOTRANSFERASE 8.5 U/L (0-35); ALBUMIN 3.79 g/dL (3.5-5.0); ALKALINE PHOSPHATASE 68.5 U/L (53-141); BILIRUBIN,TOTAL 0.31 mg/dL (0.2-1.3); BLOOD UREA NITROGEN 24.1 mg/dL (7-17); CALCIUM 9.16 mg/dL (8.4-10.2); CARBON DIOXIDE 18.7 mmol/L (22-30.0); CHLORIDE 109.9 mmol/L (98-107); CREATININE 1.43 mg/dL (0.60-1.30); GLUCOSE 152.5 mg/dL (74-106); POTASSIUM 3.77 mmol/L (3.5-5.1); SODIUM 138.7 mmol/L (134.5-145); TOTAL PROTEIN 6.45 g/dL (6.3-8.2)
[2021-10-04] MEDS: SOLU-CORTEF 100 MG IVP SCH (09:31)
[2021-10-04] MEDS: LEVAQUIN 250 MG/50 ML D5W 250 MG/50 ML BAG IV SCH (09:32)
[2021-10-04] MEDS: OMEGA-3 FISH OIL PO SCH (09:32)
[2021-10-04] MEDS: ZEBETA PO SCH (09:32)
[2021-10-04] MEDS: HYDROCHLOROTHIAZIDE PO SCH (09:32)
[2021-10-04] MEDS: ASPIRIN EC PO SCH (09:32)
[2021-10-04] MEDS: GLUCOPHAGE PO SCH (09:32)
[2021-10-04] MEDS: BENICAR PO SCH (09:32)
[2021-10-04] MEDS: ATIVAN PO SCH ×2 (09:33→10:21)
[2021-10-04] MEDS: CLARITIN PO SCH (09:33)
[2021-10-04] MEDS: BACTROBAN TP SCH (09:33)
[2021-10-04] MEDS: PLAVIX PO SCH (09:34)
[2021-10-04] MEDS: TRIMETHOPRIM 100 MG PO SCH (09:36)
[2021-10-04] MEDS: NORCO 5-325 PO PRN (09:39)
--- NOTE | 2021-10-04 09:41 | PCM.PROG ---
Attending Provider: ATTENDING PROVIDER: Dr. DESTINEY COPPOLA This patient is seen with Annette Edgar, Nurse Practitioner. DATE OF SERVICE: 10/04/21 SUBJECTIVE: This 86 year old /WHITE F was hospitalized 10/01/21. The patient is feeling much better. Cough has improved. Weakness has improved and ready for discharged home today. REVIEW OF SYSTEMS: CONSTITUTIONAL: No night sweats. No fatigue, malaise, lethargy. No fever or chills. Weakness. HEENT: Eyes: No visual changes. No eye pain. No eye discharge. ENT: No runny nose. No epistaxis. No sinus pain. No odynophagia. No congestion. RESPIRATORY: Cough, no congestion. No hemoptysis. No shortness of breath. CARDIOVASCULAR: No angina symptoms. No CHF symptoms. No atypical chest pain for CAD. No palpitations. No orthopnea.. GASTROINTESTINAL: No abdominal pain. No nausea or vomiting. No diarrhea or constipation. No hematemesis. No hematochezia. GENITOURINARY: No urgency. No frequency. No dysuria. No hematuria. No obs tructive symptoms. No discharge. No pain. No significant abnormal bleeding. MUSCULOSKELETAL: No musculoskeletal pain; no joint swelling. NEUROLOGICAL: Awake, alert, oriented to time, place and person. No headache. No neck pain. No syncope. No seizures. No dizziness. PSYCHIATRIC: Not anxious. No depression. No suicidal thoughts. No homicidal thoughts. SKIN: No rash. No lesions. No wounds. ENDOCRINE: No unexplained weight loss. No weight gain. HEMATOLOGIC/LYMPHATIC: No anemia. No purpura. No petechiae. No prolonged or excessive bleeding. No palpable lymph nodes. PHYSICAL EXAMINATION: GENERAL: The patient is awake, alert and oriented, lying/sitting in bed in no distress. VITAL SIGNS: Temperature 97.9 F, Pulse 78, Respiratory Rate 20, BP 123/68, Pulse Ox 98% HEENT: Head normocephalic, atraumatic. Eyes: Extraocular muscles are intact. Pupils are equal, round and reactive to light and accommodation. Ears: No lesions. Nose appeared normal. Throat: No exudate or erythema. NECK: Supple. No JVD, no carotid bruit. No lymphadenopathy or thyromegaly. LUNGS: Diminished breath sounds. Clear to auscultation. Percussion note normal. Chest symmetrical. HEART: S1, S2, no S3. No murmurs. No cyanosis or clubbing. No ascites. Pulses: Dorsalis pedis and posterior tibial pulses +1 to +2 both sides. ABDOMEN: Soft. Non-tender. Bowel sounds active. No CVA tenderness. No mass felt. EXTREMITIES: No edema. Full range of motion of all extremities, equal. NEUROLOGIC: No focal deficit. Cranial nerves II through XII are grossly intact. No headache. No double vision. SKIN: Not dry. Intact. Turgor-normal. LYMPHATIC: No palpable lymph nodes/no lymphedema. MUSCULOSKELETAL: Normal joints with no swelling. Muscle tone is normal. LAB REVIEW: 10/04/21 07:22 10/04/21 07:22 10/04/21 07:22: Sodium 138.7, Potassium 3.77, Chloride 109.9 H, Carbon Dioxide 18.7 L, Anion Gap 13.87, BUN 24.1 H, Creatinine 1.43 H, Estimated GFR (MDRD) 35.00, BUN/Creatinine Ratio 16.85, Glucose 152.5 H, Calcium 9.16, Total Bilirubin 0.31, AST 22.0, ALT 8.5, Alkaline Phosphatase 68.5, Total Protein 6.45, Albumin 3.79, Globulin 2.66, Albumin/Globulin Ratio 1.42 10/04/21 07:22: WBC 11.05 H, RBC 3.53 L, Hgb 10.3 L, Hct 31.3 L, MCV 88.7, MCH 29.2, MCHC 32.9, RDW Coeff of Gloria 14.0, Plt Count 315, Immature Gran % (Auto) 0.5, Neut % (Auto) 45.0, Lymph % (Auto) 43.7, [place] % (Auto) 7.1, Eos % (Auto) 3.0, Baso % (Auto) 0.7, Neut # (Auto) 5.0, Lymph # (Auto) 4.8 H, [place] # (Auto) 0.8, Eos # (Auto) 0.3, Baso # (Auto) 0.1, Immature Gran # (Auto) 0.1 ASSESSMENT: Please see below. 1. UTI, culture pending 2. Acute kidney injury 3. Dehydration 4. Leg edema 5. Lesion on left middle finger PLAN: 1. Discharge home today 2. Levaquin 250mg for 6 days 3. Prednisone 10mg BID for 5 days Plan and coordination of the patient's care discussed in the presence of Certified Technician and nurse. SCRIBED BY: Kvng ROLLE scribed while in presence of service performed by Dr. Coppola/Annette Edgar APRN on 10/04/21 ([id number])
--- NOTE | 2021-10-04 12:34 | CM.DICTOOL ---
ADMISSION: 10/01/21 12:37 DISCHARGE: OCTOBER 04, 2021 DATE OF SERVICE: 10/04/21 FINAL DIAGNOSIS ACUTE COPD EXACERBATION ACUTE KIDNEY INJURY DEHYDRATION UTI, MIXED GROWTH GRAM POSITIVE COCCI BLISTER, LEFT MIDDLE FINGER; GRAM POSITIVE COCCI CORONARY ARTERY DISEASE HYPERTENSION ASTHMA DIABETES MELLITUS, TYPE 2 CHRONIC KIDNEY DISEASE, STAGE 3 DYSLIPIDEMIA DJD LUMBAR SPINE UTERINE PROLAPSE RECURRENT UTI, TAKES BACTRIM DAILY (DR. PRESCOTT) BILATERAL SCIATICA HISTORY TIA CHRONIC BACK PAIN DEPRESSION LUMBAR RADICULOPATHY CHOLECYSTECTOMY HYSTERECTOMY APPENDECTOMY BILATERAL KNEE REPLACEMENT LEFT ANKLE SURGERY BILATERAL CATARACT EXTRACTION EXPLORATORY FOR ADHESIONS ECHOCARDIOGRAM: 10/04 LVEF 58% BORDERLINE LVH WITH ENLARGED LEFT ATRIAL CAVITY LAST VITALS Temp Pulse Resp BP Pulse Ox 97.9 F 78 20 123/68 99 10/04/21 06:00 10/04/21 06:00 10/04/21 08:00 10/04/21 06:00 10/04/21 10:00 TAKE THESE MEDICATIONS AT HOME Acetaminophen (Acetaminophen 500 Mg Tablet) 1,000 mg PO Q12H PRN PRN Reason: Mild Pain Last Admin: 10/04/21 02:12 Dose: 1,000 mg Documented by: Hydrocodone Bitart/Acetaminophen (Hydrocodone Bit/Acetaminophen 5/325 Mg Tablet) 1 tab PO TID PRN PRN Reason: pain Last Admin: 10/04/21 09:39 Dose: 1 tab Documented by: Albuterol/Ipratropium (Ipratropium/Albuterol Vial.Neb) 3 ml NEB RTBID [facility] Last Admin: 10/04/21 05:28 Dose: 3 ml Documented by: Amlodipine Besylate (Amlodipine Besylate 5 Mg Tablet) 5 mg PO BEDTIME [facility] Last Admin: 10/03/21 20:22 Dose: 5 mg Documented by: Aspirin (Aspirin 81 Mg Tablet.) 81 mg PO DAILYWM [facility] Last Admin: 10/04/21 09:32 Dose: 81 mg Documented by: Azelastine HCl (Azelastine Hcl 30 Ml Nasal [place]) 2 spray LAURIE BID PRN PRN Reason: congestion Bisoprolol Fumarate (Bisoprolol Fumarate 5 Mg Tablet) 5 mg PO DAILY [facility] Last Admin: 10/04/21 09:32 Dose: 5 mg Documented by: Clopidogrel Bisulfate (Clopidogrel Bisulfate 75 Mg Tablet) 75 mg PO DAILY [facility] Last Admin: 10/04/21 09:34 Dose: 75 mg Documented by: Fish Oil ([place]-3/Dha/Epa/Fish Oil 1,000 Mg Capsule) 1,000 mg PO DAILY [facility] Last Admin: 10/04/21 09:32 Dose: 1,000 mg Documented by: Levofloxacin 250 mg DAILY PO [facility] ([facility] RX) Stop: 10/06/21 08:59 Last Admin: 10/04/21 09:32 Documented by: CETIRIZINE 10 mg PO DAILY [facility] Last Admin: 10/04/21 09:33 Dose: 10 mg Documented by: Lorazepam (Lorazepam 0.5 Mg Tablet) 0.5 mg PO BID [facility] Last Admin: 10/04/21 10:21 Dose: 0.5 mg Documented by: Magnesium Citrate (Magnesium Citrate 10 Oz Janelle) 5 oz PO DAILY PRN PRN Reason: Constipation Last Admin: 10/03/21 17:02 Dose: 5 oz Documented by: Metformin HCl (Metformin Hcl 500 Mg Tablet) 500 mg PO BIDWM [facility] Last Admin: 10/04/21 09:32 Dose: 500 mg Documented by: Mupirocin (Mupirocin 22 Gm Oint) 1 applic TP BID [facility] ([facility]) Stop: 10/05/21 08:59 Last Admin: 10/04/21 09:33 Dose: 1 applic Documented by: PREDNISONE 10 MG PO BID FOR 5 DAYS (NEW RX) Non-Formulary Medication (Trimethoprim) 100 mg PO DAILY [facility] Last Admin: 10/04/21 09:36 Dose: Not Given Documented by: Olmesartan -HCT 40/12.5 mg PO DAILY [facility] Last Admin: 10/04/21 09:32 Dose: 40 mg Documented by: Omeprazole (Omeprazole 20 Mg Capsule.Dr) 40 mg PO QDAC [facility] Last Admin: 10/04/21 06:05 Dose: 40 mg Documented by: Pravastatin Sodium (Pravastatin Sodium 40 Mg Tablet) 80 mg PO BEDTIME [facility] Last Admin: 10/03/21 20:23 Dose: 80 mg Documented by: ALLERGIES Penicillins Allergy (Severe, Verified 10/03/21 14:18) Anaphylaxis Cephalosporins Adverse Reaction (Severe, Verified 10/03/21 14:18) Anaphylaxis nitrofurantoin macrocrystal [From Macrodantin] Adverse Reaction (Severe, Verified 10/03/21 14:18) Anaphylaxis phenobarbital Adverse Reaction (Severe, Verified 10/03/21 14:18) Hives Sulfa (Sulfonamide Antibiotics) Adverse Reaction (Severe, Verified 10/03/21 14:18) Anaphylaxis atropine sulfate [From ] Adverse Reaction (Verified 10/03/21 14:18) Unknown furosemide [From Lasix] Adverse Reaction (Verified 10/03/21 14:18) Rash hyoscyamine sulfate [From ] Adverse Reaction (Verified 10/03/21 14:18) Unknown lansoprazole [From Prevacid] Adverse Reaction (Verified 10/03/21 14:18) Hives scopolamine hydrobromide [From ] Adverse Reaction (Verified 10/03/21 14:18) Unknown DISCONTINUED MEDICATIONS TRIMETHOPRIM, DO NOT RESUME UNTIL YOU COMPLETE THE PRESCRIBED LEVAQUIN NEW PRESCRIPTIONS: LEVAQUIN 250 MG DAILY FOR 6 DAYS PREDNISONE 10 MG BID FOR 5 DAYS BACTROBAN TO LEFT MIDDLE FINGER BID SMOKING: NOT APPLICABLE DISEASE SPECIFIC EDUCATION: URINARY TRACT INFECTION COPD AND USE OF NEBULIZER TREATMENTS STEROIDS AND RISK OF AVASCULAR NECROSIS AND GI IRRITATION WOUND CARE, LEFT FINGER LAB REVIEW: 10/04/21 07:22 10/04/21 07:22 10/04/21 07:22: Sodium 138.7, Potassium 3.77, Chloride 109.9 H, Carbon Dioxide 18.7 L, Anion Gap 13.87, BUN 24.1 H, Creatinine 1.43 H, Estimated GFR (MDRD) 35.00, BUN/Creatinine Ratio 16.85, Glucose 152.5 H, Calcium 9.16, Total Bilirubin 0.31, AST 22.0, ALT 8.5, Alkaline Phosphatase 68.5, Total Protein 6.45, Albumin 3.79, Globulin 2.66, Albumin/Globulin Ratio 1.42 10/04/21 07:22: WBC 11.05 H, RBC 3.53 L, Hgb 10.3 L, Hct 31.3 L, MCV 88.7, MCH 29.2, MCHC 32.9, RDW Coeff of Gloria 14.0, Plt Count 315, Immature Gran % (Auto) 0.5, Neut % (Auto) 45.0, Lymph % (Auto) 43.7, [place] % (Auto) 7.1, Eos % (Auto) 3.0, Baso % (Auto) 0.7, Neut # (Auto) 5.0, Lymph # (Auto) 4.8 H, [place] # (Auto) 0.8, Eos # (Auto) 0.3, Baso # (Auto) 0.1, Immature Gran # (Auto) 0.1 PLAN: DISCHARGE HOME DIET: REGULAR DIET TOLERATED; SOFT EASY TO CHEW FOODS DUE TO RECENT DENTAL SURGERY MAY ADD BOOST OR ENSURE AT LEAST TWICE A DAY FOR ADDED NUTRITION ELEVATE LEGS WHILE SITTING ACTIVITY: GRADUALLY RESUME ACTIVITY ALLOW FOR FREQUENT REST PERIODS AN APPOINTMENT IS SCHEDULED WITH DR. COPPOLA/POLA DUARTE APRN/PARTH CHAVIS APRN ON September AT 1 PM CODE STATUS: DO NOT INTUBATE, CPR ONLY MS. GARCIA IS ALERT AND ORIENTED X 4. SHE LIVES ALONE AND IS INDEPENDENT WITH ACTIVITIES OF DAILY LIVING. MS. GARCIA IS AGREEABLE TO PLANS FOR DISCHARGE HOME TODAY. SHE RELIES ON HER SON, JUAN DAVID FOR TRANSPORTATION. MS. GARCIA TRANSFERS FROM THE BED TO THE CHAIR AND IS AMBULATORY IN THE ROOM WITH SBA OF NURSING. SHE IS AMBULATORY IN THE HALLWAY WITH USE OF A ROLLING WALKER. GAIT IS STEADY. MS. GARCIA IS CONTINENT OF BOWEL AND REPORTS A LARGE BM THIS MORNING. SHE IS ALSO CONTINENT OF BLADDER, BUT EXPERIENCES DRIBBLING OF URINE. SHE WEARS DEPENDS UNDERGARMENTS. MEAL INTAKES HAVE IMPROVED DURING HER HOSPITAL STAY WITH 25-100% MEAL CONSUMPTION. HYDRATION STATUS HAS IMPROVED. SKIN IS INTACT EXCEPT FOR AN OPEN BLISTER AREA TO THE LEFT MIDDLE FINGER. SHE REPORTS THIS AREA HAS BEEN PRESENT FOR "A WHILE" AND THAT SHE HAS SEEN DR. CHRISTY AT LEAST TWICE. MS GARCIA HAS FOR HER USE AT HOME A NEBULIZER, WALKER, CANE, BSC, WHEELCHAIR AND SHOWER CHAIR. SHE ALSO HAS PRIVATE HOUSEKEEPING AT LEAST EVERY 2 WEEKS. SHE RELIES ON HER FAMILY AND FRIENDS FOR HELP WITH GROCERIES, APPOINTMENTS AND SHOPPING. MD POLA JUÁREZ APRN
--- NOTE | 2021-10-09 13:53 | PN ---
DATE OF SERVICE: 10/03/2021 SUBJECTIVE: 86 year old white female hospitalized with acute COPD exacerbation, dehydration and weakness. The patient's condition has improved. She is walking in the hallway with the help of physical therapy. She is feeling a lot better. She wants to go home. REVIEW OF SYSTEMS: CONSTITUTIONAL: No night sweats. No fatigue, malaise, lethargy. No fever or chills. HEENT: Eyes: No visual changes. No eye pain. No eye discharge. ENT: No runny nose. No epistaxis. No sinus pain. No sore throat. No odynophagia. No congestion. RESPIRATORY: No cough, no congestion. No hemoptysis. No shortness of breath. CARDIOVASCULAR: No angina symptoms. No CHF symptoms. No atypical chest pain for CAD. No palpitations. No PND. No orthopnea. GASTROINTESTINAL: No abdominal pain. No nausea or vomiting. No diarrhea or constipation. No hematemesis. No hematochezia. GENITOURINARY: No urgency. No frequency. No dysuria. No hematuria. No obstructive symptoms. No discharge. No pain. No significant abnormal bleeding. MUSCULOSKELETAL: No musculoskeletal pain; no joint swelling. NEUROLOGICAL: No headache. No neck pain. No syncope. No seizures. No dizziness. PSYCHIATRIC: Not anxious. No depression. No suicidal thoughts. No homicidal thoughts. SKIN: No rash. No lesions. No wounds. ENDOCRINE: No unexplained weight loss. No weight gain. HEMATOLOGIC/LYMPHATIC: No anemia. No purpura. No petechiae. No prolonged or excessive bleeding. No palpable lymph nodes. PHYSICAL EXAMINATION: VITAL SIGNS: Temperature 98.1, pulse 70, respiratory rate 185, blood pressure 123/73 and pulse ox 98%. HEENT: Head normocephalic, atraumatic. Eyes: Extraocular muscles are intact. Pupils are equal, round and reactive to light and accommodation. Ears: No lesions. Nose appeared normal. Throat: No exudate or erythema. NECK: Supple. No JVD, no carotid bruit. No lymphadenopathy or thyromegaly. LUNGS: Decreased breath sounds but clear to auscultation. Percussion note normal. Chest symmetrical. HEART: S1, S2, no S3. No murmurs. No cyanosis or clubbing. No ascites. Pulses: Dorsalis pedis and posterior tibial pulses +1 to +2 bilaterally. ABDOMEN: Soft. Nontender. Bowel sounds active. No CVA tenderness. No mass felt. Eating better. EXTREMITIES: No edema. Full range of motion of all extremities, equal. NEUROLOGIC: No focal deficit. Cranial nerves II through XII are grossly intact. No headache. No double vision. SKIN: Not dry. Intact. Turgor - normal. Alot better. LYMPHATIC: No palpable lymph nodes/no lymphedema. MUSCULOSKELETAL: Normal joints with no swelling. Muscle tone is normal. LABS: Hgb 11.1, hct 33, WBC 10,800 normal differential, creatinine 1.3, BUN 21, potassium 4.1 ASSESSMENT: 1. COPD exacerbation, improved 2. Dehydration resolved PLAN: 1. Continue antibiotics, steroids. 2. She will be discharged tomorrow. TIME SPENT: More than 30 minutes. Plan and coordination of the patient's care discussed in the presence of nurse. EAN
--- NOTE | 2021-10-09 13:56 | PN ---
DATE OF SERVICE: 10/04/2021 SUBJECTIVE: The patient was seen and examined with the Nurse Practitioner. Her dehydration status has improved. COPD and bronchitis seems to be have improved. TIME SPENT: More than 30 minutes. Plan and coordination of the patient's care discussed in the presence of nurse. EAN
--- NOTE | 2021-10-09 13:57 | PN ---
10/01/2021: Level 5 10/02/2021: Intermediate 10/03/2021: Intermediate 10/04/2021: D as in discharge MTDD
--- NOTE | 2021-11-08 09:07 | DS ---
DATE OF SERVICE: 10/04/21 FINAL DIAGNOSIS: ACUTE COPD EXACERBATION ACUTE KIDNEY INJURY DEHYDRATION UTI, MIXED GROWTH GRAM POSITIVE COCCI BLISTER, LEFT MIDDLE FINGER; GRAM POSITIVE COCCI CORONARY ARTERY DISEASE HYPERTENSION ASTHMA DIABETES MELLITUS, TYPE 2 CHRONIC KIDNEY DISEASE, STAGE 3 DYSLIPIDEMIA DJD LUMBAR SPINE UTERINE PROLAPSE RECURRENT UTI, TAKES BACTRIM DAILY (DR. PRESCOTT) BILATERAL SCIATICA HISTORY TIA CHRONIC BACK PAIN DEPRESSION LUMBAR RADICULOPATHY CHOLECYSTECTOMY HYSTERECTOMY APPENDECTOMY BILATERAL KNEE REPLACEMENT LEFT ANKLE SURGERY BILATERAL CATARACT EXTRACTION EXPLORATORY FOR ADHESIONS ECHOCARDIOGRAM: 10/04 LVEF 58% BORDERLINE LVH WITH ENLARGED LEFT ATRIAL CAVITY LAST VITALS: Temp Pulse Resp BP Pulse Ox 97.9 F 78 20 123/68 99 10/04/21 06:00 10/04/21 06:00 10/04/21 08:00 10/04/21 06:00 10/04/21 10:00 DISCHARGE INSTRUCTIONS: DISCHARGE HOME. AN APPOINTMENT IS SCHEDULED WITH DR. COPPOLA/POLA DUARTE APRN/PARTH CHAVIS APRN ON September AT 1 PM. CODE STATUS: DO NOT INTUBATE, CPR ONLY TAKE THESE MEDICATIONS AT HOME: Acetaminophen (Acetaminophen 500 Mg Tablet) 1,000 mg PO Q12H PRN PRN Reason: Mild Pain Last Admin: 10/04/21 02:12 Dose: 1,000 mg Documented by: Hydrocodone Bitart/Acetaminophen (Hydrocodone Bit/Acetaminophen 5/325 Mg Tablet) 1 tab PO TID PRN PRN Reason: pain Last Admin: 10/04/21 09:39 Dose: 1 tab Documented by: Albuterol/Ipratropium (Ipratropium/Albuterol Vial.Neb) 3 ml NEB RTBID [facility] Last Admin: 10/04/21 05:28 Dose: 3 ml Documented by: Amlodipine Besylate (Amlodipine Besylate 5 Mg Tablet) 5 mg PO BEDTIME [facility] Last Admin: 10/03/21 20:22 Dose: 5 mg Documented by: Aspirin (Aspirin 81 Mg Tablet.) 81 mg PO DAILYWM [facility] Last Admin: 10/04/21 09:32 Dose: 81 mg Documented by: Azelastine HCl (Azelastine Hcl 30 Ml Nasal [place]) 2 spray LAURIE BID PRN PRN Reason: congestion Bisoprolol Fumarate (Bisoprolol Fumarate 5 Mg Tablet) 5 mg PO DAILY [facility] Last Admin: 10/04/21 09:32 Dose: 5 mg Documented by: Clopidogrel Bisulfate (Clopidogrel Bisulfate 75 Mg Tablet) 75 mg PO DAILY [facility] Last Admin: 10/04/21 09:34 Dose: 75 mg Documented by: Fish Oil ([place]-3/Dha/Epa/Fish Oil 1,000 Mg Capsule) 1,000 mg PO DAILY [facility] Last Admin: 10/04/21 09:32 Dose: 1,000 mg Documented by: Levofloxacin 250 mg DAILY PO [facility] (NEW RX) Stop: 10/06/21 08:59 Last Admin: 10/04/21 09:32 Documented by: CETIRIZINE 10 mg PO DAILY [facility] Last Admin: 10/04/21 09:33 Dose: 10 mg Documented by: Lorazepam (Lorazepam 0.5 Mg Tablet) 0.5 mg PO BID [facility] Last Admin: 10/04/21 10:21 Dose: 0.5 mg Documented by: Magnesium Citrate (Magnesium Citrate 10 Oz Janelle) 5 oz PO DAILY PRN PRN Reason: Constipation Last Admin: 10/03/21 17:02 Dose: 5 oz Documented by: Metformin HCl (Metformin Hcl 500 Mg Tablet) 500 mg PO BIDWM [facility] Last Admin: 10/04/21 09:32 Dose: 500 mg Documented by: Mupirocin (Mupirocin 22 Gm Oint) 1 applic TP BID [facility] (NEW RX) Stop: 10/05/21 08:59 Last Admin: 10/04/21 09:33 Dose: 1 applic Documented by: PREDNISONE 10 MG PO BID FOR 5 DAYS (NEW RX) Non-Formulary Medication (Trimethoprim) 100 mg PO DAILY [facility] Last Admin: 10/04/21 09:36 Dose: Not Given Documented by: Olmesartan -HCT 40/12.5 mg PO DAILY [facility] Last Admin: 10/04/21 09:32 Dose: 40 mg Documented by: Omeprazole (Omeprazole 20 Mg Capsule.Dr) 40 mg PO QDAC [facility] Last Admin: 10/04/21 06:05 Dose: 40 mg Documented by: Pravastatin Sodium (Pravastatin Sodium 40 Mg Tablet) 80 mg PO BEDTIME [facility] Last Admin: 10/03/21 20:23 Dose: 80 mg Documented by: ALLERGIES: Penicillins Allergy (Severe, Verified 10/03/21 14:18) Anaphylaxis Cephalosporins Adverse Reaction (Severe, Verified 10/03/21 14:18) Anaphylaxis nitrofurantoin macrocrystal [From Macrodantin] Adverse Reaction (Severe, Verified 10/03/21 14:18) Anaphylaxis phenobarbital Adverse Reaction (Severe, Verified 10/03/21 14:18) Hives Sulfa (Sulfonamide Antibiotics) Adverse Reaction (Severe, Verified 10/03/21 14:18) Anaphylaxis atropine sulfate [From ] Adverse Reaction (Verified 10/03/21 14:18) Unknown furosemide [From Lasix] Adverse Reaction (Verified 10/03/21 14:18) Rash hyoscyamine sulfate [From ] Adverse Reaction (Verified 10/03/21 14:18) Unknown lansoprazole [From Prevacid] Adverse Reaction (Verified 10/03/21 14:18) Hives scopolamine hydrobromide [From ] Adverse Reaction (Verified 10/03/21 14:18) Unknown DISCONTINUED MEDICATIONS: TRIMETHOPRIM, DO NOT RESUME UNTIL YOU COMPLETE THE PRESCRIBED LEVAQUIN NEW PRESCRIPTIONS: LEVAQUIN 250 MG DAILY FOR 6 DAYS PREDNISONE 10 MG BID FOR 5 DAYS BACTROBAN TO LEFT MIDDLE FINGER BID SMOKING: NOT APPLICABLE DISEASE SPECIFIC EDUCATION: URINARY TRACT INFECTION COPD AND USE OF NEBULIZER TREATMENTS STEROIDS AND RISK OF AVASCULAR NECROSIS AND GI IRRITATION WOUND CARE, LEFT FINGER LAB REVIEW: 10/04/21 07:22 10/04/21 07:22 10/04/21 07:22: Sodium 138.7, Potassium 3.77, Chloride 109.9 H, Carbon Dioxide 18.7 L, Anion Gap 13.87, BUN 24.1 H, Creatinine 1.43 H, Estimated GFR (MDRD) 35.00, BUN/Creatinine Ratio 16.85, Glucose 152.5 H, Calcium 9.16, Total Bilirubin 0.31, AST 22.0, ALT 8.5, Alkaline Phosphatase 68.5, Total Protein 6.45, Albumin 3.79, Globulin 2.66, Albumin/Globulin Ratio 1.42 10/04/21 07:22: WBC 11.05 H, RBC 3.53 L, Hgb 10.3 L, Hct 31.3 L, MCV 88.7, MCH 29.2, MCHC 32.9, RDW Coeff of Gloria 14.0, Plt Count 315, Immature Gran % (Auto) 0.5, Neut % (Auto) 45.0, Lymph % (Auto) 43.7, [place] % (Auto) 7.1, Eos % (Auto) 3.0, Baso % (Auto) 0.7, Neut # (Auto) 5.0, Lymph # (Auto) 4.8 H, [place] # (Auto) 0.8, Eos # (Auto) 0.3, Baso # (Auto) 0.1, Immature Gran # (Auto) 0.1 DIET: REGULAR DIET TOLERATED; SOFT EASY TO CHEW FOODS DUE TO RECENT DENTAL SURGERY MAY ADD BOOST OR ENSURE AT LEAST TWICE A DAY FOR ADDED NUTRITION ELEVATE LEGS WHILE SITTING ACTIVITY: GRADUALLY RESUME ACTIVITY ALLOW FOR FREQUENT REST PERIODS HOSPITAL COURSE: 86 year old white female who presented to our office. She was having extreme weakness, leg edema and shortness of breath, cough and extreme back pain. She has a history of degenerative disc disease of the spine a long with advanced COPD. She was admitted with acute COPD exacerbation, dehydration and started on Levaquin 500mg IV daily along with Solu-Cortef 125mg IV Q 8 hours. U/A was done and she has a recurrent UTI which showed mixed growth gram positive cocci. Renal function was elevated showing mild dehydration, acute kidney injury and she was started on normal saline IV at 75cc an hour. Over the course of the next several days with IV fluids along with IV steroids and antibiotics she improved. Her back pain did improve with IV steroids along with Hydrocodone. She does takes this at home but is only taking it once a day. She was requiring it three times a day while in the hospital. She will go home on Levaquin 250mg daily for the next 5 days along with Prednisone 10mg BID for the next 5 days. She had a blister on her left middle finger which also showed mixed growth of gram positive. We started her on Bactroban. We will send her home. She has Barton at home that she can take. Her back pain has improved. She continues to live by herself. She declines Home Health. Her son comes by at least twice a day to help her. We will follow up with her in the office next week. Encouraged her to drink fluids. Continue her nebulizer at home. She has oxygen at home. We will followup closely. TIME SPENT: More than 60 minutes. MARISELAD
== END 2021-10-04 15:15 | disposition home or self-care (01) | DRG 191 ==
LOC: LAB 11:09 → MEDSURG A 12:37
PROVIDERS: ADMIT Internal Medicine; ATTEND Internal Medicine

== ENCOUNTER 2022-01-06 11:55 | Inpatient (IN) ==
--- NOTE | 2022-01-06 12:05 | ED.PDOC ---
General ED Provider: Dr. RAUL SEGAL Chief Complaint: Weakness Stated Complaint: 86 y/o female from home, weak for several days, poor appetite, maybe cough, maybe fever, no chest pain. No known COVID exposure. Time Seen by Provider: 01/06/22 12:05 Mode of Arrival: Ambulance Information Source: Patient and EMT Exam Limitations: No limitations Primary Care Provider: DESTINEY COPPOLA Nursing and Triage Documentation Reviewed and Agree: Yes Does patient meet sepsis criteria?: No System Inflammatory Response Syndrome: Not Applicable Sepsis Protocol: For patient's 13 years and over: Temp is 96.8 and below OR 101 and greater Pulse >90 BPM Resp >20/minute Acutely Altered Mental Status Are patient's symptoms suggestive of a new infection, such as: -Pneumonia -Skin, Soft Tissue -Endocarditis -UTI -Bone, Joint Infection -Implantable Device -Acute Abdominal Infection -Wound Infection -Meningitis -Blood Stream Catheter Infection -Unknown Respiratory Complaint Exam Respiratory Complaint/Exam Onset/Duration: few d Symptoms Are: Still present Timing: Intermittent Initial Severity: Moderate Current Severity: Moderate Location: Chest Character: Reports Non-productive cough Associated Signs and Symptoms: Reports Fever, URI and Decreased oral intake Related Surgical History: Reports None Pulmonary Embolism Risk Factors: None Cardiac Risk Factors: Reports None Pseudomonas Risk Factors: Reports None Tuberculosis Risk Factors: Reports None Status Asthmaticus Risk Factors: Reports None Home Oxygen Use: No Recent Stress Test: No Recent Echo/LV Function: No Current Antibiotic Use: No Current Asthma Medication Use: No Respiratory Distress: None Inadequate Respiratory Effort: No Dysphagia Present: No Retractions: Not Present Diminished Breath Sounds: Yes Sinus Tenderness: None Grunting Respirations: No Kussmaul Respirations: No Review of Systems Review Of Systems Constitutional: Reports Malaise and Weakness Eyes: Reports No symptoms Ears, Nose, Mouth, Throat: Reports No symptoms Respiratory: Reports Cough Cardiac: Reports No symptoms GI: Reports No symptoms : Reports No symptoms Musculoskeletal: Reports No symptoms Skin: Reports No symptoms Neurological: Reports No symptoms Endocrine: Reports No symptoms Hematologic/Lymphatic: Reports No symptoms All Other Systems: Reviewed and Negative [facility] Medical History Abdominal pain Abdominal pain, acute, bilateral lower quadrant Asthma CAD (coronary artery disease) Cataracts, bilateral CHF (congestive heart failure) Chronic back pain CKD stage 3 secondary to diabetes COPD (chronic obstructive pulmonary disease) Depression Diabetes type 2, controlled DJD (degenerative joint disease) Dyslipidemia FHx: cholecystectomy Hypertension Left ankle injury Lumbar radiculopathy Osteoarthritis Recurrent UTI Sciatica TIA (transient ischemic attack) Uterine prolapse Family History BROTHER Cancer FATHER Hypertension Mother Diabetes Social History (Updated 01/06/22 @ 14:55 by MARIA T MARKS RN) Smoking and tobacco status: Never smoker Substance use type: does not use History of recent travel: No Surgical History H/O: hysterectomy History of appendectomy History of bilateral knee replacement Hx of tonsillectomy Female Reproductive History Menstrual Hx Hysterectomy: Yes (when 53 y/o) Hx Tubal Ligation: Yes Physical Exam Physical Exam Appearance: Reports Ill-appearing Ill-appearing: Moderate Pain Distress: None Eyes: Reports MOISÉS ENT: Reports Oropharynx normal Neck: Supple Respiratory: Reports Airway patent, Breath sounds diminished and Rhonchi Cardiovascular: Reports RRR and Pulses normal GI/: Reports Soft and Nontender Musculoskeletal: Reports Normal strength (for age) and ROM intact (for age) Skin: Reports Warm and Dry Neurological: Reports Sensation intact, Motor intact and Alert Psychiatric: Reports Affect appropriate and Mood appropriate Interpretation Radiology Interpretation Radiology Interpretation By: Radiologist Radiology Results: Positive Exam Interpreted: Portable CXR Xray Comments: bibas atelec vs other EKG Interpretation Time of EKG #1: 12:24 Rate: Normal Rhythm: Sinus Ectopy: None [place]: Right ST Segment: Normal Interpretation: No ischemia Physician Notification Case Discussed Physician Notified: Dr. Coppola Comments: Admit patient Critical Care Note Critical Care Note Total Critical Care Time (mins): 0 Course Course Hematology/Chemistry: 01/06/22 12:32 01/06/22 12:32 Orders, Labs, Meds: Lab Review 01/06/22 01/06/22 01/06/22 12:20 12:20 12:32 WBC 4.41 L RBC 3.35 L Hgb 9.6 L Hct 28.8 L MCV 86.0 MCH 28.7 MCHC 33.3 RDW Coeff of Gloria 13.7 Plt Count 228 Immature Gran % (Auto) 0.0 Neut % (Auto) 52.6 Lymph % (Auto) 37.4 [place] % (Auto) 9.5 Eos % (Auto) 0.0 Baso % (Auto) 0.5 Neut # (Auto) 2.3 Lymph # (Auto) 1.7 [place] # (Auto) 0.4 Eos # (Auto) 0.0 Baso # (Auto) 0.0 Immature Gran # (Auto) 0.0 Puncture Site Base Excess O2 Saturation ABG pH ABG pCO2 ABG pO2 ABG HCO3 ABG Total CO2 Damion Test Hemoglobin Oxyhemoglobin Carboxyhemoglobin Total Hemoglobin FiO2 % Sodium Potassium Chloride Carbon Dioxide Anion Gap BUN Creatinine Estimated GFR (MDRD) BUN/Creatinine Ratio Glucose Calcium Total Bilirubin AST ALT Alkaline Phosphatase Troponin I Total Protein Albumin Globulin Albumin/Globulin Ratio Influ A Molecular Assay Negative by naat Influ B Molecular Assay Negative by naat SARS-CoV-2 Ag (Rapid) Positive H 01/06/22 01/06/22 12:32 12:34 WBC RBC Hgb Hct MCV MCH MCHC RDW Coeff of Gloria Plt Count Immature Gran % (Auto) Neut % (Auto) Lymph % (Auto) [place] % (Auto) Eos % (Auto) Baso % (Auto) Neut # (Auto) Lymph # (Auto) [place] # (Auto) Eos # (Auto) Baso # (Auto) Immature Gran # (Auto) Puncture Site R brach Base Excess 13.9 H O2 Saturation 99.0 H ABG pH 7.34 L ABG pCO2 22.0 L ABG pO2 139.0 H ABG HCO3 11.9 L ABG Total CO2 12.6 L Damion Test + Hemoglobin 1.2 Oxyhemoglobin 95.1 Carboxyhemoglobin 3.0 H Total Hemoglobin 10.3 L FiO2 % 21.0 Sodium 135.2 Potassium 4.80 Chloride 113.4 H Carbon Dioxide 10.4 L Anion Gap 16.20 BUN 47.4 H Creatinine 4.54 H* Estimated GFR (MDRD) 9.00 BUN/Creatinine Ratio 10.44 Glucose 112.7 H Calcium 7.93 L Total Bilirubin 0.34 AST 27.5 ALT 8.7 Alkaline Phosphatase 52.8 L Troponin I 0.070 Total Protein 6.49 Albumin 3.64 Globulin 2.85 Albumin/Globulin Ratio 1.27 Influ A Molecular Assay Influ B Molecular Assay SARS-CoV-2 Ag (Rapid) Orders Category Date Time Status ADMIT PATIENT INPATIENT .TO SCU (MONITORED BED) ADMISSION 01/06/22 13:24 Active ABG DRAW REQUEST Stat CARDIO 01/06/22 12:32 Completed EKG-(ED ONLY) Stat CARDIO 01/06/22 12:13 Completed TELEMETRY MONITORING TELE CARE 01/06/22 13:25 Active ABG COOX Stat LAB 01/06/22 12:34 Completed CBC W/ AUTO DIFF Stat LAB 01/06/22 12:32 Completed COMPREHENSIVE METABOLIC PANEL Stat LAB 01/06/22 12:32 Completed COVID-19 ANTIGEN TEST Stat LAB 01/06/22 12:20 Completed FLU A/B MOLECULAR Stat LAB 01/06/22 12:20 Completed TROPONIN I Stat LAB 01/06/22 12:32 Completed URINALYSIS C & S IF INDICATED Stat LAB 01/06/22 18:20 Completed Acetaminophen [Tylenol] MEDS 01/06/22 12:14 Discontinued 650 mg PO ONCE ONE CHEST, 1V AP ONLY Stat RADS 01/06/22 12:13 Completed Medications Generic Name Dose Route Start Last Admin Trade Name Freq PRN Reason Stop Dose Admin Acetaminophen 650 mg 01/06/22 13:58 Acetaminophen 325 Mg Tablet PO Q4H PRN Headache Atropine Sulfate 0.5 mg 01/06/22 13:58 Atropine Sulfate Inj 1 Mg/10 Ml Disp.Syrin IVP ONCE PRN Symptomatic Bradycardia Dexamethasone Sodium Phosphate 6 mg 01/06/22 14:30 01/06/22 14:47 Dexamethasone Sod Phos 10 Mg/Ml Inj IVP 6 mg DAILY JEAN-PIERRE Administration Enoxaparin Sodium 40 mg 01/06/22 14:30 01/06/22 16:55 Enoxaparin Sodium 40 Mg/0.4 Ml Syr SUBCUT 40 mg DAILY JEAN-PIERRE Administration CEFTRIAXONE/D5W 1 GM PREMIX 1 gm in 50 mls @ 75 mls/hr 01/06/22 14:30 01/06/22 16:08 Rocephin 1 Gm/50 Ml D5w IV 01/09/22 14:29 75 mls/hr DAILY JEAN-PIERRE Administration Azithromycin 500 mg/ Sodium 250 mls @ 125 mls/hr 01/06/22 14:30 01/06/22 16:55 Chloride IV 01/09/22 14:29 125 mls/hr DAILY JEAN-PIERRE Administration Sodium Chloride 500 mls @ 100 mls/hr 01/06/22 16:00 01/06/22 16:11 Sodium Chloride IV 100 mls/hr .Q5H JEAN-PIERRE Administration Lorazepam 0.5 mg 01/06/22 15:36 Lorazepam 0.5 Mg Tablet PO BID PRN Anxiety Nitroglycerin 0.4 mg 01/06/22 13:58 Nitroglycerin 0.4 Mg Tab.Subl SL Q5MIN X 3 DOSES PRN Chest Pain Sodium Chloride 1 syr 01/06/22 18:34 0.9% Sodium Chloride 10 Ml Disp.Syrin IVF PRN PRN IV patency Discontinued Medications Generic Name Dose Route Start Last Admin Trade Name Freq PRN Reason Stop Dose Admin Acetaminophen 650 mg 01/06/22 12:14 01/06/22 12:32 Acetaminophen 325 Mg Tablet PO 01/06/22 12:15 650 mg ONCE ONE Administration Sodium Chloride 500 mls @ 500 mls/hr 01/06/22 13:58 01/06/22 14:41 Sodium Chloride IV 01/06/22 14:57 500 mls/hr BOLUS STA Administration Sodium Chloride 1 syr 01/06/22 21:00 0.9% Sodium Chloride 10 Ml Disp.Syrin IVF Q8HR [facility] Vital Signs: Temp Pulse Resp BP Pulse Ox 01/06/22 11:58 100.4 F H 66 18 109/47 L 95 Discharge Plan Discharge Patient Disposition: ADMITTED INPATIENT Discharge Problem: COVID-19, Dehydration ED Provider: RAUL SEGAL Condition: Fair Physician Progress Note: [COVID pos, O2 sat OK, dehyd with EMILY, DNI status.]
[2022-01-06] MEDS ORDERED: TYLENOL PO ONE (12:14)
[2022-01-06 12:37] LABS: BASOPHILS % (AUTO) 0.5 % (0.0-3.0); HEMATOCRIT 28.8 % (37.0-47.0); HEMOGLOBIN 9.6 g/dl (12.0-16.0); LYMPHOCYTES # (AUTO) 1.7 K/uL (0.60-3.4); LYMPHOCYTES % (AUTO) 37.4 (10.0-50.0); MEAN CORPUSCULAR HEMOGLOBIN 28.7 pg (27.0-31.0); MEAN CORPUSCULAR HGB CONC 33.3 (31.8-35.4); MONOCYTES # (AUTO) 0.4 K/uL (0.4-2.0); MONOCYTES % (AUTO) 9.5 (0-10); NEUTROPHILS # (AUTO) 2.3 K/ul (2.0-6.9); NEUTROPHILS % (AUTO) 52.6 % (42.2-75.2); PLATELET COUNT 228 10^3/uL (140-440); RDW COEFFICIENT OF VARIATION 13.7 % (11.6-14.8); RED BLOOD COUNT 3.35 10^6/ul (4.20-5.40); WHITE BLOOD COUNT 4.41 K/ul (4.6-10.2)
[2022-01-06 12:43] LABS: ABG PH 7.34 (7.35-7.45); BEecf 13.9 (-2.0-3.0); HCO3 11.9 (21-28); MetHb 1.2 (0-1.5); TCO2 12.6 (19-24)
[2022-01-06 12:44] LABS: ABG O2 HGB 95.1 % (95-100); tHb 10.3 g/dl (11.7-17.4)
--- NOTE | 2022-01-06 12:44 | DI ---
EXAMINATION: AP chest radiograph. HISTORY: Fever COMPARISON: 10/01/2021 FINDINGS: Bibasilar atelectasis and/or consolidation is identified. Focal eventration of the right hemidiaphra gm is again seen.No pneumothorax or pleural effusion is seen. The cardiomediastinal silhouette is st able. IMPRESSION: Bibasilar atelectasis and/or consolidation.
[2022-01-06 12:50] LABS: ALANINE AMINOTRANSFERASE 8.7 U/L (0-35); ALBUMIN 3.64 g/dL (3.5-5.0); ALKALINE PHOSPHATASE 52.8 U/L (53-141); ASPARTATE AMINO TRANSFERASE 27.5 U/L (14-36); BILIRUBIN,TOTAL 0.34 mg/dL (0.2-1.3); BLOOD UREA NITROGEN 47.4 mg/dL (7-17); CALCIUM 7.93 mg/dL (8.4-10.2); CARBON DIOXIDE 10.4 mmol/L (22-30.0); CHLORIDE 113.4 mmol/L (98-107); GLUCOSE 112.7 mg/dL (74-106); POTASSIUM 4.8 mmol/L (3.5-5.1); SODIUM 135.2 mmol/L (134.5-145); TOTAL PROTEIN 6.49 g/dL (6.3-8.2)
[2022-01-06 12:52] LABS: MOLECULAR FLU A NEGATIVE BY NAAT (NEGATIVE); MOLECULAR FLU B NEGATIVE BY NAAT (NEGATIVE)
[2022-01-06 13:01] LABS: TROPONIN I 0.07 ng/ml (0.0000-0.120)
[2022-01-06 13:04] LABS: CREATININE 4.54 mg/dL (0.60-1.30)
[2022-01-06] MEDS ORDERED: NITROSTAT SL PRN ×2 (13:58→15:13)
[2022-01-06] MEDS ORDERED: ATROPINE SULFATE PFS IVP PRN (13:58)
[2022-01-06] MEDS ORDERED: SODIUM CHLORIDE 500 ML IV STA (13:58)
[2022-01-06] MEDS ORDERED: TYLENOL PO PRN (14:08)
[2022-01-06] MEDS ORDERED: LOVENOX SUBCUT SCH (14:30)
[2022-01-06 14:43] VITALS: BMI 31.8
[2022-01-06] MEDS: DECADRON IVP SCH (14:47)
[2022-01-06] MEDS: ROCEPHIN 1 GM/50 ML D5W 1 GM/50 ML BAG IV SCH (16:08)
[2022-01-06] MEDS: SODIUM CHLORIDE 500 ML IV SCH (16:11)
[2022-01-06] MEDS: ZITHROMAX 500 MG in SODIUM CHLORIDE 250 ML IV SCH (16:55)
[2022-01-06 18:33] LABS: BILIRUBIN,URINE 1+ (NEGATIVE); CLARITY,URINE Cloudy (CLEAR); COLOR,URINE Yellow (YELLOW); GLUCOSE, URINE (UA) Negative (NEGATIVE); KETONES,URINE Negative (NEGATIVE); LEUKOCYTE ESTERASE ,URINE 3+ (NEGATIVE); NITRITE,URINE Negative (NEGATIVE); PROTEIN,URINE 1+ (NEGATIVE); URINE, BLOOD 3+ (NEGATIVE); UROBILINOGEN,URINE 0.2 (0.2)
[2022-01-06 18:42] LABS: BACTERIA,URINE 3+ (NOT PRESENT); RENAL EPITHELIAL CELLS,URINE 0-2 (NOT PRESENT); URINE RBC, MICROSCOPIC 30-50 (0-2); URINE WBC, MICROSCOPIC 50-100 (0-2)
[2022-01-06] MEDS ORDERED: PRAVACHOL PO SCH (21:00)
[2022-01-06] MEDS ORDERED: NORVASC PO SCH (21:00)
[2022-01-07 05:37] LABS: HEMATOCRIT 30.7 % (37.0-47.0); HEMOGLOBIN 9.9 g/dl (12.0-16.0); MEAN CORPUSCULAR HEMOGLOBIN 28.4 pg (27.0-31.0); MEAN CORPUSCULAR HGB CONC 32.2 (31.8-35.4); MEAN CORPUSCULAR VOLUME 88.2 fl (81.0-99.0); PLATELET COUNT 248 10^3/uL (140-440); RDW COEFFICIENT OF VARIATION 13.8 % (11.6-14.8); RED BLOOD COUNT 3.48 10^6/ul (4.20-5.40); WHITE BLOOD COUNT 2.62 K/ul (4.6-10.2)
[2022-01-07 05:49] LABS: BLOOD UREA NITROGEN 49.2 mg/dL (7-17); CALCIUM 7.96 mg/dL (8.4-10.2); CARBON DIOXIDE 11.6 mmol/L (22-30.0); CHLORIDE 116.9 mmol/L (98-107); GLUCOSE 160.8 mg/dL (74-106); POTASSIUM 5.09 mmol/L (3.5-5.1); SODIUM 139.9 mmol/L (134.5-145)
[2022-01-07 05:54] LABS: ANISOCYTOSIS NOT PRESENT (NOT PRESENT)
[2022-01-07 06:01] LABS: CREATININE 3.63 mg/dL (0.60-1.30)
[2022-01-07 06:23] LABS: FERRITIN 84.8 ng/mL (11.1-264.0)
[2022-01-07] MEDS: SODIUM CHLORIDE 500 ML IV SCH ×2 (08:15→08:16)
[2022-01-07] MEDS ORDERED: ASPIRIN CHEWABLE PO SCH (09:00)
[2022-01-07] MEDS ORDERED: OMEGA-3 FISH OIL PO SCH (09:00)
[2022-01-07] MEDS ORDERED: ZEBETA PO SCH (09:00)
[2022-01-07] MEDS ORDERED: PLAVIX PO SCH (09:00)
[2022-01-07] MEDS ORDERED: HYDROCHLOROTHIAZIDE PO SCH (09:00)
[2022-01-07] MEDS ORDERED: BENICAR PO SCH (09:00)
[2022-01-07] MEDS ORDERED: LOVENOX SUBCUT SCH (09:00)
[2022-01-07] MEDS: SYMBICORT 160-4.5 MCG INHALER IH SCH ×2 (09:19→20:04)
[2022-01-07] MEDS: VITAMIN D PO SCH (09:19)
[2022-01-07] MEDS: ROCEPHIN 1 GM/50 ML D5W 1 GM/50 ML BAG IV SCH (09:19)
[2022-01-07] MEDS: ELIQUIS PO SCH ×2 (09:20→20:04)
[2022-01-07] MEDS: ZINC-220 PO SCH (09:20)
[2022-01-07] MEDS: NORCO 5-325 PO PRN ×3 (09:20→15:13)
[2022-01-07] MEDS: DECADRON IVP SCH (10:10)
[2022-01-07] MEDS: ZOFRAN 4 MG/2 ML IVP SCH ×3 (10:11→20:04)
[2022-01-07] MEDS: ZITHROMAX 500 MG in SODIUM CHLORIDE 250 ML IV SCH (10:11)
--- NOTE | 2022-01-07 10:32 | PCM.PROG ---
Attending Provider: ATTENDING PROVIDER: Dr. DESTINEY COPPOLA This patient is seen with Annette Egdar, Nurse Practitioner. DATE OF SERVICE: 01/07/22 SUBJECTIVE: This 86 year old /WHITE F was hospitalized 01/06/22. Has been feeling bad since Friday, not vaccinated. Nauseated, slight cough and weakness. hasn't been able to eat or drink much. Renal function has improved since admission. REVIEW OF SYSTEMS: CONSTITUTIONAL: No night sweats. Fatigue. No fever or chills. Weakness. HEENT: Eyes: No visual changes. No eye pain. No eye discharge. ENT: No runny nose. No epistaxis. No sinus pain. No odynophagia. No congestion. RESPIRATORY: Cough, no congestion. No hemoptysis. No shortness of breath. CARDIOVASCULAR: No angina symptoms. No CHF symptoms. No atypical chest pain for CAD. No palpitations. No orthopnea.. GASTROINTESTINAL: No abdominal pain. Nausea. No diarrhea or constipation. No hematemesis. No hematochezia. GENITOURINARY: No urgency. No frequency. No dysuria. No hematuria. No obstructive symptoms. No discharge. No pain. No significant abnormal bleeding. MUSCULOSKELETAL: No musculoskeletal pain; no joint swelling. NEUROLOGICAL: Awake, alert, oriented to time, place and person. No headache. No neck pain. No syncope. No seizures. No dizziness. PSYCHIATRIC: Not anxious. No depression. No suicidal thoughts. No homicidal thoughts. SKIN: No rash. No lesions. No wounds. ENDOCRINE: No unexplained weight loss. No weight gain. HEMATOLOGIC/LYMPHATIC: No anemia. No purpura. No petechiae. No prolonged or excessive bleeding. No palpable lymph nodes. PHYSICAL EXAMINATION: GENERAL: The patient is awake, alert and oriented, lying in bed in no distress. VITAL SIGNS: Temperature 97.5 F, Pulse 52, Respiratory Rate 21, BP 100/39, Pulse Ox 98% HEENT: Head normocephalic, atraumatic. Eyes: Extraocular muscles are intact. Pupils are equal, round and reactive to light and accommodation. Ears: No lesions. Nose appeared normal. Throat: No exudate or erythema. NECK: Supple. No JVD, no carotid bruit. No lymphadenopathy or thyromegaly. LUNGS: Diminished breath sounds. Bilateral expiratory wheezing. Clear to auscultation. Percussion note normal. Chest symmetrical. HEART: S1, S2, no S3. No murmurs. No cyanosis or clubbing. No ascites. Pulses: Dorsalis pedis and posterior tibial pulses +1 to +2 both sides. ABDOMEN: Soft. Non-tender. Bowel sounds active. No CVA tenderness. No mass felt. EXTREMITIES: No edema. Full range of motion of all extremities, equal. NEUROLOGIC: No focal deficit. Cranial nerves II through XII are grossly intact. No headache. No double vision. SKIN: Not dry. Intact. Turgor-normal. Pallor. LYMPHATIC: No palpable lymph nodes/no lymphedema. MUSCULOSKELETAL: Normal joints with no swelling. Muscle tone is normal. LAB REVIEW: 01/07/22 05:30 01/07/22 05:30 01/07/22 05:30: WBC 2.62 L, RBC 3.48 L, Hgb 9.9 L, Hct 30.7 L, MCV 88.2, MCH 28.4, MCHC 32.2, RDW Coeff of Gloria 13.8, Plt Count 248, Neutrophils % (Manual) 68.0, Lymphocytes % (Manual) 30.0, Monocytes % (Manual) 2.0, Anisocytosis Not present 01/07/22 05:30: PT 11.0, INR 1.06 01/07/22 05:30: Sodium 139.9, Potassium 5.09, Chloride 116.9 H, Carbon Dioxide 11.6 L, Anion Gap 16.49, BUN 49.2 H, Creatinine 3.63 H* D, Estimated GFR (MDRD) 12.00, BUN/Creatinine Ratio 13.55, Glucose 160.8 H, Calcium 7.96 L, Ferritin 84.80 01/07/22 05:30: D-Dimer 1518.63 H 01/06/22 18:20: Urine Color Yellow, Urine Clarity Cloudy, Urine pH 5.0, Ur Specific [place] 1.025, Urine Protein 1+ H, Urine Glucose (UA) Negative, Urine Ketones Negative, Urine Blood 3+ H, Urine Nitrite Negative, Urine Bilirubin 1+ H , Urine Urobilinogen 0.2, Ur Leukocyte Esterase 3+ H, Urine Microscopic RBC 30- 50, Urine Microscopic WBC 50-100, Ur Squamous Epith Cells 2-5, Ur Renal Epithelial Cell 0-2, Urine Bacteria 3+ 01/06/22 12:34: Puncture Site R brach, Base Excess 13.9 H, O2 Saturation 99.0 H, ABG pH 7.34 L, ABG pCO2 22.0 L, ABG pO2 139.0 H, ABG HCO3 11.9 L, ABG Total CO2 12.6 L, Damion Test +, Hemoglobin 1.2, Oxyhemoglobin 95.1, Carboxyhemoglobin 3.0 H, Total Hemoglobin 10.3 L, FiO2 % 21.0 01/06/22 12:32: Sodium 135.2, Potassium 4.80, Chloride 113.4 H, Carbon Dioxide 10.4 L, Anion Gap 16.20, BUN 47.4 H, Creatinine 4.54 H*, Estimated GFR (MDRD) 9.00, BUN/Creatinine Ratio 10.44, Glucose 112.7 H, Calcium 7.93 L, Total Biliru bin 0.34, AST 27.5, ALT 8.7, Alkaline Phosphatase 52.8 L, Troponin I 0.070, Total Protein 6.49, Albumin 3.64, Globulin 2.85, Albumin/Globulin Ratio 1.27 01/06/22 12:32: WBC 4.41 L, RBC 3.35 L, Hgb 9.6 L, Hct 28.8 L, MCV 86.0, MCH 28.7, MCHC 33.3, RDW Coeff of Gloria 13.7, Plt Count 228, Immature Gran % (Auto) 0.0, Neut % (Auto) 52.6, Lymph % (Auto) 37.4, [place] % (Auto) 9.5, Eos % (Auto) 0.0, Baso % (Auto) 0.5, Neut # (Auto) 2.3, Lymph # (Auto) 1.7, [place] # (Auto) 0.4, Eos # (Auto) 0.0, Baso # (Auto) 0.0, Immature Gran # (Auto) 0.0 01/06/22 12:20: Influ A Molecular Assay Negative by naat, Influ B Molecular Assay Negative by naat 01/06/22 12:20: SARS-CoV-2 Ag (Rapid) Positive H ASSESSMENT: Please see below. 1. COVID 19 pneumonia 2. Acute renal failure 3. Dehydration 4. Generalized weakness 5. Hypotension 6. Loss of appetite. PLAN: 1. Accu-check TID 3. Decrease IV fluids to 75cc an hour after this bag 3. Incentive spirometer TID 4. CT of chest without 5. Discontinue Lovenox 6. Eliquis 2.5mg BID 7. Symbicort 160mg two puffs BID 8. Albuterol two puffs TID 9. Pepcid 10.Vitamin D 11.Zinc 12. Daily labs 13.Ferritin, LDH, D-Dimer and CRP 14.Zofran 4mg IV TID Scheduled. Plan and coordination of the patient's care discussed in the presence of Steam Setter and nurse. SCRIBED BY: Emy ROLLEist scribed while in presence of service performed by Dr. Coppola/Annette Edgar APRN on 01/07/22 ([id number])
--- NOTE | 2022-01-07 11:08 | CT ---
EXAM: CT chest withouT contrast HISTORY: ShoRTness of air COMPARISON: CT 03/13/2017 TECHNIQUE: CT chest performed without intravenous contrast. Coronal and sagittal reformatted images obtained FINDINGS: Thoracic inlet unremarkable. Heart mildly enlarged. Coronary calcifications. No pericar dial effusion. Aorta normal in caliber. Mild to moderate atherosclerosis. Evaluation for lymphaden opathy limited without contrast. No lymphadenopathy identified in the chest. Visualized portion upp er abdomen demonstrates no acute abnormality. Patient status post cholecystectomy. Small hiatal her nicho. No acute abnormalities of the bones. Degenerate change in the spine. Central airway patent. N o airspace consolidation. No pleural effusion. No pneumothorax. Multifocal bilateral ground-glass infiltrates with peripheral predominance throughout all lobes of the lung. IMPRESSION: 1. Multifocal bilateral pneumonia. Correlate for COVID-19 pneumonia. 2. Cardiomegaly 3. Coronary calcifications. Atherosclerosis. 4. Small hiatal hernia All CT scans are performed using dose optimization techniques as appropriate to the performed exam an d include at least one of the following: Automated exposure control, adjustment of the mA and/or kV according t o size, and the use of iterative reconstruction technique.
[2022-01-07] MEDS: HUMULIN R SUBCUT PRN ×2 (12:12→17:25)
[2022-01-07] MEDS: VENTOLIN HFA (PER PUFF-WITH SPACER) IH SCH ×2 (14:09→20:45)
[2022-01-07] MEDS: IMODIUM PO PRN (15:13)
[2022-01-07] MEDS: SODIUM CHLORIDE 1,000 ML IV SCH (16:13)
[2022-01-07] MEDS: PEPCID PO SCH (16:56)
[2022-01-07] MEDS: TYLENOL PO PRN (20:04)
[2022-01-07] MEDS: ATIVAN PO PRN (20:15)
[2022-01-08] MEDS: NORCO 5-325 PO PRN ×3 (01:26→20:45)
[2022-01-08 04:24] LABS: C-REACTIVE PROTEIN 49 mg/L (0-10)
[2022-01-08] MEDS: VENTOLIN HFA (PER PUFF-WITH SPACER) IH SCH ×3 (04:55→20:20)
[2022-01-08 05:08] LABS: HEMATOCRIT 29.2 % (37.0-47.0); HEMOGLOBIN 9.5 g/dl (12.0-16.0); IMMATURE GRANULOCYTE % (AUTO) 0.6 % (0.0-5.0); LYMPHOCYTES # (AUTO) 0.9 K/uL (0.60-3.4); LYMPHOCYTES % (AUTO) 18.6 (10.0-50.0); MEAN CORPUSCULAR HEMOGLOBIN 28.6 pg (27.0-31.0); MEAN CORPUSCULAR HGB CONC 32.5 (31.8-35.4); MONOCYTES # (AUTO) 0.4 K/uL (0.4-2.0); MONOCYTES % (AUTO) 7.6 (0-10); NEUTROPHILS # (AUTO) 3.5 K/ul (2.0-6.9); NEUTROPHILS % (AUTO) 73.2 % (42.2-75.2); PLATELET COUNT 283 10^3/uL (140-440); RDW COEFFICIENT OF VARIATION 13.9 % (11.6-14.8); RED BLOOD COUNT 3.32 10^6/ul (4.20-5.40); WHITE BLOOD COUNT 4.72 K/ul (4.6-10.2)
[2022-01-08 05:20] LABS: ALANINE AMINOTRANSFERASE 10.5 U/L (0-35); ALBUMIN 3.47 g/dL (3.5-5.0); ALKALINE PHOSPHATASE 50.1 U/L (53-141); ASPARTATE AMINO TRANSFERASE 28.6 U/L (14-36); BILIRUBIN,TOTAL 0.26 mg/dL (0.2-1.3); BLOOD UREA NITROGEN 38.3 mg/dL (7-17); CALCIUM 8.12 mg/dL (8.4-10.2); CARBON DIOXIDE 12.9 mmol/L (22-30.0); CREATININE 2.25 mg/dL (0.60-1.30); GLUCOSE 164.6 mg/dL (74-106); POTASSIUM 4.45 mmol/L (3.5-5.1); TOTAL PROTEIN 6.22 g/dL (6.3-8.2)
[2022-01-08] MEDS: SODIUM CHLORIDE 1,000 ML IV SCH ×3 (05:36→21:36)
[2022-01-08] MEDS: PEPCID PO SCH ×2 (05:37→16:52)
[2022-01-08 05:40] LABS: PROTHROMBIN TIME 11.1 SEC (9.3-11.0)
[2022-01-08] MEDS: SYMBICORT 160-4.5 MCG INHALER IH SCH ×2 (08:30→20:47)
[2022-01-08] MEDS: ROCEPHIN 1 GM/50 ML D5W 1 GM/50 ML BAG IV SCH (08:30)
[2022-01-08] MEDS: ELIQUIS PO SCH ×2 (08:33→20:45)
[2022-01-08] MEDS: VITAMIN D PO SCH (08:33)
[2022-01-08] MEDS: ZINC-220 PO SCH (08:33)
[2022-01-08] MEDS: ZOFRAN 4 MG/2 ML IVP SCH ×3 (08:42→20:45)
[2022-01-08] MEDS: HUMULIN R SUBCUT PRN ×2 (08:43→17:05)
[2022-01-08] MEDS: DECADRON IVP SCH (08:43)
[2022-01-08] MEDS: ATIVAN PO PRN ×2 (08:50→17:06)
[2022-01-08] MEDS: ZITHROMAX 500 MG in SODIUM CHLORIDE 250 ML IV SCH (09:18)
--- NOTE | 2022-01-08 09:22 | PCM.PROG ---
Attending Provider: ATTENDING PROVIDER: Dr. DESTINEY COPPOLA This patient is seen with Annette Edgar, Nurse Practitioner. DATE OF SERVICE: 01/08/22 SUBJECTIVE: This 86 year old /WHITE F was hospitalized 01/06/22. Renal function steadily improved. Has had some diarrhea and abdominal cramping. Imodium seems to help. Oxygen saturation has been 95-100 on 2 liters. Chest x-ray revealed bilateral pneumonia. Still does not have much appetite. REVIEW OF SYSTEMS: CONSTITUTIONAL: No night sweats. No fatigue, malaise, lethargy. No fever or chills. Weakness. HEENT: Eyes: No visual changes. No eye pain. No eye discharge. ENT: No runny nose. No epistaxis. No sinus pain. No odynophagia. No congestion. RESPIRATORY: Cough, no congestion. No hemoptysis. No shortness of breath. CARDIOVASCULAR: No angina symptoms. No CHF symptoms. No atypical chest pain for CAD. No palpitations. No orthopnea.. GASTROINTESTINAL: No abdominal pain. No nausea or vomiting. Diarrhea. No hematemesis. No hematochezia. Loss of appetite. GENITOURINARY: No urgency. No frequency. No dysuria. No hematuria. No obstructive symptoms. No discharge. No pain. No significant abnormal bleeding. MUSCULOSKELETAL: No musculoskeletal pain; no joint swelling. NEUROLOGICAL: Awake, alert, oriented to time, place and person. No headache. No neck pain. No syncope. No seizures. No dizziness. PSYCHIATRIC: Not anxious. No depression. No suicidal thoughts. No homicidal thoughts. SKIN: No rash. No lesions. No wounds. ENDOCRINE: No unexplained weight loss. No weight gain. HEMATOLOGIC/LYMPHATIC: No anemia. No purpura. No petechiae. No prolonged or excessive bleeding. No palpable lymph nodes. PHYSICAL EXAMINATION: GENERAL: The patient is awake, alert and oriented, sitting in bed in no distress. VITAL SIGNS: Temperature 97.6 F, Pulse 72, Respiratory Rate 24, BP 119/75, Pulse Ox 99% HEENT: Head normocephalic, atraumatic. Eyes: Extraocular muscles are intact. Pupils are equal, round and reactive to light and accommodation. Ears: No lesions. Nose appeared normal. Throat: No exudate or erythema. NECK: Supple. No JVD, no carotid bruit. No lymphadenopathy or thyromegaly. LUNGS: Diminished breath sounds. Clear to auscultation. Percussion note normal. Chest symmetrical. HEART: S1, S2, no S3. No murmurs. No cyanosis or clubbing. No ascites. Pulses: Dorsalis pedis and posterior tibial pulses +1 to +2 both sides. ABDOMEN: Soft. Non-tender. Bowel sounds active. No CVA tenderness. No mass felt. EXTREMITIES: No edema. Full range of motion of all extremities, equal. NEUROLOGIC: No focal deficit. Cranial nerves II through XII are grossly intact. No headache. No double vision. SKIN: Not dry. Intact. Turgor-normal. LYMPHATIC: No palpable lymph nodes/no lymphedema. MUSCULOSKELETAL: Normal joints with no swelling. Muscle tone is normal. LAB REVIEW: 01/08/22 05:01 01/08/22 05:01 01/08/22 05:01: Sodium 141.0, Potassium 4.45, Chloride 117.0 H, Carbon Dioxide 12.9 L, Anion Gap 15.55, BUN 38.3 H, Creatinine 2.25 H D, Estimated GFR (MDRD) 21.00, BUN/Creatinine Ratio 17.02, Glucose 164.6 H, Calcium 8.12 L, Ferritin 103.00, Total Bilirubin 0.26, AST 28.6, ALT 10.5, Alkaline Phosphatase 50.1 L, Total Protein 6.22 L, Albumin 3.47 L, Globulin 2.75, Albumin/Globulin Ratio 1.26 01/08/22 05:01: WBC 4.72, RBC 3.32 L, Hgb 9.5 L, Hct 29.2 L, MCV 88.0, MCH 28.6, MCHC 32.5, RDW Coeff of Gloria 13.9, Plt Count 283, Immature Gran % (Auto) 0.6, Neut % (Auto) 73.2, Lymph % (Auto) 18.6, [place] % (Auto) 7.6, Eos % (Auto) 0.0, Baso % (Auto) 0.0, Neut # (Auto) 3.5, Lymph # (Auto) 0.9, [place] # (Auto) 0.4, Eos # (Auto) 0.0, Baso # (Auto) 0.0, Immature Gran # (Auto) 0.0 01/08/22 05:01: D-Dimer 1185.29 H 01/08/22 05:01: PT 11.1 H, INR 1.07 01/07/22 05:30: Lactate Dehydrogenase 183, C-Reactive Prot, Quant 49 H ASSESSMENT: Please see below. 1. Bilateral COVID pneumonia 2. Viral syndrome 3. Dehydration with acute renal failure 4. COPD 5. Diabetes Mellitus type II PLAN: 1. Continue IV antibiotics 2. After this bag decrease IV fluids to 50cc an hour Plan and coordination of the patient's care discussed in the presence of Social Media Designer and nurse. SCRIBED BY: SU FELDMAN Rejoiner scribed while in presence of service performed by Dr. Coppola/Annette Edgar APRN on 01/08/22 ([id number])
[2022-01-09] MEDS: VENTOLIN HFA (PER PUFF-WITH SPACER) IH SCH ×3 (04:45→19:17)
[2022-01-09 05:17] LABS: BASOPHILS % (AUTO) 0.1 % (0.0-3.0); HEMATOCRIT 31.6 % (37.0-47.0); HEMOGLOBIN 10.2 g/dl (12.0-16.0); IMMATURE GRANULOCYTE # (AUTO) 0.1 (0.0-1.0); IMMATURE GRANULOCYTE % (AUTO) 1.2 % (0.0-5.0); LYMPHOCYTES # (AUTO) 1.2 K/uL (0.60-3.4); LYMPHOCYTES % (AUTO) 17.1 (10.0-50.0); MEAN CORPUSCULAR HEMOGLOBIN 28.3 pg (27.0-31.0); MEAN CORPUSCULAR HGB CONC 32.3 (31.8-35.4); MEAN CORPUSCULAR VOLUME 87.5 fl (81.0-99.0); MONOCYTES # (AUTO) 0.5 K/uL (0.4-2.0); MONOCYTES % (AUTO) 6.7 (0-10); NEUTROPHILS % (AUTO) 74.9 % (42.2-75.2); PLATELET COUNT 324 10^3/uL (140-440); RED BLOOD COUNT 3.61 10^6/ul (4.20-5.40); WHITE BLOOD COUNT 6.71 K/ul (4.6-10.2)
[2022-01-09 05:32] LABS: ALANINE AMINOTRANSFERASE 12.7 U/L (0-35); ALBUMIN 3.68 g/dL (3.5-5.0); ALKALINE PHOSPHATASE 54.8 U/L (53-141); ASPARTATE AMINO TRANSFERASE 32.1 U/L (14-36); BILIRUBIN,TOTAL 0.28 mg/dL (0.2-1.3); BLOOD UREA NITROGEN 25.5 mg/dL (7-17); CALCIUM 8.64 mg/dL (8.4-10.2); CARBON DIOXIDE 11.8 mmol/L (22-30.0); CREATININE 1.68 mg/dL (0.60-1.30); GLUCOSE 133.9 mg/dL (74-106); POTASSIUM 3.95 mmol/L (3.5-5.1); SODIUM 141.7 mmol/L (134.5-145); TOTAL PROTEIN 6.61 g/dL (6.3-8.2)
[2022-01-09 05:33] LABS: PROTHROMBIN TIME 11.6 SEC (9.3-11.0)
[2022-01-09 05:47] LABS: C-REACTIVE PROTEIN 17 mg/L (0-10)
[2022-01-09] MEDS: PEPCID PO SCH ×2 (05:53→17:16)
[2022-01-09 06:05] LABS: FERRITIN 85.7 ng/mL (11.1-264.0)
[2022-01-09] MEDS: ZOFRAN 4 MG/2 ML IVP SCH ×3 (08:31→20:10)
[2022-01-09] MEDS: ROCEPHIN 1 GM/50 ML D5W 1 GM/50 ML BAG IV SCH (08:32)
[2022-01-09] MEDS: DECADRON IVP SCH (08:32)
[2022-01-09] MEDS: VITAMIN D PO SCH (08:32)
[2022-01-09] MEDS: ZINC-220 PO SCH (08:32)
[2022-01-09] MEDS: IMODIUM PO PRN (08:32)
[2022-01-09] MEDS: ATIVAN PO PRN ×2 (08:32→17:52)
[2022-01-09] MEDS: NORCO 5-325 PO PRN ×2 (08:32→17:52)
[2022-01-09] MEDS: ELIQUIS PO SCH ×2 (08:33→20:11)
[2022-01-09] MEDS: SYMBICORT 160-4.5 MCG INHALER IH SCH ×2 (08:47→21:20)
[2022-01-09] MEDS: SODIUM CHLORIDE 1,000 ML IV SCH (17:53)
[2022-01-09] MEDS: HUMULIN R SUBCUT PRN (18:12)
[2022-01-09] MEDS: OMNICEF PO SCH (20:10)
[2022-01-10] MEDS: NORCO 5-325 PO PRN ×2 (04:31→20:40)
[2022-01-10 05:13] LABS: ABG PH 7.43 (7.35-7.45)
[2022-01-10 05:14] LABS: BEecf -10.4 (-2.0-3.0); COHb 2.9 (0.5-1.5); HCO3 13.9 (21-28); MetHb 0.9 (0-1.5)
[2022-01-10 05:15] LABS: BASOPHILS % (AUTO) 0.2 % (0.0-3.0); HEMATOCRIT 29.4 % (37.0-47.0); HEMOGLOBIN 9.7 g/dl (12.0-16.0); IMMATURE GRANULOCYTE # (AUTO) 0.1 (0.0-1.0); IMMATURE GRANULOCYTE % (AUTO) 1.1 % (0.0-5.0); LYMPHOCYTES # (AUTO) 1.1 K/uL (0.60-3.4); LYMPHOCYTES % (AUTO) 16.3 (10.0-50.0); MEAN CORPUSCULAR HEMOGLOBIN 28.3 pg (27.0-31.0); MEAN CORPUSCULAR VOLUME 85.7 fl (81.0-99.0); MONOCYTES # (AUTO) 0.4 K/uL (0.4-2.0); MONOCYTES % (AUTO) 6.7 (0-10); NEUTROPHILS % (AUTO) 75.7 % (42.2-75.2); PLATELET COUNT 330 10^3/uL (140-440); RDW COEFFICIENT OF VARIATION 14.1 % (11.6-14.8); RED BLOOD COUNT 3.43 10^6/ul (4.20-5.40); WHITE BLOOD COUNT 6.57 K/ul (4.6-10.2)
[2022-01-10 05:15] LABS: ABG O2 HGB 90.8 % (95-100); TCO2 14.5 (19-24); sO2 89.1 % (94-98); tHb 10.4 g/dl (11.7-17.4)
[2022-01-10] MEDS: VENTOLIN HFA (PER PUFF-WITH SPACER) IH SCH ×3 (05:17→20:08)
[2022-01-10 05:25] LABS: PROTHROMBIN TIME 12.5 SEC (9.3-11.0)
[2022-01-10 05:27] LABS: ALANINE AMINOTRANSFERASE 14.3 U/L (0-35); ALBUMIN 3.47 g/dL (3.5-5.0); ALKALINE PHOSPHATASE 49.8 U/L (53-141); ASPARTATE AMINO TRANSFERASE 39.6 U/L (14-36); BILIRUBIN,TOTAL 0.42 mg/dL (0.2-1.3); BLOOD UREA NITROGEN 21.7 mg/dL (7-17); CALCIUM 8.41 mg/dL (8.4-10.2); CARBON DIOXIDE 13.6 mmol/L (22-30.0); CREATININE 1.29 mg/dL (0.60-1.30); GLUCOSE 114.6 mg/dL (74-106); POTASSIUM 3.94 mmol/L (3.5-5.1); SODIUM 141.1 mmol/L (134.5-145); TOTAL PROTEIN 6.29 g/dL (6.3-8.2)
[2022-01-10] MEDS: PEPCID PO SCH ×2 (05:51→17:04)
[2022-01-10 06:01] LABS: FERRITIN 94.5 ng/mL (11.1-264.0)
[2022-01-10] MEDS: ELIQUIS PO SCH ×2 (08:46→20:40)
[2022-01-10] MEDS: OMNICEF PO SCH (08:47)
[2022-01-10] MEDS: VITAMIN D PO SCH (08:47)
[2022-01-10] MEDS: ZINC-220 PO SCH (08:47)
[2022-01-10] MEDS: DECADRON IVP SCH (08:49)
[2022-01-10] MEDS: ZOFRAN 4 MG/2 ML IVP SCH ×3 (08:49→20:29)
[2022-01-10] MEDS: ATIVAN PO PRN (08:58)
[2022-01-10] MEDS ORDERED: LASIX IVP STA (12:04)
[2022-01-10] MEDS: SODIUM CHLORIDE 1,000 ML IV SCH (12:33)
[2022-01-10] MEDS: SYMBICORT 160-4.5 MCG INHALER IH SCH ×2 (12:33→20:41)
--- NOTE | 2022-01-10 12:54 | PCM.PROG ---
Attending Provider: ATTENDING PROVIDER: Dr. DESTINEY COPPOLA This patient is seen with Annette Edgar, Nurse Practitioner. DATE OF SERVICE: 01/10/22 SUBJECTIVE: This 86 year old /WHITE F was hospitalized 01/06/22. Still not eating much, complaining of nausea and is getting Zofran. No diarrhea since yesterday. Renal function has improved. ABG are worse this morning with pO2 50s, now on 4 liters nasal cannula. REVIEW OF SYSTEMS: CONSTITUTIONAL: No night sweats. No fatigue, malaise, lethargy. No fever or chills. Weakness. HEENT: Eyes: No visual changes. No eye pain. No eye discharge. ENT: No runny nose. No epistaxis. No sinus pain. No odynophagia. No congestion. RESPIRATORY: No cough, no congestion. No hemoptysis. Shortness of breath. CARDIOVASCULAR: No angina symptoms. No CHF symptoms. No atypical chest pain for CAD. No palpitations. No orthopnea.. GASTROINTESTINAL: No abdominal pain. No nausea or vomiting. No diarrhea or constipation. No hematemesis. No hematochezia. Loss of appetite. GENITOURINARY: No urgency. No frequency. No dysuria. No hematuria. No obs tructive symptoms. No discharge. No pain. No significant abnormal bleeding. MUSCULOSKELETAL: No musculoskeletal pain; no joint swelling. NEUROLOGICAL: Awake, alert, oriented to time, place and person. No headache. No neck pain. No syncope. No seizures. No dizziness. PSYCHIATRIC: Not anxious. No depression. No suicidal thoughts. No homicidal thoughts. SKIN: No rash. No lesions. No wounds. ENDOCRINE: No unexplained weight loss. No weight gain. HEMATOLOGIC/LYMPHATIC: No anemia. No purpura. No petechiae. No prolonged or excessive bleeding. No palpable lymph nodes. PHYSICAL EXAMINATION: GENERAL: The patient is awake, alert and oriented, sitting in bed in no distress. VITAL SIGNS: Temperature 98.4 F, Pulse 90, Respiratory Rate 28, BP 165/77, Pulse Ox 97% HEENT: Head normocephalic, atraumatic. Eyes: Extraocular muscles are intact. Pupils are equal, round and reactive to light and accommodation. Ears: No lesions. Nose appeared normal. Throat: No exudate or erythema. NECK: Supple. No JVD, no carotid bruit. No lymphadenopathy or thyromegaly. LUNGS: Diminished breath sounds. Clear to auscultation. Percussion note normal. Chest symmetrical. HEART: S1, S2, no S3. No murmurs. No cyanosis or clubbing. No ascites. Pulses: Dorsalis pedis and posterior tibial pulses +1 to +2 both sides. ABDOMEN: Soft. Non-tender. Bowel sounds active. No CVA tenderness. No mass felt. EXTREMITIES: No edema. Full range of motion of all extremities, equal. NEUROLOGIC: No focal deficit. Cranial nerves II through XII are grossly intact. No headache. No double vision. SKIN: Not dry. Intact. Turgor-normal. LYMPHATIC: No palpable lymph nodes/no lymphedema. MUSCULOSKELETAL: Normal joints with no swelling. Muscle tone is normal. LAB REVIEW: 01/10/22 05:02 01/10/22 05:02 01/10/22 05:05: Puncture Site Lrad, Base Excess -10.4 L, O2 Saturation 89.1 L, ABG pH 7.43, ABG pCO2 21.0 L, ABG pO2 55.0 L*, ABG HCO3 13.9 L, ABG Total CO2 14.5 L, Damion Test +, Hemoglobin 0.9, Oxyhemoglobin 90.8 L, Carboxyhemoglobin 2.9 H, Total Hemoglobin 10.4 L, O2 Delivery Device Bnc, Oxygen Liter Flow 2.00, FiO2 % 28.0 01/10/22 05:02: Sodium 141.1, Potassium 3.94, Chloride 118.0 H, Carbon Dioxide 13.6 L, Anion Gap 13.44, BUN 21.7 H, Creatinine 1.29, Estimated GFR (MDRD) 39.00, BUN/Creatinine Ratio 16.82, Glucose 114.6 H, Calcium 8.41, Ferritin 94.50, Total Bilirubin 0.42, AST 39.6 H, ALT 14.3, Alkaline Phosphatase 49.8 L, Total Protein 6.29 L, Albumin 3.47 L, Globulin 2.82, Albumin/Globulin Ratio 1.23 01/10/22 05:02: WBC 6.57, RBC 3.43 L, Hgb 9.7 L, Hct 29.4 L, MCV 85.7, MCH 28.3, MCHC 33.0, RDW Coeff of Gloria 14.1, Plt Count 330, Immature Gran % (Auto) 1.1, Neut % (Auto) 75.7 H, Lymph % (Auto) 16.3, [place] % (Auto) 6.7, Eos % (Auto) 0.0, Baso % (Auto) 0.2, Neut # (Auto) 5.0, Lymph # (Auto) 1.1, [place] # (Auto) 0.4, Eos # (Auto) 0.0, Baso # (Auto) 0.0, Immature Gran # (Auto) 0.1 01/10/22 05:02: D-Dimer 1042.99 H 01/10/22 05:02: PT 12.5 H, INR 1.21 ASSESSMENT: Please see below. 1. Acute respiratory failure 2. Bilateral COVID pneumonia 3. Dehydration, improved 4. Loss of appetite 5. Generalized weakness. PLAN: 1. Rocephin 1 gram IV daily for 5 days 2. Doxycycline 100mg IV q 12 3. Repeat chest 4. Stop fluids 5. 20mg IV Lasix Plan and coordination of the patient's care discussed in the presence of Progressive Assembler And Fitter and nurse. SCRIBED BY: SU FELDMAN, Route Contractor scribed while in presence of service performed by Dr. Coppola/Annette Edgar APRN on 01/10/22 ([id number])
--- NOTE | 2022-01-10 13:17 | DI ---
EXAM: Chest one view, frontal view only. HISTORY: Cough, shortness of breath. COMPARISON: 01/07/2022 of the. FINDINGS: Cardiac silhouette is normal in size. There is no pulmonary vascular congestion. There i s mild peribronchial thickening with patchy peripheral opacities in both lungs, probably unchanged fr om prior study. No pleural effusion or pneumothorax is seen. The osseous structures are within norm al limits for the patient's age. IMPRESSION: Stable bilateral pneumonia.
[2022-01-10] MEDS: DOXY-100 100 MG in SODIUM CHLORIDE 100ML 100 ML IV SCH ×2 (13:25→21:43)
[2022-01-10] MEDS: ROCEPHIN 1 GM/50 ML D5W 1 GM/50 ML BAG IV SCH (20:40)
[2022-01-11] MEDS: VENTOLIN HFA (PER PUFF-WITH SPACER) IH SCH ×3 (05:32→20:10)
[2022-01-11] MEDS: PEPCID PO SCH ×2 (05:36→17:25)
[2022-01-11 06:31] LABS: BASOPHILS % (AUTO) 0.1 % (0.0-3.0); HEMATOCRIT 31.2 % (37.0-47.0); HEMOGLOBIN 10.3 g/dl (12.0-16.0); IMMATURE GRANULOCYTE # (AUTO) 0.1 (0.0-1.0); IMMATURE GRANULOCYTE % (AUTO) 0.9 % (0.0-5.0); LYMPHOCYTES % (AUTO) 12.4 (10.0-50.0); MEAN CORPUSCULAR HEMOGLOBIN 28.1 pg (27.0-31.0); MEAN CORPUSCULAR VOLUME 85.2 fl (81.0-99.0); MONOCYTES # (AUTO) 0.5 K/uL (0.4-2.0); NEUTROPHILS # (AUTO) 6.2 K/ul (2.0-6.9); NEUTROPHILS % (AUTO) 80.6 % (42.2-75.2); PLATELET COUNT 364 10^3/uL (140-440); RDW COEFFICIENT OF VARIATION 14.1 % (11.6-14.8); RED BLOOD COUNT 3.66 10^6/ul (4.20-5.40); WHITE BLOOD COUNT 7.69 K/ul (4.6-10.2)
[2022-01-11 06:43] LABS: ALANINE AMINOTRANSFERASE 14.9 U/L (0-35); ALBUMIN 3.68 g/dL (3.5-5.0); ALKALINE PHOSPHATASE 56.3 U/L (53-141); ASPARTATE AMINO TRANSFERASE 32.9 U/L (14-36); BILIRUBIN,TOTAL 0.45 mg/dL (0.2-1.3); BLOOD UREA NITROGEN 23.4 mg/dL (7-17); CALCIUM 8.43 mg/dL (8.4-10.2); CARBON DIOXIDE 16.8 mmol/L (22-30.0); CHLORIDE 113.5 mmol/L (98-107); CREATININE 1.39 mg/dL (0.60-1.30); GLUCOSE 122.5 mg/dL (74-106); POTASSIUM 3.67 mmol/L (3.5-5.1); TOTAL PROTEIN 6.8 g/dL (6.3-8.2)
[2022-01-11 06:53] LABS: PROTHROMBIN TIME 13.3 SEC (9.3-11.0)
[2022-01-11] MEDS: DOXY-100 100 MG in SODIUM CHLORIDE 100ML 100 ML IV SCH ×2 (09:07→21:28)
[2022-01-11] MEDS: VITAMIN D PO SCH (09:07)
[2022-01-11] MEDS: DECADRON IVP SCH (09:08)
[2022-01-11] MEDS: ZINC-220 PO SCH (09:08)
[2022-01-11] MEDS: ELIQUIS PO SCH ×2 (09:08→20:41)
[2022-01-11] MEDS: SYMBICORT 160-4.5 MCG INHALER IH SCH ×2 (09:08→20:42)
[2022-01-11] MEDS: ZOFRAN 4 MG/2 ML IVP SCH ×3 (09:08→20:41)
--- NOTE | 2022-01-11 09:12 | PCM.PROG ---
Attending Provider: ATTENDING PROVIDER: Dr. DESTINEY COPPOLA DATE OF SERVICE: 01/11/22 SUBJECTIVE: This 86 year old /WHITE F was hospitalized 01/06/22 with COVID 19 with dehydration. The patient's kidney function is a lot better. Hypoxemia likely from early pneumonia. Condition is stabilizing with oxygen saturation of 94% on 4 liters. REVIEW OF SYSTEMS: CONSTITUTIONAL: No night sweats. No fatigue, malaise, lethargy. No fever or chills. HEENT: Eyes: No visual changes. No eye pain. No eye discharge. ENT: No runny nose. No epistaxis. No sinus pain. No odynophagia. No congestion. RESPIRATORY: Mild cough, no congestion. No hemoptysis. Shortness of breath. CARDIOVASCULAR: No angina symptoms. No CHF symptoms. No atypical chest pain for CAD. No palpitations. No orthopnea.. GASTROINTESTINAL: No abdominal pain. No nausea or vomiting. No diarrhea or constipation. No hematemesis. No hematochezia. Appetite below average. GENITOURINARY: No urgency. No frequency. No dysuria. No hematuria. No obstructive symptoms. No discharge. No pain. No significant abnormal bleeding. MUSCULOSKELETAL: No musculoskeletal pain; no joint swelling. NEUROLOGICAL: Awake, alert, oriented to time, place and person. No headache. No neck pain. No syncope. No seizures. No dizziness. PSYCHIATRIC: Not anxious. No depression. No suicidal thoughts. No homicidal thoughts. SKIN: No rash. No lesions. No wounds. ENDOCRINE: No unexplained weight loss. No weight gain. HEMATOLOGIC/LYMPHATIC: No anemia. No purpura. No petechiae. No prolonged or excessive bleeding. No palpable lymph nodes. PHYSICAL EXAMINATION: GENERAL: The patient is awake, alert and oriented, lying in bed in no distress. VITAL SIGNS: Temperature 97.9 F, Pulse 75, Respiratory Rate 21, BP 128/76, P ulse Ox 94% HEENT: Head normocephalic, atraumatic. Eyes: Extraocular muscles are intact. Pupils are equal, round and reactive to light and accommodation. Ears: No lesions. Nose appeared normal. Throat: No exudate or erythema. NECK: Supple. No JVD, no carotid bruit. No lymphadenopathy or thyromegaly. LUNGS: Decreased breath sounds. Clear to auscultation. Percussion note normal. Chest symmetrical. HEART: S1, S2, no S3. No murmurs. No cyanosis or clubbing. No ascites. Pulses: Dorsalis pedis and posterior tibial pulses +1 to +2 both sides. ABDOMEN: Soft. Non-tender. Bowel sounds active. No CVA tenderness. No mass felt. EXTREMITIES: No edema. Full range of motion of all extremities, equal. NEUROLOGIC: No focal deficit. Cranial nerves II through XII are grossly intact. No headache, no double vision or headache. SKIN: Warm and dry. Intact. Turgor-normal. LYMPHATIC: No palpable lymph nodes/no lymphedema. MUSCULOSKELETAL: Normal joints with no swelling. Muscle tone is normal. LAB REVIEW: 01/11/22 06:00 01/11/22 06:30 01/11/22 06:30: Sodium 140.0, Potassium 3.67, Chloride 113.5 H, Carbon Dioxide 16.8 L, Anion Gap 13.37, BUN 23.4 H, Creatinine 1.39 H, Estimated GFR (MDRD) 36.00, BUN/Creatinine Ratio 16.83, Glucose 122.5 H, Calcium 8.43, Total Bilirubin 0.45, AST 32.9, ALT 14.9, Alkaline Phosphatase 56.3, Total Protein 6.80, Albumin 3.68, Globulin 3.12, Albumin/Globulin Ratio 1.17 01/11/22 06:30: PT 13.3 H, INR 1.30 01/11/22 06:00: WBC 7.69, RBC 3.66 L, Hgb 10.3 L, Hct 31.2 L, MCV 85.2, MCH 28.1, MCHC 33.0, RDW Coeff of Gloria 14.1, Plt Count 364, Immature Gran % (Auto) 0.9, Neut % (Auto) 80.6 H, Lymph % (Auto) 12.4, [place] % (Auto) 6.0, Eos % (Auto) 0.0, Baso % (Auto) 0.1, Neut # (Auto) 6.2, Lymph # (Auto) 1.0, [place] # (Auto) 0.5, Eos # (Auto) 0.0, Baso # (Auto) 0.0, Immature Gran # (Auto) 0.1 01/11/22 06:00: Ferritin 133.00 01/10/22 05:02: Lactate Dehydrogenase 259 H 01/09/22 05:12: Lactate Dehydrogenase 240 H ASSESSMENT: Please see below. 1. Acute renal failure almost resolved 2. COVID 19 with respiratory failure with pneumonitis 3. Chronic anemia 4. Mild dementia PLAN: 1. Encourage the patient to eat 2. Continue IV Fluids 3. Lasix given yesterday with 800cc urine output likely had fluid overload 4. Pauses noted around 2 seconds don't see them on telemetry anymore. The patient declined any further evaluation or pacemaker placement type procedure for past couple days. She is asymptomatic and bed ridden at present time. She is not in any shape for procedure with COVID status. Plan and coordination of the patient's care discussed in the presence of Outpatient Physical Therapist and nurse. CONDITION: Stable PROGNOSIS: Guarded SCRIBED BY: Kvng ROLLE scribed while in presence of service performed by Dr. DESTINEY COPPOLA on 01/11/22 ([id number])
[2022-01-11] MEDS: IMODIUM PO PRN (09:13)
[2022-01-11] MEDS: ATIVAN PO PRN ×2 (09:18→20:56)
[2022-01-11] MEDS: NORCO 5-325 PO PRN ×2 (09:18→20:56)
[2022-01-11 11:11] LABS: C-REACTIVE PROTEIN 55 mg/L (0-10)
[2022-01-11 11:11] LABS: C-REACTIVE PROTEIN 14 mg/L (0-10)
--- NOTE | 2022-01-11 13:31 | PN ---
DATE OF SERVICE: 01/06/22 ADMIT NOTE SUBJECTIVE: 80 year old white female brought to the emergency room with fatigue and weakness. The patient on further workup showed acute renal failure with creatinine more than 4 and BUN 44. The patient was COVID positive. The patient was brought to the emergency room by ambulance. Son accompanied the patient and already had COVID 3 weeks ago. Symptoms started nearly a week prior to hospitalization. Likely had COVID duration probably 7 days. The patient was alert to person, she recognized me. REVIEW OF SYSTEMS: CONSTITUTIONAL: No night sweats. No fatigue, malaise, lethargy. No fever or chills. HEENT: Eyes: No visual changes. No eye pain. No eye discharge. ENT: No runny nose. No epistaxis. No sinus pain. No sore throat. No odynophagia. No congestion. RESPIRATORY: No cough, no congestion. No hemoptysis. No shortness of breath. CARDIOVASCULAR: No angina symptoms. No CHF symptoms. No atypical chest pain for CAD. No palpitations. No PND. No orthopnea. GASTROINTESTINAL: No abdominal pain. No nausea or vomiting. No diarrhea or constipation. No hematemesis. No hematochezia. GENITOURINARY: No urgency. No frequency. No dysuria. No hematuria. No obstructive symptoms. No discharge. No pain. No significant abnormal bleeding. MUSCULOSKELETAL: No musculoskeletal pain; no joint swelling. NEUROLOGICAL: No headache. No neck pain. No syncope. No seizures. No dizziness. PSYCHIATRIC: Not anxious. No depression. No suicidal thoughts. No homicidal thoughts. SKIN: No rash. No lesions. No wounds. ENDOCRINE: No unexplained weight loss. No weight gain. HEMATOLOGIC/LYMPHATIC: No anemia. No purpura. No petechiae. No prolonged or excessive bleeding. No palpable lymph nodes. PHYSICAL EXAMINATION: HEENT: Head normocephalic, atraumatic. Eyes: Extraocular muscles are intact. Pupils are equal, round and reactive to light and accommodation. Ears: No lesions. Nose appeared normal. Throat: No exudate or erythema. NECK: Supple. No JVD, no carotid bruit. No lymphadenopathy or thyromegaly. LUNGS: Decreased breath sounds but clear to auscultation. Percussion note normal. Chest symmetrical. HEART: S1, S2, no S3. No murmurs. No cyanosis or clubbing. No ascites. Pulses: Dorsalis pedis and posterior tibial pulses +1 to +2 bilaterally. ABDOMEN: Soft. Nontender. Bowel sounds active. No CVA tenderness. No mass felt. EXTREMITIES: No edema. Full range of motion of all extremities, equal. NEUROLOGIC: No focal deficit. Cranial nerves II through XII are grossly intact. No headache. No double vision. SKIN: Dry. Intact. Turgor - normal. Mucous membranes dry. LYMPHATIC: No palpable lymph nodes/no lymphedema. MUSCULOSKELETAL: Normal joints with no swelling. Muscle tone is normal. LABS: Labs reviewed. Arterial blood gasses reviewed. ASSESSMENT: 1. Bilateral pneumonitis type of picture. Practically no cough and congestion could be just because of atelectasis/pneumonia. COVID could not be ruled out. Blood gasses are excellent 2. Acute renal failure likely from renal azotemia 3. Confusion and mild dementia according to the son. 4. History of hypertension 5. History of dyslipidemia 6. History of diverticulosis 7. History of chronic anemia PLAN: 1. Given Bolus 500cc normal saline other murphy 500cc Normal Saline 100cc per hours 2. Watch for fluid overload 3. Remdesivir to be started, the patient agreed 4. Dexamethasone 6mg IM daily 5. Rocephin and Zithromax combination antibiotics 6. Routine telemetry orders with serial EKGS and cardiac markers PROGNOSIS: Guarded CONDITION: Stable. TIME SPENT: More than 30 minutes. Plan and coordination of the patient's care discussed in the presence of nurse. EAN
--- NOTE | 2022-01-11 13:36 | PN ---
DATE OF SERVICE: 01/07/22 SUBJECTIVE: 86 year old white female hospitalized with COVID 19 with acute renal failure. The patient's creatinine and BUN has improved. Creatinine is now 3.6 more than 4.5 yesterday. Fluids are being infused. Respiratory status is stable. The patient is seen and examined with Nurse Practitioner. Continue the same medications. TIME SPENT: More than 30 minutes. Plan and coordination of the patient's care discussed in the presence of nurse. EAN
--- NOTE | 2022-01-11 13:39 | PN ---
DATE OF SERVICE: 01/08/22 SUBJECTIVE: 86 year old white female hospitalized with COVID 19 status was acute renal failure. The kidney functions are even better from 3.6 down to 2.2 today. No evidence of fluid overload. Later on in the evening it was reported to me that she had 2-3 second pauses noted some were 4 seconds. The patient is not on any medication that would cause bradycardia. We will put a Holter Monitor. She is practically asymptomatic and feeling better with normal, good appetite. The patient was seen and examined with the Nurse Practitioner. TIME SPENT: More than 30 minutes. Plan and coordination of the patient's care discussed in the presence of nurse. EAN
--- NOTE | 2022-01-11 13:48 | PN ---
DATE OF SERVICE: 01/09/22 SUBJECTIVE: 86 year old white female hospitalized with acute renal failure and COVID 19 status. She was extremely weak and tired and had not eaten anything for past 7 days. The patient's son was sick with the COVID. The patient's over all condition has improved. She is feeling better. She is talkative as usual but was confused, hospital psychosis but when I talked to her she was oriented to time, place and person. REVIEW OF SYSTEMS: CONSTITUTIONAL: No night sweats. No fatigue, malaise, lethargy. No fever or chills. HEENT: Eyes: No visual changes. No eye pain. No eye discharge. ENT: No runny nose. No epistaxis. No sinus pain. No sore throat. No odynophagia. No congestion. RESPIRATORY: No cough, no congestion. No hemoptysis. Shortness of breath on minimal exertion. CARDIOVASCULAR: No angina symptoms. No CHF symptoms. No atypical chest pain for CAD. No palpitations. No PND. No orthopnea. GASTROINTESTINAL: No abdominal pain. No nausea or vomiting. No diarrhea or constipation. No hematemesis. No hematochezia. GENITOURINARY: No urgency. No frequency. No dysuria. No hematuria. No obstructive symptoms. No discharge. No pain. No significant abnormal bleeding. MUSCULOSKELETAL: No musculoskeletal pain; no joint swelling. NEUROLOGICAL: No headache. No neck pain. No syncope. No seizures. No dizziness. PSYCHIATRIC: Not anxious. No depression. No suicidal thoughts. No homicidal thoughts. SKIN: No rash. No lesions. No wounds. ENDOCRINE: No unexplained weight loss. No weight gain. HEMATOLOGIC/LYMPHATIC: No anemia. No purpura. No petechiae. No prolonged or excessive bleeding. No palpable lymph nodes. PHYSICAL EXAMINATION: VITAL SIGNS: Temperature 97.9, pulse 76, respiratory rate 22, blood pressure 113/64 and pulse ox 98%. HEENT: Head normocephalic, atraumatic. Eyes: Extraocular muscles are intact. Pupils are equal, round and reactive to light and accommodation. Ears: No lesions. Nose appeared normal. Throat: No exudate or erythema. NECK: Supple. No JVD, no carotid bruit. No lymphadenopathy or thyromegaly. LUNGS:Decreased breath sounds but clear to auscultation. Percussion note normal. Chest symmetrical. HEART: S1, S2, no S3. No murmurs. No cyanosis or clubbing. No ascites. Pulses: Dorsalis pedis and posterior tibial pulses +1 to +2 bilaterally. ABDOMEN: Soft. Nontender. Bowel sounds active. No CVA tenderness. No mass felt. EXTREMITIES: No edema. Full range of motion of all extremities, equal. NEUROLOGIC: No focal deficit. Cranial nerves II through XII are grossly intact. No headache. No double vision. SKIN: Not dry. Intact. Turgor - normal. LYMPHATIC: No palpable lymph nodes/no lymphedema. MUSCULOSKELETAL: Normal joints with no swelling. Muscle tone is normal. LABS: Hgb 10.2, hct 31, WBC 6,700 normal differential, creatinine 1.6, BUN 25, potassium 3.9 ASSESSMENT: 1. Acute renal failure seems to be resolving. Creatinine 1.6 and BUN 25 markedly improvement. The patient's urine output good. 2. COVID 19 status with improvement in respiratory status and overall status. PLAN: 1. The patient is going to be discontinued on Zithromax and Rocephin 2. Omnicef 300mg PO twice a day 3. ABG going to be done in the morning to evaluate for metabolic acidosis CONDITION: Improving. TIME SPENT: More than 30 minutes. Plan and coordination of the patient's care discussed in the presence of nurse. EAN
[2022-01-11] MEDS: HUMULIN R SUBCUT PRN (17:25)
[2022-01-11] MEDS: ROCEPHIN 1 GM/50 ML D5W 1 GM/50 ML BAG IV SCH (20:42)
[2022-01-12] MEDS: VENTOLIN HFA (PER PUFF-WITH SPACER) IH SCH ×3 (05:15→20:15)
[2022-01-12 05:37] LABS: HEMATOCRIT 29.1 % (37.0-47.0); HEMOGLOBIN 9.8 g/dl (12.0-16.0); IMMATURE GRANULOCYTE # (AUTO) 0.1 (0.0-1.0); IMMATURE GRANULOCYTE % (AUTO) 1.2 % (0.0-5.0); LYMPHOCYTES # (AUTO) 0.9 K/uL (0.60-3.4); LYMPHOCYTES % (AUTO) 12.5 (10.0-50.0); MEAN CORPUSCULAR HEMOGLOBIN 28.3 pg (27.0-31.0); MEAN CORPUSCULAR HGB CONC 33.7 (31.8-35.4); MEAN CORPUSCULAR VOLUME 84.1 fl (81.0-99.0); MONOCYTES # (AUTO) 0.5 K/uL (0.4-2.0); MONOCYTES % (AUTO) 6.7 (0-10); NEUTROPHILS # (AUTO) 5.8 K/ul (2.0-6.9); NEUTROPHILS % (AUTO) 79.6 % (42.2-75.2); PLATELET COUNT 410 10^3/uL (140-440); RDW COEFFICIENT OF VARIATION 14.1 % (11.6-14.8); RED BLOOD COUNT 3.46 10^6/ul (4.20-5.40); WHITE BLOOD COUNT 7.28 K/ul (4.6-10.2)
[2022-01-12 05:49] LABS: ALANINE AMINOTRANSFERASE 14.1 U/L (0-35); ALBUMIN 3.41 g/dL (3.5-5.0); ALKALINE PHOSPHATASE 59.7 U/L (53-141); ASPARTATE AMINO TRANSFERASE 29.6 U/L (14-36); BILIRUBIN,TOTAL 0.35 mg/dL (0.2-1.3); BLOOD UREA NITROGEN 26.1 mg/dL (7-17); CALCIUM 8.27 mg/dL (8.4-10.2); CARBON DIOXIDE 16.3 mmol/L (22-30.0); CHLORIDE 113.9 mmol/L (98-107); CREATININE 1.3 mg/dL (0.60-1.30); GLUCOSE 128.7 mg/dL (74-106); POTASSIUM 3.29 mmol/L (3.5-5.1); TOTAL PROTEIN 6.5 g/dL (6.3-8.2)
[2022-01-12] MEDS: PEPCID PO SCH ×2 (06:10→17:17)
[2022-01-12 07:15] LABS: C-REACTIVE PROTEIN 86 mg/L (0-10)
[2022-01-12] MEDS: DECADRON IVP SCH (08:06)
[2022-01-12] MEDS: ZOFRAN 4 MG/2 ML IVP SCH ×3 (08:07→20:40)
[2022-01-12] MEDS: ZINC-220 PO SCH (08:19)
[2022-01-12] MEDS: VITAMIN D PO SCH (08:19)
[2022-01-12] MEDS: ELIQUIS PO SCH ×2 (08:20→20:44)
[2022-01-12] MEDS: SYMBICORT 160-4.5 MCG INHALER IH SCH ×2 (08:22→20:45)
[2022-01-12] MEDS: DOXY-100 100 MG in SODIUM CHLORIDE 100ML 100 ML IV SCH ×3 (08:23→21:55)
[2022-01-12 10:58] LABS: ABG PH 7.44 (7.35-7.45); BEecf -9.3 (-2.0-3.0); COHb 1.7 (0.5-1.5); HCO3 14.9 (21-28); MetHb 1.6 (0-1.5); TCO2 15.6 (19-24); sO2 91.6 % (94-98); tHb 11.3 g/dl (11.7-17.4)
[2022-01-12] MEDS: HUMULIN R SUBCUT PRN (12:08)
[2022-01-12] MEDS: NORCO 5-325 PO PRN ×2 (14:02→20:51)
[2022-01-12] MEDS: ROCEPHIN 1 GM/50 ML D5W 1 GM/50 ML BAG IV SCH (20:40)
[2022-01-12] MEDS: ATIVAN PO PRN (20:51)
[2022-01-13] MEDS: VENTOLIN HFA (PER PUFF-WITH SPACER) IH SCH ×3 (04:50→19:40)
[2022-01-13] MEDS: PEPCID PO SCH ×2 (05:40→16:47)
[2022-01-13 05:48] LABS: HEMATOCRIT 29.1 % (37.0-47.0); IMMATURE GRANULOCYTE # (AUTO) 0.1 (0.0-1.0); IMMATURE GRANULOCYTE % (AUTO) 1.5 % (0.0-5.0); LYMPHOCYTES # (AUTO) 1.3 K/uL (0.60-3.4); LYMPHOCYTES % (AUTO) 14.9 (10.0-50.0); MEAN CORPUSCULAR HEMOGLOBIN 28.9 pg (27.0-31.0); MEAN CORPUSCULAR HGB CONC 34.4 (31.8-35.4); MEAN CORPUSCULAR VOLUME 84.1 fl (81.0-99.0); MONOCYTES # (AUTO) 0.6 K/uL (0.4-2.0); MONOCYTES % (AUTO) 6.9 (0-10); NEUTROPHILS # (AUTO) 6.5 K/ul (2.0-6.9); NEUTROPHILS % (AUTO) 76.7 % (42.2-75.2); PLATELET COUNT 444 10^3/uL (140-440); RDW COEFFICIENT OF VARIATION 14.2 % (11.6-14.8); RED BLOOD COUNT 3.46 10^6/ul (4.20-5.40)
[2022-01-13 06:02] LABS: ALANINE AMINOTRANSFERASE 16.1 U/L (0-35); ALBUMIN 3.49 g/dL (3.5-5.0); ALKALINE PHOSPHATASE 62.2 U/L (53-141); ASPARTATE AMINO TRANSFERASE 28.6 U/L (14-36); BILIRUBIN,TOTAL 0.46 mg/dL (0.2-1.3); BLOOD UREA NITROGEN 31.5 mg/dL (7-17); CALCIUM 8.34 mg/dL (8.4-10.2); CARBON DIOXIDE 13.4 mmol/L (22-30.0); CHLORIDE 114.9 mmol/L (98-107); CREATININE 1.32 mg/dL (0.60-1.30); GLUCOSE 147.3 mg/dL (74-106); POTASSIUM 3.23 mmol/L (3.5-5.1); SODIUM 138.4 mmol/L (134.5-145); TOTAL PROTEIN 6.62 g/dL (6.3-8.2)
[2022-01-13 06:19] LABS: PROTHROMBIN TIME 14.5 SEC (9.3-11.0)
[2022-01-13] MEDS: SYMBICORT 160-4.5 MCG INHALER IH SCH ×2 (08:59→20:58)
[2022-01-13] MEDS: ZOFRAN 4 MG/2 ML IVP SCH ×3 (08:59→20:50)
[2022-01-13] MEDS: DECADRON IVP SCH (08:59)
[2022-01-13] MEDS: ZINC-220 PO SCH (09:00)
[2022-01-13] MEDS: VITAMIN D PO SCH (09:00)
[2022-01-13] MEDS: ELIQUIS PO SCH ×2 (09:00→20:58)
[2022-01-13 09:09] LABS: C-REACTIVE PROTEIN 76 mg/L (0-10)
[2022-01-13] MEDS: DOXY-100 100 MG in SODIUM CHLORIDE 100ML 100 ML IV SCH (09:15)
[2022-01-13] MEDS: K-DUR PO SCH (16:47)
[2022-01-13] MEDS: NORCO 5-325 PO PRN (17:26)
[2022-01-13] MEDS: ROCEPHIN 1 GM/50 ML D5W 1 GM/50 ML BAG IV SCH (20:58)
[2022-01-13] MEDS: ATIVAN PO PRN (21:05)
[2022-01-14] MEDS: VENTOLIN HFA (PER PUFF-WITH SPACER) IH SCH ×3 (04:50→19:45)
[2022-01-14 05:33] LABS: BASOPHILS % (AUTO) 0.1 % (0.0-3.0); HEMATOCRIT 27.7 % (37.0-47.0); HEMOGLOBIN 9.5 g/dl (12.0-16.0); IMMATURE GRANULOCYTE # (AUTO) 0.1 (0.0-1.0); IMMATURE GRANULOCYTE % (AUTO) 1.4 % (0.0-5.0); LYMPHOCYTES # (AUTO) 1.4 K/uL (0.60-3.4); LYMPHOCYTES % (AUTO) 16.1 (10.0-50.0); MEAN CORPUSCULAR HEMOGLOBIN 28.4 pg (27.0-31.0); MEAN CORPUSCULAR HGB CONC 34.3 (31.8-35.4); MEAN CORPUSCULAR VOLUME 82.9 fl (81.0-99.0); MONOCYTES # (AUTO) 0.7 K/uL (0.4-2.0); MONOCYTES % (AUTO) 7.9 (0-10); NEUTROPHILS # (AUTO) 6.5 K/ul (2.0-6.9); NEUTROPHILS % (AUTO) 74.5 % (42.2-75.2); PLATELET COUNT 432 10^3/uL (140-440); RDW COEFFICIENT OF VARIATION 14.1 % (11.6-14.8); RED BLOOD COUNT 3.34 10^6/ul (4.20-5.40); WHITE BLOOD COUNT 8.71 K/ul (4.6-10.2)
[2022-01-14] MEDS: PEPCID PO SCH ×2 (05:36→18:06)
[2022-01-14 05:50] LABS: ALANINE AMINOTRANSFERASE 13.7 U/L (0-35); ALBUMIN 3.3 g/dL (3.5-5.0); ALKALINE PHOSPHATASE 61.4 U/L (53-141); ASPARTATE AMINO TRANSFERASE 27.6 U/L (14-36); BILIRUBIN,TOTAL 0.43 mg/dL (0.2-1.3); BLOOD UREA NITROGEN 32.1 mg/dL (7-17); CALCIUM 8.43 mg/dL (8.4-10.2); CARBON DIOXIDE 15.3 mmol/L (22-30.0); CHLORIDE 116.4 mmol/L (98-107); CREATININE 1.27 mg/dL (0.60-1.30); GLUCOSE 109.8 mg/dL (74-106); POTASSIUM 3.33 mmol/L (3.5-5.1); SODIUM 140.1 mmol/L (134.5-145); TOTAL PROTEIN 6.35 g/dL (6.3-8.2)
[2022-01-14 05:51] LABS: PROTHROMBIN TIME 15.3 SEC (9.3-11.0)
[2022-01-14] MEDS: SYMBICORT 160-4.5 MCG INHALER IH SCH ×2 (08:49→20:45)
[2022-01-14] MEDS: K-DUR PO SCH ×5 (08:49→20:36)
[2022-01-14] MEDS: ELIQUIS PO SCH ×2 (08:49→20:35)
[2022-01-14] MEDS: DOXY-100 100 MG in SODIUM CHLORIDE 100ML 100 ML IV SCH (08:49)
[2022-01-14 09:03] LABS: ABG O2 HGB 90.5 % (95-100); BEecf -5.8 (-2.0-3.0); COHb 2.1 (0.5-1.5); HCO3 17.1 (21-28); MetHb 1.5 (0-1.5); TCO2 17.7 (19-24); sO2 92.3 % (94-98); tHb 10.9 g/dl (11.7-17.4)
[2022-01-14] MEDS: NORCO 5-325 PO PRN (09:03)
[2022-01-14] MEDS: ATIVAN PO PRN ×2 (09:04→23:28)
[2022-01-14 09:09] LABS: ABG PH 7.52 (7.35-7.45)
[2022-01-14] MEDS: ZOFRAN 4 MG/2 ML IVP SCH ×3 (09:43→20:37)
[2022-01-14] MEDS: DECADRON IVP SCH ×2 (09:43→20:52)
--- NOTE | 2022-01-14 09:58 | PCM.PROG ---
Attending Provider: ATTENDING PROVIDER: Dr. DESTINEY COPPOLA This patient is seen with Annette Edgar, Nurse Practitioner. DATE OF SERVICE: 01/14/22 SUBJECTIVE: This 86 year old /WHITE F was hospitalized 01/06/22. The patient is pleasantly confused. Still not eating very well. Is on day 11. Oxygen saturation still 90 to 92%. REVIEW OF SYSTEMS: CONSTITUTIONAL: No night sweats. No fatigue, malaise, lethargy. No fever or chills. Weakness. HEENT: Eyes: No visual changes. No eye pain. No eye discharge. ENT: No runny nose. No epistaxis. No sinus pain. No odynophagia. No congestion. RESPIRATORY: No cough, no congestion. No hemoptysis. Shortness of breath. CARDIOVASCULAR: No angina symptoms. No CHF symptoms. No atypical chest pain for CAD. No palpitations. No orthopnea.. GASTROINTESTINAL: No abdominal pain. No nausea or vomiting. No diarrhea or constipation. No hematemesis. No hematochezia. GENITOURINARY: No urgency. No frequency. No dysuria. No hematuria. No obstru ctive symptoms. No discharge. No pain. No significant abnormal bleeding. MUSCULOSKELETAL: No musculoskeletal pain; no joint swelling. NEUROLOGICAL: Awake, Confusion. No headache. No neck pain. No syncope. No seizures. No dizziness. PSYCHIATRIC: Not anxious. No depression. No suicidal thoughts. No homicidal thoughts. SKIN: No rash. No lesions. No wounds. ENDOCRINE: No unexplained weight loss. No weight gain. HEMATOLOGIC/LYMPHATIC: No anemia. No purpura. No petechiae. No prolonged or excessive bleeding. No palpable lymph nodes. PHYSICAL EXAMINATION: GENERAL: The patient is awake, alert and oriented to person only, sitting in bed in no distress. VITAL SIGNS: Temperature 98.1 F, Pulse 75, Respiratory Rate 22, BP 161/71, Pulse Ox 92% HEENT: Head normocephalic, atraumatic. Eyes: Extraocular muscles are intact. Pupils are equal, round and reactive to light and accommodation. Ears: No lesions. Nose appeared normal. Throat: No exudate or erythema. NECK: Supple. No JVD, no carotid bruit. No lymphadenopathy or thyromegaly. LUNGS: Diminished breath sounds. Clear to auscultation. Percussion note normal. Chest symmetrical. HEART: S1, S2, no S3. No murmurs. No cyanosis or clubbing. No ascites. Pulses: Dorsalis pedis and posterior tibial pulses +1 to +2 both sides. ABDOMEN: Soft. Non-tender. Bowel sounds active. No CVA tenderness. No mass felt. EXTREMITIES: No edema. Full range of motion of all extremities, equal. NEUROLOGIC: No focal deficit. Cranial nerves II through XII are grossly intact. No headache. No double vision. SKIN: Not dry. Intact. Turgor-normal. LYMPHATIC: No palpable lymph nodes/no lymphedema. MUSCULOSKELETAL: Normal joints with no swelling. Muscle tone is normal. LAB REVIEW: 01/14/22 05:24 01/14/22 05:24 01/14/22 05:24: Sodium 140.1, Potassium 3.33 L, Chloride 116.4 H, Carbon Dioxide 15.3 L, Anion Gap 11.73, BUN 32.1 H, Creatinine 1.27, Estimated GFR (MDRD) 40.00, BUN/Creatinine Ratio 25.27, Glucose 109.8 H, Calcium 8.43, Ferritin 138.00, Total Bilirubin 0.43, AST 27.6, ALT 13.7, Alkaline Phosphatase 61.4, Total Protein 6.35, Albumin 3.30 L, Globulin 3.05, Albumin/Globulin Ratio 1.08 01/14/22 05:24: PT 15.3 H, INR 1.50 01/14/22 05:24: WBC 8.71, RBC 3.34 L, Hgb 9.5 L, Hct 27.7 L, MCV 82.9, MCH 28.4, MCHC 34.3, RDW Coeff of Gloria 14.1, Plt Count 432, Immature Gran % (Auto) 1.4, Neut % (Auto) 74.5, Lymph % (Auto) 16.1, [place] % (Auto) 7.9, Eos % (Auto) 0.0, Baso % (Auto) 0.1, Neut # (Auto) 6.5, Lymph # (Auto) 1.4, [place] # (Auto) 0.7, Eos # (Auto) 0.0, Baso # (Auto) 0.0, Immature Gran # (Auto) 0.1 01/12/22 05:28: C-Reactive Prot, Quant 76 H ASSESSMENT: Please see below. 1. COVID 19 pneumonia 2. Acute respiratory failure 3. Acute renal failure 4. Hypokalemia 5. Chronic anemia 6. Hospital psychosis PLAN: 1. ABG on 4 liters this morning 2. Increase Potassium to QID 3. Will move out to regular room. Plan and coordination of the patient's care discussed in the presence of Contestant Coordinator and nurse. SCRIBED BY: SU FELDMAN Presser First scribed while in presence of service performed by Dr. Coppola/Annette Edgar APRN on 01/14/22 ([id number])
[2022-01-14 14:11] LABS: ABG O2 HGB 91.2 % (95-100); COHb 1.9 (0.5-1.5); HCO3 17.2 (21-28); MetHb 1.3 (0-1.5); TCO2 17.9 (19-24); sO2 91.9 % (94-98); tHb 10.5 g/dl (11.7-17.4)
[2022-01-14 15:20] LABS: C-REACTIVE PROTEIN 45 mg/L (0-10)
[2022-01-14] MEDS: ROCEPHIN 1 GM/50 ML D5W 1 GM/50 ML BAG IV SCH (20:58)
[2022-01-15] MEDS: VENTOLIN HFA (PER PUFF-WITH SPACER) IH SCH ×3 (04:45→20:32)
[2022-01-15 05:08] LABS: ABG O2 HGB 92.2 % (95-100); ABG PH 7.48 (7.35-7.45); BEecf -7.1 (-2.0-3.0); HCO3 16.4 (21-28); TCO2 17.1 (19-24); sO2 93.1 % (94-98); tHb 13.5 g/dl (11.7-17.4)
[2022-01-15 05:22] LABS: BASOPHILS % (AUTO) 0.1 % (0.0-3.0); HEMATOCRIT 27.9 % (37.0-47.0); HEMOGLOBIN 9.5 g/dl (12.0-16.0); IMMATURE GRANULOCYTE # (AUTO) 0.2 (0.0-1.0); LYMPHOCYTES # (AUTO) 0.9 K/uL (0.60-3.4); MEAN CORPUSCULAR HEMOGLOBIN 28.2 pg (27.0-31.0); MEAN CORPUSCULAR HGB CONC 34.1 (31.8-35.4); MEAN CORPUSCULAR VOLUME 82.8 fl (81.0-99.0); MONOCYTES # (AUTO) 0.4 K/uL (0.4-2.0); MONOCYTES % (AUTO) 4.7 (0-10); NEUTROPHILS # (AUTO) 7.4 K/ul (2.0-6.9); NEUTROPHILS % (AUTO) 83.2 % (42.2-75.2); PLATELET COUNT 404 10^3/uL (140-440); RDW COEFFICIENT OF VARIATION 14.1 % (11.6-14.8); RED BLOOD COUNT 3.37 10^6/ul (4.20-5.40)
[2022-01-15 05:34] LABS: ALANINE AMINOTRANSFERASE 15.6 U/L (0-35); ALBUMIN 3.33 g/dL (3.5-5.0); ALKALINE PHOSPHATASE 66.7 U/L (53-141); ASPARTATE AMINO TRANSFERASE 23.6 U/L (14-36); BILIRUBIN,TOTAL 0.44 mg/dL (0.2-1.3); BLOOD UREA NITROGEN 34.1 mg/dL (7-17); CALCIUM 8.69 mg/dL (8.4-10.2); CARBON DIOXIDE 15.3 mmol/L (22-30.0); CHLORIDE 114.3 mmol/L (98-107); CREATININE 1.27 mg/dL (0.60-1.30); GLUCOSE 184.7 mg/dL (74-106); POTASSIUM 4.45 mmol/L (3.5-5.1); SODIUM 139.2 mmol/L (134.5-145); TOTAL PROTEIN 6.42 g/dL (6.3-8.2)
[2022-01-15 05:57] LABS: PROTHROMBIN TIME 13.8 SEC (9.3-11.0)
[2022-01-15] MEDS: PEPCID PO SCH ×2 (06:21→16:18)
[2022-01-15] MEDS ORDERED: LASIX IVP ONE (08:13)
[2022-01-15] MEDS: NORCO 5-325 PO PRN ×2 (08:52→20:48)
[2022-01-15] MEDS: DOXY-100 100 MG in SODIUM CHLORIDE 100ML 100 ML IV SCH (08:52)
[2022-01-15] MEDS: ATIVAN PO PRN ×2 (08:52→15:54)
[2022-01-15] MEDS: ELIQUIS PO SCH ×2 (08:53→20:48)
[2022-01-15] MEDS: K-DUR PO SCH (08:53)
[2022-01-15] MEDS: ZOFRAN 4 MG/2 ML IVP SCH ×3 (08:54→21:08)
[2022-01-15] MEDS: DECADRON IVP SCH ×2 (08:54→21:07)
[2022-01-15] MEDS: SYMBICORT 160-4.5 MCG INHALER IH SCH ×2 (08:55→20:49)
--- NOTE | 2022-01-15 09:52 | PCM.PROG ---
Attending Provider: ATTENDING PROVIDER: Dr. DESTINEY COPPOLA This patient is seen with Annette Edgar, Nurse Practitioner. DATE OF SERVICE: 01/15/22 SUBJECTIVE: This 86 year old /WHITE F was hospitalized 01/06/22. The patient is confused this morning but does recognize me. She has been up and down all night. She is on Vapotherm now, restless. She has been drinking better and eating some better. More short of breath. REVIEW OF SYSTEMS: CONSTITUTIONAL: No night sweats. No fatigue, malaise, lethargy. No fever or chills. Weakness. HEENT: Eyes: No visual changes. No eye pain. No eye discharge. ENT: No runny nose. No epistaxis. No sinus pain. No odynophagia. No congestion. RESPIRATORY: No cough, no congestion. No hemoptysis. Shortness of breath. Wheezing CARDIOVASCULAR: No angina symptoms. No CHF symptoms. No atypical chest pain for CAD. No palpitations. No orthopnea.. GASTROINTESTINAL: No abdominal pain. No nausea or vomiting. No diarrhea or constipation. No hematemesis. No hematochezia. GENITOURINARY: No urgency. No frequency. No dysuria. No hematuria. No obstr uctive symptoms. No discharge. No pain. No significant abnormal bleeding. MUSCULOSKELETAL: No musculoskeletal pain; no joint swelling. NEUROLOGICAL: Awake, alert, confusion. No headache. No neck pain. No syncope. No seizures. No dizziness. PSYCHIATRIC: Not anxious. No depression. No suicidal thoughts. No homicidal thoughts. SKIN: No rash. No lesions. No wounds. ENDOCRINE: No unexplained weight loss. No weight gain. HEMATOLOGIC/LYMPHATIC: No anemia. No purpura. No petechiae. No prolonged or ex cessive bleeding. No palpable lymph nodes. PHYSICAL EXAMINATION: GENERAL: The patient is awake, alert and oriented to person, sitting in bed in no distress. VITAL SIGNS: Temperature 98.1 F, Pulse 72, Respiratory Rate 20, BP 166/78, Pulse Ox 92% HEENT: Head normocephalic, atraumatic. Eyes: Extraocular muscles are intact. Pupils are equal, round and reactive to light and accommodation. Ears: No lesions. Nose appeared normal. Throat: No exudate or erythema. NECK: Supple. No JVD, no carotid bruit. No lymphadenopathy or thyromegaly. LUNGS: Bilateral inspiratory and expiratory wheezing. Clear to auscultation. Percussion note normal. Chest symmetrical. HEART: S1, S2, no S3. No murmurs. No cyanosis or clubbing. No ascites. Pulses: Dorsalis pedis and posterior tibial pulses +1 to +2 both sides. ABDOMEN: Soft. Non-tender. Bowel sounds active. No CVA tenderness. No mass felt. EXTREMITIES: No edema. Full range of motion of all extremities, equal. NEUROLOGIC: No focal deficit. Cranial nerves II through XII are grossly intact. No headache. No double vision. SKIN: Not dry. Intact. Turgor-normal. LYMPHATIC: No palpable lymph nodes/no lymphedema. MUSCULOSKELETAL: Normal joints with no swelling. Muscle tone is normal. LAB REVIEW: 01/15/22 05:16 01/15/22 05:16 01/15/22 05:16: PT 13.8 H, INR 1.35 01/15/22 05:16: Sodium 139.2, Potassium 4.45, Chloride 114.3 H, Carbon Dioxide 15.3 L, Anion Gap 14.05, BUN 34.1 H, Creatinine 1.27, Estimated GFR (MDRD) 40.00, BUN/Creatinine Ratio 26.85, Glucose 184.7 H D, Calcium 8.69, Total Bilirubin 0.44, AST 23.6, ALT 15.6, Alkaline Phosphatase 66.7, Total Protein 6.4 2, Albumin 3.33 L, Globulin 3.09, Albumin/Globulin Ratio 1.07 01/15/22 05:16: WBC 8.90, RBC 3.37 L, Hgb 9.5 L, Hct 27.9 L, MCV 82.8, MCH 28.2, MCHC 34.1, RDW Coeff of Gloria 14.1, Plt Count 404, Immature Gran % (Auto) 2.0, Neut % (Auto) 83.2 H, Lymph % (Auto) 10.0, [place] % (Auto) 4.7, Eos % (Auto) 0.0, Baso % (Auto) 0.1, Neut # (Auto) 7.4 H, Lymph # (Auto) 0.9, [place] # (Auto) 0.4, Eos # (Auto) 0.0, Baso # (Auto) 0.0, Immature Gran # (Auto) 0.2 01/15/22 05:00: Puncture Site Lad, Base Excess -7.1 L, O2 Saturation 93.1 L, ABG pH 7.48 H, ABG pCO2 22.0 L, ABG pO2 62.0 L, ABG HCO3 16.4 L, ABG Total CO2 17.1 L, Damion Test Pos, Hemoglobin 1.0, Oxyhemoglobin 92.2 L, Carboxyhemoglobin 2.0 H , Total Hemoglobin 13.5, O2 Delivery Device Vapotherm, FiO2 % 50.0 01/14/22 14:08: Puncture Site R rad, Base Excess -6.0 L, O2 Saturation 91.9 L, ABG pH 7.50 H, ABG pCO2 22.0 L, ABG pO2 57.0 L*, ABG HCO3 17.2 L, ABG Total CO2 17.9 L, Damion Test Y, Hemoglobin 1.3, Oxyhemoglobin 91.2 L, Carboxyhemoglobin 1.9 H, Total Hemoglobin 10.5 L, O2 Delivery Device Vapotherm, FiO2 % 45.0 01/14/22 08:54: Puncture Site R rad, Base Excess -5.8 L, O2 Saturation 92.3 L, ABG pH 7.52 H*, ABG pCO2 21.0 L, ABG pO2 57.0 L*, ABG HCO3 17.1 L, ABG Total CO2 17.7 L, [place]ion Test Y, Hemoglobin 1.5, Oxyhemoglobin 90.5 L, Carboxyhemoglobin 2.1 H, Total Hemoglobin 10.9 L, O2 Delivery Device Cannula, Oxygen Liter Flow 4.00 01/13/22 05:40: Lactate Dehydrogenase 341 H, C-Reactive Prot, Quant 45 H ASSESSMENT: Please see below. 1. Acute respiratory failure 2. Bilateral COVID pneumonia 3. Renal failure, resolved 4. Hospital psychosis 5. COPD PLAN: 1. Increase Ativan 0.5mg PRN morning and afternoon and 1mg PRN at night. 2. We will try to see if she van lay prone 3. Lasix 40mg IV 4. Repeat chest x-ray Plan and coordination of the patient's care discussed in the presence of Search Manager and nurse. PROGNOSIS: Guarded SCRIBED BY: Kvng ROLLE scribed while in presence of service performed by Dr. Coppola/Annette Edgar APRN on 01/15/22 ([id number])
--- NOTE | 2022-01-15 11:07 | DI ---
EXAM: Chest one view, frontal view only. HISTORY: Shortness of breath. COMPARISON: 01/10/2022. FINDINGS: Heart size normal. Increase in the bilateral consolidation, worse on the right. No pleur al effusion or pneumothorax. No acute osseous abnormality. IMPRESSION: Worsened bilateral pneumonia.
[2022-01-15] MEDS ORDERED: LEVAQUIN 750 MG/150 ML D5W 750 MG/150 ML BAG IV ONE (12:30)
[2022-01-15] MEDS: VANCOMYCIN 1 GM in SODIUM CHLORIDE 250 ML IV SCH ×2 (12:49→22:28)
--- NOTE | 2022-01-15 13:44 | PN ---
DATE OF SERVICE: 01/12/22 SUBJECTIVE: 86 year old white female hospitalized with COVID 19 status with acute renal failure. Maryjane patient's acute renal failure has resolved with creatinine now 1.3, BUN 26. It used to be 4.5 and 50. The patient other problem that she has developed pneumonitis type of symptoms with hypoxemia and respiratory failure with COVID and has appetite has declined. She used to be somewhat confused but her mental status has cleared up. REVIEW OF SYSTEMS: CONSTITUTIONAL: No night sweats. No fatigue, malaise, lethargy. No fever or chills. HEENT: Eyes: No visual changes. No eye pain. No eye discharge. ENT: No runny nose. No epistaxis. No sinus pain. No sore throat. No odynophagia. No congestion. RESPIRATORY: No cough, no congestion. No hemoptysis. No shortness of breath. CARDIOVASCULAR: No angina symptoms. No CHF symptoms. No atypical chest pain for CAD. No palpitations. No PND. No orthopnea. GASTROINTESTINAL: No abdominal pain. No nausea or vomiting. No diarrhea or constipation. No hematemesis. No hematochezia. Appetite is not that good. GENITOURINARY: No urgency. No frequency. No dysuria. No hematuria. No obstructive symptoms. No discharge. No pain. No significant abnormal bleeding. MUSCULOSKELETAL: No musculoskeletal pain; no joint swelling. NEUROLOGICAL: No headache. No neck pain. No syncope. No seizures. No dizziness. PSYCHIATRIC: Not anxious. No depression. No suicidal thoughts. No homicidal thoughts. SKIN: No rash. No lesions. No wounds. ENDOCRINE: No unexplained weight loss. No weight gain. HEMATOLOGIC/LYMPHATIC: No anemia. No purpura. No petechiae. No prolonged or excessive bleeding. No palpable lymph nodes. PHYSICAL EXAMINATION: VITAL SIGNS: Temperature 97.8, pulse 77, Respiratory rate 25, blood pressure 155/60 and pulse ox 94% on 4 liters. HEENT: Head normocephalic, atraumatic. Eyes: Extraocular muscles are intact. Pupils are equal, round and reactive to light and accommodation. Ears: No lesions. Nose appeared normal. Throat: No exudate or erythema. NECK: Supple. No JVD, no carotid bruit. No lymphadenopathy or thyromegaly. LUNGS: Decreased breath sounds but clear to auscultation. Percussion note normal. Chest symmetrical. HEART: S1, S2, no S3. No murmurs. No cyanosis or clubbing. No ascites. Pulses: Dorsalis pedis and posterior tibial pulses +1 to +2 bilaterally. ABDOMEN: Soft. Nontender. Bowel sounds active. No CVA tenderness. No mass felt. EXTREMITIES: No edema. Full range of motion of all extremities, equal. NEUROLOGIC: No focal deficit. Cranial nerves II through XII are grossly intact. No headache. No double vision. SKIN: Not dry. Intact. Turgor - normal. LYMPHATIC: No palpable lymph nodes/no lymphedema. MUSCULOSKELETAL: Normal joints with no swelling. Muscle tone is normal. LABS: Hgb 9.8, hct 29, WBC 7,200 normal differential, creatinine 1.3, BUN 26, potassium 3.2. ASSESSMENT: 1. Acute renal failure has subsided 2. COVID 19 status with respiratory failure PLAN: 1. Continue antibiotics, steroids and NEBS. CONDITION: Improved to some extent with her pO2 60 with pCo2 22, pH 7.44 with 92% saturation on 3.5 liters. She is encouraged to eat. TIME SPENT: More than 30 minutes. Plan and coordination of the patient's care discussed in the presence of nurse. EAN
--- NOTE | 2022-01-15 14:43 | PN ---
DATE OF SERVICE: 01/13/22 SUBJECTIVE: 78 year old white female hospitalized with COVID 19 status with acute renal failure, dehydration. The patient's renal failure has practically cleared up with her creatinine now 1.3 BUN 31. Overall status seems to have improved but then the patient has developed now respiratory failure with pneumonitis. The patient's overall condition is stabilized but her appetite hasn't been improving. Her mental status has cleared up. REVIEW OF SYSTEMS: CONSTITUTIONAL: No night sweats. No fatigue, malaise, lethargy. No fever or chills. HEENT: Eyes: No visual changes. No eye pain. No eye discharge. ENT: No runny nose. No epistaxis. No sinus pain. No sore throat. No odynophagia. No congestion. RESPIRATORY: No cough, no congestion. No hemoptysis. No shortness of breath. CARDIOVASCULAR: No angina symptoms. No CHF symptoms. No atypical chest pain for CAD. No palpitations. No PND. No orthopnea. GASTROINTESTINAL: No abdominal pain. Mild Nausea. No diarrhea or constipation. No hematemesis. No hematochezia. Appetite is not that good. GENITOURINARY: No urgency. No frequency. No dysuria. No hematuria. No obstructive symptoms. No discharge. No pain. No significant abnormal bleeding. MUSCULOSKELETAL: No musculoskeletal pain; no joint swelling. NEUROLOGICAL: No headache. No neck pain. No syncope. No seizures. No dizziness. PSYCHIATRIC: Not anxious. No depression. No suicidal thoughts. No homicidal thoughts. SKIN: No rash. No lesions. No wounds. ENDOCRINE: No unexplained weight loss. No weight gain. HEMATOLOGIC/LYMPHATIC: No anemia. No purpura. No petechiae. No prolonged or excessive bleeding. No palpable lymph nodes. PHYSICAL EXAMINATION: VITAL SIGNS: Temperature 98.1, pulse 70, respiratory rate 20, blood pressure 156/82 and pulse ox 94% on 3 liters. HEENT: Head normocephalic, atraumatic. Eyes: Extraocular muscles are intact. Pupils are equal, round and reactive to light and accommodation. Ears: No lesions. Nose appeared normal. Throat: No exudate or erythema. NECK: Supple. No JVD, no carotid bruit. No lymphadenopathy or thyromegaly. LUNGS: Decreased breath sounds but clear to auscultation. Percussion note normal. Chest symmetrical. HEART: S1, S2, no S3. No murmurs. No cyanosis or clubbing. No ascites. Pulses: Dorsalis pedis and posterior tibial pulses +1 to +2 bilaterally. ABDOMEN: Soft. Nontender. Bowel sounds active. No CVA tenderness. No mass felt. EXTREMITIES: No edema. Full range of motion of all extremities, equal. NEUROLOGIC: No focal deficit. Cranial nerves II through XII are grossly intact. No headache. No double vision. SKIN: Not dry. Intact. Turgor - normal. LYMPHATIC: No palpable lymph nodes/no lymphedema. MUSCULOSKELETAL: Normal joints with no swelling. Muscle tone is normal. LABS: Hgb 10, Hct 29, WBC 8,000 normal differential, creatinine 1.3, BUN 31, potassium 3.2. ASSESSMENT: 1. Renal failure has subsided 2. COVID 19 status with respiratory failure still persists. The patient is on steroids, NEBS and antibiotics 3. Hypokalemia noted we will put her on K-Tab 20meq PO TID 4. Nausea, we can not figure it out, could be from COVID but we will discontinue Vitamin D, discontinue zinc and cute down Doxycycline to 100mg PO daily PLAN: 1. Continue to encourage the patient to eat 2. Sit up in the chair. TIME SPENT: More than 30 minutes. Plan and coordination of the patient's care discussed in the presence of nurse. EAN
[2022-01-15] MEDS: ATIVAN PO SCH (20:48)
[2022-01-16] MEDS: TYLENOL PO PRN (02:29)
[2022-01-16] MEDS: ATIVAN PO PRN (02:29)
[2022-01-16] MEDS: VENTOLIN HFA (PER PUFF-WITH SPACER) IH SCH ×3 (04:52→20:30)
[2022-01-16 04:55] LABS: ABG PH 7.48 (7.35-7.45); BEecf -7.9 (-2.0-3.0)
[2022-01-16 04:56] LABS: COHb 1.5 (0.5-1.5); HCO3 15.6 (21-28); MetHb 1.6 (0-1.5); TCO2 16.2 (19-24); sO2 93.9 % (94-98); tHb 11.9 g/dl (11.7-17.4)
[2022-01-16 04:57] LABS: ABG O2 HGB 92.4 % (95-100)
[2022-01-16 05:18] LABS: BASOPHILS % (AUTO) 0.2 % (0.0-3.0); HEMOGLOBIN 10.1 g/dl (12.0-16.0); IMMATURE GRANULOCYTE # (AUTO) 0.4 (0.0-1.0); IMMATURE GRANULOCYTE % (AUTO) 2.8 % (0.0-5.0); LYMPHOCYTES # (AUTO) 1.3 K/uL (0.60-3.4); MEAN CORPUSCULAR HEMOGLOBIN 28.1 pg (27.0-31.0); MEAN CORPUSCULAR HGB CONC 33.7 (31.8-35.4); MEAN CORPUSCULAR VOLUME 83.3 fl (81.0-99.0); MONOCYTES # (AUTO) 0.6 K/uL (0.4-2.0); MONOCYTES % (AUTO) 4.2 (0-10); NEUTROPHILS # (AUTO) 10.8 K/ul (2.0-6.9); NEUTROPHILS % (AUTO) 82.8 % (42.2-75.2); PLATELET COUNT 444 10^3/uL (140-440); RDW COEFFICIENT OF VARIATION 13.9 % (11.6-14.8); WHITE BLOOD COUNT 13.06 K/ul (4.6-10.2)
[2022-01-16 05:29] LABS: ALANINE AMINOTRANSFERASE 15.4 U/L (0-35); ALBUMIN 3.54 g/dL (3.5-5.0); ALKALINE PHOSPHATASE 78.2 U/L (53-141); ASPARTATE AMINO TRANSFERASE 24.5 U/L (14-36); BILIRUBIN,TOTAL 0.44 mg/dL (0.2-1.3); BLOOD UREA NITROGEN 42.3 mg/dL (7-17); CALCIUM 8.67 mg/dL (8.4-10.2); CARBON DIOXIDE 13.9 mmol/L (22-30.0); CHLORIDE 111.4 mmol/L (98-107); CREATININE 1.63 mg/dL (0.60-1.30); GLUCOSE 184.8 mg/dL (74-106); POTASSIUM 4.51 mmol/L (3.5-5.1); SODIUM 137.3 mmol/L (134.5-145); TOTAL PROTEIN 6.91 g/dL (6.3-8.2)
[2022-01-16] MEDS: PEPCID PO SCH ×2 (05:50→16:23)
--- NOTE | 2022-01-16 07:55 | HOLTER ---
PATIENT INFORMATION AND COMMENTS Attending Physician: DR. DESTINEY COPPOLA Indications: FOUR SECOND PAUSES, BRADYCARDIA __ Patient Medications: VENTOLIN, HYDROCODONE, APIXABAN, ATROPINE, BUDESONIDE/FORMOTEROL, FAMOTIDINE, AZITHROMYCIN, INSULIN, LOPERAMIDE, LORAZEPAM, NITROGLYCERIN __ Pre-procedure Summary: Protocol: Standard Heart Rate Started: 01/08/20221819 Minimum: 44 BPM Weight: 185 LBS Ended: 01/09/20221819 Maximum: 136 BPM Height: 64" Duration: 24 HRS Average: 80 BPM _ INTERPRETATIONS/OBSERVATIONS: 1. BASIC RHYTHM: SINUS, RATE 44 BPM TO 120 BPM, AVERAGE 80 BPM 2. RARE TO INFREQUENT PAC'S AND PVC'S 3. TWO EPISODES OF 7 TO 10 BEATS SVT NOTED 4. NO PAUSES GREATER THAN 2.0 SECON[address] 5. NO ST-T WAVE CHANGES FROM BASELINE 6. ACTIVITY LOG NOT FILLED OUT MTDD
[2022-01-16] MEDS: ZOFRAN 4 MG/2 ML IVP SCH ×3 (08:16→21:02)
[2022-01-16] MEDS: DECADRON IVP SCH ×2 (08:22→21:02)
[2022-01-16] MEDS: VANCOMYCIN 1 GM in SODIUM CHLORIDE 250 ML IV SCH (08:32)
[2022-01-16] MEDS: ELIQUIS PO SCH ×2 (08:32→20:48)
[2022-01-16] MEDS: SYMBICORT 160-4.5 MCG INHALER IH SCH ×2 (08:32→20:49)
[2022-01-16] MEDS: K-DUR PO SCH (08:32)
--- NOTE | 2022-01-16 09:22 | PN ---
DATE OF SERVICE: 01/10/22 SUBJECTIVE: 86 year old white female hospitalized with COVID status. Respiratory status has worsened and she requires 4 liters. With fluid overload 20mg Lasix was given. She is already on antibiotics and steroids. Overall status otherwise seems to be stable with stable kidney function. Respiratory status is beginning to deteriorate. We will see if the patient has fluid overload or not, see if Lasix therapy can improve her saturation or not. It is to be considered that the patient is 86 year old lady with multiple medical problems with COVID status with probably beginning of pneumonia. PROGNOSIS: Guarded TIME SPENT: More than 30 minutes. Plan and coordination of the patient's care discussed in the presence of nurse. EAN
--- NOTE | 2022-01-16 11:14 | HP ---
DATE OF SERVICE: 01/06/22 REASON FOR HOSPITALIZATION/HISTORY OF PRESENT ILLNESS: 86 year old white female who lives at home by herself. She states that she has been weak for the past several days, started about and she has not had much appetite. She has not been eating and drinking, slight cough, no fever and no known COVID exposure. PAST MEDICAL HISTORY: COPD Chronic kidney disease stage II to III Recurrent UTI Coronary artery disease Hypertension Asthma Diabetes Mellitus type II Dyslipidemia DJD of the L spine Uterine prolapse Bilateral sciatica History of TIA Chronic back pain Depression Lumbar radiculopathy PAST SURGICAL HISTORY: Cholecystectomy Hysterectomy Appendectomy Bilateral knee replacement Left ankle surgery Bilateral cataract extraction Exploratory laparotomy for adhesion in the abdomen. REVIEW OF SYSTEMS: CONSTITUTIONAL: No night sweats. Fatigue and weakness. No fever or chills. HEENT: Eyes: No visual changes. No eye pain. No eye discharge. ENT: No runny nose. No epistaxis. No sinus pain. No sore throat. No odynophagia. No ear pain. No congestion. RESPIRATORY: Slight cough, no congestion. No hemoptysis. No shortness of breath. CARDIOVASCULAR: No angina symptoms. No CHF symptoms. No atypical chest pain for CAD. No palpitations. No PND. No orthopnea. GASTROINTESTINAL: No abdominal pain. No nausea or vomiting. No diarrhea or constipation. No hematemesis. No hematochezia. Loss of appetite. GENITOURINARY: No urgency. No frequency. No dysuria. No hematuria. No obstructive symptoms. No discharge. No pain. No significant abnormal bleeding. MUSCULOSKELETAL: No musculoskeletal pain. No joint swelling. No arthritis. NEUROLOGICAL: No headache. No neck pain. No syncope. No seizures. No dizziness. PSYCHIATRIC: Not anxious. No depression. No suicidal thoughts. No homicidal thoughts. SKIN: No rash. No lesions. No wounds. ENDOCRINE: No unexplained weight loss. No weight gain. HEMATOLOGIC/LYMPHATIC: No anemia. No purpura. No petechiae. No prolonged or excessive bleeding. No palpable lymph nodes. PERSONAL/FAMILY/SOCIAL HISTORY: She is . Nonsmoker. Lives at home by herself. She no longer drives. She has a son that takes care of her. She is not vaccinated for COVID. MEDICATIONS: Pravachol 80mg PO bedtime Bisoprolol fumarate 5mg PO daily Astelin 2 spray NS BID PRN Mapap extra strength 1000mg PO Q 12 hours PRN Cetirizine 10mg PO daily Benicar 40-12.5mg PO daily Prilosec 40mg PO Q daily Trimethoprim 100mg PO daily [place] 3 300-1000mg PO QAM Plavis 75mg PO daily Metformin 500mg PO BID Norvasc 5mg PO bedtime Lorazepam 0.5mg PO BID Aspirin 81mg PO daily Magnesium 150ml PO daily PRN [place] 5-325mg PO TID PRN ALLERGIES: Penicillin Cephalosporins Nitrofurantoin Phenobarbital Sulfa Atropine sulfate Codeine Furosemide Hyoscyamine Lansoprazole Scopolamine PHYSICAL EXAMINATION: GENERAL: The patient is alert and oriented, pale and dry mucous membranes. VITAL SIGNS: Temperature 100.4, heart rate 66, respiratory rate 18, blood pressure 109/47 and pulse ox 95A5 on room air. HEENT: Head normocephalic, atraumatic. Eyes: Extraocular muscles are intact. Pupils are equal, round and reactive to light and accommodation. Ears: No lesions. Nose appeared normal. Throat: No exudate or erythema. NECK: Supple. No JVD, no carotid bruit. No lymphadenopathy or thyromegaly. LUNGS: Diminished breath sounds. Clear to auscultation. Percussion note normal. Chest symmetrical. HEART: S1, S2, no S3. No murmur. No cyanosis or clubbing. No ascites. Pulses: Dorsalis pedis and posterior tibial pulses +1 to +2 bilaterally. ABDOMEN: Soft. Nontender. Bowel sounds active. No CVA tenderness. No mass felt. EXTREMITIES: No edema. Full range of motion of all extremities, equal. NEUROLOGIC: No focal deficit. Cranial nerves II through XII are grossly intact. No headache, no double vision or headache. SKIN: Not dry. Intact. Turgor - normal. LYMPHATIC: No palpable lymph nodes/no lymphedema. MUSCULOSKELETAL: Normal joints with no swelling. Muscle tone is normal. LABS: WBC 4.4, hgb 9.6, hct 28.8, plt count 228, sodium 135, potassium 4.8, BUN 47, creatinine 4.54, glucose 112. Influenza A and B is negative. Rapid COVID is positive. ABG on room air O2 saturation 99, pH 7.34, pCO2 22, pO2 139, bicarb 11.9, total CO2 12.6. ASSESSMENT: 1. Acute COVID 19 2. Acute renal failure 3. Dehydration 4. Viral syndrome 5. COPD 6. Shortness of breath 7. Anemia PLAN: 1. We will admit 2. Routine telemetry orders 3. Admit to COVID unit 4. Place on isolation 5. CBC and CMP, SED rate, CRP, LDH and Ferritin daily 6. ABG daily 7. Start on Decadron 6mg IV daily 8. Rocephin 1 gram IV daily 9. Zithromax 500mg IV daily for 3 days 10.U/A 11.CT of the chest with and without 12.Sliding scale for insulin 13.Continue home medications 14.Hold blood pressure medications 15.Normal saline IV at 100cc an hour times one bag and then slow to 75 16.Regular diet 17.Oxygen at 1-2 liters 18.Start Symbicort 160mg two puffs BID 19.Vitamin D 5000 PO daily 20.Zinc 220mg PO daily 21.Pepcid 40mg PO BID 22.Discontinue Lovenox 23.Start Eliquis 2.5mg PO BID 24.Zofran 4mg IV Q 6 hour PRN for nausea 25.Continue home medications PROGNOSIS: Guarded Will follow closely. The patient is not vaccinated. DNR. TIME SPENT: More than 70 minutes. MTDD
[2022-01-16] MEDS: NORCO 5-325 PO PRN (16:24)
[2022-01-16 17:46] LABS: BILIRUBIN,URINE Negative (NEGATIVE); CLARITY,URINE Clear (CLEAR); COLOR,URINE Yellow (YELLOW); GLUCOSE, URINE (UA) Negative (NEGATIVE); KETONES,URINE Negative (NEGATIVE); LEUKOCYTE ESTERASE ,URINE Negative (NEGATIVE); NITRITE,URINE Negative (NEGATIVE); PROTEIN,URINE 1+ (NEGATIVE); URINE, BLOOD Negative (NEGATIVE); UROBILINOGEN,URINE 0.2 (0.2)
[2022-01-16 17:49] LABS: BACTERIA,URINE TRACE (NOT PRESENT); RENAL EPITHELIAL CELLS,URINE 0-2 (NOT PRESENT); SQUAMOUS EPITHELIAL CELL,UR 0-2 (0-5); URINE RBC, MICROSCOPIC 0-2 (0-2); URINE WBC, MICROSCOPIC 0-2 (0-2)
[2022-01-16] MEDS: ATIVAN PO SCH (20:48)
[2022-01-17] MEDS: ATIVAN PO PRN (01:06)
[2022-01-17] MEDS: VENTOLIN HFA (PER PUFF-WITH SPACER) IH SCH ×4 (05:05→20:03)
[2022-01-17 05:21] LABS: BASOPHILS % (AUTO) 0.2 % (0.0-3.0); HEMATOCRIT 29.3 % (37.0-47.0); HEMOGLOBIN 9.9 g/dl (12.0-16.0); IMMATURE GRANULOCYTE # (AUTO) 0.3 (0.0-1.0); IMMATURE GRANULOCYTE % (AUTO) 2.4 % (0.0-5.0); LYMPHOCYTES # (AUTO) 1.2 K/uL (0.60-3.4); LYMPHOCYTES % (AUTO) 10.1 (10.0-50.0); MEAN CORPUSCULAR HEMOGLOBIN 28.4 pg (27.0-31.0); MEAN CORPUSCULAR HGB CONC 33.8 (31.8-35.4); MONOCYTES # (AUTO) 0.5 K/uL (0.4-2.0); MONOCYTES % (AUTO) 4.5 (0-10); NEUTROPHILS # (AUTO) 9.8 K/ul (2.0-6.9); NEUTROPHILS % (AUTO) 82.8 % (42.2-75.2); PLATELET COUNT 408 10^3/uL (140-440); RED BLOOD COUNT 3.49 10^6/ul (4.20-5.40)
[2022-01-17 05:37] LABS: ALANINE AMINOTRANSFERASE 15.6 U/L (0-35); ALBUMIN 3.48 g/dL (3.5-5.0); ALKALINE PHOSPHATASE 72.8 U/L (53-141); ASPARTATE AMINO TRANSFERASE 24.3 U/L (14-36); BILIRUBIN,TOTAL 0.47 mg/dL (0.2-1.3); BLOOD UREA NITROGEN 44.9 mg/dL (7-17); CALCIUM 8.71 mg/dL (8.4-10.2); CARBON DIOXIDE 14.1 mmol/L (22-30.0); CHLORIDE 113.6 mmol/L (98-107); CREATININE 1.59 mg/dL (0.60-1.30); GLUCOSE 179.4 mg/dL (74-106); POTASSIUM 4.53 mmol/L (3.5-5.1); SODIUM 139.2 mmol/L (134.5-145); TOTAL PROTEIN 6.68 g/dL (6.3-8.2)
[2022-01-17] MEDS: PEPCID PO SCH ×2 (05:54→17:03)
[2022-01-17 06:50] LABS: ABG O2 HGB 93.6 % (95-100); ABG PH 7.48 (7.35-7.45); BEecf -7.9 (-2.0-3.0); COHb 1.7 (0.5-1.5); HCO3 15.6 (21-28); MetHb 1.5 (0-1.5); TCO2 16.2 (19-24); sO2 94.9 % (94-98); tHb 10.6 g/dl (11.7-17.4)
--- NOTE | 2022-01-17 08:53 | PCM.PROG ---
Attending Provider: ATTENDING PROVIDER: Dr. DESTINEY OCPPOLA This patient is seen with Annette Edgar, Nurse Practitioner. DATE OF SERVICE: 01/17/22 SUBJECTIVE: This 86 year old /WHITE F was hospitalized 01/06/22. Still pleasantly confused, very weak. Vapotherm still at 60. Not eating much. Renal function is worsening. REVIEW OF SYSTEMS: CONSTITUTIONAL: No night sweats. No fatigue, malaise, lethargy. No fever or chills. Weakness. HEENT: Eyes: No visual changes. No eye pain. No eye discharge. ENT: No runny nose. No epistaxis. No sinus pain. No odynophagia. No congestion. RESPIRATORY: No cough, no congestion. No hemoptysis. Shortness of breath. CARDIOVASCULAR: No angina symptoms. No CHF symptoms. No atypical chest pain for CAD. No palpitations. No orthopnea.. GASTROINTESTINAL: No abdominal pain. No nausea or vomiting. No diarrhea or constipation. No hematemesis. No hematochezia. GENITOURINARY: No urgency. No frequency. No dysuria. No hematuria. No obstructive symptoms. No discharge. No pain. No significant abnormal bleeding. MUSCULOSKELETAL: No musculoskeletal pain; no joint swelling. NEUROLOGICAL: Awake, alert, confusion. No headache. No neck pain. No syncope. No seizures. No dizziness. PSYCHIATRIC: Not anxious. No depression. No suicidal thoughts. No homicidal thoughts. SKIN: No rash. No lesions. No wounds. ENDOCRINE: No unexplained weight loss. No weight gain. HEMATOLOGIC/LYMPHATIC: No anemia. No purpura. No petechiae. No prolonged or excessive bleeding. No palpable lymph nodes. PHYSICAL EXAMINATION: GENERAL: The patient is awake, alert and oriented to person only, lying in bed in no distress. VITAL SIGNS: Temperature 98.5 F, Pulse 100, Respiratory Rate 24, BP 159/81, Pulse Ox 96% HEENT: Head normocephalic, atraumatic. Eyes: Extraocular muscles are intact. Pupils are equal, round and reactive to light and accommodation. Ears: No lesions. Nose appeared normal. Throat: No exudate or erythema. NECK: Supple. No JVD, no carotid bruit. No lymphadenopathy or thyromegaly. LUNGS: Diminished breath sounds. Clear to auscultation. Percussion note normal. Chest symmetrical. HEART: S1, S2, no S3. No murmurs. No cyanosis or clubbing. No ascites. Pulses: Dorsalis pedis and posterior tibial pulses +1 to +2 both sides. ABDOMEN: Soft. Non-tender. Bowel sounds active. No CVA tenderness. No mass felt. EXTREMITIES: No edema. Full range of motion of all extremities, equal. NEUROLOGIC: No focal deficit. Cranial nerves II through XII are grossly intact. No headache. No double vision. SKIN: Not dry. Intact. Turgor-normal. Pallor. LYMPHATIC: No palpable lymph nodes/no lymphedema. MUSCULOSKELETAL: Normal joints with no swelling. Muscle tone is normal. LAB REVIEW: 01/17/22 05:15 01/17/22 05:15 01/17/22 06:47: Puncture Site Lbrach, Base Excess -7.9 L, O2 Saturation 94.9, ABG pH 7.48 H, ABG pCO2 21.0 L, ABG pO2 69.0 L, ABG HCO3 15.6 L, ABG Total CO2 16.2 L, Damion Test Pos, Hemoglobin 1.5, Oxyhemoglobin 93.6 L, Carboxyhemoglobin 1.7 H, Total Hemoglobin 10.6 L, O2 Delivery Device Vapotherm, FiO2 % 60.0 01/17/22 05:15: Sodium 139.2, Potassium 4.53, Chloride 113.6 H, Carbon Dioxide 14.1 L, Anion Gap 16.03, BUN 44.9 H, Creatinine 1.59 H, Estimated GFR (MDRD) 31.00, BUN/Creatinine Ratio 28.23, Glucose 179.4 H, Calcium 8.71, Total Bilirubin 0.47, AST 24.3, ALT 15.6, Alkaline Phosphatase 72.8, Total Protein 6.68, Albumin 3.48 L, Globulin 3.20, Albumin/Globulin Ratio 1.08 01/17/22 05:15: WBC 11.80 H, RBC 3.49 L, Hgb 9.9 L, Hct 29.3 L, MCV 84.0, MCH 28.4, MCHC 33.8, RDW Coeff of [place] 14.0, Plt Count 408, Immature Gran % (Auto) 2.4, Neut % (Auto) 82.8 H, Lymph % (Auto) 10.1, [place] % (Auto) 4.5, Eos % (Auto) 0.0, Baso % (Auto) 0.2, Neut # (Auto) 9.8 H, Lymph # (Auto) 1.2, [place] # (Auto) 0.5, Eos # (Auto) 0.0, Baso # (Auto) 0.0, Immature Gran # (Auto) 0.3 01/16/22 16:52: Urine Color Yellow, Urine Clarity Clear, Urine pH 5.0, Ur Specific [place] 1.025, Urine Protein 1+ H, Urine Glucose (UA) Negative, Urine Ketones Negative, Urine Blood Negative, Urine Nitrite Negative, Urine Bilirubin Negative, Urine Urobilinogen 0.2, Ur Leukocyte Esterase Negative, Urine Microscopic RBC 0-2, Urine Microscopic WBC 0-2, Ur Squamous Epith Cells 0-2, Ur Renal Epithelial Cell 0-2, Urine Bacteria Trace ASSESSMENT: Please see below. 1. Acute respiratory failure due to COVID 2. Bilateral COVID pneumonia 3. Renal azotemia 4. Generalized weakness 5. COVID versus hospital Psychosis PLAN: Start IV fluids at 75cc times one liter then decrease to 50cc Plan and coordination of the patient's care discussed in the presence of Insurance Risk Manager and nurse. SCRIBED BY: SU FELDMAN Risk Control Manager scribed while in presence of service performed by Dr. Coppola/Annette Edgar APRN on 01/17/22 ([id number])
[2022-01-17] MEDS ORDERED: SODIUM CHLORIDE 1,000 ML IV SCH (09:00)
--- NOTE | 2022-01-17 09:11 | PN ---
DATE OF SERVICE: 01/14/22 SUBJECTIVE: The patient was seen and examined with Nurse Practitioner. The patient's condition is stable but she is not eating much. She has lost a lot of weight. Respiratory status is stable but still needs to have a lot of improvement. We will do echo within few days. TIME SPENT: More than 30 minutes. Plan and coordination of the patient's care discussed in the presence of nurse. EAN
[2022-01-17] MEDS: DECADRON IVP SCH ×2 (09:36→20:52)
[2022-01-17] MEDS: SYMBICORT 160-4.5 MCG INHALER IH SCH ×2 (09:36→20:53)
[2022-01-17] MEDS: ELIQUIS PO SCH ×2 (09:36→20:53)
[2022-01-17] MEDS: ZOFRAN 4 MG/2 ML IVP SCH ×3 (09:37→20:52)
[2022-01-17] MEDS: K-DUR PO SCH (09:37)
--- NOTE | 2022-01-17 09:46 | PN ---
DATE OF SERVICE: 01/15/22 SUBJECTIVE: The patient was seen and examined with the Nurse Practitioner. The patient's condition has slowly improved. 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 She is off and on. She is oriented to person and place. Her respiratory status has stayed steady with hypoxemia requiring 3 to 4 liters of oxygen. There is no evidence of CHF at present time. Renal failure has resolved. TIME SPENT: More than 30 minutes. Plan and coordination of the patient's care discussed in the presence of nurse. EAN
[2022-01-17] MEDS: LEVAQUIN 750 MG/150 ML D5W 750 MG/150 ML BAG IV SCH (12:20)
[2022-01-17] MEDS: VANCOMYCIN 1.5 GRAM/300 ML PREMIX 1.5 GM/300 ML BAG IV SCH ×2 (15:09→16:16)
[2022-01-17] MEDS: VANCOMYCIN 1 GM in SODIUM CHLORIDE 250 ML IV SCH (16:16)
[2022-01-17] MEDS: ATIVAN PO SCH (20:52)
[2022-01-18] MEDS: VENTOLIN HFA (PER PUFF-WITH SPACER) IH SCH ×3 (05:00→19:50)
[2022-01-18 05:06] LABS: ABG PH 7.44 (7.35-7.45); BEecf -9.3 (-2.0-3.0); COHb 1.5 (0.5-1.5); HCO3 14.9 (21-28); MetHb 1.5 (0-1.5); TCO2 15.6 (19-24); sO2 95.8 % (94-98); tHb 7.8 g/dl (11.7-17.4)
[2022-01-18 05:07] LABS: ABG O2 HGB 94.8 % (95-100)
[2022-01-18] MEDS: SODIUM CHLORIDE 1,000 ML IV SCH (05:08)
[2022-01-18 05:30] LABS: BASOPHILS % (AUTO) 0.1 % (0.0-3.0); HEMATOCRIT 27.8 % (37.0-47.0); HEMOGLOBIN 9.4 g/dl (12.0-16.0); IMMATURE GRANULOCYTE # (AUTO) 0.2 (0.0-1.0); IMMATURE GRANULOCYTE % (AUTO) 2.5 % (0.0-5.0); LYMPHOCYTES # (AUTO) 0.8 K/uL (0.60-3.4); LYMPHOCYTES % (AUTO) 8.3 (10.0-50.0); MEAN CORPUSCULAR HEMOGLOBIN 28.5 pg (27.0-31.0); MEAN CORPUSCULAR HGB CONC 33.8 (31.8-35.4); MEAN CORPUSCULAR VOLUME 84.2 fl (81.0-99.0); MONOCYTES # (AUTO) 0.3 K/uL (0.4-2.0); MONOCYTES % (AUTO) 3.5 (0-10); NEUTROPHILS # (AUTO) 7.9 K/ul (2.0-6.9); NEUTROPHILS % (AUTO) 85.6 % (42.2-75.2); PLATELET COUNT 368 10^3/uL (140-440); RDW COEFFICIENT OF VARIATION 14.2 % (11.6-14.8); WHITE BLOOD COUNT 9.26 K/ul (4.6-10.2)
[2022-01-18] MEDS: PEPCID PO SCH ×2 (05:33→17:20)
[2022-01-18 05:43] LABS: ALANINE AMINOTRANSFERASE 13.5 U/L (0-35); ALBUMIN 3.09 g/dL (3.5-5.0); ALKALINE PHOSPHATASE 64.2 U/L (53-141); ASPARTATE AMINO TRANSFERASE 19.3 U/L (14-36); BILIRUBIN,TOTAL 0.47 mg/dL (0.2-1.3); BLOOD UREA NITROGEN 39.6 mg/dL (7-17); CALCIUM 8.02 mg/dL (8.4-10.2); CARBON DIOXIDE 12.9 mmol/L (22-30.0); CREATININE 1.36 mg/dL (0.60-1.30); GLUCOSE 200.6 mg/dL (74-106); POTASSIUM 4.34 mmol/L (3.5-5.1); SODIUM 138.7 mmol/L (134.5-145); TOTAL PROTEIN 6.2 g/dL (6.3-8.2)
[2022-01-18] MEDS: ZOFRAN 4 MG/2 ML IVP SCH ×3 (09:02→22:10)
[2022-01-18] MEDS: ELIQUIS PO SCH ×2 (09:02→21:16)
[2022-01-18] MEDS: COZAAR PO SCH ×2 (09:02→21:16)
[2022-01-18] MEDS: K-DUR PO SCH (09:02)
[2022-01-18] MEDS: VANCOMYCIN 1.5 GRAM/300 ML PREMIX 1.5 GM/300 ML BAG IV SCH (09:07)
[2022-01-18] MEDS: DECADRON IVP SCH ×2 (09:11→22:11)
[2022-01-18] MEDS: SYMBICORT 160-4.5 MCG INHALER IH SCH ×2 (09:32→21:22)
--- NOTE | 2022-01-18 09:54 | PCM.PROG ---
Attending Provider: ATTENDING PROVIDER: Dr. DESTINEY COPPOLA DATE OF SERVICE: 01/18/22 SUBJECTIVE: This 86 year old /WHITE F was hospitalized 01/06/22 with COVID 19 status with acute renal failure. The patient then developed acute renal failure. Oxygen saturation seems to be improved. She is feeling better. She is oriented to time, place and person. REVIEW OF SYSTEMS: CONSTITUTIONAL: No night sweats. No fatigue, malaise, lethargy. No fever or chills. HEENT: Eyes: No visual changes. No eye pain. No eye discharge. ENT: No runny nose. No epistaxis. No sinus pain. No odynophagia. No congestion. RESPIRATORY: No cough, no congestion. No hemoptysis. No shortness of breath. CARDIOVASCULAR: No angina symptoms. No CHF symptoms. No atypical chest pain for CAD. No palpitations. No orthopnea.. GASTROINTESTINAL: No abdominal pain. No nausea or vomiting. No diarrhea or constipation. No hematemesis. No hematochezia. Appetite improved. GENITOURINARY: No urgency. No frequency. No dysuria. No hematuria. No obstructive symptoms. No discharge. No pain. No significant abnormal bleeding. MUSCULOSKELETAL: No musculoskeletal pain; no joint swelling. NEUROLOGICAL: Awake, alert, oriented to time, place and person. No headache. No neck pain. No syncope. No seizures. No dizziness. PSYCHIATRIC: Not anxious. No depression. No suicidal thoughts. No homicidal thoughts. SKIN: No rash. No lesions. No wounds. ENDOCRINE: No unexplained weight loss. No weight gain. HEMATOLOGIC/LYMPHATIC: No anemia. No purpura. No petechiae. No prolonged or excessive bleeding. No palpable lymph nodes. PHYSICAL EXAMINATION: GENERAL: The patient is awake, alert and oriented, sitting in bed in no distress. VITAL SIGNS: Temperature 98.8 F, Pulse 88, Respiratory Rate 18, BP 173/84, Pulse Ox 97% HEENT: Head normocephalic, atraumatic. Eyes: Extraocular muscles are intact. Pupils are equal, round and reactive to light and accommodation. Ears: No lesions. Nose appeared normal. Throat: No exudate or erythema. NECK: Supple. No JVD, no carotid bruit. No lymphadenopathy or thyromegaly. LUNGS: Diminished breath sounds. Clear to auscultation. Percussion note normal. Chest symmetrical. HEART: S1, S2, no S3. No murmurs. No cyanosis or clubbing. No ascites. Pu lses: Dorsalis pedis and posterior tibial pulses +1 to +2 both sides. ABDOMEN: Soft. Non-tender. Bowel sounds active. No CVA tenderness. No mass felt. EXTREMITIES: Trace edema. Full range of motion of all extremities, equal. NEUROLOGIC: No focal deficit. Cranial nerves II through XII are grossly intact. No headache, no double vision or headache. SKIN: Warm and dry. Intact. Turgor-normal. LYMPHATIC: No palpable lymph nodes/no lymphedema. MUSCULOSKELETAL: Normal joints with no swelling. Muscle tone is normal. LAB REVIEW: 01/18/22 04:56 01/18/22 04:56 01/18/22 04:56: Sodium 138.7, Potassium 4.34, Chloride 116.0 H, Carbon Dioxide 12.9 L, Anion Gap 14.14, BUN 39.6 H, Creatinine 1.36 H, Estimated GFR (MDRD) 37.00, BUN/Creatinine Ratio 29.11, Glucose 200.6 H, Calcium 8.02 L, Total Bilirubin 0.47, AST 19.3, ALT 13.5, Alkaline Phosphatase 64.2, Total Protein 6.20 L, Albumin 3.09 L, Globulin 3.11, Albumin/Globulin Ratio 0.99 01/18/22 04:56: WBC 9.26, RBC 3.30 L, Hgb 9.4 L, Hct 27.8 L, MCV 84.2, MCH 28.5, MCHC 33.8, RDW Coeff of Gloria 14.2, Plt Count 368, Immature Gran % (Auto) 2.5, Neut % (Auto) 85.6 H, Lymph % (Auto) 8.3 L, [place] % (Auto) 3.5, Eos % (Auto) 0.0, Baso % (Auto) 0.1, Neut # (Auto) 7.9 H, Lymph # (Auto) 0.8, [place] # (Auto) 0.3 L, Eos # (Auto) 0.0, Baso # (Auto) 0.0, Immature Gran # (Auto) 0.2 01/18/22 04:55: Puncture Site Rb, Base Excess -9.3 L, O2 Saturation 95.8, ABG pH 7.44, ABG pCO2 22.0 L, ABG pO2 77.0 L, ABG HCO3 14.9 L, ABG Total CO2 15.6 L, Damion Test +, Hemoglobin 1.5, Oxyhemoglobin 94.8 L, Carboxyhemoglobin 1.5, Total Hemoglobin 7.8 L, O2 Delivery Device Vapotherm, FiO2 % 60.0 01/17/22 08:30: Vancomycin Trough 15.561 ASSESSMENT: Please see below. 1. Renal failure resolved 2. Chronic kidney disease stage 2-3 stable 3. Respiratory failure, stable with continue hypoxemia 4. Nutritional status suffered some from COVID, trying to build back with improved appetite. PLAN: 1. The patient is going to go to [facility] [employer] [employer] likely Friday a few days from now. 2. Norvasc 5mg at night 3. Losartan 50mg BID Plan and coordination of the patient's care discussed in the presence of Materials Planning Analyst and nurse. CONDITION: Stable SCRIBED BY: SU FELDMAN Conference And Event Organiser scribed while in presence of service performed by Dr. DESTINEY COPPOLA on 01/18/22 ([id number])
[2022-01-18] MEDS: HUMULIN R SUBCUT PRN (17:20)
[2022-01-18] MEDS: ATIVAN PO SCH (21:16)
[2022-01-18] MEDS: NORVASC PO SCH (21:16)
[2022-01-18] MEDS ORDERED: CEPACOL SORE THROAT LOZENGE MUCOUSMEMB ONE (22:20)
[2022-01-19] MEDS: SODIUM CHLORIDE 1,000 ML IV SCH ×2 (00:52→21:51)
[2022-01-19] MEDS: VENTOLIN HFA (PER PUFF-WITH SPACER) IH SCH ×3 (04:55→19:21)
[2022-01-19 05:01] LABS: BASOPHILS % (AUTO) 0.1 % (0.0-3.0); HEMATOCRIT 28.1 % (37.0-47.0); HEMOGLOBIN 9.4 g/dl (12.0-16.0); IMMATURE GRANULOCYTE # (AUTO) 0.2 (0.0-1.0); LYMPHOCYTES # (AUTO) 0.7 K/uL (0.60-3.4); LYMPHOCYTES % (AUTO) 6.8 (10.0-50.0); MEAN CORPUSCULAR HEMOGLOBIN 28.4 pg (27.0-31.0); MEAN CORPUSCULAR HGB CONC 33.5 (31.8-35.4); MEAN CORPUSCULAR VOLUME 84.9 fl (81.0-99.0); MONOCYTES # (AUTO) 0.3 K/uL (0.4-2.0); MONOCYTES % (AUTO) 2.9 (0-10); NEUTROPHILS # (AUTO) 9.5 K/ul (2.0-6.9); NEUTROPHILS % (AUTO) 88.2 % (42.2-75.2); PLATELET COUNT 318 10^3/uL (140-440); RDW COEFFICIENT OF VARIATION 14.4 % (11.6-14.8); RED BLOOD COUNT 3.31 10^6/ul (4.20-5.40); WHITE BLOOD COUNT 10.72 K/ul (4.6-10.2)
[2022-01-19 05:14] LABS: ALANINE AMINOTRANSFERASE 13.3 U/L (0-35); ALBUMIN 2.96 g/dL (3.5-5.0); ALKALINE PHOSPHATASE 59.3 U/L (53-141); ASPARTATE AMINO TRANSFERASE 18.1 U/L (14-36); BILIRUBIN,TOTAL 0.5 mg/dL (0.2-1.3); CALCIUM 8.24 mg/dL (8.4-10.2); CARBON DIOXIDE 13.1 mmol/L (22-30.0); CHLORIDE 117.8 mmol/L (98-107); CREATININE 1.31 mg/dL (0.60-1.30); GLUCOSE 221.1 mg/dL (74-106); POTASSIUM 4.31 mmol/L (3.5-5.1); SODIUM 138.2 mmol/L (134.5-145); TOTAL PROTEIN 5.94 g/dL (6.3-8.2)
[2022-01-19] MEDS: PEPCID PO SCH ×3 (05:58→16:46)
[2022-01-19] MEDS: HUMULIN R SUBCUT PRN ×2 (06:20→13:18)
[2022-01-19] MEDS: SYMBICORT 160-4.5 MCG INHALER IH SCH ×2 (08:39→20:59)
[2022-01-19] MEDS: COZAAR PO SCH ×2 (08:39→20:58)
[2022-01-19] MEDS: LEVAQUIN 750 MG/150 ML D5W 750 MG/150 ML BAG IV SCH (08:39)
[2022-01-19] MEDS: K-DUR PO SCH (08:39)
[2022-01-19] MEDS: ELIQUIS PO SCH ×2 (08:40→20:59)
[2022-01-19] MEDS: DECADRON IVP SCH ×2 (08:45→20:55)
[2022-01-19] MEDS: ZOFRAN 4 MG/2 ML IVP SCH ×3 (08:45→20:55)
[2022-01-19] MEDS: VANCOMYCIN 1.5 GRAM/300 ML PREMIX 1.5 GM/300 ML BAG IV SCH (11:51)
[2022-01-19] MEDS: ATIVAN PO SCH (20:58)
[2022-01-19] MEDS: NORVASC PO SCH (20:58)
[2022-01-19] MEDS: CEPACOL SORE THROAT LOZENGE MUCOUSMEMB PRN (23:20)
[2022-01-20] MEDS: ATIVAN PO PRN (01:01)
[2022-01-20] MEDS: CEPACOL SORE THROAT LOZENGE MUCOUSMEMB PRN (01:15)
[2022-01-20] MEDS: NORCO 5-325 PO PRN ×2 (02:30→20:24)
[2022-01-20] MEDS: VENTOLIN HFA (PER PUFF-WITH SPACER) IH SCH ×3 (04:35→19:07)
[2022-01-20 05:12] LABS: BASOPHILS % (AUTO) 0.1 % (0.0-3.0); HEMATOCRIT 28.5 % (37.0-47.0); HEMOGLOBIN 9.4 g/dl (12.0-16.0); IMMATURE GRANULOCYTE # (AUTO) 0.1 (0.0-1.0); IMMATURE GRANULOCYTE % (AUTO) 1.3 % (0.0-5.0); LYMPHOCYTES # (AUTO) 0.7 K/uL (0.60-3.4); LYMPHOCYTES % (AUTO) 6.5 (10.0-50.0); MEAN CORPUSCULAR VOLUME 84.8 fl (81.0-99.0); MONOCYTES # (AUTO) 0.4 K/uL (0.4-2.0); MONOCYTES % (AUTO) 3.7 (0-10); NEUTROPHILS # (AUTO) 8.9 K/ul (2.0-6.9); NEUTROPHILS % (AUTO) 88.4 % (42.2-75.2); PLATELET COUNT 305 10^3/uL (140-440); RDW COEFFICIENT OF VARIATION 14.6 % (11.6-14.8); RED BLOOD COUNT 3.36 10^6/ul (4.20-5.40); WHITE BLOOD COUNT 10.03 K/ul (4.6-10.2)
[2022-01-20 05:28] LABS: ALANINE AMINOTRANSFERASE 14.4 U/L (0-35); ALBUMIN 2.86 g/dL (3.5-5.0); ALKALINE PHOSPHATASE 55.4 U/L (53-141); ASPARTATE AMINO TRANSFERASE 17.4 U/L (14-36); BILIRUBIN,TOTAL 0.44 mg/dL (0.2-1.3); BLOOD UREA NITROGEN 40.4 mg/dL (7-17); CALCIUM 8.13 mg/dL (8.4-10.2); CHLORIDE 117.6 mmol/L (98-107); CREATININE 1.24 mg/dL (0.60-1.30); GLUCOSE 245.7 mg/dL (74-106); POTASSIUM 4.61 mmol/L (3.5-5.1); SODIUM 137.5 mmol/L (134.5-145); TOTAL PROTEIN 5.73 g/dL (6.3-8.2)
[2022-01-20] MEDS: PEPCID PO SCH ×2 (05:40→16:49)
[2022-01-20] MEDS: HUMULIN R SUBCUT PRN (05:54)
[2022-01-20] MEDS: VANCOMYCIN 1.5 GRAM/300 ML PREMIX 1.5 GM/300 ML BAG IV SCH (08:40)
[2022-01-20] MEDS: COZAAR PO SCH ×2 (08:40→20:24)
[2022-01-20] MEDS: ZOFRAN 4 MG/2 ML IVP SCH ×3 (08:40→20:24)
[2022-01-20] MEDS: K-DUR PO SCH (08:41)
[2022-01-20] MEDS: ELIQUIS PO SCH ×2 (08:41→20:24)
[2022-01-20] MEDS: DECADRON IVP SCH ×2 (08:46→20:29)
[2022-01-20] MEDS: SYMBICORT 160-4.5 MCG INHALER IH SCH ×2 (08:50→20:27)
[2022-01-20] MEDS: NYSTATIN ORAL SUSP PO SCH ×3 (13:08→20:24)
[2022-01-20] MEDS: DIFLUCAN PO SCH (13:08)
[2022-01-20] MEDS: NORVASC PO SCH (20:24)
[2022-01-20] MEDS: ATIVAN PO SCH (20:26)
[2022-01-20] MEDS: SODIUM CHLORIDE 1,000 ML IV SCH (20:44)
[2022-01-21] MEDS: VENTOLIN HFA (PER PUFF-WITH SPACER) IH SCH ×3 (04:40→19:40)
[2022-01-21 05:11] LABS: BASOPHILS % (AUTO) 0.1 % (0.0-3.0); HEMATOCRIT 29.5 % (37.0-47.0); HEMOGLOBIN 9.9 g/dl (12.0-16.0); IMMATURE GRANULOCYTE # (AUTO) 0.1 (0.0-1.0); IMMATURE GRANULOCYTE % (AUTO) 1.1 % (0.0-5.0); LYMPHOCYTES # (AUTO) 0.7 K/uL (0.60-3.4); LYMPHOCYTES % (AUTO) 6.9 (10.0-50.0); MEAN CORPUSCULAR HEMOGLOBIN 28.3 pg (27.0-31.0); MEAN CORPUSCULAR HGB CONC 33.6 (31.8-35.4); MEAN CORPUSCULAR VOLUME 84.3 fl (81.0-99.0); MONOCYTES # (AUTO) 0.3 K/uL (0.4-2.0); MONOCYTES % (AUTO) 2.6 (0-10); NEUTROPHILS # (AUTO) 9.4 K/ul (2.0-6.9); NEUTROPHILS % (AUTO) 89.3 % (42.2-75.2); PLATELET COUNT 285 10^3/uL (140-440); RDW COEFFICIENT OF VARIATION 14.6 % (11.6-14.8); WHITE BLOOD COUNT 10.56 K/ul (4.6-10.2)
[2022-01-21 05:21] LABS: ALANINE AMINOTRANSFERASE 12.9 U/L (0-35); ALBUMIN 2.93 g/dL (3.5-5.0); ALKALINE PHOSPHATASE 58.3 U/L (53-141); ASPARTATE AMINO TRANSFERASE 23.5 U/L (14-36); BILIRUBIN,TOTAL 0.5 mg/dL (0.2-1.3); BLOOD UREA NITROGEN 39.2 mg/dL (7-17); CALCIUM 8.24 mg/dL (8.4-10.2); CARBON DIOXIDE 11.7 mmol/L (22-30.0); CHLORIDE 116.4 mmol/L (98-107); CREATININE 1.24 mg/dL (0.60-1.30); GLUCOSE 248.1 mg/dL (74-106); POTASSIUM 4.58 mmol/L (3.5-5.1); SODIUM 135.3 mmol/L (134.5-145); TOTAL PROTEIN 5.78 g/dL (6.3-8.2)
[2022-01-21] MEDS: NYSTATIN ORAL SUSP PO SCH ×4 (05:36→20:41)
[2022-01-21] MEDS: PEPCID PO SCH ×2 (05:36→17:07)
--- NOTE | 2022-01-21 09:05 | PCM.PROG ---
Attending Provider: ATTENDING PROVIDER: Dr. DESTINEY COPPOLA This patient is seen with Annette Edgar, Nurse Practitioner. DATE OF SERVICE: 01/21/22 SUBJECTIVE: This 86 year old /WHITE F was hospitalized 01/06/22. Still pleasantly confused. Not eating much at all or drinking. She has been sating 96%. REVIEW OF SYSTEMS: CONSTITUTIONAL: No night sweats. No fatigue, malaise, lethargy. No fever or chills. Weakness. HEENT: Eyes: No visual changes. No eye pain. No eye discharge. ENT: No runny nose. No epistaxis. No sinus pain. No odynophagia. No congestion. RESPIRATORY: No cough, no congestion. No hemoptysis. Shortness of breath. CARDIOVASCULAR: No angina symptoms. No CHF symptoms. No atypical chest pain for CAD. No palpitations. No orthopnea.. GASTROINTESTINAL: No abdominal pain. No nausea or vomiting. No diarrhea or constipation. No hematemesis. No hematochezia. GENITOURINARY: No urgency. No frequency. No dysuria. No hematuria. No obstructive symptoms. No discharge. No pain. No significant abnormal bleeding. MUSCULOSKELETAL: No musculoskeletal pain; no joint swelling. NEUROLOGICAL: Awake, alert, confused. No headache. No neck pain. No syncope. No seizures. No dizziness. PSYCHIATRIC: Not anxious. No depression. No suicidal thoughts. No homicidal thoughts. SKIN: No rash. No lesions. No wounds. ENDOCRINE: No unexplained weight loss. No weight gain. HEMATOLOGIC/LYMPHATIC: No anemia. No purpura. No petechiae. No prolonged or excessive bleeding. No palpable lymph nodes. PHYSICAL EXAMINATION: GENERAL: The patient is awake, alert and oriented to person only, sitting in chair in no distress. VITAL SIGNS: Temperature 97.7 F, Pulse 91, Respiratory Rate 20, BP 145/76, Pulse Ox 96% HEENT: Head normocephalic, atraumatic. Eyes: Extraocular muscles are intact. Pupils are equal, round and reactive to light and accommodation. Ears: No lesions. Nose appeared normal. Throat: No exudate or erythema. NECK: Supple. No JVD, no carotid bruit. No lymphadenopathy or thyromegaly. LUNGS: Diminished breath sounds. Clear to auscultation. Percussion note normal. Chest symmetrical. HEART: S1, S2, no S3. No murmurs. No cyanosis or clubbing. No ascites. Pulses: Dorsalis pedis and posterior tibial pulses +1 to +2 both sides. ABDOMEN: Soft. Non-tender. Bowel sounds active. No CVA tenderness. No mass felt. EXTREMITIES: No edema. Full range of motion of all extremities, equal. NEUROLOGIC: No focal deficit. Cranial nerves II through XII are grossly intact. No headache. No double vision. SKIN: Not dry. Intact. Turgor-normal. LYMPHATIC: No palpable lymph nodes/no lymphedema. MUSCULOSKELETAL: Normal joints with no swelling. Muscle tone is normal. LAB REVIEW: 01/21/22 05:03 01/21/22 05:03 01/21/22 05:03: Sodium 135.3, Potassium 4.58, Chloride 116.4 H, Carbon Dioxide 11.7 L, Anion Gap 11.78, BUN 39.2 H, Creatinine 1.24, Estimated GFR (MDRD) 41.00, BUN/Creatinine Ratio 31.61, Glucose 248.1 H, Calcium 8.24 L, Total Bilirubin 0.50, AST 23.5, ALT 12.9, Alkaline Phosphatase 58.3, Total Protein 5.78 L, Albumin 2.93 L, Globulin 2.85, Albumin/Globulin Ratio 1.02 01/21/22 05:03: WBC 10.56 H, RBC 3.50 L, Hgb 9.9 L, Hct 29.5 L, MCV 84.3, MCH 28.3, MCHC 33.6, RDW Coeff of Gloria 14.6, Plt Count 285, Immature Gran % (Auto) 1.1, Neut % (Auto) 89.3 H, Lymph % (Auto) 6.9 L, [place] % (Auto) 2.6, Eos % (Auto) 0.0, Baso % (Auto) 0.1, Neut # (Auto) 9.4 H, Lymph # (Auto) 0.7, [place] # (Auto) 0.3 L, Eos # (Auto) 0.0, Baso # (Auto) 0.0, Immature Gran # (Auto) 0.1 ASSESSMENT: Please see below. 1. Acute respiratory failure 2. Bilateral COVID pneumonia 3. COVID psychosis 4. Failure to thrive 5. Renal Azotemia 6. COPD PLAN: 1. CT head with and without 2. Repeat chest x-ray 3. Discontinue Zofran 4. Rpeat ABG Plan and coordination of the patient's care discussed in the presence of Savings Counselor and nurse. SCRIBED BY: Kvng ROLLE scribed while in presence of service performed by Dr. Coppola/Annette Edgar APRN on 01/21/22 ([id number])
[2022-01-21 09:28] LABS: ABG O2 HGB 93.5 % (95-100); ABG PH 7.41 (7.35-7.45); BEecf -12.6 (-2.0-3.0); MetHb 1.1 (0-1.5); TCO2 12.6 (19-24); sO2 93.2 % (94-98); tHb 11.3 g/dl (11.7-17.4)
[2022-01-21] MEDS: COZAAR PO SCH ×2 (09:48→20:19)
[2022-01-21] MEDS: ELIQUIS PO SCH ×2 (09:49→20:20)
[2022-01-21] MEDS: DIFLUCAN PO SCH (09:49)
[2022-01-21] MEDS: SYMBICORT 160-4.5 MCG INHALER IH SCH ×2 (09:58→20:18)
[2022-01-21] MEDS: K-DUR PO SCH (09:58)
[2022-01-21] MEDS: DECADRON IVP SCH ×2 (10:09→20:26)
--- NOTE | 2022-01-21 13:33 | DI ---
EXAM: CHEST RADIOGRAPH (1 VIEW) TECHNIQUE: Frontal Chest Radiograph. HISTORY: Pneumonia. COMPARISON: Chest radiograph 01/15/2022 FINDINGS: Lines, Tubes, Devices: None Lungs and Pleura: Bilateral peripheral lung opacities, slightly improved on the right and slightly w orsened on the left. Elevation of the right hemidiaphragm. No pleural effusion. No pneumothorax. Cardiomediastinum: Normal cardiomediastinal silhouette. No aortic calcifications. Bones/Soft Tissues: Degenerative changes of the spine. No soft tissue abnormality. Upper Abdomen: Cholecystectomy clips. IMPRESSION: Bilateral lung opacities concerning for pneumonia, worsened on the left and slightly improved on the right.
--- NOTE | 2022-01-21 13:37 | CT ---
EXAM: CT Head with and without contrast. HISTORY: Altered mental status. COMPARISON: 03/09/2021. TECHNIQUE: Multiple axial images of the brain were obtained from the skull base through the vertex p rior to and following intravenous administration of 70 mL Visipaque 320, low osmolar. Multiplanar re formats were provided. FINDINGS: There is no intracranial hemorrhage or extraaxial collection. The rojas-white differentiat ion is maintained without evidence for acute large vascular territory infarction. The cortical sulci and basal cisterns are well visualized. Stable chronic small vessel ischemic changes and atrophy. Dural calcifications. No areas of abnormal enhancement are identified. There is no hydrocephalus, m ass effect, or midline shift. The paranasal sinuses and mastoid air cells are clear. The calvarium is intact. IMPRESSION: No acute intracranial abnormality. All CT scans are performed using dose optimization techniques as appropriate to the performed exam an d include at least one of the following: Automated exposure control, adjustment of the mA and/or kV according t o size, and the use of iterative reconstruction technique.
--- NOTE | 2022-01-21 13:46 | PN ---
DATE OF SERVICE: 01/16/22 SUBJECTIVE: 86 year old white female hospitalized with COVID 19 and acute renal failure. Kidney functions practically returned to the usual level. Kidney disease with creatinine of 1.6 and BUN 42. Appetite has improved some. This morning the son is present in the room and the patient is acting somewhat better. She is feeling more hungry this morning. She is oriented to time, place and person. The patient has gone through COVID 19 status. She seems to be recovering slowly has developed pneumonitis with respiratory failure after she recovered from acute renal failure. Hypoxemia is more or less stable requiring Vapotherm 45% with saturation of 92%. REVIEW OF SYSTEMS: CONSTITUTIONAL: No night sweats. No fatigue, malaise, lethargy. No fever or chills. HEENT: Eyes: No visual changes. No eye pain. No eye discharge. ENT: No runny nose. No epistaxis. No sinus pain. No sore throat. No odynophagia. No congestion. RESPIRATORY: No cough, no congestion. No hemoptysis. Shortness of breath on exertion. CARDIOVASCULAR: No angina symptoms. No CHF symptoms. No atypical chest pain for CAD. No palpitations. No PND. No orthopnea. GASTROINTESTINAL: No abdominal pain. No nausea or vomiting. No diarrhea or constipation. No hematemesis. No hematochezia.Appetite seems to be improving, still not up to par. GENITOURINARY: No urgency. No frequency. No dysuria. No hematuria. No obstructive symptoms. No discharge. No pain. No significant abnormal bleeding. MUSCULOSKELETAL: No musculoskeletal pain; no joint swelling. NEUROLOGICAL: No headache. No neck pain. No syncope. No seizures. No dizziness. PSYCHIATRIC: Not anxious. No depression. No suicidal thoughts. No homicidal thoughts. SKIN: No rash. No lesions. No wounds. ENDOCRINE: No unexplained weight loss. No weight gain. HEMATOLOGIC/LYMPHATIC: No anemia. No purpura. No petechiae. No prolonged or excessive bleeding. No palpable lymph nodes. PHYSICAL EXAMINATION: VITAL SIGNS: Temperature 97.8, pulse 90, respiratory rate 20,blood pressure 170/85 and pulse ox 93%. HEENT: Head normocephalic, atraumatic. Eyes: Extraocular muscles are intact. Pupils are equal, round and reactive to light and accommodation. Ears: No lesions. Nose appeared normal. Throat: No exudate or erythema. NECK: Supple. No JVD, no carotid bruit. No lymphadenopathy or thyromegaly. LUNGS: Decreased breath sound but clear to auscultation. Percussion note normal. Chest symmetrical. HEART: S1, S2, no S3. No murmurs. No cyanosis or clubbing. No ascites. Pulses: Dorsalis pedis and posterior tibial pulses +1 to +2 bilaterally. ABDOMEN: Soft. Nontender. Bowel sounds active. No CVA tenderness. No mass felt. EXTREMITIES: No edema. Full range of motion of all extremities, equal. NEUROLOGIC: No focal deficit. Cranial nerves II through XII are grossly intact. No headache. No double vision. SKIN: Not dry. Intact. Turgor - normal. LYMPHATIC: No palpable lymph nodes/no lymphedema. MUSCULOSKELETAL: Normal joints with no swelling. Muscle tone is normal. LABS: Hgb 10.1, hct 30, WBC 13,000 normal differential, creatinine 1.6, BUN 42, potassium 4.5. ASSESSMENT: 1. Acute renal failure on admission seems to have resolved now the patient has chronic kidney disease too. 2. Respiratory failure which has persisted with pneumonitis, COVID 19 status 3. 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 Continue the patient on antibiotics, steroids and NEBS TIME SPENT: More than 30 minutes. Plan and coordination of the patient's care discussed in the presence of nurse. EAN
[2022-01-21] MEDS: SODIUM CHLORIDE 1,000 ML IV SCH (18:16)
[2022-01-21] MEDS: ATIVAN PO SCH (20:18)
[2022-01-21] MEDS: NORCO 5-325 PO PRN (20:19)
[2022-01-21] MEDS: NORVASC PO SCH (20:19)
[2022-01-22] MEDS: VENTOLIN HFA (PER PUFF-WITH SPACER) IH SCH ×3 (04:30→20:15)
[2022-01-22 05:01] LABS: BASOPHILS % (AUTO) 0.1 % (0.0-3.0); HEMOGLOBIN 10.1 g/dl (12.0-16.0); IMMATURE GRANULOCYTE # (AUTO) 0.1 (0.0-1.0); IMMATURE GRANULOCYTE % (AUTO) 0.7 % (0.0-5.0); LYMPHOCYTES # (AUTO) 0.4 K/uL (0.60-3.4); LYMPHOCYTES % (AUTO) 4.2 (10.0-50.0); MEAN CORPUSCULAR HEMOGLOBIN 28.5 pg (27.0-31.0); MEAN CORPUSCULAR HGB CONC 33.7 (31.8-35.4); MEAN CORPUSCULAR VOLUME 84.7 fl (81.0-99.0); MONOCYTES # (AUTO) 0.3 K/uL (0.4-2.0); NEUTROPHILS # (AUTO) 9.3 K/ul (2.0-6.9); PLATELET COUNT 268 10^3/uL (140-440); RDW COEFFICIENT OF VARIATION 14.6 % (11.6-14.8); RED BLOOD COUNT 3.54 10^6/ul (4.20-5.40); WHITE BLOOD COUNT 10.09 K/ul (4.6-10.2)
[2022-01-22 05:15] LABS: ALANINE AMINOTRANSFERASE 14.3 U/L (0-35); ALBUMIN 2.99 g/dL (3.5-5.0); ALKALINE PHOSPHATASE 54.4 U/L (53-141); ASPARTATE AMINO TRANSFERASE 16.4 U/L (14-36); BILIRUBIN,TOTAL 0.53 mg/dL (0.2-1.3); BLOOD UREA NITROGEN 37.5 mg/dL (7-17); CALCIUM 8.47 mg/dL (8.4-10.2); CHLORIDE 115.9 mmol/L (98-107); CREATININE 1.16 mg/dL (0.60-1.30); GLUCOSE 260.8 mg/dL (74-106); POTASSIUM 4.73 mmol/L (3.5-5.1); SODIUM 134.9 mmol/L (134.5-145); TOTAL PROTEIN 5.8 g/dL (6.3-8.2)
[2022-01-22] MEDS: NYSTATIN ORAL SUSP PO SCH ×4 (05:46→20:57)
[2022-01-22] MEDS: PEPCID PO SCH ×2 (05:46→17:16)
--- NOTE | 2022-01-22 08:50 | PCM.PROG ---
Attending Provider: ATTENDING PROVIDER: Dr. DESTINEY COPPOLA This patient is seen with Annette Edgar, Nurse Practitioner. DATE OF SERVICE: 01/22/22 SUBJECTIVE: This 86 year old /WHITE F was hospitalized 01/06/22. Mental status is about the same. Labs are stable. ABG yesterday essential unchanged. Chest x-ray showed slight improvement. Still not eating. REVIEW OF SYSTEMS: CONSTITUTIONAL: No night sweats. No fatigue, malaise, lethargy. No fever or chills. Weakness. HEENT: Eyes: No visual changes. No eye pain. No eye discharge. ENT: No runny nose. No epistaxis. No sinus pain. No odynophagia. No congestion. RESPIRATORY: No cough, no congestion. No hemoptysis. Shortness of breath. CARDIOVASCULAR: No angina symptoms. No CHF symptoms. No atypical chest pain for CAD. No palpitations. No orthopnea.. GASTROINTESTINAL: No abdominal pain. No nausea or vomiting. No diarrhea or constipation. No hematemesis. No hematochezia. Loss of appetite. GENITOURINARY: No urgency. No frequency. No dysuria. No hematuria. No obstructive symptoms. No discharge. No pain. No significant abnormal bleeding. MUSCULOSKELETAL: No musculoskeletal pain; no joint swelling. NEUROLOGICAL: Awake, alert, confusion. No headache. No neck pain. No syncope. No seizures. No dizziness. PSYCHIATRIC: Not anxious. No depression. No suicidal thoughts. No homicidal thoughts. SKIN: No rash. No lesions. No wounds. ENDOCRINE: No unexplained weight loss. No weight gain. HEMATOLOGIC/LYMPHATIC: No anemia. No purpura. No petechiae. No prolonged or excessive bleeding. No palpable lymph nodes. PHYSICAL EXAMINATION: GENERAL: The patient is awake, alert and oriented to person, sitting in bed in no distress. VITAL SIGNS: Temperature 98.3 F, Pulse 93, Respiratory Rate 20, BP 155/90, Pulse Ox 96% HEENT: Head normocephalic, atraumatic. Eyes: Extraocular muscles are intact. Pupils are equal, round and reactive to light and accommodation. Ears: No lesions. Nose appeared normal. Throat: No exudate or erythema. NECK: Supple. No JVD, no carotid bruit. No lymphadenopathy or thyromegaly. LUNGS: Diminished breath sounds. Clear to auscultation. Percussion note normal. Chest symmetrical. HEART: S1, S2, no S3. No murmurs. No cyanosis or clubbing. No ascites. Pulses: Dorsalis pedis and posterior tibial pulses +1 to +2 both sides. ABDOMEN: Soft. Non-tender. Bowel sounds active. No CVA tenderness. No mass felt. EXTREMITIES: No edema. Full range of motion of all extremities, equal. NEUROLOGIC: No focal deficit. Cranial nerves II through XII are grossly intact. No headache. No double vision. SKIN: Not dry. Intact. Turgor-normal. LYMPHATIC: No palpable lymph nodes/no lymphedema. MUSCULOSKELETAL: Normal joints with no swelling. Muscle tone is normal. LAB REVIEW: 01/22/22 04:45 01/22/22 04:45 01/22/22 04:45: Sodium 134.9, Potassium 4.73, Chloride 115.9 H, Carbon Dioxide 13.0 L, Anion Gap 10.73, BUN 37.5 H, Creatinine 1.16, Estimated GFR (MDRD) 44.00, BUN/Creatinine Ratio 32.32, Glucose 260.8 H, Calcium 8.47, Total Bilirubin 0.53, AST 16.4, ALT 14.3, Alkaline Phosphatase 54.4, Total Protein 5.80 L, Albumin 2.99 L, Globulin 2.81, Albumin/Globulin Ratio 1.06 01/22/22 04:45: WBC 10.09, RBC 3.54 L, Hgb 10.1 L, Hct 30.0 L, MCV 84.7, MCH 28.5, MCHC 33.7, RDW Coeff of Gloria 14.6, Plt Count 268, Immature Gran % (Auto) 0.7, Neut % (Auto) 92.0 H, Lymph % (Auto) 4.2 L, [place] % (Auto) 3.0, Eos % (Auto) 0.0, Baso % (Auto) 0.1, Neut # (Auto) 9.3 H, Lymph # (Auto) 0.4 L, [place] # (Auto) 0.3 L, Eos # (Auto) 0.0, Baso # (Auto) 0.0, Immature Gran # (Auto) 0.1 01/21/22 09:20: Puncture Site R rad, Base Excess -12.6 L, O2 Saturation 93.2 L, ABG pH 7.41, ABG pCO2 19.0 L, ABG pO2 67.0 L, ABG HCO3 12.0 L, ABG Total CO2 12.6 L, Damion Test Y, Hemoglobin 1.1, Oxyhemoglobin 93.5 L, Carboxyhemoglobin 2.0 H, Total Hemoglobin 11.3 L, O2 Delivery Device Vapotherm, FiO2 % 60.0 ASSESSMENT: Please see below. 1. Acute respiratory failure 2. Bilateral COVID 19 pneumonia 3. Renal azotemia 4. Failure to thrive 5. Generalized weakness. PLAN: 1. Megace 400mg daily 2. Discontinue Potassium Plan and coordination of the patient's care discussed in the presence of Accounting Clerks Supervisor and nurse. SCRIBED BY: Kvng ROLLE scribed while in presence of service performed by Dr. Coppola/Annette Edgar APRN on 01/22/22 ([id number])
[2022-01-22] MEDS: SYMBICORT 160-4.5 MCG INHALER IH SCH ×2 (09:06→20:52)
[2022-01-22] MEDS: DIFLUCAN PO SCH (09:06)
[2022-01-22] MEDS: COZAAR PO SCH ×2 (09:06→20:52)
[2022-01-22] MEDS: K-DUR PO SCH (09:07)
[2022-01-22] MEDS: ELIQUIS PO SCH ×2 (09:07→20:52)
[2022-01-22] MEDS: DECADRON IVP SCH (09:13)
--- NOTE | 2022-01-22 10:40 | PN ---
DATE OF SERVICE: 01/17/22 SUBJECTIVE: 86 year old white female hospitalized with COVID 19 status with acute renal failure which has resolved. Now she is in chronic respiratory failure for past few days. Respiratory status seems to be improving. Her appetite seems to be improving. She is more alert. The patient was seen and examined with the Nurse Practitioner. TIME SPENT: More than 30 minutes. Plan and coordination of the patient's care discussed in the presence of nurse. EAN
--- NOTE | 2022-01-22 11:06 | PN ---
DATE OF SERVICE: 01/19/22 SUBJECTIVE: 86 year old white female hospitalized with acute renal failure with COVID status for nearly 7 days duration before she came to the emergency room. The patient was given IV fluids now condition has improved. Kidney functions back to her original level. Next problem is respiratory failure with pneumonitis. She is on high flow oxygen with oxygen saturation 96% on 60% FiO2. The patient is feeling better. She is looking better. The patient has improved. REVIEW OF SYSTEMS: CONSTITUTIONAL: No night sweats. No fatigue, malaise, lethargy. No fever or chills. HEENT: Eyes: No visual changes. No eye pain. No eye discharge. ENT: No runny nose. No epistaxis. No sinus pain. No sore throat. No odynophagia. No congestion. RESPIRATORY: No cough, no congestion. No hemoptysis. No shortness of breath. CARDIOVASCULAR: No angina symptoms. No CHF symptoms. No atypical chest pain for CAD. No palpitations. No PND. No orthopnea. GASTROINTESTINAL: No abdominal pain. No nausea or vomiting. No diarrhea or constipation. No hematemesis. No hematochezia. GENITOURINARY: No urgency. No frequency. No dysuria. No hematuria. No obstructive symptoms. No discharge. No pain. No significant abnormal bleeding. MUSCULOSKELETAL: No musculoskeletal pain; no joint swelling. NEUROLOGICAL: No headache. No neck pain. No syncope. No seizures. No dizziness. PSYCHIATRIC: Not anxious. No depression. No suicidal thoughts. No homicidal thoughts. SKIN: No rash. No lesions. No wounds. ENDOCRINE: No unexplained weight loss. No weight gain. HEMATOLOGIC/LYMPHATIC: No anemia. No purpura. No petechiae. No prolonged or excessive bleeding. No palpable lymph nodes. PHYSICAL EXAMINATION: VITAL SIGNS: Temperature 97.8, pulse 77, respiratory rate 18, blood pressure 132/60 and pulse ox 95% on 60% FiO2 HEENT: Head normocephalic, atraumatic. Eyes: Extraocular muscles are intact. Pupils are equal, round and reactive to light and accommodation. Ears: No lesions. Nose appeared normal. Throat: No exudate or erythema. Looks somewhat pale. NECK: Supple. No JVD, no carotid bruit. No lymphadenopathy or thyromegaly. LUNGS: Decreased breath sounds with mild wheeze. Percussion note normal. Chest symmetrical. HEART: S1, S2, no S3. No murmurs. No cyanosis or clubbing. No ascites. Pulses: Dorsalis pedis and posterior tibial pulses +1 to +2 bilaterally. ABDOMEN: Soft. Nontender. Bowel sounds active. No CVA tenderness. No mass felt. EXTREMITIES: No edema. Full range of motion of all extremities, equal. NEUROLOGIC: No focal deficit. Cranial nerves II through XII are grossly intact. No headache. No double vision. SKIN: Mildly dry. Intact. Turgor - normal. LYMPHATIC: No palpable lymph nodes/no lymphedema. MUSCULOSKELETAL: Normal joints with no swelling. Muscle tone is normal. LABS: hgb 9.4, hct 28, WBC 10,000 normal differential, creatinine 1.3, BUN 39, potassium 4.3, glucose 221. ASSESSMENT: 1. Respiratory failure seems to be stable doing a little bit better 2. Renal failure seems to have resolved 3. COVID 19 Dementia seems to have improved. She is oriented to time, place and person. OVERALL CONDITION: Stable and improving ever so slowly. TIME SPENT: More than 30 minutes. Plan and coordination of the patient's care discussed in the presence of nurse. EAN
[2022-01-22] MEDS: MEGACE PO SCH (11:27)
[2022-01-22] MEDS: HUMULIN R SUBCUT PRN (11:27)
[2022-01-22 11:33] LABS: BILIRUBIN,URINE Negative (NEGATIVE); CLARITY,URINE Clear (CLEAR); COLOR,URINE Yellow (YELLOW); GLUCOSE, URINE (UA) Trace (NEGATIVE); KETONES,URINE Negative (NEGATIVE); LEUKOCYTE ESTERASE ,URINE Negative (NEGATIVE); NITRITE,URINE Negative (NEGATIVE); PH,URINE 5.5 (5-9); PROTEIN,URINE Trace (NEGATIVE); URINE, BLOOD 2+ (NEGATIVE); UROBILINOGEN,URINE 0.2 (0.2)
--- NOTE | 2022-01-22 11:34 | PN ---
DATE OF SERVICE: 01/20/22 SUBJECTIVE: The patient is doing well. She is resting at present time. Had good breakfast this morning. REVIEW OF SYSTEMS: CONSTITUTIONAL: No night sweats. No fatigue, malaise, lethargy. No fever or chills. HEENT: Eyes: No visual changes. No eye pain. No eye discharge. ENT: No runny nose. No epistaxis. No sinus pain. No sore throat. No odynophagia. No congestion. RESPIRATORY: No cough, no congestion. No hemoptysis. No shortness of breath. CARDIOVASCULAR: No angina symptoms. No CHF symptoms. No atypical chest pain for CAD. No palpitations. No PND. No orthopnea. GASTROINTESTINAL: No abdominal pain. No nausea or vomiting. No diarrhea or constipation. No hematemesis. No hematochezia. GENITOURINARY: No urgency. No frequency. No dysuria. No hematuria. No obstructive symptoms. No discharge. No pain. No significant abnormal bleeding. MUSCULOSKELETAL: No musculoskeletal pain; no joint swelling. NEUROLOGICAL: No headache. No neck pain. No syncope. No seizures. No dizziness. PSYCHIATRIC: Not anxious. No depression. No suicidal thoughts. No homicidal thoughts. SKIN: No rash. No lesions. No wounds. ENDOCRINE: No unexplained weight loss. No weight gain. HEMATOLOGIC/LYMPHATIC: No anemia. No purpura. No petechiae. No prolonged or excessive bleeding. No palpable lymph nodes. PHYSICAL EXAMINATION: VITAL SIGNS: Temperature 98.6, pulse 70, respiratory rate 18, blood pressure 140/80 with saturation 94% on 50% FiO2 Vapotherm. HEENT: Head normocephalic, atraumatic. Eyes: Extraocular muscles are intact. Pupils are equal, round and reactive to light and accommodation. Ears: No lesions. Nose appeared normal. Throat: No exudate or erythema. NECK: Supple. No JVD, no carotid bruit. No lymphadenopathy or thyromegaly. LUNGS: Decreased breath sounds but clear to auscultation. Percussion note normal. Chest symmetrical. HEART: S1, S2, no S3. No murmurs. No cyanosis or clubbing. No ascites. Pulses: Dorsalis pedis and posterior tibial pulses +1 to +2 bilaterally. ABDOMEN: Soft. Nontender. Bowel sounds active. No CVA tenderness. No mass felt. EXTREMITIES: No edema. Full range of motion of all extremities, equal. NEUROLOGIC: No focal deficit. Cranial nerves II through XII are grossly intact. No headache. No double vision. SKIN: Not dry. Intact. Turgor - normal. LYMPHATIC: No palpable lymph nodes/no lymphedema. MUSCULOSKELETAL: Normal joints with no swelling. Muscle tone is normal. ASSESSMENT: 1. Acute renal failure resolved 2. Chronic kidney disease 3. Respiratory failure, persists but chronic seems to be with some improvement 4. Nutritional status needs to be improving 5. Mental status has also improved. She had dementia the beginning of the patient's hospitalization which seems to have resolved to some extent. TIME SPENT: More than 30 minutes. Plan and coordination of the patient's care discussed in the presence of nurse. EAN
[2022-01-22 11:49] LABS: URINE RBC, MICROSCOPIC 20-30 (0-2); URINE WBC, MICROSCOPIC 0-2 (0-2)
[2022-01-22 11:51] LABS: MUCUS,URINE TRACE (NOT PRESENT); TRIPLE PHOSPHATE CRYSTAL,UR TRACE (NOT PRESENT); YEAST,URINE 1+ (NOT PRESENT)
[2022-01-22] MEDS: SODIUM CHLORIDE 1,000 ML IV SCH (12:52)
[2022-01-22] MEDS: HUMULIN R SUBCUT SCH (17:16)
[2022-01-22] MEDS: NORVASC PO SCH (20:52)
[2022-01-22] MEDS: ATIVAN PO SCH (20:52)
[2022-01-23] MEDS: VENTOLIN HFA (PER PUFF-WITH SPACER) IH SCH ×3 (04:55→20:10)
[2022-01-23 05:44] LABS: BASOPHILS % (AUTO) 0.1 % (0.0-3.0); HEMATOCRIT 30.6 % (37.0-47.0); HEMOGLOBIN 10.3 g/dl (12.0-16.0); IMMATURE GRANULOCYTE # (AUTO) 0.1 (0.0-1.0); LYMPHOCYTES # (AUTO) 0.6 K/uL (0.60-3.4); LYMPHOCYTES % (AUTO) 5.7 (10.0-50.0); MEAN CORPUSCULAR HEMOGLOBIN 28.5 pg (27.0-31.0); MEAN CORPUSCULAR HGB CONC 33.7 (31.8-35.4); MEAN CORPUSCULAR VOLUME 84.8 fl (81.0-99.0); MONOCYTES # (AUTO) 0.7 K/uL (0.4-2.0); MONOCYTES % (AUTO) 6.4 (0-10); NEUTROPHILS # (AUTO) 9.1 K/ul (2.0-6.9); NEUTROPHILS % (AUTO) 86.8 % (42.2-75.2); PLATELET COUNT 286 10^3/uL (140-440); RDW COEFFICIENT OF VARIATION 14.8 % (11.6-14.8); RED BLOOD COUNT 3.61 10^6/ul (4.20-5.40); WHITE BLOOD COUNT 10.42 K/ul (4.6-10.2)
[2022-01-23 05:55] LABS: ALBUMIN 2.97 g/dL (3.5-5.0); ALKALINE PHOSPHATASE 53.8 U/L (53-141); ASPARTATE AMINO TRANSFERASE 16.6 U/L (14-36); BILIRUBIN,TOTAL 0.56 mg/dL (0.2-1.3); BLOOD UREA NITROGEN 39.8 mg/dL (7-17); CALCIUM 8.49 mg/dL (8.4-10.2); CARBON DIOXIDE 13.5 mmol/L (22-30.0); CHLORIDE 114.8 mmol/L (98-107); CREATININE 1.17 mg/dL (0.60-1.30); GLUCOSE 235.8 mg/dL (74-106); POTASSIUM 4.34 mmol/L (3.5-5.1); TOTAL PROTEIN 5.73 g/dL (6.3-8.2)
[2022-01-23] MEDS: PEPCID PO SCH ×2 (06:03→17:15)
[2022-01-23] MEDS: NYSTATIN ORAL SUSP PO SCH ×4 (06:04→20:35)
[2022-01-23] MEDS: DIFLUCAN PO SCH (08:22)
[2022-01-23] MEDS: COZAAR PO SCH ×2 (08:22→20:34)
[2022-01-23] MEDS: ELIQUIS PO SCH ×2 (08:22→20:34)
[2022-01-23] MEDS: MEGACE PO SCH (08:22)
[2022-01-23] MEDS: SODIUM CHLORIDE 1,000 ML IV SCH (08:23)
[2022-01-23] MEDS: SYMBICORT 160-4.5 MCG INHALER IH SCH ×2 (08:28→20:35)
[2022-01-23] MEDS: HUMULIN R SUBCUT SCH ×3 (09:14→17:39)
[2022-01-23] MEDS: DECADRON IVP SCH (09:22)
--- NOTE | 2022-01-23 10:25 | PN ---
DATE OF SERVICE: 01/21/22 SUBJECTIVE: 86 year old white female hospitalized with acute renal failure with COVID status. The patient has respiratory failure which seems to be stable. The patient is going to need home oxygen at home. Her appetite has been improving. The patient was seen and examined with Nurse Practitioner. TIME SPENT: More than 30 minutes. Plan and coordination of the patient's care discussed in the presence of nurse. EAN
[2022-01-23] MEDS: NYSTOP POWDER TP SCH ×3 (13:15→20:35)
[2022-01-23] MEDS: ATIVAN PO SCH (20:34)
[2022-01-23] MEDS: NORVASC PO SCH (20:34)
[2022-01-24] MEDS: SODIUM CHLORIDE 1,000 ML IV SCH (03:25)
[2022-01-24] MEDS: VENTOLIN HFA (PER PUFF-WITH SPACER) IH SCH ×3 (04:35→19:43)
[2022-01-24] MEDS: PEPCID PO SCH ×2 (05:55→17:16)
[2022-01-24] MEDS: NYSTATIN ORAL SUSP PO SCH ×4 (05:55→20:21)
[2022-01-24 06:17] LABS: BASOPHILS % (AUTO) 0.1 % (0.0-3.0); HEMATOCRIT 30.9 % (37.0-47.0); HEMOGLOBIN 10.4 g/dl (12.0-16.0); IMMATURE GRANULOCYTE # (AUTO) 0.1 (0.0-1.0); IMMATURE GRANULOCYTE % (AUTO) 0.7 % (0.0-5.0); LYMPHOCYTES # (AUTO) 0.8 K/uL (0.60-3.4); LYMPHOCYTES % (AUTO) 7.9 (10.0-50.0); MEAN CORPUSCULAR HGB CONC 33.7 (31.8-35.4); MEAN CORPUSCULAR VOLUME 86.1 fl (81.0-99.0); MONOCYTES # (AUTO) 0.7 K/uL (0.4-2.0); MONOCYTES % (AUTO) 7.2 (0-10); NEUTROPHILS # (AUTO) 8.3 K/ul (2.0-6.9); NEUTROPHILS % (AUTO) 84.1 % (42.2-75.2); PLATELET COUNT 258 10^3/uL (140-440); RED BLOOD COUNT 3.59 10^6/ul (4.20-5.40)
[2022-01-24 06:20] LABS: ALANINE AMINOTRANSFERASE 14.4 U/L (0-35); ALBUMIN 2.84 g/dL (3.5-5.0); ALKALINE PHOSPHATASE 51.6 U/L (53-141); ASPARTATE AMINO TRANSFERASE 15.7 U/L (14-36); BILIRUBIN,TOTAL 0.63 mg/dL (0.2-1.3); BLOOD UREA NITROGEN 36.5 mg/dL (7-17); CALCIUM 8.29 mg/dL (8.4-10.2); CARBON DIOXIDE 16.1 mmol/L (22-30.0); CHLORIDE 114.1 mmol/L (98-107); CREATININE 1.02 mg/dL (0.60-1.30); GLUCOSE 177.5 mg/dL (74-106); POTASSIUM 4.22 mmol/L (3.5-5.1); SODIUM 134.7 mmol/L (134.5-145); TOTAL PROTEIN 5.51 g/dL (6.3-8.2)
--- NOTE | 2022-01-24 09:17 | PCM.PROG ---
Attending Provider: ATTENDING PROVIDER: Dr. DESTINEY COPPOLA This patient is seen with Annette Edgar, Nurse Practitioner. DATE OF SERVICE: 01/24/22 SUBJECTIVE: This 86 year old /WHITE F was hospitalized 01/06/22. Still holding own on Vapotherm. She is eating slightly better. Thrush has improved. REVIEW OF SYSTEMS: CONSTITUTIONAL: No night sweats. No fatigue, malaise, lethargy. No fever or chills. Weakness. HEENT: Eyes: No visual changes. No eye pain. No eye discharge. ENT: No runny nose. No epistaxis. No sinus pain. No odynophagia. No congestion. RESPIRATORY: No cough, no congestion. No hemoptysis. Shortness of breath. CARDIOVASCULAR: No angina symptoms. No CHF symptoms. No atypical chest pain for CAD. No palpitations. No orthopnea.. GASTROINTESTINAL: No abdominal pain. No nausea or vomiting. No diarrhea or constipation. No hematemesis. No hematochezia. GENITOURINARY: No urgency. No frequency. No dysuria. No hematuria. No obstructive symptoms. No discharge. No pain. No significant abnormal bleeding. MUSCULOSKELETAL: No musculoskeletal pain; no joint swelling. NEUROLOGICAL: Awake, alert, confusion. No headache. No neck pain. No syncope. No seizures. No dizziness. PSYCHIATRIC: Not anxious. No depression. No suicidal thoughts. No homicidal thoughts. SKIN: No rash. No lesions. No wounds. ENDOCRINE: No unexplained weight loss. No weight gain. HEMATOLOGIC/LYMPHATIC: No anemia. No purpura. No petechiae. No prolonged or excessive bleeding. No palpable lymph nodes. PHYSICAL EXAMINATION: GENERAL: The patient is awake, alert and oriented, sitting in bed in no distress. VITAL SIGNS: Temperature 98.5 F, Pulse 74, Respiratory Rate 22, BP 112/64, Pulse Ox 94% HEENT: Head normocephalic, atraumatic. Eyes: Extraocular muscles are intact. Pupils are equal, round and reactive to light and accommodation. Ears: No lesions. Nose appeared normal. Throat: No exudate or erythema. NECK: Supple. No JVD, no carotid bruit. No lymphadenopathy or thyromegaly. LUNGS: Diminished breath sounds. Clear to auscultation. Percussion note normal. Chest symmetrical. HEART: S1, S2, no S3. No murmurs. No cyanosis or clubbing. No ascites. Pulses: Dorsalis pedis and posterior tibial pulses +1 to +2 both sides. ABDOMEN: Soft. Non-tender. Bowel sounds active. No CVA tenderness. No mass felt. EXTREMITIES: No edema. Full range of motion of all extremities, equal. NEUROLOGIC: No focal deficit. Cranial nerves II through XII are grossly intact. No headache. No double vision. SKIN: Not dry. Intact. Turgor-normal. LYMPHATIC: No palpable lymph nodes/no lymphedema. MUSCULOSKELETAL: Normal joints with no swelling. Muscle tone is normal. LAB REVIEW: 01/24/22 05:55 01/24/22 05:55 01/24/22 05:55: Sodium 134.7, Potassium 4.22, Chloride 114.1 H, Carbon Dioxide 16.1 L, Anion Gap 8.72, BUN 36.5 H, Creatinine 1.02, Estimated GFR (MDRD) 51.00, BUN/Creatinine Ratio 35.78, Glucose 177.5 H, Calcium 8.29 L, Total Bilirubin 0.63, AST 15.7, ALT 14.4, Alkaline Phosphatase 51.6 L, Total Protein 5.51 L, Albumin 2.84 L, Globulin 2.67, Albumin/Globulin Ratio 1.06 01/24/22 05:55: WBC 9.90, RBC 3.59 L, Hgb 10.4 L, Hct 30.9 L, MCV 86.1, MCH 29.0, MCHC 33.7, RDW Coeff of Gloria 15.0 H, Plt Count 258, Immature Gran % (Auto) 0.7, Neut % (Auto) 84.1 H, Lymph % (Auto) 7.9 L, [place] % (Auto) 7.2, Eos % (Auto) 0.0, Baso % (Auto) 0.1, Neut # (Auto) 8.3 H, Lymph # (Auto) 0.8, [place] # (Auto) 0.7, Eos # (Auto) 0.0, Baso # (Auto) 0.0, Immature Gran # (Auto) 0.1 ASSESSMENT: Please see below. 1. Acute respiratory failure 2. COVID pneumonia 3. Renal azotemia 4. COVID psychosis 5. Hyperglycemia due to steroids 6. Hyperchloremia PLAN: 1. Continue as is Plan and coordination of the patient's care discussed in the presence of Qa Tech and nurse. SCRIBED BY: SU FELDMAN Clinical Physician Assistant scribed while in presence of service performed by Dr. Coppola/Annette Edgar APRN on 01/24/22 ([id number])
[2022-01-24] MEDS: DECADRON IVP SCH (09:45)
[2022-01-24] MEDS: MEGACE PO SCH (10:00)
[2022-01-24] MEDS: NYSTOP POWDER TP SCH ×3 (10:01→20:22)
[2022-01-24] MEDS: SYMBICORT 160-4.5 MCG INHALER IH SCH ×2 (10:02→20:22)
[2022-01-24] MEDS: ELIQUIS PO SCH ×2 (10:03→20:23)
[2022-01-24] MEDS: COZAAR PO SCH ×2 (10:03→20:21)
[2022-01-24] MEDS: HUMULIN R SUBCUT SCH ×3 (10:06→17:17)
--- NOTE | 2022-01-24 10:33 | PN ---
DATE OF SERVICE: 01/22/22 SUBJECTIVE: The patient was seen and examined with Nurse Practitioner. The patient's condition is stable. Pulmonary status is still requiring Vapotherm 60% FiO2 with 94% saturation. Appetite is slowly improving but not to the point where it could take any physical therapy at present time. TIME SPENT: More than 30 minutes. Plan and coordination of the patient's care discussed in the presence of nurse. EAN
--- NOTE | 2022-01-24 11:13 | PN ---
DATE OF SERVICE: 01/23/22 SUBJECTIVE: 86 year old white female hospitalized with COVID 19 status with acute renal failure. The patient has now COVID 19 respiratory failure which is stable. She is on 60% FiO2 with oxygen saturation 97%. The patient is mostly sleepy. Appetite has been poor. REVIEW OF SYSTEMS: CONSTITUTIONAL: No night sweats. No fatigue, malaise, lethargy. No fever or chills. The patient is sleepy. She does recognize me. She is oriented to person. HEENT: Eyes: No visual changes. No eye pain. No eye discharge. ENT: No runny nose. No epistaxis. No sinus pain. No sore throat. No odynophagia. No congestion. RESPIRATORY: No cough, no congestion. No hemoptysis. No shortness of breath. CARDIOVASCULAR: No angina symptoms. No CHF symptoms. No atypical chest pain for CAD. No palpitations. No PND. No orthopnea. GASTROINTESTINAL: No abdominal pain. No nausea or vomiting. No diarrhea or constipation. No hematemesis. No hematochezia. GENITOURINARY: No urgency. No frequency. No dysuria. No hematuria. No obstructive symptoms. No discharge. No pain. No significant abnormal bleeding. MUSCULOSKELETAL: No musculoskeletal pain; no joint swelling. NEUROLOGICAL: No headache. No neck pain. No syncope. No seizures. No dizziness. PSYCHIATRIC: Not anxious. No depression. No suicidal thoughts. No homicidal thoughts. SKIN: No rash. No lesions. No wounds. ENDOCRINE: No unexplained weight loss. No weight gain. HEMATOLOGIC/LYMPHATIC: No anemia. No purpura. No petechiae. No prolonged or excessive bleeding. No palpable lymph nodes. PHYSICAL EXAMINATION: VITAL SIGNS: Temperature 98.6, pulse 84, respiratory rate 16, blood pressure 133/75 and pulse ox 97% on 6 liters Vapotherm HEENT: Head normocephalic, atraumatic. Eyes: Extraocular muscles are intact. Pupils are equal, round and reactive to light and accommodation. Ears: No lesions. Nose appeared normal. Throat: No exudate or erythema. NECK: Supple. No JVD, no carotid bruit. No lymphadenopathy or thyromegaly. LUNGS: Decreased breath sounds but clear to auscultation. Percussion note normal. Chest symmetrical. HEART: S1, S2, no S3. No murmurs. No cyanosis or clubbing. No ascites. Pulses: Dorsalis pedis and posterior tibial pulses +1 to +2 bilaterally. ABDOMEN: Soft. Nontender. Bowel sounds active. No CVA tenderness. No mass felt. EXTREMITIES: No edema. Full range of motion of all extremities, equal. NEUROLOGIC: No focal deficit. Cranial nerves II through XII are grossly intact. No headache. No double vision. SKIN: Not dry. Intact. Turgor - normal. LYMPHATIC: No palpable lymph nodes/no lymphedema. MUSCULOSKELETAL: Normal joints with no swelling. Muscle tone is normal. LABS: hgb 10.3, hct 30, WBC 10,000 normal differential, creatinine 1.1, BUN 39, potassium 4.3 ASSESSMENT: 1. Acute renal failure, resolved with creatinine 1.1 and BUN 39 2. Respiratory failure becoming chronic 3. COVID encephalopathy 4. Overall deterioration of medical condition because of COVID PLAN: 1. The patient is encouraged to eat. She has oral thrush which is being treated with Nystatin and oral Diflucan seems to be improving 2. The patient is on sliding scale for her elevated blood sugar which is most likely from steroid use to treat the COVID pneumonitis. CONDITION: Stable PROGNOSIS: Guarded TIME SPENT: More than 30 minutes. Plan and coordination of the patient's care discussed in the presence of nurse. EAN
--- NOTE | 2022-01-24 14:18 | RS.PTINEVL ---
Subjective - Patient information Date of Evaluation: 01/24/22 Usual Living Arrangement: Alone Medical History Comments:: COPD, CAD, HTN, TIA, Asthma, DM type2, CKD stage 3, DJD lumbar spine, bilateral TKA, cholecystectomy, Appendectomy, Hysterectomy, bilateral cataract extraction, Left ankle surgery Subjective Information/ Patient Comments:: Patient states she is cold. States she would rather to have therapy tomorrow. Agrees to let therapist assess her strength. - Level of function Prior to this admission, the patient could do the following:: Independent Selfcare, Independent ADL's, Independent Ambulation Current Level of Function: Partially Dependent Interventions - Objective Patient Orientation: Person Current Interventions: Oxygen (via Vapo Therm) Range of Motion - ROM Right Lower Extremity AROM: WFL's Left Lower Extremity AROM: WFL's Comments:: Patient follows verbal commands to move lower extremities actively in the bed. Muscle Strength - Muscle Strength Comments:: Patient does not hold against resistance, but demonstrates at least 3+ throughout bilateral LE's. Sensation - Sensation Comments: Reports intact sensation to light touch throughout bilateral LE's. Functional Mobility JULIO INDEX SCORE: NA Treatment time - Time with patient Length of Evaluation: 12 mins Total treatment time: 10 Assessment - Assessment Problem List:: Decreased level of function, Requires training/education, Weakness, Cognitive status limits abilities (?) Rehab Potential: Good Further Therapy Indicated?: Yes Candidate for Swing Bed for Therapy Services?: Would need to reassess if Swing bed was considered, based on how she progress with therapy while acute. Comments: Patient has been in the hospital now for 18 days with decreased mobi lity. She was independent at home alone before this episode of illness and will benefit from progressed exercises and mobility to help return her to her previous level of function and living environment. Evaluation Complexity: HISTORY: High, EXAM OF BODY SYSTEMS: Low, CLINICAL PRESENTATION: High, CLINICAL DECISION MAKING: Low Patient's Goal(s): Goal is to return to previous level of function and return home. Short Term Goals GOAL #1: Pt to tolerate 15 mins of LE ex's in bed. Goal to be met by: 01/27/22 GOAL #2: Supine to sit with minimal assistance of one. Goal to be met by: 01/27/22 GOAL #3: Sit to stand transfers with min assist of 2. Goal to be met by: 01/27/22 GOAL #4: . Director Of Education Goals GOAL #1: Bed mobility with CGA of one. Goal to be met by: 01/31/22 GOAL #2: Sit <> stand and stand-pivot transfers with Min Assist of 1. Goal to be met by: 01/31/22 GOAL #3: Pt to amb with RW 20 feet with Min Assist of 1. Goal to be met by: 01/31/22 Plan Plan of Care: Therapeutic EX, Therapeutic Activity Duration of Treatment: 1 Week Anticipated Discharge Destination: dependent on progress with therapy Treatment Diagnosis (ICD 10 Codes): M62.81 general weakness, Z74.0 Reduced mobility Has the Physician been added for Co-signature?: Yes
[2022-01-24] MEDS: ATIVAN PO SCH (20:21)
[2022-01-24] MEDS: NORVASC PO SCH (20:22)
[2022-01-25] MEDS: VENTOLIN HFA (PER PUFF-WITH SPACER) IH SCH ×3 (04:44→19:30)
[2022-01-25 05:26] LABS: HEMATOCRIT 28.9 % (37.0-47.0); HEMOGLOBIN 9.7 g/dl (12.0-16.0); IMMATURE GRANULOCYTE # (AUTO) 0.1 (0.0-1.0); IMMATURE GRANULOCYTE % (AUTO) 0.6 % (0.0-5.0); LYMPHOCYTES # (AUTO) 0.5 K/uL (0.60-3.4); LYMPHOCYTES % (AUTO) 6.6 (10.0-50.0); MEAN CORPUSCULAR HEMOGLOBIN 28.4 pg (27.0-31.0); MEAN CORPUSCULAR HGB CONC 33.6 (31.8-35.4); MEAN CORPUSCULAR VOLUME 84.8 fl (81.0-99.0); MONOCYTES # (AUTO) 0.5 K/uL (0.4-2.0); MONOCYTES % (AUTO) 6.8 (0-10); NEUTROPHILS # (AUTO) 6.8 K/ul (2.0-6.9); PLATELET COUNT 221 10^3/uL (140-440); RDW COEFFICIENT OF VARIATION 14.6 % (11.6-14.8); RED BLOOD COUNT 3.41 10^6/ul (4.20-5.40); WHITE BLOOD COUNT 7.92 K/ul (4.6-10.2)
[2022-01-25 05:39] LABS: ALANINE AMINOTRANSFERASE 12.6 U/L (0-35); ALBUMIN 2.72 g/dL (3.5-5.0); ALKALINE PHOSPHATASE 46.2 U/L (53-141); ASPARTATE AMINO TRANSFERASE 15.3 U/L (14-36); BILIRUBIN,TOTAL 0.65 mg/dL (0.2-1.3); BLOOD UREA NITROGEN 31.5 mg/dL (7-17); CALCIUM 7.95 mg/dL (8.4-10.2); CARBON DIOXIDE 14.1 mmol/L (22-30.0); CHLORIDE 114.2 mmol/L (98-107); CREATININE 0.99 mg/dL (0.60-1.30); GLUCOSE 156.2 mg/dL (74-106); POTASSIUM 4.12 mmol/L (3.5-5.1); TOTAL PROTEIN 5.31 g/dL (6.3-8.2)
[2022-01-25] MEDS: NYSTATIN ORAL SUSP PO SCH ×4 (05:46→20:26)
[2022-01-25] MEDS: SODIUM CHLORIDE 1,000 ML IV SCH ×2 (05:46→06:12)
[2022-01-25] MEDS: PEPCID PO SCH ×2 (05:46→17:31)
[2022-01-25] MEDS: DECADRON IVP SCH (09:19)
[2022-01-25] MEDS: COZAAR PO SCH ×2 (09:45→20:26)
[2022-01-25] MEDS: ELIQUIS PO SCH ×2 (09:45→20:26)
[2022-01-25] MEDS: MEGACE PO SCH (09:45)
[2022-01-25] MEDS: NYSTOP POWDER TP SCH ×3 (09:46→20:33)
[2022-01-25] MEDS: HUMULIN R SUBCUT SCH ×3 (09:46→17:31)
[2022-01-25] MEDS: SYMBICORT 160-4.5 MCG INHALER IH SCH ×2 (09:46→20:33)
--- NOTE | 2022-01-25 12:48 | PN ---
DATE OF SERVICE: 01/25/22 SUBJECTIVE: 86 year old white female hospitalized with COVID 19 status with acute renal failure. The patient has now developed respiratory failure which has been stabilizing. Her oxygen level is 98% on 60%. We are going to try and wean her off Vapotherm. The patient is sleepy, a little bit drowsy but again oriented to time, place and person. REVIEW OF SYSTEMS: CONSTITUTIONAL: No night sweats. No fatigue, malaise, lethargy. No fever or chills. HEENT: Eyes: No visual changes. No eye pain. No eye discharge. ENT: No runny nose. No epistaxis. No sinus pain. No sore throat. No odynophagia. No congestion. RESPIRATORY: No cough, no congestion. No hemoptysis. No shortness of breath. CARDIOVASCULAR: No angina symptoms. No CHF symptoms. No atypical chest pain for CAD. No palpitations. No PND. No orthopnea. GASTROINTESTINAL: No abdominal pain. No nausea or vomiting. No diarrhea or constipation. No hematemesis. No hematochezia. GENITOURINARY: No urgency. No frequency. No dysuria. No hematuria. No obstructive symptoms. No discharge. No pain. No significant abnormal bleeding. MUSCULOSKELETAL: No musculoskeletal pain; no joint swelling. NEUROLOGICAL: No headache. No neck pain. No syncope. No seizures. No dizziness. PSYCHIATRIC: Not anxious. No depression. No suicidal thoughts. No homicidal thoughts. SKIN: No rash. No lesions. No wounds. ENDOCRINE: No unexplained weight loss. No weight gain. HEMATOLOGIC/LYMPHATIC: No anemia. No purpura. No petechiae. No prolonged or excessive bleeding. No palpable lymph nodes. PHYSICAL EXAMINATION: VITAL SIGNS: temperature 98.2, pulse 78, respiratory rate 20, blood pressure 130/70 and pulse ox 98%. HEENT: Head normocephalic, atraumatic. Eyes: Extraocular muscles are intact. Pupils are equal, round and reactive to light and accommodation. Ears: No lesions. Nose appeared normal. Throat: No exudate or erythema. NECK: Supple. No JVD, no carotid bruit. No lymphadenopathy or thyromegaly. LUNGS: Decreased breath sounds but clear to auscultation. Percussion note normal. Chest symmetrical. HEART: S1, S2, no S3. No murmurs. No cyanosis or clubbing. No ascites. Pulses: Dorsalis pedis and posterior tibial pulses +1 to +2 bilaterally. ABDOMEN: Soft. Nontender. Bowel sounds active. No CVA tenderness. No mass felt. EXTREMITIES: No edema. Full range of motion of all extremities, equal. NEUROLOGIC: No focal deficit. Cranial nerves II through XII are grossly intact. No headache. No double vision. SKIN: Not dry. Intact. Turgor - normal. LYMPHATIC: No palpable lymph nodes/no lymphedema. MUSCULOSKELETAL: Normal joints with no swelling. Muscle tone is normal. LABS: hgb 9.7, hct 28, WBC 7,900 normal differential, creatinine 0.9, BUN 31, potassium 4.1. ASSESSMENT: 1. Acute renal failure resolved 2. Mild dehydration with creatinine 0.9 and BUN 31. Creatinine was 4 on admission. 3. Respiratory failure, the patient is on Vapotherm with oxygen saturation 97- 98% on 60% we will try to wean her off Vapotherm and see how she does PLAN: 1. The patient needs to be encouraged and she has been encouraged to eat. Appetite has been poor. That seems to be the main problems 2. Oral thrush seems to have been resolving maybe part responsible for her poor appetite. 3. The patient has developed some dementia post COVID and complications that has occurred after she had COVID CONDITION: Stable PROGNOSIS: Guarded. TIME SPENT: More than 30 minutes. Plan and coordination of the patient's care discussed in the presence of nurse. EAN
--- NOTE | 2022-01-25 12:51 | PN ---
DATE OF SERVICE: 01/24/22 SUBJECTIVE: The patient was seen and examined with the Nurse Practitioner. The patient's condition is more or less stable with some improvement in the respiratory status but still ever so slowly the appetite continues to be poor. The patient has COVID status with acute renal failure in the beginning now has respiratory failure and also has cognitive status. TIME SPENT: More than 30 minutes. Plan and coordination of the patient's care discussed in the presence of nurse. EAN
[2022-01-25 15:46] LABS: ABG O2 HGB 94.8 % (95-100); BEecf -8.4 (-2.0-3.0); COHb 2.1 (0.5-1.5); HCO3 14.8 (21-28); MetHb 0.9 (0-1.5); TCO2 15.4 (19-24); sO2 95.1 % (94-98); tHb 10.8 g/dl (11.7-17.4)
[2022-01-25] MEDS: ATIVAN PO SCH (20:26)
[2022-01-25] MEDS: NORVASC PO SCH (20:26)
[2022-01-26] MEDS: SODIUM CHLORIDE 1,000 ML IV SCH ×2 (02:01→20:59)
[2022-01-26] MEDS: VENTOLIN HFA (PER PUFF-WITH SPACER) IH SCH ×3 (05:05→19:45)
[2022-01-26 05:27] LABS: BASOPHILS % (AUTO) 0.1 % (0.0-3.0); HEMOGLOBIN 10.6 g/dl (12.0-16.0); IMMATURE GRANULOCYTE # (AUTO) 0.1 (0.0-1.0); IMMATURE GRANULOCYTE % (AUTO) 0.6 % (0.0-5.0); LYMPHOCYTES # (AUTO) 0.8 K/uL (0.60-3.4); LYMPHOCYTES % (AUTO) 7.3 (10.0-50.0); MEAN CORPUSCULAR HEMOGLOBIN 28.1 pg (27.0-31.0); MEAN CORPUSCULAR HGB CONC 33.1 (31.8-35.4); MEAN CORPUSCULAR VOLUME 84.9 fl (81.0-99.0); MONOCYTES # (AUTO) 0.8 K/uL (0.4-2.0); MONOCYTES % (AUTO) 6.9 (0-10); NEUTROPHILS # (AUTO) 9.6 K/ul (2.0-6.9); NEUTROPHILS % (AUTO) 85.1 % (42.2-75.2); PLATELET COUNT 235 10^3/uL (140-440); RDW COEFFICIENT OF VARIATION 14.5 % (11.6-14.8); RED BLOOD COUNT 3.77 10^6/ul (4.20-5.40); WHITE BLOOD COUNT 11.23 K/ul (4.6-10.2)
[2022-01-26 05:42] LABS: ALANINE AMINOTRANSFERASE 14.8 U/L (0-35); ALBUMIN 2.88 g/dL (3.5-5.0); ALKALINE PHOSPHATASE 53.4 U/L (53-141); ASPARTATE AMINO TRANSFERASE 16.6 U/L (14-36); BILIRUBIN,TOTAL 0.67 mg/dL (0.2-1.3); BLOOD UREA NITROGEN 29.3 mg/dL (7-17); CALCIUM 8.13 mg/dL (8.4-10.2); CARBON DIOXIDE 14.7 mmol/L (22-30.0); CHLORIDE 111.4 mmol/L (98-107); CREATININE 1.01 mg/dL (0.60-1.30); GLUCOSE 153.9 mg/dL (74-106); POTASSIUM 3.97 mmol/L (3.5-5.1); SODIUM 133.5 mmol/L (134.5-145); TOTAL PROTEIN 5.49 g/dL (6.3-8.2)
[2022-01-26] MEDS: PEPCID PO SCH ×2 (05:46→17:27)
[2022-01-26] MEDS: NYSTATIN ORAL SUSP PO SCH ×4 (05:46→20:24)
[2022-01-26 05:47] LABS: ABG O2 HGB 94.7 % (95-100); ABG PH 7.49 (7.35-7.45); BEecf -7.3 (-2.0-3.0); COHb 1.9 (0.5-1.5); MetHb 1.1 (0-1.5); TCO2 16.6 (19-24); tHb 11.7 g/dl (11.7-17.4)
[2022-01-26] MEDS: HUMULIN R SUBCUT SCH ×3 (08:33→17:28)
[2022-01-26] MEDS: COZAAR PO SCH ×2 (08:34→20:21)
[2022-01-26] MEDS: MEGACE PO SCH (08:34)
[2022-01-26] MEDS: SYMBICORT 160-4.5 MCG INHALER IH SCH ×2 (08:35→20:25)
[2022-01-26] MEDS: NYSTOP POWDER TP SCH ×3 (08:35→20:25)
[2022-01-26] MEDS: ELIQUIS PO SCH ×2 (08:35→20:22)
[2022-01-26] MEDS: DECADRON IVP SCH (09:30)
[2022-01-26] MEDS ORDERED: DIFLUCAN PO SCH (10:30)
[2022-01-26] MEDS: NORVASC PO SCH (20:22)
[2022-01-26] MEDS: ATIVAN PO SCH (20:24)
[2022-01-27] MEDS: VENTOLIN HFA (PER PUFF-WITH SPACER) IH SCH ×3 (04:55→19:25)
[2022-01-27] MEDS ORDERED: GLYCERIN SUPPOSITORY RC ONE (05:43)
[2022-01-27 05:44] LABS: BASOPHILS % (AUTO) 0.1 % (0.0-3.0); HEMATOCRIT 35.5 % (37.0-47.0); HEMOGLOBIN 12.1 g/dl (12.0-16.0); IMMATURE GRANULOCYTE # (AUTO) 0.1 (0.0-1.0); IMMATURE GRANULOCYTE % (AUTO) 0.9 % (0.0-5.0); LYMPHOCYTES # (AUTO) 0.9 K/uL (0.60-3.4); LYMPHOCYTES % (AUTO) 7.5 (10.0-50.0); MEAN CORPUSCULAR HEMOGLOBIN 28.8 pg (27.0-31.0); MEAN CORPUSCULAR HGB CONC 34.1 (31.8-35.4); MEAN CORPUSCULAR VOLUME 84.5 fl (81.0-99.0); MONOCYTES # (AUTO) 0.7 K/uL (0.4-2.0); MONOCYTES % (AUTO) 6.1 (0-10); NEUTROPHILS # (AUTO) 9.8 K/ul (2.0-6.9); NEUTROPHILS % (AUTO) 85.4 % (42.2-75.2); PLATELET COUNT 265 10^3/uL (140-440); RDW COEFFICIENT OF VARIATION 14.6 % (11.6-14.8); WHITE BLOOD COUNT 11.51 K/ul (4.6-10.2)
[2022-01-27] MEDS: NYSTATIN ORAL SUSP PO SCH ×4 (05:55→20:23)
[2022-01-27 05:56] LABS: ALANINE AMINOTRANSFERASE 14.5 U/L (0-35); ALBUMIN 3.33 g/dL (3.5-5.0); ALKALINE PHOSPHATASE 64.2 U/L (53-141); ASPARTATE AMINO TRANSFERASE 16.2 U/L (14-36); BILIRUBIN,TOTAL 0.86 mg/dL (0.2-1.3); CALCIUM 8.65 mg/dL (8.4-10.2); CARBON DIOXIDE 17.9 mmol/L (22-30.0); CHLORIDE 108.6 mmol/L (98-107); CREATININE 1.05 mg/dL (0.60-1.30); GLUCOSE 164.5 mg/dL (74-106); SODIUM 133.3 mmol/L (134.5-145); TOTAL PROTEIN 6.26 g/dL (6.3-8.2)
[2022-01-27] MEDS: PEPCID PO SCH ×2 (05:56→17:37)
[2022-01-27] MEDS ORDERED: PREDNISONE PO SCH (08:30)
[2022-01-27] MEDS: COZAAR PO SCH ×2 (08:52→20:17)
[2022-01-27] MEDS: MEGACE PO SCH (08:52)
[2022-01-27] MEDS: PREDNISONE PO SCH ×2 (08:52→17:37)
[2022-01-27] MEDS: ELIQUIS PO SCH ×2 (08:53→20:17)
[2022-01-27] MEDS: SYMBICORT 160-4.5 MCG INHALER IH SCH (08:53)
[2022-01-27] MEDS: NYSTOP POWDER TP SCH ×3 (08:53→20:17)
[2022-01-27] MEDS: HUMULIN R SUBCUT SCH ×3 (08:55→17:37)
[2022-01-27] MEDS: DIFLUCAN PO SCH (12:58)
[2022-01-27] MEDS ORDERED: GLYCERIN SUPPOSITORY RC PRN (19:30)
[2022-01-27] MEDS: ATIVAN PO SCH (20:17)
[2022-01-27] MEDS: NORVASC PO SCH (20:23)
[2022-01-28] MEDS: VENTOLIN HFA (PER PUFF-WITH SPACER) IH SCH ×3 (04:50→19:15)
[2022-01-28 05:29] LABS: BASOPHILS % (AUTO) 0.1 % (0.0-3.0); HEMATOCRIT 33.2 % (37.0-47.0); HEMOGLOBIN 11.4 g/dl (12.0-16.0); IMMATURE GRANULOCYTE # (AUTO) 0.1 (0.0-1.0); IMMATURE GRANULOCYTE % (AUTO) 0.8 % (0.0-5.0); LYMPHOCYTES # (AUTO) 0.9 K/uL (0.60-3.4); LYMPHOCYTES % (AUTO) 8.4 (10.0-50.0); MEAN CORPUSCULAR HEMOGLOBIN 28.8 pg (27.0-31.0); MEAN CORPUSCULAR HGB CONC 34.3 (31.8-35.4); MEAN CORPUSCULAR VOLUME 83.8 fl (81.0-99.0); MONOCYTES # (AUTO) 0.5 K/uL (0.4-2.0); MONOCYTES % (AUTO) 5.2 (0-10); NEUTROPHILS # (AUTO) 8.9 K/ul (2.0-6.9); NEUTROPHILS % (AUTO) 85.5 % (42.2-75.2); PLATELET COUNT 241 10^3/uL (140-440); RDW COEFFICIENT OF VARIATION 14.6 % (11.6-14.8); RED BLOOD COUNT 3.96 10^6/ul (4.20-5.40); WHITE BLOOD COUNT 10.39 K/ul (4.6-10.2)
[2022-01-28 05:38] LABS: ALANINE AMINOTRANSFERASE 14.2 U/L (0-35); ALKALINE PHOSPHATASE 55.8 U/L (53-141); ASPARTATE AMINO TRANSFERASE 17.8 U/L (14-36); BILIRUBIN,TOTAL 0.69 mg/dL (0.2-1.3); BLOOD UREA NITROGEN 28.4 mg/dL (7-17); CALCIUM 8.21 mg/dL (8.4-10.2); CARBON DIOXIDE 18.6 mmol/L (22-30.0); CHLORIDE 108.5 mmol/L (98-107); CREATININE 1.07 mg/dL (0.60-1.30); GLUCOSE 177.2 mg/dL (74-106); POTASSIUM 4.01 mmol/L (3.5-5.1); SODIUM 133.1 mmol/L (134.5-145); TOTAL PROTEIN 5.72 g/dL (6.3-8.2)
[2022-01-28] MEDS: PEPCID PO SCH ×2 (05:38→17:49)
[2022-01-28] MEDS: NYSTATIN ORAL SUSP PO SCH ×4 (05:38→20:38)
[2022-01-28 09:04] LABS: ABG O2 HGB 93.4 % (95-100); BEecf -6.3 (-2.0-3.0); HCO3 16.2 (21-28); MetHb 1.6 (0-1.5); TCO2 16.8 (19-24); sO2 95.8 % (94-98); tHb 12.4 g/dl (11.7-17.4)
[2022-01-28 09:05] LABS: ABG PH 7.54 (7.35-7.45)
--- NOTE | 2022-01-28 09:17 | PCM.PROG ---
Attending Provider: ATTENDING PROVIDER: Dr. DESTINEY COPPOLA This patient is seen with Annette Edgar, Nurse Practitioner. DATE OF SERVICE: 01/28/22 SUBJECTIVE: This 86 year old /WHITE F was hospitalized 01/06/22. The patient still not eating much. IV fluids stopped yesterday. Pleasantly confused. Tolerating nasal cannula REVIEW OF SYSTEMS: CONSTITUTIONAL: No night sweats. No fatigue, malaise, lethargy. No fever or chills. Weakness. HEENT: Eyes: No visual changes. No eye pain. No eye discharge. ENT: No runny nose. No epistaxis. No sinus pain. No odynophagia. No congestion. RESPIRATORY: No cough, no congestion. No hemoptysis. Shortness of breath. Thrush. CARDIOVASCULAR: No angina symptoms. No CHF symptoms. No atypical chest pain for CAD. No palpitations. No orthopnea.. GASTROINTESTINAL: No abdominal pain. No nausea or vomiting. No diarrhea or constipation. No hematemesis. No hematochezia. GENITOURINARY: No urgency. No frequency. No dysuria. No hematuria. No ob structive symptoms. No discharge. No pain. No significant abnormal bleeding. MUSCULOSKELETAL: No musculoskeletal pain; no joint swelling. NEUROLOGICAL: Awake, alert, confusion. No headache. No neck pain. No syncope. No seizures. No dizziness. PSYCHIATRIC: Not anxious. No depression. No suicidal thoughts. No homicidal thoughts. SKIN: No rash. No lesions. No wounds. ENDOCRINE: No unexplained weight loss. No weight gain. HEMATOLOGIC/LYMPHATIC: No anemia. No purpura. No petechiae. No prolonged or excessive bleeding. No palpable lymph nodes. PHYSICAL EXAMINATION: GENERAL: The patient is awake, alert and oriented to person, lying in bed in no distress. VITAL SIGNS: Temperature 97.8 F, Pulse 85, Respiratory Rate 18, BP 127/71, Pulse Ox 96% HEENT: Head normocephalic, atraumatic. Eyes: Extraocular muscles are intact. Pupils are equal, round and reactive to light and accommodation. Ears: No lesions. Nose appeared normal. Throat: No exudate or erythema. Excoriation to oral cavity. NECK: Supple. No JVD, no carotid bruit. No lymphadenopathy or thyromegaly. LUNGS: Diminished breath sounds. Clear to auscultation. Percussion note normal. Chest symmetrical. HEART: S1, S2, no S3. No murmurs. No cyanosis or clubbing. No ascites. Pulses: Dorsalis pedis and posterior tibial pulses +1 to +2 both sides. ABDOMEN: Soft. Non-tender. Bowel sounds active. No CVA tenderness. No mass felt. EXTREMITIES: No edema. Full range of motion of all extremities, equal. NEUROLOGIC: No focal deficit. Cranial nerves II through XII are grossly intact. No headache. No double vision. SKIN: Not dry. Intact. Turgor-normal. LYMPHATIC: No palpable lymph nodes/no lymphedema. MUSCULOSKELETAL: Normal joints with no swelling. Muscle tone is normal. LAB REVIEW: 01/28/22 05:20 01/28/22 05:20 01/28/22 05:20: Sodium 133.1 L, Potassium 4.01, Chloride 108.5 H, Carbon Dioxide 18.6 L, Anion Gap 10.01, BUN 28.4 H, Creatinine 1.07, Estimated GFR (MDRD) 48.00, BUN/Creatinine Ratio 26.54, Glucose 177.2 H, Calcium 8.21 L, Total Bilir ubin 0.69, AST 17.8, ALT 14.2, Alkaline Phosphatase 55.8, Total Protein 5.72 L, Albumin 3.00 L, Globulin 2.72, Albumin/Globulin Ratio 1.10 01/28/22 05:20: WBC 10.39 H, RBC 3.96 L, Hgb 11.4 L, Hct 33.2 L, MCV 83.8, MCH 28.8, MCHC 34.3, RDW Coeff of Gloria 14.6, Plt Count 241, Immature Gran % (Auto) 0.8, Neut % (Auto) 85.5 H, Lymph % (Auto) 8.4 L, [place] % (Auto) 5.2, Eos % (Auto) 0.0, Baso % (Auto) 0.1, Neut # (Auto) 8.9 H, Lymph # (Auto) 0.9, [place] # (Auto) 0.5, Eos # (Auto) 0.0, Baso # (Auto) 0.0, Immature Gran # (Auto) 0.1 ASSESSMENT: Please see below. 1. Acute respiratory failure due to COVID 19 pneumonia 2. Failure to thrive 3. Thrush 4. Dehydration 5. COVID psychosis 6. Generalized weakness. PLAN: 1. Repeat ABG this morning 2. Do oral care with Nystatin Plan and coordination of the patient's care discussed in the presence of Director Asset and nurse. SCRIBED BY: Kvng ROLLE scribed while in presence of service performed by Dr. Coppola/Annette Edgar APRN on 01/28/22 ([id number])
[2022-01-28] MEDS: COZAAR PO SCH ×2 (10:06→20:37)
[2022-01-28] MEDS: HUMULIN R SUBCUT SCH ×3 (10:06→17:49)
[2022-01-28] MEDS: PREDNISONE PO SCH ×2 (10:06→17:49)
[2022-01-28] MEDS: DIFLUCAN PO SCH (10:06)
[2022-01-28] MEDS: ELIQUIS PO SCH ×2 (10:07→20:37)
[2022-01-28] MEDS: NYSTOP POWDER TP SCH ×3 (10:11→20:38)
[2022-01-28] MEDS: MEGACE PO SCH (10:22)
[2022-01-28] MEDS ORDERED: LEXAPRO ONE (14:53)
[2022-01-28] MEDS: NORVASC PO SCH (20:37)
[2022-01-28] MEDS: ATIVAN PO SCH (20:37)
[2022-01-29] MEDS: VENTOLIN HFA (PER PUFF-WITH SPACER) IH SCH ×3 (04:55→19:55)
[2022-01-29 05:20] LABS: BASOPHILS % (AUTO) 0.1 % (0.0-3.0); EOSINOPHILS % (AUTO) 0.1 % (0.0-7.0); HEMATOCRIT 35.8 % (37.0-47.0); HEMOGLOBIN 12.1 g/dl (12.0-16.0); IMMATURE GRANULOCYTE # (AUTO) 0.1 (0.0-1.0); IMMATURE GRANULOCYTE % (AUTO) 0.6 % (0.0-5.0); LYMPHOCYTES # (AUTO) 1.2 K/uL (0.60-3.4); LYMPHOCYTES % (AUTO) 9.6 (10.0-50.0); MEAN CORPUSCULAR HEMOGLOBIN 28.1 pg (27.0-31.0); MEAN CORPUSCULAR HGB CONC 33.8 (31.8-35.4); MEAN CORPUSCULAR VOLUME 83.3 fl (81.0-99.0); MONOCYTES # (AUTO) 0.5 K/uL (0.4-2.0); MONOCYTES % (AUTO) 4.1 (0-10); NEUTROPHILS # (AUTO) 10.6 K/ul (2.0-6.9); NEUTROPHILS % (AUTO) 85.5 % (42.2-75.2); PLATELET COUNT 280 10^3/uL (140-440); RDW COEFFICIENT OF VARIATION 14.7 % (11.6-14.8); WHITE BLOOD COUNT 12.43 K/ul (4.6-10.2)
[2022-01-29 05:33] LABS: ALANINE AMINOTRANSFERASE 15.6 U/L (0-35); ALBUMIN 3.17 g/dL (3.5-5.0); ALKALINE PHOSPHATASE 61.8 U/L (53-141); ASPARTATE AMINO TRANSFERASE 18.9 U/L (14-36); BILIRUBIN,TOTAL 0.81 mg/dL (0.2-1.3); BLOOD UREA NITROGEN 32.6 mg/dL (7-17); CALCIUM 8.52 mg/dL (8.4-10.2); CHLORIDE 108.1 mmol/L (98-107); CREATININE 1.08 mg/dL (0.60-1.30); GLUCOSE 148.4 mg/dL (74-106); POTASSIUM 3.92 mmol/L (3.5-5.1); SODIUM 133.9 mmol/L (134.5-145); TOTAL PROTEIN 5.95 g/dL (6.3-8.2)
[2022-01-29] MEDS: NYSTATIN ORAL SUSP PO SCH ×4 (05:39→20:07)
[2022-01-29] MEDS: PEPCID PO SCH ×2 (05:39→17:34)
--- NOTE | 2022-01-29 09:02 | PCM.PROG ---
Attending Provider: ATTENDING PROVIDER: Dr. DESTINEY COPPOLA This patient is seen with Annette Edgar, Nurse Practitioner. DATE OF SERVICE: 01/29/22 SUBJECTIVE: This 86 year old /WHITE F was hospitalized 01/06/22. Was discharged from therapy yesterday due to inablity. Still not eating much. Stopped IV fluids. Renal function stable for now. Thrush seems to be slightly improved. Have been doing bladder training, will attempt to discharge catheter. Arrange ebing made for senior living placement. REVIEW OF SYSTEMS: CONSTITUTIONAL: No night sweats. No fatigue, malaise, lethargy. No fever or chills. Weakness. HEENT: Eyes: No visual changes. No eye pain. No eye discharge. ENT: No runny nose. No epistaxis. No sinus pain. No odynophagia. No congestion. RESPIRATORY: No cough, no congestion. No hemoptysis. Shortness of breath. CARDIOVASCULAR: No angina symptoms. No CHF symptoms. No atypical chest pain for CAD. No palpitations. No orthopnea.. GASTROINTESTINAL: No abdominal pain. No nausea or vomiting. No diarrhea or constipation. No hematemesis. No hematochezia. Loss of appetite. GENITOURINARY: No urgency. No frequency. No dysuria. No hematuria. No obstructive symptoms. No discharge. No pain. No significant abnormal bleeding. MUSCULOSKELETAL: No musculoskeletal pain; no joint swelling. NEUROLOGICAL: Awake, alert, confusion. No headache. No neck pain. No syncope. No seizures. No dizziness. PSYCHIATRIC: Not anxious. No depression. No suicidal thoughts. No homicidal thoughts. SKIN: No rash. No lesions. No wounds. ENDOCRINE: No unexplained weight loss. No weight gain. HEMATOLOGIC/LYMPHATIC: No anemia. No purpura. No petechiae. No prolonged or excessive bleeding. No palpable lymph nodes. PHYSICAL EXAMINATION: GENERAL: The patient is awake, alert and oriented to person only, lying in bed in no distress. VITAL SIGNS: Temperature 97.6 F, Pulse 82, Respiratory Rate 20, BP 132/70, Pulse Ox 94% HEENT: Head normocephalic, atraumatic. Eyes: Extraocular muscles are intact. Pupils are equal, round and reactive to light and accommodation. Ears: No lesions. Nose appeared normal. Throat: No exudate or erythema. NECK: Supple. No JVD, no carotid bruit. No lymphadenopathy or thyromegaly. LUNGS: Diminished breath sounds. Clear to auscultation. Percussion note normal. Chest symmetrical. HEART: S1, S2, no S3. No murmurs. No cyanosis or clubbing. No ascites. Pulses: Dorsalis pedis and posterior tibial pulses +1 to +2 both sides. ABDOMEN: Soft. Non-tender. Bowel sounds active. No CVA tenderness. No mass felt. EXTREMITIES: No edema. Full range of motion of all extremities, equal. NEUROLOGIC: No focal deficit. Cranial nerves II through XII are grossly intact. No headache. No double vision. SKIN: Not dry. Intact. Turgor-normal. LYMPHATIC: No palpable lymph nodes/no lymphedema. MUSCULOSKELETAL: Normal joints with no swelling. Muscle tone is normal. LAB REVIEW: 01/29/22 05:14 01/29/22 05:14 01/29/22 05:14: Sodium 133.9 L, Potassium 3.92, Chloride 108.1 H, Carbon Dioxide 18.0 L, Anion Gap 11.72, BUN 32.6 H, Creatinine 1.08, Estimated GFR (MDRD) 48.00, BUN/Creatinine Ratio 30.18, Glucose 148.4 H, Calcium 8.52, Total Bilirubin 0.81, AST 18.9, ALT 15.6, Alkaline Phosphatase 61.8, Total Protein 5.95 L, Albumin 3.17 L, Globulin 2.78, Albumin/Globulin Ratio 1.14 01/29/22 05:14: WBC 12.43 H, RBC 4.30, Hgb 12.1, Hct 35.8 L, MCV 83.3, MCH 28.1, MCHC 33.8, RDW Coeff of Gloria 14.7, Plt Count 280, Immature Gran % (Auto) 0.6, Neut % (Auto) 85.5 H, Lymph % (Auto) 9.6 L, [place] % (Auto) 4.1, Eos % (Auto) 0.1, Baso % (Auto) 0.1, Neut # (Auto) 10.6 H, Lymph # (Auto) 1.2, [place] # (Auto) 0.5, Eos # (Auto) 0.0, Baso # (Auto) 0.0, Immature Gran # (Auto) 0.1 01/28/22 08:56: Puncture Site R brach, Base Excess -6.3 L, O2 Saturation 95.8, ABG pH 7.54 H*, ABG pCO2 19.0 L, ABG pO2 70.0 L, ABG HCO3 16.2 L, ABG Total CO2 16.8 L, Damion Test Y, Hemoglobin 1.6 H, Oxyhemoglobin 93.4 L, Carboxyhemoglobin 2.0 H, Total Hemoglobin 12.4, O2 Delivery Device Cannula, Oxygen Liter Flow 2.50 ASSESSMENT: Please see below. 1. Acute respiratory failure due to COVID 19 pneumonia 2. Failure to thrive 3. Thrush 4. Dehydration 5. COVID psychosis 6. Generalized weakness. PLAN: 1. Continue with bladder training 2. Will attempt to discontinue catheter. Plan and coordination of the patient's care discussed in the presence of Deliverer Merchandise and nurse. SCRIBED BY: SU FELDMAN Hand Crocheter scribed while in presence of service performed by Dr. Coppola/Annette Edgar APRN on 01/29/22 ([id number])
[2022-01-29] MEDS: LEXAPRO PO SCH ×2 (09:20→09:26)
[2022-01-29] MEDS: HUMULIN R SUBCUT SCH ×3 (09:23→17:35)
[2022-01-29] MEDS: NYSTOP POWDER TP SCH ×3 (09:25→20:07)
[2022-01-29] MEDS: DIFLUCAN PO SCH (09:25)
[2022-01-29] MEDS: COZAAR PO SCH ×2 (09:26→20:06)
[2022-01-29] MEDS: ELIQUIS PO SCH ×2 (09:26→20:06)
[2022-01-29] MEDS: PREDNISONE PO SCH ×2 (09:26→17:34)
[2022-01-29] MEDS: MEGACE PO SCH (09:27)
--- NOTE | 2022-01-29 11:26 | PN ---
DATE OF SERVICE: 01/26/22 SUBJECTIVE: The patient was weaned down to 21.5 liters of nasal cannula yesterday. Seems to be tolerating well. Report sating anywhere from 94-97%. She did have ABG this morning. O2 saturation 96, pCO2 21, Po2 75, pH 7.49 on 2.5 liters. She is pleasantly confused, eating slightly better but still poor. She still has some soreness around her mouth and in her mouth. The Diflucan finished it's course but we will restart. REVIEW OF SYSTEMS: CONSTITUTIONAL: No night sweats. No fatigue, malaise, lethargy. No fever or chills. Confusion. Weakness. HEENT: Eyes: No visual changes. No eye pain. No eye discharge. ENT: No runny nose. No epistaxis. No sinus pain. No sore throat. No odynophagia. No congestion.Thrush. RESPIRATORY: No cough, no congestion. No hemoptysis. Shortness of breath. CARDIOVASCULAR: No angina symptoms. No CHF symptoms. No atypical chest pain for CAD. No palpitations. No PND. No orthopnea. GASTROINTESTINAL: No abdominal pain. No nausea or vomiting. No diarrhea or constipation. No hematemesis. No hematochezia. GENITOURINARY: No urgency. No frequency. No dysuria. No hematuria. No obstructive symptoms. No discharge. No pain. No significant abnormal bleeding. MUSCULOSKELETAL: No musculoskeletal pain; no joint swelling. NEUROLOGICAL: No headache. No neck pain. No syncope. No seizures. No dizziness. PSYCHIATRIC: Not anxious. No depression. No suicidal thoughts. No homicidal thoughts. SKIN: No rash. No lesions. No wounds. ENDOCRINE: No unexplained weight loss. No weight gain. HEMATOLOGIC/LYMPHATIC: No anemia. No purpura. No petechiae. No prolonged or excessive bleeding. No palpable lymph nodes. PHYSICAL EXAMINATION: GENERAL: The patient is oriented to person, not place and time. HEENT: Head normocephalic, atraumatic. Eyes: Extraocular muscles are intact. Pupils are equal, round and reactive to light and accommodation. Ears: No lesions. Nose appeared normal. Throat: No exudate or erythema. Redness and scabbing noted to lips and tongue. NECK: Supple. No JVD, no carotid bruit. No lymphadenopathy or thyromegaly. LUNGS: Diminished breath sounds. Clear to auscultation. Percussion note normal. Chest symmetrical. HEART: S1, S2, no S3. No murmurs. No cyanosis or clubbing. No ascites. Pulses: Dorsalis pedis and posterior tibial pulses +1 to +2 bilaterally. ABDOMEN: Soft. Nontender. Bowel sounds active. No CVA tenderness. No mass felt. EXTREMITIES: No edema. Full range of motion of all extremities, equal. NEUROLOGIC: No focal deficit. Cranial nerves II through XII are grossly intact. No headache. No double vision. SKIN: Not dry. Intact. Turgor - normal. LYMPHATIC: No palpable lymph nodes/no lymphedema. MUSCULOSKELETAL: Normal joints with no swelling. Muscle tone is normal. ASSESSMENT: 1. Acute respiratory failure with COVID 19 pneumonia 2. Dehydration 3. Failure to thrive 4. Thrush 5. COVID psychosis PLAN: 1. Restart Diflucan 150mg PO Q every other day 2. Discontinue IV Decadron 3. Prednisone 20mg PO BID 4. Will continue with 2.5 liters. TIME SPENT: More than 30 minutes. Plan and coordination of the patient's care discussed in the presence of nurse. EAN
--- NOTE | 2022-01-29 11:35 | PN ---
DATE OF SERVICE: 01/27/22 SUBJECTIVE: The patient's mental status is about the same. She has periods of lucidity and periods of confusion. Oxygen saturation holding steady on 2.5 liters. She has been eating slightly better. REVIEW OF SYSTEMS: CONSTITUTIONAL: No night sweats. No fatigue, malaise, lethargy. No fever or chills. Confusion. Weakness. HEENT: Eyes: No visual changes. No eye pain. No eye discharge. ENT: No runny nose. No epistaxis. No sinus pain. No sore throat. No odynophagia. No congestion. RESPIRATORY: No cough, no congestion. No hemoptysis. Shortness of breath. CARDIOVASCULAR: No angina symptoms. No CHF symptoms. No atypical chest pain for CAD. No palpitations. No PND. No orthopnea. GASTROINTESTINAL: No abdominal pain. No nausea or vomiting. No diarrhea or constipation. No hematemesis. No hematochezia. Loss of appetite. GENITOURINARY: No urgency. No frequency. No dysuria. No hematuria. No obstructive symptoms. No discharge. No pain. No significant abnormal bleeding. MUSCULOSKELETAL: No musculoskeletal pain; no joint swelling. NEUROLOGICAL: No headache. No neck pain. No syncope. No seizures. No dizziness. PSYCHIATRIC: Not anxious. No depression. No suicidal thoughts. No homicidal thoughts. SKIN: No rash. No lesions. No wounds. ENDOCRINE: No unexplained weight loss. No weight gain. HEMATOLOGIC/LYMPHATIC: No anemia. No purpura. No petechiae. No prolonged or excessive bleeding. No palpable lymph nodes. PHYSICAL EXAMINATION: GENERAL: The patient is alert and oriented to person, not place and time HEENT: Head normocephalic, atraumatic. Eyes: Extraocular muscles are intact. Pupils are equal, round and reactive to light and accommodation. Ears: No lesions. Nose appeared normal. Throat: No exudate or erythema. NECK: Supple. No JVD, no carotid bruit. No lymphadenopathy or thyromegaly. LUNGS: Diminished breath sounds. Clear to auscultation. Percussion note normal. Chest symmetrical. HEART: S1, S2, no S3. No murmurs. No cyanosis or clubbing. No ascites. Pulses: Dorsalis pedis and posterior tibial pulses +1 to +2 bilaterally. ABDOMEN: Soft. Nontender. Bowel sounds active. No CVA tenderness. No mass felt. EXTREMITIES: No edema. Full range of motion of all extremities, equal. NEUROLOGIC: No focal deficit. Cranial nerves II through XII are grossly intact. No headache. No double vision. SKIN: Not dry. Intact. Turgor - normal. LYMPHATIC: No palpable lymph nodes/no lymphedema. MUSCULOSKELETAL: Normal joints with no swelling. Muscle tone is normal. ASSESSMENT: 1. Acute respiratory failure with COVID 19 pneumonia 2. COVID psychosis 3. Dehydration, improved 4. Failure to thrive 5. Loss of appetite 6. Thrush PLAN: 1. We will discontinue IV fluids 2. Will hold the Symbicort inhaler incase it is contributing to her Thrush. Possibly this is also contributing to her refusal to eat. 3. Will follow closely. TIME SPENT: More than 30 minutes. Plan and coordination of the patient's care discussed in the presence of nurse. EAN
[2022-01-29] MEDS: NORVASC PO SCH (20:06)
[2022-01-29] MEDS: ATIVAN PO SCH (20:06)
[2022-01-30] MEDS: VENTOLIN HFA (PER PUFF-WITH SPACER) IH SCH ×3 (04:40→20:00)
[2022-01-30 05:09] LABS: BASOPHILS % (AUTO) 0.1 % (0.0-3.0); EOSINOPHILS % (AUTO) 0.1 % (0.0-7.0); HEMATOCRIT 35.4 % (37.0-47.0); IMMATURE GRANULOCYTE # (AUTO) 0.1 (0.0-1.0); IMMATURE GRANULOCYTE % (AUTO) 0.8 % (0.0-5.0); LYMPHOCYTES # (AUTO) 1.1 K/uL (0.60-3.4); LYMPHOCYTES % (AUTO) 10.4 (10.0-50.0); MEAN CORPUSCULAR HEMOGLOBIN 28.4 pg (27.0-31.0); MEAN CORPUSCULAR HGB CONC 33.9 (31.8-35.4); MEAN CORPUSCULAR VOLUME 83.7 fl (81.0-99.0); MONOCYTES # (AUTO) 0.6 K/uL (0.4-2.0); MONOCYTES % (AUTO) 5.3 (0-10); NEUTROPHILS # (AUTO) 8.8 K/ul (2.0-6.9); NEUTROPHILS % (AUTO) 83.3 % (42.2-75.2); PLATELET COUNT 268 10^3/uL (140-440); RDW COEFFICIENT OF VARIATION 14.8 % (11.6-14.8); RED BLOOD COUNT 4.23 10^6/ul (4.20-5.40)
[2022-01-30 05:19] LABS: ALANINE AMINOTRANSFERASE 15.1 U/L (0-35); ALBUMIN 3.15 g/dL (3.5-5.0); ALKALINE PHOSPHATASE 58.7 U/L (53-141); ASPARTATE AMINO TRANSFERASE 19.2 U/L (14-36); BILIRUBIN,TOTAL 0.68 mg/dL (0.2-1.3); BLOOD UREA NITROGEN 38.5 mg/dL (7-17); CALCIUM 8.44 mg/dL (8.4-10.2); CARBON DIOXIDE 18.3 mmol/L (22-30.0); CHLORIDE 109.8 mmol/L (98-107); CREATININE 1.18 mg/dL (0.60-1.30); GLUCOSE 165.2 mg/dL (74-106); POTASSIUM 3.89 mmol/L (3.5-5.1); SODIUM 134.3 mmol/L (134.5-145); TOTAL PROTEIN 5.8 g/dL (6.3-8.2)
[2022-01-30] MEDS: PEPCID PO SCH ×2 (05:56→17:41)
[2022-01-30] MEDS: NYSTATIN ORAL SUSP PO SCH ×4 (05:56→20:26)
--- NOTE | 2022-01-30 08:17 | PN ---
DATE OF SERVICE: 01/27/22 SUBJECTIVE: The patient was seen and examined with the Nurse Practitioner. The patient's condition is stable. She has respiratory failure which seems to be chronic now. We will do Echo to evaluate LV function in couple of days. No symptoms of CHF. Mental status fluctuates but she is oriented to time, place and person. Appetite is still not up to par. TIME SPENT: More than 30 minutes. Plan and coordination of the patient's care discussed in the presence of nurse. EAN
--- NOTE | 2022-01-30 08:19 | PN ---
DATE OF SERVICE: 01/28/22 SUBJECTIVE: The patient was seen and examined with the Nurse Practitioner. The patient's condition stabilized. Her appetite seems to be improving some. The patient is going to need physical therapy. TIME SPENT: More than 30 minutes. Plan and coordination of the patient's care discussed in the presence of nurse. EAN
[2022-01-30] MEDS: NYSTOP POWDER TP SCH ×3 (09:02→20:19)
[2022-01-30] MEDS: LEXAPRO PO SCH (09:03)
[2022-01-30] MEDS: MEGACE PO SCH (09:03)
[2022-01-30] MEDS: DIFLUCAN PO SCH (09:03)
[2022-01-30] MEDS: COZAAR PO SCH ×2 (09:03→20:19)
[2022-01-30] MEDS: PREDNISONE PO SCH ×2 (09:03→17:41)
[2022-01-30] MEDS: ELIQUIS PO SCH ×2 (09:04→20:19)
[2022-01-30] MEDS: HUMULIN R SUBCUT SCH ×3 (09:09→17:42)
[2022-01-30] MEDS: ATIVAN PO SCH (20:19)
[2022-01-30] MEDS: NORVASC PO SCH (20:19)
[2022-01-31] MEDS: VENTOLIN HFA (PER PUFF-WITH SPACER) IH SCH ×3 (04:45→20:08)
[2022-01-31 05:36] LABS: BASOPHILS % (AUTO) 0.1 % (0.0-3.0); HEMATOCRIT 35.9 % (37.0-47.0); HEMOGLOBIN 12.1 g/dl (12.0-16.0); IMMATURE GRANULOCYTE # (AUTO) 0.1 (0.0-1.0); IMMATURE GRANULOCYTE % (AUTO) 0.9 % (0.0-5.0); LYMPHOCYTES # (AUTO) 0.9 K/uL (0.60-3.4); LYMPHOCYTES % (AUTO) 6.9 (10.0-50.0); MEAN CORPUSCULAR HEMOGLOBIN 28.3 pg (27.0-31.0); MEAN CORPUSCULAR HGB CONC 33.7 (31.8-35.4); MEAN CORPUSCULAR VOLUME 83.9 fl (81.0-99.0); MONOCYTES # (AUTO) 0.4 K/uL (0.4-2.0); MONOCYTES % (AUTO) 2.8 (0-10); NEUTROPHILS # (AUTO) 11.4 K/ul (2.0-6.9); NEUTROPHILS % (AUTO) 89.3 % (42.2-75.2); PLATELET COUNT 283 10^3/uL (140-440); RDW COEFFICIENT OF VARIATION 14.9 % (11.6-14.8); RED BLOOD COUNT 4.28 10^6/ul (4.20-5.40); WHITE BLOOD COUNT 12.72 K/ul (4.6-10.2)
[2022-01-31] MEDS: PEPCID PO SCH ×2 (05:38→16:19)
[2022-01-31] MEDS: NYSTATIN ORAL SUSP PO SCH ×4 (05:38→20:33)
[2022-01-31 06:04] LABS: ALANINE AMINOTRANSFERASE 20.6 U/L (0-35); ALBUMIN 3.22 g/dL (3.5-5.0); ALKALINE PHOSPHATASE 63.7 U/L (53-141); ASPARTATE AMINO TRANSFERASE 21.4 U/L (14-36); BILIRUBIN,TOTAL 0.7 mg/dL (0.2-1.3); BLOOD UREA NITROGEN 48.6 mg/dL (7-17); CALCIUM 8.7 mg/dL (8.4-10.2); CARBON DIOXIDE 17.2 mmol/L (22-30.0); CHLORIDE 110.7 mmol/L (98-107); CREATININE 1.18 mg/dL (0.60-1.30); POTASSIUM 3.97 mmol/L (3.5-5.1); SODIUM 135.6 mmol/L (134.5-145); TOTAL PROTEIN 5.95 g/dL (6.3-8.2)
--- NOTE | 2022-01-31 09:32 | PCM.PROG ---
Attending Provider: ATTENDING PROVIDER: Dr. DESTINEY COPPOLA This patient is seen with Annette Edgar, Nurse Practitioner. DATE OF SERVICE: 01/31/22 SUBJECTIVE: This 86 year old /WHITE F was hospitalized 01/06/22. Still not eating much. BUN continues to slowly increase. Oral cavity seems to be improving. REVIEW OF SYSTEMS: CONSTITUTIONAL: No night sweats. No fatigue, malaise, lethargy. No fever or chills. Weakness. HEENT: Eyes: No visual changes. No eye pain. No eye discharge. ENT: No runny nose. No epistaxis. No sinus pain. No odynophagia. No congestion. RESPIRATORY: No cough, no congestion. No hemoptysis. No shortness of breath. CARDIOVASCULAR: No angina symptoms. No CHF symptoms. No atypical chest pain for CAD. No palpitations. No orthopnea.. GASTROINTESTINAL: No abdominal pain. No nausea or vomiting. No diarrhea or constipation. No hematemesis. No hematochezia. Loss of appetite. GENITOURINARY: No urgency. No frequency. No dysuria. No hematuria. No obstru ctive symptoms. No discharge. No pain. No significant abnormal bleeding. MUSCULOSKELETAL: No musculoskeletal pain; no joint swelling. NEUROLOGICAL: Awake, alert, confusion. No headache. No neck pain. No syncope. No seizures. No dizziness. PSYCHIATRIC: Not anxious. No depression. No suicidal thoughts. No homicidal thoughts. SKIN: No rash. No lesions. No wounds. ENDOCRINE: No unexplained weight loss. No weight gain. HEMATOLOGIC/LYMPHATIC: No anemia. No purpura. No petechiae. No prolonged or exc essive bleeding. No palpable lymph nodes. PHYSICAL EXAMINATION: GENERAL: The patient is awake, alert and oriented to person only, lying in bed in no distress. VITAL SIGNS: Temperature 97.6 F, Pulse 106, Respiratory Rate 20, BP 138/85, Pulse Ox 93% HEENT: Head normocephalic, atraumatic. Eyes: Extraocular muscles are intact. Pupils are equal, round and reactive to light and accommodation. Ears: No lesions. Nose appeared normal. Throat: No exudate or erythema. NECK: Supple. No JVD, no carotid bruit. No lymphadenopathy or thyromegaly. LUNGS: Diminished breath sounds. Clear to auscultation. Percussion note normal. Chest symmetrical. HEART: S1, S2, no S3. No murmurs. No cyanosis or clubbing. No ascites. Pulses: Dorsalis pedis and posterior tibial pulses +1 to +2 both sides. ABDOMEN: Soft. Non-tender. Bowel sounds active. No CVA tenderness. No mass felt. EXTREMITIES: No edema. Full range of motion of all extremities, equal. NEUROLOGIC: No focal deficit. Cranial nerves II through XII are grossly intact. No headache. No double vision. SKIN: Not dry. Intact. Turgor-normal. LYMPHATIC: No palpable lymph nodes/no lymphedema. MUSCULOSKELETAL: Normal joints with no swelling. Muscle tone is normal. LAB REVIEW: 01/31/22 05:29 01/31/22 05:29 01/31/22 05:29: Sodium 135.6, Potassium 3.97, Chloride 110.7 H, Carbon Dioxide 17.2 L, Anion Gap 11.67, BUN 48.6 H, Creatinine 1.18, Estimated GFR (MDRD) 43.00, BUN/Creatinine Ratio 41.18, Glucose 249.0 H, Calcium 8.70, Total Bilirubin 0.70, AST 21.4, ALT 20.6, Alkaline Phosphatase 63.7, Total Protein 5.95 L, Albumin 3.22 L, Globulin 2.73, Albumin/Globulin Ratio 1.17 01/31/22 05:29: WBC 12.72 H, RBC 4.28, Hgb 12.1, Hct 35.9 L, MCV 83.9, MCH 28.3, MCHC 33.7, RDW Coeff of [place] 14.9 H, Plt Count 283, Immature Gran % (Auto) 0.9, Neut % (Auto) 89.3 H, Lymph % (Auto) 6.9 L, [place] % (Auto) 2.8, Eos % (Auto) 0.0, Baso % (Auto) 0.1, Neut # (Auto) 11.4 H, Lymph # (Auto) 0.9, [place] # (Auto) 0.4, Eos # (Auto) 0.0, Baso # (Auto) 0.0, Immature Gran # (Auto) 0.1 ASSESSMENT: Please see below. 1. Failure to thrive 2. COVID psychosis 3. Respiratory failure 4. Sinus tachycardia 5. Renal azotemia PLAN: 1. Coreg 3.125 PO BID 2. Decrease Prednisone 10mg daily 3. At this point the plan is for her to the group home, however we maybe arriv ing at Hospice referral sooner rather than later. We will continue to monitor 4. Add IV fluids Plan and coordination of the patient's care discussed in the presence of Band Bias Machine Operator and nurse. SCRIBED BY: SU FELDMAN Sales And Service Specialist scribed while in presence of service performed by Dr. Coppola/Annette Edgar APRN on 01/31/22 ([id number])
[2022-01-31] MEDS: COZAAR PO SCH ×2 (10:07→20:34)
[2022-01-31] MEDS: PREDNISONE PO SCH ×2 (10:07→10:23)
[2022-01-31] MEDS: ELIQUIS PO SCH ×2 (10:07→20:34)
[2022-01-31] MEDS: MEGACE PO SCH (10:07)
[2022-01-31] MEDS: DIFLUCAN PO SCH (10:08)
[2022-01-31] MEDS: HUMULIN R SUBCUT SCH ×3 (10:08→18:15)
[2022-01-31] MEDS: COREG PO SCH ×2 (10:08→16:19)
[2022-01-31] MEDS: LEXAPRO PO SCH (10:08)
[2022-01-31] MEDS: NYSTOP POWDER TP SCH ×3 (10:13→20:37)
[2022-01-31] MEDS: SODIUM CHLORIDE 1,000 ML IV SCH ×2 (10:16→22:28)
[2022-01-31] MEDS: NORVASC PO SCH (20:33)
[2022-01-31] MEDS: ATIVAN PO SCH (21:14)
[2022-02-01] MEDS: VENTOLIN HFA (PER PUFF-WITH SPACER) IH SCH ×3 (04:56→20:23)
[2022-02-01] MEDS: PEPCID PO SCH ×2 (06:05→17:10)
[2022-02-01] MEDS: NYSTATIN ORAL SUSP PO SCH ×4 (06:05→20:59)
[2022-02-01 06:21] LABS: BASOPHILS % (AUTO) 0.1 % (0.0-3.0); EOSINOPHILS % (AUTO) 0.1 % (0.0-7.0); HEMATOCRIT 36.3 % (37.0-47.0); HEMOGLOBIN 12.2 g/dl (12.0-16.0); IMMATURE GRANULOCYTE # (AUTO) 0.1 (0.0-1.0); IMMATURE GRANULOCYTE % (AUTO) 0.8 % (0.0-5.0); LYMPHOCYTES # (AUTO) 1.7 K/uL (0.60-3.4); LYMPHOCYTES % (AUTO) 13.2 (10.0-50.0); MEAN CORPUSCULAR HEMOGLOBIN 28.8 pg (27.0-31.0); MEAN CORPUSCULAR HGB CONC 33.6 (31.8-35.4); MEAN CORPUSCULAR VOLUME 85.6 fl (81.0-99.0); MONOCYTES # (AUTO) 0.6 K/uL (0.4-2.0); MONOCYTES % (AUTO) 4.5 (0-10); NEUTROPHILS # (AUTO) 10.4 K/ul (2.0-6.9); NEUTROPHILS % (AUTO) 81.3 % (42.2-75.2); PLATELET COUNT 285 10^3/uL (140-440); RED BLOOD COUNT 4.24 10^6/ul (4.20-5.40); WHITE BLOOD COUNT 12.76 K/ul (4.6-10.2)
[2022-02-01 06:34] LABS: ALANINE AMINOTRANSFERASE 16.8 U/L (0-35); ALBUMIN 3.28 g/dL (3.5-5.0); ALKALINE PHOSPHATASE 57.9 U/L (53-141); ASPARTATE AMINO TRANSFERASE 23.7 U/L (14-36); BILIRUBIN,TOTAL 0.84 mg/dL (0.2-1.3); BLOOD UREA NITROGEN 48.4 mg/dL (7-17); CALCIUM 8.65 mg/dL (8.4-10.2); CARBON DIOXIDE 18.2 mmol/L (22-30.0); CHLORIDE 112.2 mmol/L (98-107); CREATININE 1.05 mg/dL (0.60-1.30); GLUCOSE 141.8 mg/dL (74-106); POTASSIUM 3.86 mmol/L (3.5-5.1); SODIUM 137.2 mmol/L (134.5-145); TOTAL PROTEIN 5.92 g/dL (6.3-8.2)
[2022-02-01] MEDS: COZAAR PO SCH ×2 (09:57→20:59)
[2022-02-01] MEDS: MEGACE PO SCH (09:57)
[2022-02-01] MEDS: DIFLUCAN PO SCH (09:57)
[2022-02-01] MEDS: LEXAPRO PO SCH (09:58)
[2022-02-01] MEDS: COREG PO SCH ×2 (09:58→17:10)
[2022-02-01] MEDS: PREDNISONE PO SCH (09:58)
[2022-02-01] MEDS: HUMULIN R SUBCUT SCH ×3 (09:58→17:10)
[2022-02-01] MEDS: NYSTOP POWDER TP SCH ×3 (09:59→20:59)
[2022-02-01] MEDS: ELIQUIS PO SCH ×2 (10:00→20:59)
--- NOTE | 2022-02-01 10:28 | PCM.PROG ---
Attending Provider: ATTENDING PROVIDER: Dr. DESTINEY COPPOLA DATE OF SERVICE: 02/01/22 SUBJECTIVE: This 86 year old /WHITE F was hospitalized 01/06/22 with COVID 19 status with acute renal failure which has completely resolved. Still with mild dehydration status with creatinine 1 and BUN 48. The patient developed COVID pneumonia with respiratory failure which seems to have resolved. Oxygen saturation more than 90% on room air. The patient has improved in last couple days. She is sitting in the chair and oriented to time, place and person. Son visits her on regular basis. Echo showed normal LV contractility and normal LV size. REVIEW OF SYSTEMS: CONSTITUTIONAL: No night sweats. Fatigue. No fever or chills. Weakness. HEENT: Eyes: No visual changes. No eye pain. No eye discharge. ENT: No runny nose. No epistaxis. No sinus pain. No odynophagia. No congestion. RESPIRATORY: No cough, no congestion. No hemoptysis. No shortness of breath. CARDIOVASCULAR: No angina symptoms. No CHF symptoms. No atypical chest pain for CAD. No palpitations. No orthopnea.. GASTROINTESTINAL: No abdominal pain. No nausea or vomiting. No diarrhea or constipation. No hematemesis. No hematochezia. GENITOURINARY: No urgency. No frequency. No dysuria. No hematuria. No obstructive symptoms. No discharge. No pain. No significant abnormal bleeding. MUSCULOSKELETAL: No musculoskeletal pain; no joint swelling. Not able to walk on her one needs some help. NEUROLOGICAL: Awake, alert, oriented to time, place and person. No headache. No neck pain. No syncope. No seizures. No dizziness. PSYCHIATRIC: Not anxious. No depression. No suicidal thoughts. No homicidal thoughts. SKIN: No rash. No lesions. No wounds. ENDOCRINE: No unexplained weight loss. No weight gain. HEMATOLOGIC/LYMPHATIC: No anemia. No purpura. No petechiae. No prolonged or excessive bleeding. No palpable lymph nodes. PHYSICAL EXAMINATION: GENERAL: The patient is awake, alert and oriented, lying in bed in no distress. VITAL SIGNS: Temperature 98.5 F, Pulse 84, Respiratory Rate 16, BP 135/81, Pulse Ox 95% HEENT: Head normocephalic, atraumatic. Eyes: Extraocular muscles are intact. Pupils are equal, round and reactive to light and accommodation. Ears: No lesions. Nose appeared normal. Throat: No exudate or erythema. NECK: Supple. No JVD, no carotid bruit. No lymphadenopathy or thyromegaly. LUNGS: Clear to auscultation. Percussion note normal. Chest symmetrical. HEART: S1, S2, no S3. No murmurs. No cyanosis or clubbing. No ascites. Pulses: Dorsalis pedis and posterior tibial pulses +1 to +2 both sides. ABDOMEN: Soft. Non-tender. Bowel sounds active. No CVA tenderness. No mass felt. EXTREMITIES: No edema. Full range of motion of all extremities, equal. NEUROLOGIC: No focal deficit. Cranial nerves II through XII are grossly intact. No headache, no double vision or headache. SKIN: Warm and dry. Intact. Turgor-normal. LYMPHATIC: No palpable lymph nodes/no lymphedema. MUSCULOSKELETAL: Normal joints with no swelling. Muscle tone is normal. LAB REVIEW: 02/01/22 06:00 02/01/22 06:00 02/01/22 06:00: Sodium 137.2, Potassium 3.86, Chloride 112.2 H, Carbon Dioxide 18.2 L, Anion Gap 10.66, BUN 48.4 H, Creatinine 1.05, Estimated GFR (MDRD) 49.00, BUN/Creatinine Ratio 46.09, Glucose 141.8 H, Calcium 8.65, Total Bilirubin 0.84, AST 23.7, ALT 16.8, Alkaline Phosphatase 57.9, Total Protein 5.92 L, Albumin 3.28 L, Globulin 2.64, Albumin/Globulin Ratio 1.24 02/01/22 06:00: WBC 12.76 H, RBC 4.24, Hgb 12.2, Hct 36.3 L, MCV 85.6, MCH 28.8, MCHC 33.6, RDW Coeff of [place] 15.0 H, Plt Count 285, Immature Gran % (Auto) 0.8, Neut % (Auto) 81.3 H, Lymph % (Auto) 13.2, [place] % (Auto) 4.5, Eos % (Auto) 0.1, Baso % (Auto) 0.1, Neut # (Auto) 10.4 H, Lymph # (Auto) 1.7, [place] # (Auto) 0.6, Eos # (Auto) 0.0, Baso # (Auto) 0.0, Immature Gran # (Auto) 0.1 ASSESSMENT: Please see below. 1. Respiratory failure, resolved 2. Renal failure, resolved PLAN: 1. The patient had no acute myocardial event 2. Right now being trained for her to urinate on her own with bladder training with [place] 3. The patient has mild irritated skin around sacrum area will treat with Lotrisone cream twice a day. 4. Encouraged the patient to eat. 5. Going to be discharge to custodial for PT/OT 6. 2-3 days after hospitalization noted 3-4 second pauses and was monitored for 8-9 days with no pauses noted anymore. Plan and coordination of the patient's care discussed in the presence of Cleaning And Washing Equipment Operator and nurse. CONDITION: Stable. SCRIBED BY: Kvng ROLLE scribed while in presence of service performed by Dr. DESTINEY COPPOLA on 02/01/22 ([id number])
[2022-02-01] MEDS: LOTRISONE 45 GM TP SCH ×2 (10:51→20:59)
--- NOTE | 2022-02-01 10:54 | PN ---
DATE OF SERVICE: 01/30/22 SUBJECTIVE: The patient is doing well. She is on 2 liters of oxygen with 94% saturation. REVIEW OF SYSTEMS: CONSTITUTIONAL: No night sweats. No fatigue, malaise, lethargy. No fever or chills. Weakness. HEENT: Eyes: No visual changes. No eye pain. No eye discharge. ENT: No runny nose. No epistaxis. No sinus pain. No sore throat. No odynophagia. No congestion. RESPIRATORY: No cough, no congestion. No hemoptysis. No shortness of breath. CARDIOVASCULAR: No angina symptoms. No CHF symptoms. No atypical chest pain for CAD. No palpitations. No PND. No orthopnea. GASTROINTESTINAL: No abdominal pain. No nausea or vomiting. No diarrhea or constipation. No hematemesis. No hematochezia. Appetite still not up to par but ate 25% of breakfast. GENITOURINARY: No urgency. No frequency. No dysuria. No hematuria. No obstructive symptoms. No discharge. No pain. No significant abnormal bleeding. MUSCULOSKELETAL: No musculoskeletal pain; no joint swelling. NEUROLOGICAL: No headache. No neck pain. No syncope. No seizures. No dizziness. PSYCHIATRIC: Not anxious. No depression. No suicidal thoughts. No homicidal thoughts. SKIN: No rash. No lesions. No wounds. ENDOCRINE: No unexplained weight loss. No weight gain. HEMATOLOGIC/LYMPHATIC: No anemia. No purpura. No petechiae. No prolonged or excessive bleeding. No palpable lymph nodes. PHYSICAL EXAMINATION: HEENT: Head normocephalic, atraumatic. Eyes: Extraocular muscles are intact. Pupils are equal, round and reactive to light and accommodation. Ears: No lesions. Nose appeared normal. Throat: No exudate or erythema. NECK: Supple. No JVD, no carotid bruit. No lymphadenopathy or thyromegaly. LUNGS:Decreased breath sounds but clear. Clear to auscultation. Percussion note normal. Chest symmetrical. HEART: S1, S2, no S3. No murmurs. No cyanosis or clubbing. No ascites. Pulses: Dorsalis pedis and posterior tibial pulses +1 to +2 bilaterally. ABDOMEN: Soft. Nontender. Bowel sounds active. No CVA tenderness. No mass felt. EXTREMITIES: No edema. Full range of motion of all extremities, equal. NEUROLOGIC: No focal deficit. Cranial nerves II through XII are grossly intact. No headache. No double vision. SKIN: Not dry. Intact. Turgor - normal. LYMPHATIC: No palpable lymph nodes/no lymphedema. MUSCULOSKELETAL: Normal joints with no swelling. Muscle tone is normal. LABS: echo showed normal LV contractility. Kidney functions still little abnormal with mild dehydration. ASSESSMENT: 1. Respiratory status seems to have improved. PLAN: 1. Continue same treatment 2. She will be discharged to the group home. TIME SPENT: More than 30 minutes. Plan and coordination of the patient's care discussed in the presence of nurse. EAN
--- NOTE | 2022-02-01 11:46 | PN ---
DATE OF SERVICE: 01/31/22 SUBJECTIVE: The patient was seen and examined with the Nurse Practitioner. The patient's condition is more or less stable with improvement in her pulmonary status. The patient is to the point where she is not able to have any physical therapy. She is extremely weak with COVID 19. Renal failure resolved but she show dehydration with normal creatinine with BUN which is elevated. TIME SPENT: More than 30 minutes. Plan and coordination of the patient's care discussed in the presence of nurse. EAN
[2022-02-01] MEDS ORDERED: LOTRISONE 45 GM TP SCH (13:00)
--- NOTE | 2022-02-01 14:04 | ECHO2D ---
Date of Exam: 01/30/2022 Ordering Physician: DR. DESTINEY COPPOLA Room #: [id number] Reason for Echo: CORONARY ARTERY DISEASE M-Mode Normal Adult Results LV Dimensions Normal Adult Results AoV Opening excursions >1.6 >1.6 LVEDD-base- 3.5-5.8 4.0 Ao root dimensions 2.0-3.7 3.0 LVESD-base- 3.1-4.6 L. Atrium dimensions 1.9-3.8 4.0 Post. Wall thickness 0.8-1.1 1.1 IV septum (thickness) 0.7-1.2 1.2 Post. Wall excursion 0.72-1.3 NORMAL Septal motion NORMAL Systolic motion R. Ventricular cavity 1.5-2.0 NORMAL LVEF 60% 52% Paradoxical septal wall motion NORMAL 2-D : 2-D M Mode Echocardiogram was performed using apical four chamber and left parasternal long and short axis views. Mitral, tricuspid and aortic valves appear to be normal. Contractility of the left ventricle seems to be normal, so is the cavity size. BORDERLINE LEFT ATRIAL CAVITY ENLARGEMENT. Aortic root appears to be normal. There is no pericardial effusion. There is no thrombus noted in the left ventricle or left atrial cavity. M-MODE: MV: NORMAL AV: NORMAL TV: NORMAL PV: CHAMBER SIZE: NORMAL WALL MOTION: NORMAL PERICARDIUM: NORMAL INTERPRETATION: 1. BORDERLINE LEFT VENTRICLE HYPERTROPHY WITH BORDERLINE LEFT ATRIAL CAVITY ENLARGEMENT 2. NORMAL VALVES 3. NORMAL LEFT VENTRICLE CONTRACTILITY MTDD
[2022-02-01] MEDS: ATIVAN PO SCH (20:58)
[2022-02-01] MEDS: NORVASC PO SCH (20:59)
[2022-02-02] MEDS: VENTOLIN HFA (PER PUFF-WITH SPACER) IH SCH ×3 (04:50→20:05)
[2022-02-02] MEDS: PEPCID PO SCH ×2 (05:47→17:39)
[2022-02-02] MEDS: NYSTATIN ORAL SUSP PO SCH ×4 (05:47→21:04)
[2022-02-02 05:48] LABS: BASOPHILS % (AUTO) 0.1 % (0.0-3.0); EOSINOPHILS % (AUTO) 0.1 % (0.0-7.0); HEMATOCRIT 32.9 % (37.0-47.0); HEMOGLOBIN 11.1 g/dl (12.0-16.0); IMMATURE GRANULOCYTE # (AUTO) 0.1 (0.0-1.0); IMMATURE GRANULOCYTE % (AUTO) 0.9 % (0.0-5.0); LYMPHOCYTES # (AUTO) 1.7 K/uL (0.60-3.4); LYMPHOCYTES % (AUTO) 15.5 (10.0-50.0); MEAN CORPUSCULAR HEMOGLOBIN 28.8 pg (27.0-31.0); MEAN CORPUSCULAR HGB CONC 33.7 (31.8-35.4); MEAN CORPUSCULAR VOLUME 85.5 fl (81.0-99.0); MONOCYTES # (AUTO) 0.5 K/uL (0.4-2.0); MONOCYTES % (AUTO) 4.8 (0-10); NEUTROPHILS # (AUTO) 8.5 K/ul (2.0-6.9); NEUTROPHILS % (AUTO) 78.6 % (42.2-75.2); PLATELET COUNT 267 10^3/uL (140-440); RDW COEFFICIENT OF VARIATION 15.2 % (11.6-14.8); RED BLOOD COUNT 3.85 10^6/ul (4.20-5.40); WHITE BLOOD COUNT 10.79 K/ul (4.6-10.2)
[2022-02-02 06:02] LABS: ALANINE AMINOTRANSFERASE 19.6 U/L (0-35); ALBUMIN 3.02 g/dL (3.5-5.0); ALKALINE PHOSPHATASE 51.5 U/L (53-141); BILIRUBIN,TOTAL 0.84 mg/dL (0.2-1.3); BLOOD UREA NITROGEN 49.7 mg/dL (7-17); CALCIUM 8.5 mg/dL (8.4-10.2); CARBON DIOXIDE 17.6 mmol/L (22-30.0); CHLORIDE 111.7 mmol/L (98-107); GLUCOSE 123.4 mg/dL (74-106); POTASSIUM 4.02 mmol/L (3.5-5.1); SODIUM 135.1 mmol/L (134.5-145); TOTAL PROTEIN 5.57 g/dL (6.3-8.2)
[2022-02-02] MEDS: LOTRISONE 45 GM TP SCH ×2 (09:50→21:12)
[2022-02-02] MEDS: NYSTOP POWDER TP SCH ×3 (09:50→21:13)
[2022-02-02] MEDS: MEGACE PO SCH (09:51)
[2022-02-02] MEDS: COREG PO SCH ×2 (09:51→17:42)
[2022-02-02] MEDS: ELIQUIS PO SCH ×2 (09:51→21:05)
[2022-02-02] MEDS: COZAAR PO SCH ×2 (09:51→21:04)
[2022-02-02] MEDS: DIFLUCAN PO SCH (09:51)
[2022-02-02] MEDS: PREDNISONE PO SCH (09:51)
[2022-02-02] MEDS: LEXAPRO PO SCH (09:51)
[2022-02-02] MEDS: HUMULIN R SUBCUT SCH ×3 (09:52→18:24)
[2022-02-02] MEDS: ATIVAN PO SCH (21:04)
[2022-02-02] MEDS: NORVASC PO SCH (21:04)
[2022-02-02] MEDS: SYMBICORT 160-4.5 MCG INHALER IH SCH (21:14)
[2022-02-03] MEDS: VENTOLIN HFA (PER PUFF-WITH SPACER) IH SCH ×3 (04:30→19:40)
[2022-02-03] MEDS: NYSTATIN ORAL SUSP PO SCH ×4 (06:04→20:59)
[2022-02-03] MEDS: PEPCID PO SCH ×2 (06:04→18:00)
[2022-02-03 07:55] LABS: BASOPHILS % (AUTO) 0.1 % (0.0-3.0); EOSINOPHILS % (AUTO) 0.1 % (0.0-7.0); HEMATOCRIT 32.5 % (37.0-47.0); IMMATURE GRANULOCYTE # (AUTO) 0.1 (0.0-1.0); IMMATURE GRANULOCYTE % (AUTO) 0.9 % (0.0-5.0); LYMPHOCYTES # (AUTO) 1.7 K/uL (0.60-3.4); LYMPHOCYTES % (AUTO) 11.8 (10.0-50.0); MEAN CORPUSCULAR HGB CONC 33.8 (31.8-35.4); MEAN CORPUSCULAR VOLUME 85.8 fl (81.0-99.0); MONOCYTES # (AUTO) 0.8 K/uL (0.4-2.0); MONOCYTES % (AUTO) 5.4 (0-10); NEUTROPHILS # (AUTO) 11.5 K/ul (2.0-6.9); NEUTROPHILS % (AUTO) 81.7 % (42.2-75.2); PLATELET COUNT 249 10^3/uL (140-440); RDW COEFFICIENT OF VARIATION 15.1 % (11.6-14.8); RED BLOOD COUNT 3.79 10^6/ul (4.20-5.40); WHITE BLOOD COUNT 14.01 K/ul (4.6-10.2)
[2022-02-03 08:08] LABS: ALANINE AMINOTRANSFERASE 23.4 U/L (0-35); ALBUMIN 3.14 g/dL (3.5-5.0); ALKALINE PHOSPHATASE 59.2 U/L (53-141); BILIRUBIN,TOTAL 0.92 mg/dL (0.2-1.3); BLOOD UREA NITROGEN 49.2 mg/dL (7-17); CALCIUM 8.63 mg/dL (8.4-10.2); CARBON DIOXIDE 18.8 mmol/L (22-30.0); CHLORIDE 109.3 mmol/L (98-107); CREATININE 1.08 mg/dL (0.60-1.30); GLUCOSE 132.3 mg/dL (74-106); POTASSIUM 3.77 mmol/L (3.5-5.1); SODIUM 133.5 mmol/L (134.5-145); TOTAL PROTEIN 5.74 g/dL (6.3-8.2)
[2022-02-03] MEDS: MEGACE PO SCH (09:54)
[2022-02-03] MEDS: DIFLUCAN PO SCH (09:54)
[2022-02-03] MEDS: ELIQUIS PO SCH ×2 (09:54→21:00)
[2022-02-03] MEDS: PREDNISONE PO SCH (09:55)
[2022-02-03] MEDS: COREG PO SCH ×2 (09:55→18:02)
[2022-02-03] MEDS: COZAAR PO SCH ×2 (09:55→20:59)
[2022-02-03] MEDS: LEXAPRO PO SCH (09:55)
[2022-02-03] MEDS: SYMBICORT 160-4.5 MCG INHALER IH SCH ×2 (09:56→21:00)
[2022-02-03] MEDS: NYSTOP POWDER TP SCH ×3 (09:56→21:00)
[2022-02-03] MEDS: LOTRISONE 45 GM TP SCH ×2 (09:58→20:59)
[2022-02-03] MEDS: HUMULIN R SUBCUT SCH ×3 (10:18→18:00)
[2022-02-03] MEDS: ATIVAN PO SCH (20:59)
[2022-02-03] MEDS: NORVASC PO SCH (20:59)
[2022-02-04] MEDS: VENTOLIN HFA (PER PUFF-WITH SPACER) IH SCH ×3 (04:35→19:55)
[2022-02-04 05:38] LABS: BASOPHILS % (AUTO) 0.1 % (0.0-3.0); EOSINOPHILS % (AUTO) 0.2 % (0.0-7.0); HEMATOCRIT 31.9 % (37.0-47.0); HEMOGLOBIN 10.7 g/dl (12.0-16.0); IMMATURE GRANULOCYTE # (AUTO) 0.1 (0.0-1.0); IMMATURE GRANULOCYTE % (AUTO) 0.8 % (0.0-5.0); LYMPHOCYTES # (AUTO) 1.4 K/uL (0.60-3.4); LYMPHOCYTES % (AUTO) 14.2 (10.0-50.0); MEAN CORPUSCULAR HEMOGLOBIN 28.5 pg (27.0-31.0); MEAN CORPUSCULAR HGB CONC 33.5 (31.8-35.4); MEAN CORPUSCULAR VOLUME 84.8 fl (81.0-99.0); MONOCYTES # (AUTO) 0.5 K/uL (0.4-2.0); MONOCYTES % (AUTO) 5.4 (0-10); NEUTROPHILS # (AUTO) 7.7 K/ul (2.0-6.9); NEUTROPHILS % (AUTO) 79.3 % (42.2-75.2); PLATELET COUNT 237 10^3/uL (140-440); RDW COEFFICIENT OF VARIATION 15.3 % (11.6-14.8); RED BLOOD COUNT 3.76 10^6/ul (4.20-5.40); WHITE BLOOD COUNT 9.75 K/ul (4.6-10.2)
[2022-02-04 05:51] LABS: ALANINE AMINOTRANSFERASE 19.9 U/L (0-35); ALBUMIN 2.9 g/dL (3.5-5.0); ALKALINE PHOSPHATASE 54.2 U/L (53-141); BILIRUBIN,TOTAL 0.69 mg/dL (0.2-1.3); BLOOD UREA NITROGEN 44.5 mg/dL (7-17); CALCIUM 8.55 mg/dL (8.4-10.2); CARBON DIOXIDE 18.3 mmol/L (22-30.0); CREATININE 1.04 mg/dL (0.60-1.30); GLUCOSE 162.1 mg/dL (74-106); POTASSIUM 3.9 mmol/L (3.5-5.1); SODIUM 134.7 mmol/L (134.5-145); TOTAL PROTEIN 5.41 g/dL (6.3-8.2)
[2022-02-04] MEDS: NYSTATIN ORAL SUSP PO SCH ×4 (06:04→20:47)
[2022-02-04] MEDS: PEPCID PO SCH ×2 (06:04→17:56)
[2022-02-04] MEDS: COREG PO SCH ×2 (08:47→17:56)
[2022-02-04] MEDS: PREDNISONE PO SCH (08:47)
[2022-02-04] MEDS: LEXAPRO PO SCH (08:47)
[2022-02-04] MEDS: DIFLUCAN PO SCH (08:47)
[2022-02-04] MEDS: MEGACE PO SCH (08:47)
[2022-02-04] MEDS: COZAAR PO SCH ×2 (08:47→20:47)
[2022-02-04] MEDS: LOTRISONE 45 GM TP SCH ×2 (08:48→20:48)
[2022-02-04] MEDS: NYSTOP POWDER TP SCH ×3 (08:48→20:48)
[2022-02-04] MEDS: HUMULIN R SUBCUT SCH ×3 (08:48→18:13)
[2022-02-04] MEDS: ELIQUIS PO SCH ×2 (08:49→20:47)
[2022-02-04] MEDS: SYMBICORT 160-4.5 MCG INHALER IH SCH ×2 (08:49→20:48)
--- NOTE | 2022-02-04 09:35 | RS.SLPCNOT ---
Speech Case Note Date of Note: 02/04/22 Title: Speech Consult Note: RN reported pt's active thrush and poor oral care condition. MINING CAPTAIN agreed to participate in consult to assist with oral care routine and screen for potential swallow deficits. Oral care routine completed with Student RN. Dried secretions observed on roof of mouth, inside of labials, and lingual surface with minimal extraction of dried skin. No formal swallow evaluation completed. Via interview, pt reported her mouth has been sore while chewing, but it is improving everyday. MINING CAPTAIN presented pt's water cup. Pt tolerate sips of thin H20 via straw without overt s/s of aspiration. MINING CAPTAIN did note that pt was confused intermittently with verbal questioning. MINING CAPTAIN recommends pt have speech orders sent to NH with d/c this date. Thank you for this consult.
--- NOTE | 2022-02-04 09:36 | PCM.PROG ---
Attending Provider: ATTENDING PROVIDER: Dr. DESTINEY COPPOLA This patient is seen with Annette Edgar, Nurse Practitioner. DATE OF SERVICE: 02/04/22 SUBJECTIVE: This 86 year old /WHITE F was hospitalized 01/06/22. Still not eating or drinking. Plans to be discharged to [facility]. Prognosis is poor. REVIEW OF SYSTEMS: CONSTITUTIONAL: No night sweats. No fatigue, malaise, lethargy. No fever or chills. Weakness. HEENT: Eyes: No visual changes. No eye pain. No eye discharge. ENT: No runny nose. No epistaxis. No sinus pain. No odynophagia. No congestion. RESPIRATORY: No cough, no congestion. No hemoptysis. No shortness of breath. CARDIOVASCULAR: No angina symptoms. No CHF symptoms. No atypical chest pain for CAD. No palpitations. No orthopnea.. GASTROINTESTINAL: No abdominal pain. No nausea or vomiting. No diarrhea or constipation. No hematemesis. No hematochezia. Loss of appetite. GENITOURINARY: No urgency. No frequency. No dysuria. No hematuria. No obstructive symptoms. No discharge. No pain. No significant abnormal bleeding. MUSCULOSKELETAL: No musculoskeletal pain; no joint swelling. NEUROLOGICAL: Awake, alert,confusion. No headache. No neck pain. No syncope. No seizures. No dizziness. PSYCHIATRIC: Not anxious. No depression. No suicidal thoughts. No homicidal thoughts. SKIN: No rash. No lesions. No wounds. ENDOCRINE: No unexplained weight loss. No weight gain. HEMATOLOGIC/LYMPHATIC: No anemia. No purpura. No petechiae. No prolonged or excessive bleeding. No palpable lymph nodes. PHYSICAL EXAMINATION: GENERAL: The patient is awake, alert and oriented to person only, lying in bed in no distress. VITAL SIGNS: Temperature 97.0 F, Pulse 90, Respiratory Rate 20, BP 115/69, Pulse Ox 96% HEENT: Head normocephalic, atraumatic. Eyes: Extraocular muscles are intact. Pupils are equal, round and reactive to light and accommodation. Ears: No lesions. Nose appeared normal. Throat: No exudate or erythema. NECK: Supple. No JVD, no carotid bruit. No lymphadenopathy or thyromegaly. LUNGS: Diminished breath sounds. Clear to auscultation. Percussion note normal. Chest symmetrical. HEART: S1, S2, no S3. No murmurs. No cyanosis or clubbing. No ascites. Pulses: Dorsalis pedis and posterior tibial pulses +1 to +2 both sides. ABDOMEN: Soft. Non-tender. Bowel sounds active. No CVA tenderness. No mass felt. EXTREMITIES: No edema. Full range of motion of all extremities, equal. NEUROLOGIC: No focal deficit. Cranial nerves II through XII are grossly intact. No headache. No double vision. SKIN: Not dry. Intact. Turgor-normal. LYMPHATIC: No palpable lymph nodes/no lymphedema. MUSCULOSKELETAL: Normal joints with no swelling. Muscle tone is normal. LAB REVIEW: 02/04/22 05:21 02/04/22 05:21 02/04/22 05:21: Sodium 134.7, Potassium 3.90, Chloride 110.0 H, Carbon Dioxide 18.3 L, Anion Gap 10.30, BUN 44.5 H, Creatinine 1.04, Estimated GFR (MDRD) 50.00, BUN/Creatinine Ratio 42.78, Glucose 162.1 H, Calcium 8.55, Total Bilirubin 0.69, AST 20.0, ALT 19.9, Alkaline Phosphatase 54.2, Total Protein 5.41 L, Albumin 2.90 L, Globulin 2.51, Albumin/Globulin Ratio 1.15 02/04/22 05:21: WBC 9.75, RBC 3.76 L, Hgb 10.7 L, Hct 31.9 L, MCV 84.8, MCH 28.5, MCHC 33.5, RDW Coeff of Gloria 15.3 H, Plt Count 237, Immature Gran % (Auto) 0.8, Neut % (Auto) 79.3 H, Lymph % (Auto) 14.2, [place] % (Auto) 5.4, Eos % (Auto) 0.2, Baso % (Auto) 0.1, Neut # (Auto) 7.7 H, Lymph # (Auto) 1.4, [place] # (Auto) 0.5, Eos # (Auto) 0.0, Baso # (Auto) 0.0, Immature Gran # (Auto) 0.1 02/03/22 07:51: Sodium 133.5 L, Potassium 3.77, Chloride 109.3 H, Carbon Dioxide 18.8 L, Anion Gap 9.17, BUN 49.2 H, Creatinine 1.08, Estimated GFR (MDRD) 48.00, BUN/Creatinine Ratio 45.55, Glucose 132.3 H D, Calcium 8.63, Total Bilirubin 0.92, AST 23.0, ALT 23.4, Alkaline Phosphatase 59.2, Total Protein 5.74 L, Albumin 3.14 L, Globulin 2.60, Albumin/Globulin Ratio 1.20 02/03/22 07:51: WBC 14.01 H, RBC 3.79 L, Hgb 11.0 L, Hct 32.5 L, MCV 85.8, MCH 29.0, MCHC 33.8, RDW Coeff of Gloria 15.1 H, Plt Count 249, Immature Gran % (Auto) 0.9, Neut % (Auto) 81.7 H, Lymph % (Auto) 11.8, [place] % (Auto) 5.4, Eos % (Auto) 0.1, Baso % (Auto) 0.1, Neut # (Auto) 11.5 H, Lymph # (Auto) 1.7, [place] # (Auto) 0.8, Eos # (Auto) 0.0, Baso # (Auto) 0.0, Immature Gran # (Auto) 0.1 ASSESSMENT: Please see below. 1. Acute respiratory failure 2. Dehydration 3. COVID psychosis 4. COVID pneumonia improved 5. Chronic kidney disease III PLAN: 1. Will discuss with son and consult [facility] given medical condition and lack of improvement for past several day feel hospital is appropriate. Continues to not eat or drink. Plan and coordination of the patient's care discussed in the presence of Student Services Director and nurse. SCRIBED BY: SU FELDMAN Chairman President And Chief Executive Officer scribed while in presence of service performed by Dr. Coppola/Annette Edgar APRN on 02/04/22 (0800)
--- NOTE | 2022-02-04 13:54 | PN ---
DATE OF SERVICE: 02/02/22 SUBJECTIVE: 86 year old white female hospitalized with dehydration, COVID 19 status with acute renal failure and later on respiratory failure. The patient's oxygen saturation now on room air is 93-94%. Her pulmonary status has improved. Overall looks like much better and appetite is improving. REVIEW OF SYSTEMS: CONSTITUTIONAL: No night sweats. No fatigue, malaise, lethargy. No fever or chills. HEENT: Eyes: No visual changes. No eye pain. No eye discharge. ENT: No runny nose. No epistaxis. No sinus pain. No sore throat. No odynophagia. No congestion. RESPIRATORY: No cough, no congestion. No hemoptysis. No shortness of breath. CARDIOVASCULAR: No angina symptoms. No CHF symptoms. No atypical chest pain for CAD. No palpitations. No PND. No orthopnea. GASTROINTESTINAL: No abdominal pain. No nausea or vomiting. No diarrhea or constipation. No hematemesis. No hematochezia. Appetite still improving. GENITOURINARY: No urgency. No frequency. No dysuria. No hematuria. No obstructive symptoms. No discharge. No pain. No significant abnormal bleeding. MUSCULOSKELETAL: No musculoskeletal pain; no joint swelling. NEUROLOGICAL: No headache. No neck pain. No syncope. No seizures. No dizziness. PSYCHIATRIC: Not anxious. No depression. No suicidal thoughts. No homicidal thoughts. SKIN: No rash. No lesions. No wounds. ENDOCRINE: No unexplained weight loss. No weight gain. HEMATOLOGIC/LYMPHATIC: No anemia. No purpura. No petechiae. No prolonged or excessive bleeding. No palpable lymph nodes. PHYSICAL EXAMINATION: GENERAL: The patient is oriented to time, place and person. VITAL SIGNS: Temperature 97.3, pulse 80, respiratory rate 16, blood pressure 115/64 and pulse ox 95%. HEENT: Head normocephalic, atraumatic. Eyes: Extraocular muscles are intact. Pupils are equal, round and reactive to light and accommodation. Ears: No lesions. Nose appeared normal. Throat: No exudate or erythema. NECK: Supple. No JVD, no carotid bruit. No lymphadenopathy or thyromegaly. LUNGS: Decreased breath sounds but clear to auscultation. Percussion note normal. Chest symmetrical. HEART: S1, S2, no S3. No murmurs. No cyanosis or clubbing. No ascites. Pulses: Dorsalis pedis and posterior tibial pulses +1 to +2 bilaterally. ABDOMEN: Soft. Nontender. Bowel sounds active. No CVA tenderness. No mass felt. EXTREMITIES: No edema. Full range of motion of all extremities, equal. NEUROLOGIC: No focal deficit. Cranial nerves II through XII are grossly intact. No headache. No double vision. SKIN: Not dry. Intact. Turgor - normal. LYMPHATIC: No palpable lymph nodes/no lymphedema. MUSCULOSKELETAL: Normal joints with no swelling. Muscle tone is normal. LABS: hgb 11.1, hct 32, WBC 10,700 normal differential, creatinine 1, BUN 49, potassium 4. ASSESSMENT: 1. Respiratory failure seems to have resolved 2. Renal failure still has renal azotemia type of picture with creatinine 1, BUN 49. 3. Dementia seems to have resolved 4. Over all medical status has improved. PLAN: 1. Continue to encourage the patient to eat 2. The patient should be helped to be up and about 3. Extremity exercise to be done CONDITION: Improving. TIME SPENT: More than 30 minutes. Plan and coordination of the patient's care discussed in the presence of nurse. EAN
--- NOTE | 2022-02-04 14:16 | PN ---
DATE OF SERVICE: 02/03/22 SUBJECTIVE: 86 year old white female hospitalized with COVID 19 status with acute renal failure developed later one, acute respiratory failure which seems to have resolved. Her mental status has improved. Her appetite is slowly improving. Overall condition has improved. She is on decreasing dose of steroids. She is on sliding scale coverage. Blood sugar is 401 was yesterday. In any case the patient's appetite seems to be improving. REVIEW OF SYSTEMS: CONSTITUTIONAL: No night sweats. No fatigue, malaise, lethargy. No fever or chills. HEENT: Eyes: No visual changes. No eye pain. No eye discharge. ENT: No runny nose. No epistaxis. No sinus pain. No sore throat. No odynophagia. No congestion. RESPIRATORY: No cough, no congestion. No hemoptysis. No shortness of breath. CARDIOVASCULAR: No angina symptoms. No CHF symptoms. No atypical chest pain for CAD. No palpitations. No PND. No orthopnea. GASTROINTESTINAL: No abdominal pain. No nausea or vomiting. No diarrhea or constipation. No hematemesis. No hematochezia. GENITOURINARY: No urgency. No frequency. No dysuria. No hematuria. No obstructive symptoms. No discharge. No pain. No significant abnormal bleeding. MUSCULOSKELETAL: No musculoskeletal pain; no joint swelling. NEUROLOGICAL: No headache. No neck pain. No syncope. No seizures. No dizziness. PSYCHIATRIC: Not anxious. No depression. No suicidal thoughts. No homicidal thoughts. SKIN: No rash. No lesions. No wounds. ENDOCRINE: No unexplained weight loss. No weight gain. HEMATOLOGIC/LYMPHATIC: No anemia. No purpura. No petechiae. No prolonged or excessive bleeding. No palpable lymph nodes. PHYSICAL EXAMINATION: VITAL SIGNS: Temperature 97.6, pulse 78, respiratory rate 16, blood pressure 107/66 and pulse ox 92%. HEENT: Head normocephalic, atraumatic. Eyes: Extraocular muscles are intact. Pupils are equal, round and reactive to light and accommodation. Ears: No lesions. Nose appeared normal. Throat: No exudate or erythema. NECK: Supple. No JVD, no carotid bruit. No lymphadenopathy or thyromegaly. LUNGS: Decreased breath sounds but clear to auscultation. Percussion note normal. Chest symmetrical. HEART: S1, S2, no S3. No murmurs. No cyanosis or clubbing. No ascites. Pulses: Dorsalis pedis and posterior tibial pulses +1 to +2 bilaterally. ABDOMEN: Soft. Nontender. Bowel sounds active. No CVA tenderness. No mass felt. EXTREMITIES: No edema. Full range of motion of all extremities, equal. NEUROLOGIC: No focal deficit. Cranial nerves II through XII are grossly intact. No headache. No double vision. SKIN: Not dry. Intact. Turgor - normal. LYMPHATIC: No palpable lymph nodes/no lymphedema. MUSCULOSKELETAL: Normal joints with no swelling. Muscle tone is normal. LABS: Echo done a few days ago normal LV contractility, normal valves. ASSESSMENT: 1. Respiratory failure, resolved 2. Acute renal failure resolved 3. Still dehydration persists showing up in creatinine and BUN other murphy oral intake seems to be improving. 4. Overall mental status seems to have improved. 5. Sugar is still out of control with steroids and decreasing dose. PLAN: 1. The [facility] as she lives by herself and will be difficult to be taken care of by the son. TIME SPENT: More than 30 minutes. Plan and coordination of the patient's care discussed in the presence of nurse. EAN
[2022-02-04] MEDS: NORVASC PO SCH (20:47)
[2022-02-04] MEDS: ATIVAN PO SCH (20:47)
[2022-02-05] MEDS: VENTOLIN HFA (PER PUFF-WITH SPACER) IH SCH (05:00)
[2022-02-05 05:22] VITALS: BP 93/60; TEMP 97
[2022-02-05 05:32] LABS: BASOPHILS % (AUTO) 0.1 % (0.0-3.0); EOSINOPHILS % (AUTO) 0.2 % (0.0-7.0); HEMATOCRIT 31.1 % (37.0-47.0); HEMOGLOBIN 10.6 g/dl (12.0-16.0); IMMATURE GRANULOCYTE # (AUTO) 0.1 (0.0-1.0); IMMATURE GRANULOCYTE % (AUTO) 0.9 % (0.0-5.0); LYMPHOCYTES # (AUTO) 1.3 K/uL (0.60-3.4); LYMPHOCYTES % (AUTO) 13.5 (10.0-50.0); MEAN CORPUSCULAR HEMOGLOBIN 29.4 pg (27.0-31.0); MEAN CORPUSCULAR HGB CONC 34.1 (31.8-35.4); MEAN CORPUSCULAR VOLUME 86.4 fl (81.0-99.0); MONOCYTES # (AUTO) 0.5 K/uL (0.4-2.0); MONOCYTES % (AUTO) 5.3 (0-10); NEUTROPHILS # (AUTO) 7.9 K/ul (2.0-6.9); PLATELET COUNT 242 10^3/uL (140-440); RDW COEFFICIENT OF VARIATION 15.6 % (11.6-14.8); WHITE BLOOD COUNT 9.84 K/ul (4.6-10.2)
[2022-02-05 05:49] LABS: ALANINE AMINOTRANSFERASE 18.8 U/L (0-35); ALBUMIN 2.82 g/dL (3.5-5.0); ALKALINE PHOSPHATASE 54.6 U/L (53-141); ASPARTATE AMINO TRANSFERASE 21.5 U/L (14-36); BILIRUBIN,TOTAL 0.59 mg/dL (0.2-1.3); BLOOD UREA NITROGEN 47.4 mg/dL (7-17); CALCIUM 8.48 mg/dL (8.4-10.2); CARBON DIOXIDE 19.4 mmol/L (22-30.0); CHLORIDE 110.3 mmol/L (98-107); CREATININE 1.2 mg/dL (0.60-1.30); POTASSIUM 3.89 mmol/L (3.5-5.1); SODIUM 135.4 mmol/L (134.5-145); TOTAL PROTEIN 5.33 g/dL (6.3-8.2)
[2022-02-05] MEDS: PEPCID PO SCH (06:00)
[2022-02-05] MEDS: NYSTATIN ORAL SUSP PO SCH ×2 (06:00→11:47)
[2022-02-05] MEDS: NYSTOP POWDER TP SCH (08:52)
[2022-02-05] MEDS: SYMBICORT 160-4.5 MCG INHALER IH SCH (08:52)
[2022-02-05] MEDS: MEGACE PO SCH (08:52)
[2022-02-05] MEDS: LOTRISONE 45 GM TP SCH (08:52)
[2022-02-05] MEDS: COREG PO SCH (08:52)
[2022-02-05] MEDS: LEXAPRO PO SCH (08:53)
[2022-02-05] MEDS: ELIQUIS PO SCH (08:53)
[2022-02-05] MEDS: COZAAR PO SCH (08:53)
--- NOTE | 2022-02-05 09:14 | PCM.PROG ---
Attending Provider: ATTENDING PROVIDER: Dr. DESTINEY COPPOLA This patient is seen with Annette Edgar, Nurse Practitioner. DATE OF SERVICE: 02/05/22 SUBJECTIVE: This 86 year old /WHITE F was hospitalized 01/06/22. The patient had episode of loss of consciousness yesterday. Code was initiated and about 5 chest compressions were done before regaining consciousness. Long discussion with son regarding code state which is now changed to DNR and Hospice referral which is he is agreeable. We will proceed with plan to discharge to the [facility] with Hospice to begin care there. REVIEW OF SYSTEMS: CONSTITUTIONAL: No night sweats. No fatigue, malaise, lethargy. No fever or chills. Weakness. HEENT: Eyes: No visual changes. No eye pain. No eye discharge. ENT: No runny nose. No epistaxis. No sinus pain. No odynophagia. No congestion. RESPIRATORY: No cough, no congestion. No hemoptysis. Shortness of breath. CARDIOVASCULAR: No angina symptoms. No CHF symptoms. No atypical chest pain for CAD. No palpitations. No orthopnea.. GASTROINTESTINAL: No abdominal pain. No nausea or vomiting. No diarrhea or constipation. No hematemesis. No hematochezia. Loss of appetite. GENITOURINARY: No urgency. No frequency. No dysuria. No hematuria. No obstructive symptoms. No discharge. No pain. No significant abnormal bleeding. MUSCULOSKELETAL: No musculoskeletal pain; no joint swelling. NEUROLOGICAL: Awake, alert, confusion. No headache. No neck pain. No syncope. No seizures. No dizziness. PSYCHIATRIC: Not anxious. No depression. No suicidal thoughts. No homicidal thoughts. SKIN: No rash. No lesions. No wounds. ENDOCRINE: No unexplained weight loss. No weight gain. HEMATOLOGIC/LYMPHATIC: No anemia. No purpura. No petechiae. No prolonged or excessive bleeding. No palpable lymph nodes. PHYSICAL EXAMINATION: GENERAL: The patient is awake, alert and oriented to person only, lying in bed in no distress. VITAL SIGNS: Temperature 97.0 F, Pulse 78, Respiratory Rate 18, BP 93/60, Pulse Ox 98% HEENT: Head normocephalic, atraumatic. Eyes: Extraocular muscles are intact. Pupils are equal, round and reactive to light and accommodation. Ears: No lesions. Nose appeared normal. Throat: No exudate or erythema. NECK: Supple. No JVD, no carotid bruit. No lymphadenopathy or thyromegaly. LUNGS: Diminished breath sounds. Clear to auscultation. Percussion note normal. Chest symmetrical. HEART: S1, S2, no S3. No murmurs. No cyanosis or clubbing. No ascites. Pulses: Dorsalis pedis and posterior tibial pulses +1 to +2 both sides. ABDOMEN: Soft. Non-tender. Bowel sounds active. No CVA tenderness. No mass felt. EXTREMITIES: No edema. Full range of motion of all extremities, equal. NEUROLOGIC: No focal deficit. Cranial nerves II through XII are grossly intact. No headache. No double vision. SKIN: Not dry. Intact. Turgor-normal. LYMPHATIC: No palpable lymph nodes/no lymphedema. MUSCULOSKELETAL: Normal joints with no swelling. Muscle tone is normal. LAB REVIEW: 02/05/22 05:27 02/05/22 05:27 02/05/22 05:27: Sodium 135.4, Potassium 3.89, Chloride 110.3 H, Carbon Dioxide 1 9.4 L, Anion Gap 9.59, BUN 47.4 H, Creatinine 1.20, Estimated GFR (MDRD) 42.00, BUN/Creatinine Ratio 39.50, Glucose 145.0 H, Calcium 8.48, Total Bilirubin 0.59, AST 21.5, ALT 18.8, Alkaline Phosphatase 54.6, Total Protein 5.33 L, Albumin 2.82 L, Globulin 2.51, Albumin/Globulin Ratio 1.12 02/05/22 05:27: WBC 9.84, RBC 3.60 L, Hgb 10.6 L, Hct 31.1 L, MCV 86.4, MCH 29.4, MCHC 34.1, RDW Coeff of Gloria 15.6 H, Plt Count 242, Immature Gran % (Auto) 0.9, Neut % (Auto) 80.0 H, Lymph % (Auto) 13.5, [place] % (Auto) 5.3, Eos % (Auto) 0.2, Baso % (Auto) 0.1, Neut # (Auto) 7.9 H, Lymph # (Auto) 1.3, [place] # (Auto) 0.5, Eos # (Auto) 0.0, Baso # (Auto) 0.0, Immature Gran # (Auto) 0.1 ASSESSMENT: Please see below. 1. Respiratory failure 2. Failure to thrive 3. COVID psychosis 4. Renal azotemia 5. COPD PLAN: 1. Discharge to [facility] 2. [facility] to begin care at [facility]. Plan and coordination of the patient's care discussed in the presence of Middle School Pe Teacher and nurse. PROGNOSIS: POOR SCRIBED BY: SU FELDMAN Parts Sales Counterperson scribed while in presence of service performed by Dr. Coppola/Annette Edgar APRN on 02/05/22 ([id number])
[2022-02-05] MEDS: HUMULIN R SUBCUT SCH ×2 (09:53→11:46)
[2022-02-05] MEDS: PREDNISONE PO SCH (09:54)
[2022-02-05] MEDS: DIFLUCAN PO SCH (09:54)
--- NOTE | 2022-02-07 11:40 | PN ---
DATE OF SERVICE: 02/04/22 SUBJECTIVE: The patient was seen and examined with the Nurse Practitioner. During morning hours she is taking a bath and almost collapsed and became unresponsive for a while but she has regained her consciousness and she is acting normal now. The patient didn't have any chest pain. No PND. No Orthopnea. She likely had postoral hypotension. TIME SPENT: More than 30 minutes. Plan and coordination of the patient's care discussed in the presence of nurse. EAN
--- NOTE | 2022-02-07 12:43 | PN ---
DATE OF SERVICE: 02/05/22 SUBJECTIVE: The patient was seen and examined with the Nurse Practitioner. Her condition is stable. Her respiratory status is more or less stable. She is oriented to time, place and person. Vitals are stable. Renal failure has resolved. Appetite is still not up to par. She is going to be discharged to the [place]. She has been in the hospital for nearly a month with COVID complications. TIME SPENT: More than 30 minutes. Plan and coordination of the patient's care discussed in the presence of nurse. EAN
--- NOTE | 2022-02-07 12:44 | PN ---
01/06/22: Level 5 Rest of them: Intermediate and some are extensive. 02/05/22: D as in discharge MTDD
--- NOTE | 2022-02-25 10:18 | DS ---
DATE OF SERVICE: 02/05/22 FINAL DIAGNOSIS: 1. Acute respiratory failure 2. Failure to the thrive 3. COVID 19 4. COVID pneumonia 5. COVID psychosis 6. Renal azotemia 7. Underlining COPD 8. Chronic anemia 9. Chronic kidney disease stage II DISCHARGE INSTRUCTIONS: Discharge to [facility] today with [facility]. Continue Medications per nursing reconciliation. Speech therapy to evaluate and treat recommended per speech consul performed 02/04/22. Annette Edgar APRN/Dr. Zavala will see patient on prison rounds. Oxygen 2 liters per nasal cannula as needed for comfort. MEDICATIONS AT DISCHARGE: PRAVACHOL 80mg PO BEDTIME ASTELIN 2 spray NS BID PRN NORVASC MG PO BEDTIME TYLENOL 650MG EVERY 4 HOURS NEEDED FOR MILD PAIN/HEADACHE SYMBICORT INHALER 2 PUFFS DAILY CARVEDILOL 3.125MG TWICE DAILY WITH MEALS ELIQUIS 2.5MG TWICE A DAY LEXAPRO 5MG DAILY FAMOTIDINE 20MG TWICE A DAY WITH MEALS GLYCERIN SUPPOSITORY ONCE A DAY NEEDED FOR CONSTIPATION LOPERAMIDE 2MG ORAL AFTER LOOSE STOOL NEEDED LORAZEPAM 0.5MG AT BEDTIME LORAZEPAM 0.5MG TWICE A DAY NEEDED FOR ANXIETY LOSARTAN 50MG TWICE A DAY MEGACE 400MG BY MOUTH DAILY NEW PRESCRIPTIONS: TYLENOL 650MG EVERY 4 HOURS NEEDED FOR MILD PAIN/HEADACHE SYMBICORT INHALER 2 PUFFS DAILY CARVEDILOL 3.125MG TWICE DAILY WITH MEALS ELIQUIS 2.5MG TWICE A DAY LEXAPRO 5MG DAILY FAMOTIDINE 20MG TWICE A DAY WITH MEALS GLYCERIN SUPPOSITORY ONCE A DAY NEEDED FOR CONSTIPATION LOPERAMIDE 2MG ORAL AFTER LOOSE STOOL NEEDED LORAZEPAM 0.5MG AT BEDTIME LORAZEPAM 0.5MG TWICE A DAY NEEDED FOR ANXIETY LOSARTAN 50MG TWICE A DAY MEGACE 400MG BY MOUTH DAILY DISCONTINUED MEDICATIONS: STOP TAKING DIFLUCAN STOP TAKING PREDNISONE STOP TAKING ASPIRIN STOP TAKING BISOPROLOL STOP TAKING CETIRIZINE STOP TAKING PLAVIX STOP TAKING LORAZEPAM 0.5 BID SCHEDULED (THIS DOSING HAS BEEN CHANGED) STOP TAKING MAGNESIUM CITRATE STOP TAKING METFORMIN STOP TAKING TRIMETHOPRIM STOP TAKING PRILOSEC STOP TAKING OMEGA 3 FISH OIL STOP TAKING BENICAR STOP TAKING TYLENOL 1000MG Q12H (THIS DOSING HAS BEEN CHANGED) DIET INSTRUCTIONS: Regular diet, thin liquids. ACTIVITY: As tolerated, fall risk precautions, bleeding precautions. HOSPITAL COURSE: This is an 86 year old white female who was admitted on 01/06/22 after being brought to the emergency room via the ambulance. Her family stated that she had been not quite herself for the past couple of days. She ended up testing positive for COVID. She had not been eating for a couple of days. Initially her BUN was 47 with creatinine of 4.54 which is significantly above her baseline. ABG on room air showed a saturation of 99%. She had a temperature of 100.4 again she was COVID positive. She was admitted to our COVID unit and placed on normal saline IV at 100cc an hour. She was started on IV Rocephin along with IV Zithromax 500mg daily for 3 days. She was started on IV Decadron 6mg daily. Initial chest x-ray showed bibasilar atelectasis and or consolidation. Initially she was not in any respiratory distress. We did start her on all COVID protocols, Symbicort. She was confused all be it likely due to dehydration. Over the course of the next several days with slow IV fluids her kidney function slowly improved. However her respiratory status began to decline. She was initially on a nasal canula up to about 7 liters. We were unable to get her oxygen greater than 90% then transitioned to a Vapotherm for which she stayed on for several days. After about 10 years we were finally able to wean from the Vapotherm. She was changed from Rocephin to Levaquin and Vancomycin IV due to the pneumonia and worsened respiratory status. She had a loss of appetite when she was first admitted. This never improved. After a few days started her on Megace this seemed to not make any difference. She was also receiving IV steroids which did not increase her appetite. Her cognitive status continually began to decline. Prior to this COVID infection she was living at home by herself, she was no longer driving but she was able to fix her meals and care for herself and during the course of her hospital stay she became increasingly confused. She refused to eat, she did develop thrush. She was placed on Nystatin orally along with Diflucan IV. The thrush resolved and she still refused to eat. We eventually stopped IV fluids. However, her kidney function began to increase again so we had to restart those. The pneumonia stabilized however she was eventually weaned down to to 2 liters via nasal canula and oxygen saturation 92- 93%. We did a CT of her brain which showed no acute process. No evidence of stroke. The day prior to her discharge she was sitting in the shower chair with nursing staff attempting to bath her for which she became unconscious at this point she was just a do not intubate. She was lowered to the floor and compressions were initiated and then she did come to after about 5 compressions. 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 She is still requiring oxygen. She still refusing to eat. She is pleasantly confused. He agreed to change to DNR. We also discussed the fact that there is little room for improvement and he decided to go with Hospice. It is clear that she is unable to go home at this time. The plan was for her to go to the prison and Hospice will followup with her there. She will continue on her oxygen. She has completed IV antibiotics and medications will continue as they are. We will follow her at the prison. She is discharged in guarded condition. TIME SPENT: More than 60 minutes. EAN
== END 2022-02-05 11:59 | disposition hospice, inpatient (51) | DRG 177 ==
LOC: ED 11:55 → SCU 13:28 → MEDSURG A 01-14 10:35
PROVIDERS: ADMIT Internal Medicine; ATTEND Internal Medicine
DX: E86.0 Dehydration; Z79.01 Long term (current) use of anticoagulants; Z51.81 Encounter for therapeutic drug level monitoring; E78.5 Hyperlipidemia, unspecified; B34.9 Viral infection, unspecified; M54.50 Low back pain, unspecified; J12.82 Pneumonia due to coronavirus disease 2019; N17.9 Acute kidney failure, unspecified; U07.1 COVID-19; E11.9 Type 2 diabetes mellitus without complications; R06.02 Shortness of breath; J45.909 Unspecified asthma, uncomplicated; J44.9 Chronic obstructive pulmonary disease, unspecified; I25.10 Atherosclerotic heart disease of native coronary artery without angina pectoris; F29 Unspecified psychosis not due to a substance or known physiological condition; N18.2 Chronic kidney disease, stage 2 (mild); R63.0 Anorexia; Z79.899 Other long term (current) drug therapy; D64.9 Anemia, unspecified